=== PATIENT | female | born 1950 | race Caucasian/White ===

== ENCOUNTER 2016-09-12 12:11 | Inpatient (IN) | payer OTHER, BC ==
[~2016-09-12] VITALS: Ht 152.4 cm; Wt 63.6 kg
[~2016-09-12 12:11] MED LIST: ALBU0.5N2 NEB; ALBU1AER9 INH; ANSHCS PR; EPP3/2 IM; LORA-741 PO; NRV/5 PO; PENT100C6 PO; PRT/40 PO; ROSU5TAB PO; SIME80CH PO; TPRSR/25 PO; TRAM-453 PO
[2016-09-12] MEDS ORDERED: SODIUM CHLORIDE 0.9% 1000ML 1,000 ML IV STA (12:25)
[2016-09-12] MEDS ORDERED: SODIUM CHLORIDE 0.9% 1000ML 1,000 ML IV ONE (12:25)
[2016-09-12] MEDS ORDERED: ACETAMINOPHEN 325 MG TAB PO STA (12:25)
[2016-09-12] MEDS ORDERED: IPRATROPIUM BROMIDE NEB SOLN 0.02% 2.5 ML VIAL INH ONE (12:30)
[2016-09-12] MEDS ORDERED: LEVALBUTEROL 1.25MG/0.5ML NEB INH ONE (12:30)
--- NOTE | 2016-09-12 12:32 | EMERGENCY ROOM VISIT NOTE ---
History Report prepared by Sebastian: Marcy Pichardo Under the Supervision of: Dr. Jose Lee M.D. First contact with patient: 12:19 Chief Complaint: COUGH Stated Complaint: COUGH, BLOOD IN SPITTLE,HEADACHE History of Present Illness The patient is a 66 year old female who presents to the Emergency Room with complaints of a persistent productive cough that started one week ago. The patient is also experiencing fevers and chills. They are able to relieve the fever with ibuprofen and her last dose of that was last night. Additionally, she is experiencing a severe headache, shortness of breath, nausea, vomiting, and generalized body aches. She denies ear pain and diarrhea. She has tried to relieve her symptoms with albuterol treatments, Symbicort, and Cheratussin but they have offered her minimal relief. She denies any recent Prednisone use. The patient saw her PCP 2 days ago and they prescribed her the Cheratussin. The patient's states that the patient also experiences right-sided chest pain whenever she coughs. He states that she had cancer three years ago and they removed half of her right lung. The patient's cancer is in remission now. The patient adds that she has a history of a heart murmur. Her states that she had a heart echocardiogram done three months ago that was unremarkable. Source of History: patient, spouse/significant other () Onset: one week ago Position: chest Quality: other (productive cough) Timing: other (persistent) Associated Symptoms: + SOB, + chills, + fevers, + headache, + nausea, + vomiting, No diarrhea Note: generalized body aches, no ear pain Review of Systems See HPI for pertinent positives & negatives. A total of 10 systems reviewed and were otherwise negative. Past Medical & Surgical Medical Problems: (1) Asthma, Unspecified (2) Cataract, right eye (3) Chr Interstit Cystitis (4) Fever (5) HTN (hypertension) (6) Lung cancer (7) Mitral regurgitation (8) Pancreatitis (9) Productive cough Surgical Problems: (1) S/P arthroscopy of left knee (2) S/P arthroscopy of right knee (3) S/P partial lobectomy of lung (4) S/P tonsillectomy and adenoidectomy Old medical records were reviewed. Nurse's notes were reviewed and I agree with. Family History FH: gallbladder disease FH: heart disease FATHER MOTHER FHx: Crohn's disease FHx: aneurysm Hypertension Social History Smoking Status: Never Smoker Alcohol Use: none Drug Use: none Marital Status: Housing Status: lives with family Occupation Status: other Current/Historical Medications Scheduled Albuterol 0.5% Soln (Ventolin 0.5% Soln), 1 VIAL NEB 1-2XD Amlodipine Besylate (Amlodipine Besylate), 5 MG PO DAILY Budesonide/Formoterol Fumarate (Symbicort 160/4.5 Inhaler ), 2 PUFFS INH BID Cetirizine (Zyrtec), 10 MG PO DAILY Epinephrine (Epipen), 0.3 MG IM UD Fluoxetine (Prozac), 20 MG PO QAM Fluoxetine (Prozac), 10 MG PO QPM Guaifenesin (Guaifenesin), 5 ML PO DIRECTED Levothyroxine Sodium (Synthroid), 112 MCG PO QAM Lisinopril (Prinivil), 30 MG PO DAILY Metoprolol Succinate (Metoprolol Succinate ER), 12.5 MG PO BID Ofloxacin (Oph) (Ocuflox Oph Soln), 1 DROPS OPR DIRECTED Pentosan Polysulfate Sodium (Elmiron), 100 MG PO TID Prednisolone Acetate (Ophth) (Prednisolone Acetate), 1 DROP OP DIRECTED Rosuvastatin Calcium (Crestor), 10 MG PO HS Allergies Coded Allergies: Oxycodone (Verified Allergy, Intermediate, HIVES, 09/12/16) Propoxyphene (Verified Allergy, Intermediate, ITCHING AND A RASH, 09/12/16) Replaces DARVOCET-N 10 Cephalosporins (Verified Allergy, Mild, 09/12/16) Methenamine (Verified Allergy, Mild, 09/12/16) Simvastatin (Verified Allergy, Mild, 09/12/16) Sulfa Drugs (Verified Allergy, Mild, 09/12/16) Sulfamethoxazole (Verified Allergy, Mild, 09/12/16) Trimethoprim (Verified Allergy, Mild, 09/12/16) Fish (Verified Allergy, Unknown, HIVES/SWELLING, 09/12/16) INDICATED SHE HAD A REACTION TO CERTAIN SEAFOOD LAST TUESDAY AND TODAY. Hydrocodone (Verified Adverse Reaction, Mild, ITCHING, 09/12/16) Prednisone (Verified Adverse Reaction, Mild, ITCHING, 09/12/16) ITCHING HOWEVER BENEFITS OUT WEIGH THE SIDE EFFECTS Uncoded Allergies: SODIUMBIPHOSPHA (Allergy, Mild, 10/10/09) Physical Exam Vital Signs Date Time Temp Pulse Resp B/P Pulse Ox O2 Delivery O2 Flow Rate FiO2 09/12/16 18:42 84 18 130/78 94 09/12/16 17:40 114/73 09/12/16 17:37 89 27 98 09/12/16 17:28 119/69 09/12/16 17:07 89 33 99 09/12/16 16:58 120/63 09/12/16 16:37 95 24 94 09/12/16 16:32 37.7 107/52 09/12/16 16:11 92 23 91 09/12/16 15:58 105/60 09/12/16 15:41 95 22 92 09/12/16 15:28 107/59 09/12/16 15:11 95 23 93 09/12/16 14:58 109/59 09/12/16 14:41 109 22 94 09/12/16 14:37 39.5 107 23 119/66 93 Nasal Cannula 3.0 09/12/16 14:35 119/66 09/12/16 14:11 113 25 93 09/12/16 13:41 119 29 94 09/12/16 13:29 92 Room Air 09/12/16 13:28 128/70 09/12/16 13:24 120 09/12/16 13:21 119/65 09/12/16 12:48 Room Air 09/12/16 12:41 104 18 92 Room Air 09/12/16 12:12 39.0 110 22 134/74 88 Room Air Physical Exam General: Well developed well nourished moderately ill-appearing older female with an occasional cough but otherwise in no acute distress, breathing comfortably on room air. Normal speech HEENT: Normal cephalic atraumatic. Pupils are equal round and reactive to light. Extraocular movements are intact. Oropharynx is pink with moist mucous membranes. No swelling of the mouth lips or tongue. Neck: Supple with a midline trachea. No meningeal signs or stiffness, no JVD or bruits. No Stridor. No Kernig or Brudzinski sign. Chest: Clear to auscultation bilaterally. No wheezes or rhonchi. No increased work of breathing. Heart: regular rate and rhythm. Abdomen: Soft nontender, nondistended without rebound guarding or rigidity. Extremities: No cyanosis clubbing or edema. No calf tenderness or assymetry Spine/Back. Non tender to palpation. No CVA tenderness Skin: Good turgor without rashes. Neurologic exam: Cranial nerves two through 12 are intact. Motor and sensation are intact and symmetrical throughout. Medical Decision & Procedures ER Provider Diagnostic Interpretation: X-ray results as stated below per interpretation by me and the radiologist: CHEST ONE VIEW PORTABLE IMPRESSION: No acute process. Stable postoperative changes within the right lung and mild bibasilar subsegmental atelectasis. Electronically signed by: Eugene Ivan M.D. 09/12/2016 1:14 PM Dictated Date/Time: 09/12/2016 1:12 PM Laboratory Results 09/12/16 14:00 Red Blood Count 4.00, Mean Corpuscular Volume 86.8, Mean Corpuscular Hemoglobin 29.0, Mean Corpuscular Hemoglobin Concent 33.4, Mean Platelet Volume 9.5, Neutrophils (%) (Auto) 74.8, Lymphocytes (%) (Auto) 13.8, Monocytes (%) (Auto) 11.1, Eosinophils (%) (Auto) 0.0, Basophils (%) (Auto) 0.1, Neutrophils # (Auto ) 7.98, Lymphocytes # (Auto) 1.47, Monocytes # (Auto) 1.18, Eosinophils # (Auto ) 0.00, Basophils # (Auto) 0.01 09/12/16 14:00 Test 09/12/16 12:50 09/12/16 14:00 09/12/16 14:07 09/12/16 16:25 Influenza Type A Antigen Neg for Influ A (NEG) Influenza Type B Antigen Neg for Influ B (NEG) White Blood Count 10.66 K/uL (4.8-10.8) Red Blood Count 4.00 M/uL (4.2-5.4) Hemoglobin 11.6 g/dL (12.0-16.0) Hematocrit 34.7 % (37-47) Mean Corpuscular Volume 86.8 fL (80-100) Mean Corpuscular Hemoglobin 29.0 pg (25-34) Mean Corpuscular Hemoglobin Concent 33.4 g/dl (32-36) Platelet Count 253 K/uL (130-400) Mean Platelet Volume 9.5 fL (7.4-10.4) Neutrophils (%) (Auto) 74.8 % Lymphocytes (%) (Auto) 13.8 % Monocytes (%) (Auto) 11.1 % Eosinophils (%) (Auto) 0.0 % Basophils (%) (Auto) 0.1 % Neutrophils # (Auto) 7.98 K/uL (1.4-6.5) Lymphocytes # (Auto) 1.47 K/uL (1.2-3.4) Monocytes # (Auto) 1.18 K/uL (0.11-0.59) Eosinophils # (Auto) 0.00 K/uL (0-0.5) Basophils # (Auto) 0.01 K/uL (0-0.2) RDW Standard Deviation 42.3 fL (36.4-46.3) RDW Coefficient of Variation 13.2 % (11.5-14.5) Immature Granulocyte % (Auto) 0.2 % Immature Granulocyte # (Auto) 0.02 K/uL (0.00-0.02) Prothrombin Time 12.5 SECONDS (9.0-12.0) Prothromb Time International Ratio 1.2 (0.9-1.1) Activated Partial Thromboplast Time 31.4 SECONDS (21.0-31.0) Partial Thromboplastin Ratio 1.2 Anion Gap 12.0 mmol/L (3-11) Estimated GFR () 100.9 Estimated GFR (Non- 87.0 BUN/Creatinine Ratio 15.0 (10-20) Calcium Level 7.9 mg/dl (8.5-10.1) Total Bilirubin 0.8 mg/dl (0.2-1) Aspartate Amino Transf (AST/SGOT) 16 U/L (15-37) Alanine Aminotransferase (ALT/SGPT) 18 U/L (12-78) Alkaline Phosphatase 85 U/L (45-117) Total Protein 7.2 gm/dl (6.4-8.2) Albumin 3.1 gm/dl (3.4-5.0) Globulin 4.1 gm/dl (2.5-4.0) Albumin/Globulin Ratio 0.8 (0.9-2) Procalcitonin 4.31 ng/mL (0-0.5) Bedside Lactic Acid Venous 1.32 mmol/L (0.90-1.70) Urine Color ORANGE Urine Appearance CLEAR (CLEAR) Urine pH 5.0 (4.5-7.5) Urine Specific [place] 1.010 (1.000-1.030) Urine Protein TRACE (NEG) Urine Glucose (UA) NEG (NEG) Urine Ketones NEG (NEG) Urine Occult Blood TRACE (NEG) Urine Nitrite NEG (NEG) Urine Bilirubin NEG (NEG) Urine Urobilinogen NEG (NEG) Urine Leukocyte Esterase NEG (NEG) Urine WBC (Auto) 1-5 /hpf (0-5) Urine RBC (Auto) 0-4 /hpf (0-4) Urine Hyaline Casts (Auto) 1-5 /lpf (0-5) Urine Epithelial Cells (Auto) 20-30 /lpf (0-5) Urine Bacteria (Auto) NEG (NEG) Laboratory studies as stated above per my review. Medications Administered Medications (Trade) Dose Ordered Sig/Héctor Route Start Time Stop Time Status Last Admin Dose Admin Sodium Chloride (Nss 1000ml) 1,000 ml @ 999 mls/hr Q1H1M STAT IV 09/12/16 12:25 09/12/16 13:25 DC 09/12/16 13:05 999 MLS/HR Levalbuterol (Xopenex 1.25MG/ 0.5ML Neb) 5 mg ONE ONCE INH 09/12/16 12:30 09/12/16 12:31 DC 09/12/16 12:41 5 MG Ipratropium [place] (Atrovent 0.02% 0.5MG/2.5ML Neb) 2 mg ONE ONCE INH 09/12/16 12:30 09/12/16 12:31 DC 09/12/16 12:41 2 MG Acetaminophen (Tylenol Tab) 650 mg NOW STAT PO 09/12/16 12:25 09/12/16 12:30 DC 09/12/16 13:44 650 MG Levofloxacin (Levaquin / D5W) 750 mg NOW STAT IV 09/12/16 15:01 09/12/16 15:04 DC 09/12/16 16:13 750 MG Potassium Chloride (Klor-Con Tab) 40 meq 1630 PO 09/12/16 16:30 1/8/17 23:59 09/12/16 17:22 40 MEQ Tramadol HCl (Ultram Tab) 50 mg STK-MED ONCE .ROUTE 09/12/16 18:25 09/12/16 18:26 DC 09/12/16 18:30 50 MG ECG Indication: SOB/dyspnea Rate (beats per minute): 105 Rhythm: sinus tachycardia Findings: nonspecific-ST abn, no acute ischemic change, no ectopy Comparison ECG Date: 03/24/2016 Change: no significant change ED Course 1219: Past medical records reviewed. The patient was evaluated in room B2, and a complete history and physical examination were performed. 1225: Ordered Tylenol Tab 650 mg PO, Sodium Chloride 1000 ml @ 200 mls/hr IV, Sodium Chloride 1000 ml @ 999 mls/hr IV 1230: Ordered Ipratropium [place] 2 mg INH, Levalbuterol 5 mg INH 1245: I reassessed the patient. She is currently receiving a nebulizer treatment. 1339: I reassessed the patient. She just finished her breathing treatment and she states that she is not feeling any better. 1458: Upon reevaluation, the patient is resting comfortably. I discussed the results and treatment plan with the patient. She verbalized agreement of the treatment plan. The patient will be evaluated for further management. 1501: Ordered Levofloxacin 750 mg IV 1617: I discussed the patient's case with Dr. Ivan Ferrer. She is going to evaluate the patient for further management. Medical Decision Differentials include, but are not limited to; pneumonia, influenza, sepsis, asthma exacerbation, acute coronary syndrome, meningitis, electrolyte or metabolic abnormality. This patient comes in as described above. She was placed in room B2. She's been sick for about a week. She's had a cough fever and body aches as well as a headache. She has flulike symptoms. She saw her doctor Lit was given cough medicine. She has a temperature of 39 today. She has a history of asthma. She's not hypoxemic. She's also had some concerns for hydration. IV access was established and she was hydrated with 1 L IV normal saline bolus and 200 mL an hour IV normal saline. Multiple blood testing was obtained she was given acetaminophen 650 mg by mouth. She was given Xopenex and Atrovent nebs over one hour. Chest x-ray and EKG were also obtained. She was reassessed frequently. Influenza swab was obtained. Influenza swab was negative. Her white count and lactic acid or not significantly elevated. She has no significant electrode or metabolic abnormalities. Chest x-ray does not show congestive heart failure, pneumonia, or pneumothorax. She does not feel much better although vital signs look better idea her Levaquin 750 mg IV. Think she needs to be admitted for asthma exacerbation and rule out sepsis although influenza swab was negative, she could still have the flu. Given her comorbidities, I do think she needs IV hydration and further treatment and evaluation in the hospital. I have consulted [facility] team and they saw an ER Consults Time Called: 1501 Consulting Physician: Dr. Ivan Ferrer Returned Call: [phone] I discussed the patient's case with Dr. Ivan Ferrer. She is going to evaluate the patient for further management. Impression Primary Impression: Sepsis Additional Impressions: Asthma exacerbation, Influenza-like illness Scribe Attestation The scribe's documentation has been prepared under my direction and personally reviewed by me in its entirety. I confirm that the note above accurately reflects all work, treatment, procedures, and medical decision making performed by me. Departure Information Dispostion Being Evaluated By Hospitalist Patient Instructions A Signature Page, [facility]
[2016-09-12] MEDS ORDERED: RBTUDL10 PO (12:35)
[2016-09-12] MEDS ORDERED: PRED1SUS17 OP (12:35)
[2016-09-12] MEDS ORDERED: OFLO0.3S4 OPR (12:35)
[2016-09-12 12:41] VITALS: PULSE 104; O2SAT 92
--- NOTE | 2016-09-12 13:16 | DIAGNOSTIC IMAGING REPORT ---
CHEST ONE VIEW PORTABLE HISTORY: Sepsis COMPARISON: Chest 04/01/2016. FINDINGS: Stable volume loss and postoperative changes within the right lung. The heart remains borderline enlarged. No pleural effusions. No pneumothorax. No new focal lung consolidations to suggest pneumonia. No evidence for pulmonary edema. A few bibasilar linear densities favor subsegmental atelectasis. IMPRESSION: No acute process. Stable postoperative changes within the right lung and mild bibasilar subsegmental atelectasis. Electronically signed by: Eugene Ivan M.D. 09/12/2016 1:14 PM Dictated Date/Time: 09/12/2016 1:12 PM
[2016-09-12 14:34] LABS: BASO % 0.1 %; BASO ABS # 0.01 K/uL (0-0.2); COMPLETE YES; HEMATOCRIT 34.7 % (37-47); IG% 0.2 %; LYMPH % 13.8 %; LYMPH ABS # 1.47 K/uL (1.2-3.4); MEAN CELL VOLUME 86.8 fL (80-100); MEAN CORPUSCULAR HGB CONC 33.4 g/dl (32-36); MEAN PLATELET VOLUME 9.5 fL (7.4-10.4); MONO % 11.1 %; NEUT % 74.8 %; PLATELET COUNT 253 K/uL (130-400); WHITE BLOOD COUNT 10.66 K/uL (4.8-10.8)
[2016-09-12 14:41] LABS: ALT/SGPT 18 U/L (12-78); AST/SGOT 16 U/L (15-37); BLOOD UREA NITROGEN 11 mg/dl (7-18); CALCIUM 7.9 mg/dl (8.5-10.1); CARBON DIOXIDE 25 mmol/L (21-32); CHLORIDE 100 mmol/L (98-107); CREATININE 0.73 mg/dl (0.60-1.20); GLUCOSE 123 mg/dl (70-99); SODIUM 137 mmol/L (136-145)
[2016-09-12 14:42] LABS: INR 1.2 (0.9-1.1); PARTIAL THROMBOPLASTIN RATIO 1.2; PROTHROMBIN TIME (PATIENT) 12.5 SECONDS (9.0-12.0)
[2016-09-12 14:44] LABS: ALB/GLOB RATIO 0.8 (0.9-2); ALKALINE PHOSPHATASE 85 U/L (45-117)
[2016-09-12] MEDS ORDERED: LEVAQUIN 750MG / 150ML D5W IV STA (15:01)
[2016-09-12] MEDS ORDERED: POTASSIUM CHLORIDE 20 MEQ TABCR PO SCH (16:30)
[2016-09-12] MEDS ORDERED: ONDANSETRON INJ 2 MG/ML 2 ML VIAL IV PRN (16:45)
[2016-09-12 17:07] LABS: URINE APPEARANCE CLEAR (CLEAR); URINE BILIRUBIN NEG (NEG); URINE COLOR ORANGE; URINE EPITHELIAL CELL AUTO 20-30 /lpf (0-5); URINE NITRITE NEG (NEG); UROBILINOGEN NEG (NEG); ZZUR CULT IF INDIC CLEAN CATCH NO
[2016-09-12 17:10] LABS: MANUAL MICROSCOPIC REQUIRED? NO; REVIEW REQ? NO
[2016-09-12] MEDS ORDERED: POTASSIUM CHLORIDE 10 MEQ TABCR ONE (17:17)
--- NOTE | 2016-09-12 18:16 | History and Physical ---
History & Physical Date & Time of Service: Sep 12, 2016 at 17:37 Chief Complaint: Fever associated with cough Primary Care Physician: No Doctor, Assigned History of Present Illness Source: patient, spouse, clinic records, hospital records 66 yo with PMH of hypothyroidism, dyslipidemia, moderate persistent Asthma, carcinoid lung tumor was brought to the ED for yellowish productive cough associated with fever and chills. Pt said symptoms started about 1 week ago. She said that she has been coughing alot. She said that she went to see her physician on Tuesday that prescribed her a cheratussin for the cough. She said that she has been taking the cough med and doing albuterol treatment with no help. Pt said that the cough got worst and whenever she cough there is a trace of blood on the sputum. Pt said that she is also having chest wall tenderness around the right side that radiates to her back when she coughs. she has been having chills and fever. She said that she took ibuprofen that relieved the fever. She has not been eating much. Additionally, she is also having headache, shortness of breath, nausea, dry heave and generalized body aches. Denies any diarrhea, palpitation and abdominal pain. Denies any recent travel or sick contact. Past Medical/Surgical History Medical Problems: (1) Asthma, Unspecified Status: Chronic (2) Cataract, right eye Status: Resolved (3) Chr Interstit Cystitis Status: Chronic (4) HTN (hypertension) Status: Chronic (5) Lung cancer Status: Chronic (6) Mitral regurgitation Status: Chronic (7) Pancreatitis Status: Resolved Surgical Problems: (1) S/P arthroscopy of left knee Status: Resolved (2) S/P arthroscopy of right knee Status: Resolved (3) S/P partial lobectomy of lung Status: Resolved (4) S/P tonsillectomy and adenoidectomy Status: Resolved Family History FH: gallbladder disease FH: heart disease FATHER MOTHER FHx: Crohn's disease FHx: aneurysm Hypertension Social History Smoking Status: Former Smoker Drug Use: none Marital Status: Housing status: lives with family Occupational Status: other Multi-Drug Resistant Organisms History of MDRO: No Allergies Coded Allergies: Oxycodone (Verified Allergy, Intermediate, HIVES, 09/12/16) Propoxyphene (Verified Allergy, Intermediate, ITCHING AND A RASH, 09/12/16) Replaces DARVOCET-N 10 Cephalosporins (Verified Allergy, Mild, 09/12/16) Methenamine (Verified Allergy, Mild, 09/12/16) Simvastatin (Verified Allergy, Mild, 09/12/16) Sulfa Drugs (Verified Allergy, Mild, 09/12/16) Sulfamethoxazole (Verified Allergy, Mild, 09/12/16) Trimethoprim (Verified Allergy, Mild, 09/12/16) Fish (Verified Allergy, Unknown, HIVES/SWELLING, 09/12/16) INDICATED SHE HAD A REACTION TO CERTAIN SEAFOOD LAST TUESDAY AND TODAY. Hydrocodone (Verified Adverse Reaction, Mild, ITCHING, 09/12/16) Prednisone (Verified Adverse Reaction, Mild, ITCHING, 09/12/16) ITCHING HOWEVER BENEFITS OUT WEIGH THE SIDE EFFECTS Uncoded Allergies: SODIUMBIPHOSPHA (Allergy, Mild, 10/10/09) Home Medications Scheduled Albuterol 0.5% Soln (Ventolin 0.5% Soln), 1 VIAL NEB 1-2XD Amlodipine Besylate (Amlodipine Besylate), 5 MG PO DAILY Budesonide/Formoterol Fumarate (Symbicort 160/4.5 Inhaler ), 2 PUFFS INH BID Cetirizine (Zyrtec), 10 MG PO DAILY Epinephrine (Epipen), 0.3 MG IM UD Fluoxetine (Prozac), 20 MG PO QAM Fluoxetine (Prozac), 10 MG PO QPM Guaifenesin (Guaifenesin), 5 ML PO DIRECTED Levothyroxine Sodium (Synthroid), 112 MCG PO QAM Lisinopril (Prinivil), 30 MG PO DAILY Metoprolol Succinate (Metoprolol Succinate ER), 12.5 MG PO BID Ofloxacin (Oph) (Ocuflox Oph Soln), 1 DROPS OPR DIRECTED Pentosan Polysulfate Sodium (Elmiron), 100 MG PO TID Prednisolone Acetate (Ophth) (Prednisolone Acetate), 1 DROP OP DIRECTED Rosuvastatin Calcium (Crestor), 10 MG PO HS Review of Systems Constitutional: + chills, + fatigue, + fever, + sweats, + weakness Eyes: No discharge, No redness, No worsening of vision ENT: No hearing loss, No tinnitus, No unusual epistaxis Respiratory: + cough, + shortness of breath, + sputum Cardiovascular: + chest pain, No claudication Abdomen: + constipation, + diarrhea, + nausea, No pain, No vomiting Musculoskeletal: + joint pain, + muscle pain, No calf pain Genitourinary - Female: + dysuria, No hematuria Neurologic: No memory loss, No paralysis Psychiatric: No anhedonism, No substance abuse Endocrine: + fatigue, No excessive thirst Hematologic / Lymphatic: No clotting problems Integumentary: No itch, No rash Physical Exam Vital Signs Date Time Temp Pulse Resp B/P Pulse Ox O2 Delivery O2 Flow Rate FiO2 09/12/16 16:32 37.7 107/52 09/12/16 16:11 92 23 91 09/12/16 15:58 105/60 09/12/16 15:41 95 22 92 09/12/16 15:28 107/59 09/12/16 15:11 95 23 93 09/12/16 14:58 109/59 09/12/16 14:41 109 22 94 09/12/16 14:37 39.5 107 23 119/66 93 Nasal Cannula 3.0 09/12/16 14:35 119/66 09/12/16 14:11 113 25 93 09/12/16 13:41 119 29 94 09/12/16 13:29 92 Room Air 09/12/16 13:28 128/70 09/12/16 13:24 120 09/12/16 13:21 119/65 09/12/16 12:48 Room Air 09/12/16 12:41 104 18 92 Room Air 09/12/16 12:12 39.0 110 22 134/74 88 Room Air General Appearance: + mild distress Head: normocephalic, atraumatic Eyes: normal inspection, PERRL ENT: hearing grossly normal Neck: supple, no JVD Respiratory/Chest: + pertinent finding (chest wall tenderness) Cardiovascular: no edema, no JVD, + systolic murmur Abdomen/GI: normal bowel sounds, non tender, soft Back: normal inspection, no CVA tenderness Extremities/Musculoskelatal: no calf tenderness Neurologic/Psych: no motor/sensory deficits, alert Skin: normal color, warm/dry Diagnostics Laboratory Results Results Past 24 Hours Test 09/12/16 12:50 09/12/16 14:00 09/12/16 14:07 09/12/16 16:25 Range/Units Influenza Type A Antigen Neg for Influ A NEG Influenza Type B Antigen Neg for Influ B NEG White Blood Count 10.66 4.8-10.8 K/uL Red Blood Count 4.00 4.2-5.4 M/uL Hemoglobin 11.6 12.0-16.0 g/dL Hematocrit 34.7 37-47 % Mean Corpuscular Volume 86.8 80-100 fL Mean Corpuscular Hemoglobin 29.0 25-34 pg Mean Corpuscular Hemoglobin Concent 33.4 32-36 g/dl Platelet Count 253 130-400 K/uL Mean Platelet Volume 9.5 7.4-10.4 fL Neutrophils (%) (Auto) 74.8 % Lymphocytes (%) (Auto) 13.8 % Monocytes (%) (Auto) 11.1 % Eosinophils (%) (Auto) 0.0 % Basophils (%) (Auto) 0.1 % Neutrophils # (Auto) 7.98 1.4-6.5 K/uL Lymphocytes # (Auto) 1.47 1.2-3.4 K/uL Monocytes # (Auto) 1.18 0.11-0.59 K/uL Eosinophils # (Auto) 0.00 0-0.5 K/uL Basophils # (Auto) 0.01 0-0.2 K/uL RDW Standard Deviation 42.3 36.4-46.3 fL RDW Coefficient of Variation 13.2 11.5-14.5 % Immature Granulocyte % (Auto) 0.2 % Immature Granulocyte # (Auto) 0.02 0.00-0.02 K/uL Prothrombin Time 12.5 9.0-12.0 SECONDS Prothromb Time International Ratio 1.2 0.9-1.1 Activated Partial Thromboplast Time 31.4 21.0-31.0 SECONDS Partial Thromboplastin Ratio 1.2 Sodium Level 137 136-145 mmol/L Potassium Level 3.0 3.5-5.1 mmol/L Chloride Level 100 98-107 mmol/L Carbon Dioxide Level 25 21-32 mmol/L Anion Gap 12.0 3-11 mmol/L Blood Urea Nitrogen 11 7-18 mg/dl Creatinine 0.73 0.60-1.20 mg/dl Estimated GFR () 100.9 Estimated GFR (Non- 87.0 BUN/Creatinine Ratio 15.0 10-20 Random Glucose 123 70-99 mg/dl Calcium Level 7.9 8.5-10.1 mg/dl Total Bilirubin 0.8 0.2-1 mg/dl Aspartate Amino Transf (AST/SGOT) 16 15-37 U/L Alanine Aminotransferase (ALT/SGPT) 18 12-78 U/L Alkaline Phosphatase 85 45-117 U/L Total Protein 7.2 6.4-8.2 gm/dl Albumin 3.1 3.4-5.0 gm/dl Globulin 4.1 2.5-4.0 gm/dl Albumin/Globulin Ratio 0.8 0.9-2 Procalcitonin 4.31 0-0.5 ng/mL Bedside Lactic Acid Venous 1.32 0.90-1.70 mmol/L Urine Color ORANGE Urine Appearance CLEAR CLEAR Urine pH 5.0 4.5-7.5 Urine Specific [place] 1.010 1.000-1.030 Urine Protein TRACE NEG Urine Glucose (UA) NEG NEG Urine Ketones NEG NEG Urine Occult Blood TRACE NEG Urine Nitrite NEG NEG Urine Bilirubin NEG NEG Urine Urobilinogen NEG NEG Urine Leukocyte Esterase NEG NEG Urine WBC (Auto) 1-5 0-5 /hpf Urine RBC (Auto) 0-4 0-4 /hpf Urine Hyaline Casts (Auto) 1-5 0-5 /lpf Urine Epithelial Cells (Auto) 20-30 0-5 /lpf Urine Bacteria (Auto) NEG NEG Microbiology Results 09/12/16 Blood Culture, Received Pending 09/12/16 Blood Culture, Received Pending Diagnostic Radiology CHEST ONE VIEW PORTABLE HISTORY: Sepsis COMPARISON: Chest 04/01/2016. FINDINGS: Stable volume loss and postoperative changes within the right lung. The heart remains borderline enlarged. No pleural effusions. No pneumothorax. No new focal lung consolidations to suggest pneumonia. No evidence for pulmonary edema. A few bibasilar linear densities favor subsegmental atelectasis. IMPRESSION: No acute process. Stable postoperative changes within the right lung and mild bibasilar subsegmental atelectasis. Electronically signed by: Eugene Ivan M.D. 09/12/2016 1:14 PM Impression Assessment and Plan Fever associated with productive cough Possible related to acute bronchitis vs FLU CXR . No new focal lung consolidations to suggest pneumonia. No evidence for pulmonary edema. A few bibasilar linear densities favor subsegmental atelectasis. rapid flu was negative, no leukocytosis will get Flu PCR will check blood cx, UA and Ucx Received levaquin in the ER will get procalcitonin level will continue levaquin for now until blood cx result will start her on IVF monitor cbc and vital signs Right sided chest pain Pain only occurs with coughing Mostly related to costochondritis due to coughing Will add guaifenesin cough med and pain med Moderate Persistent Asthma No wheezing noted on exam continue advair respiratory treatment Hypokalemia K replaced will monitor potassium HTN Continue lisinopril monitor BP Hypothyroidism Continue levothyroxine Depression/Anxiety continue prozac Nausea will add zofran prn GI px PPI Carcinoid Lung tumor stable DVT px on Lovenox subq Code Status full code Level of Care Med/Surg Resuscitation Status FULL RESUSCITATION VTE Prophylaxis VTE Risk Assessment Done? Y/N: Yes Risk Level: Moderate Given or contraindicated: Enoxaparin (Lovenox)SQ
[2016-09-12] MEDS ORDERED: TRAMADOL HCL 50 MG TAB ONE (18:25)
[2016-09-12] MEDS ORDERED: TRAMADOL HCL 50 MG TAB PO PRN (18:30)
[2016-09-12] MEDS ORDERED: ALBUT/IPRATROP 3MG/0.5MG NEB 3 ML VIAL INH PRN (19:15)
[2016-09-12 19:26] VITALS: BP 122/76; PULSE 99; TEMP 37.3; O2SAT 94
[2016-09-12] MEDS: PENTOSAN POLYSULFATE SODIUM 100 MG CAP PO SCH (20:00)
[2016-09-12] MEDS: FLUOXETINE HCL 10 MG CAP PO SCH (21:00)
[2016-09-12] MEDS: ROSUVASTATIN CALCIUM 10 MG TAB PO SCH (21:00)
[2016-09-12] MEDS: SODIUM CHLORIDE 0.9% 1000ML 1,000 ML IV SCH (21:07)
[2016-09-12] MEDS: METOPROLOL SUCC 25MG EXT REL TAB PO SCH (21:15)
[2016-09-12] MEDS: BUDESONIDE/FORMOTEROL FUMARATE 160/4.5 60 PUFFS/INHALER INH SCH (21:17)
[2016-09-12 21:24] VITALS: PULSE 97; O2SAT 93
[2016-09-12] MEDS: ALBUT/IPRATROP 3MG/0.5MG NEB 3 ML VIAL INH SCH (21:24)
[2016-09-12] MEDS: GUAIFENESIN 200 MG TAB PO SCH (22:02)
[2016-09-12 23:57] VITALS: BP 103/58; PULSE 89; TEMP 37.7; O2SAT 92
[2016-09-13] VITALS (11 sets, daily range): BP systolic 103–136; BP diastolic 58–75; PULSE 73–101; TEMP 36.7–37.3; O2SAT 92–95; Ht 152.4 cm; Wt 63.6 kg
[2016-09-13 00:58] LABS: INFLUENZA A PCR Neg for Influ A (NEG); INFLUENZA B PCR Neg for Influ B (NEG)
[2016-09-13] MEDS: ALBUT/IPRATROP 3MG/0.5MG NEB 3 ML VIAL INH SCH ×5 (03:36→18:49)
[2016-09-13] MEDS: GUAIFENESIN 200 MG TAB PO SCH ×4 (05:56→23:39)
[2016-09-13] MEDS: SODIUM CHLORIDE 0.9% 1000ML 1,000 ML IV SCH ×2 (05:56→13:52)
[2016-09-13] MEDS: LEVOTHYROXINE 112 MCG TAB PO SCH (05:57)
[2016-09-13 06:17] LABS: HEMATOCRIT 30.3 % (37-47); MEAN CELL VOLUME 86.6 fL (80-100); MEAN CORPUSCULAR HEMOGLOBIN 29.1 pg (25-34); MEAN CORPUSCULAR HGB CONC 33.7 g/dl (32-36); MEAN PLATELET VOLUME 9.2 fL (7.4-10.4); PLATELET COUNT 235 K/uL (130-400)
[2016-09-13 06:37] LABS: BASO % 0.1 %; BASO ABS # 0.01 K/uL (0-0.2); COMPLETE YES; EOS % 0.1 %; IG% 0.2 %; LYMPH % 15.2 %; LYMPH ABS # 1.52 K/uL (1.2-3.4); MONO % 8.6 %; NEUT % 75.8 %
[2016-09-13 06:52] LABS: BUN/CREATININE RATIO 15.1 (10-20); CALCIUM 7.9 mg/dl (8.5-10.1); CREATININE 0.57 mg/dl (0.60-1.20); POTASSIUM 3.8 mmol/L (3.5-5.1)
[2016-09-13] MEDS: BUDESONIDE/FORMOTEROL FUMARATE 160/4.5 60 PUFFS/INHALER INH SCH ×2 (08:38→21:00)
[2016-09-13] MEDS: PENTOSAN POLYSULFATE SODIUM 100 MG CAP PO SCH ×3 (08:38→21:03)
[2016-09-13] MEDS: AMLODIPINE BESYLATE 5 MG TAB PO SCH (08:39)
[2016-09-13] MEDS: FLUOXETINE HCL 20 MG CAP PO SCH (08:39)
[2016-09-13] MEDS: PANTOprazole SOD 40 MG TAB PO SCH (08:39)
[2016-09-13] MEDS: METOPROLOL SUCC 25MG EXT REL TAB PO SCH ×2 (08:39→21:04)
[2016-09-13] MEDS: CETIRIZINE HCL 10 MG TAB PO SCH (08:40)
[2016-09-13] MEDS: ENOXAPARIN 40 MG/0.4 ML SYR SQ SCH (08:40)
[2016-09-13] MEDS: LISINOPRIL 10 MG TAB PO SCH (08:40)
[2016-09-13] MEDS: METHYLPREDNISOLONE IV 40 MG in SYRINGE 0 ML IV SCH ×2 (13:52→20:59)
[2016-09-13] MEDS ORDERED: LEVOFLOXACIN / D5W 750 MG in PREMIXED IN D5W 150 ML IV SCH (16:00)
--- NOTE | 2016-09-13 20:45 | Progress Note ---
Medicine Progress Note Date & Time of Visit: Sep 13, 2016 at 20:31. Subjective Pt was seen and examined Lying in bed comfortable with no distress Pt said that she feels a little better last fever was last night she said that she is coughing less and her breathing improved denies any chest pain, palpitation, dizziness Objective Last 8 Hrs Date Time Temp Pulse Resp B/P Pulse Ox O2 Delivery O2 Flow Rate FiO2 09/13/16 18:50 75 18 93 Room Air 09/13/16 15:29 88 20 94 Room Air 09/13/16 14:58 37.3 85 16 126/75 93 Room Air Physical Exam: General- very pleasant, no acute distress Head- atraumatic Eyes- PERRL, EOMI ENT- oropharynx clear Neck- supple, no JVD Lungs- +wheezing Heart- regular rhythm; systolic murmur Abdomen- normal bowel sounds, soft Extremities- no calf tenderness Neuro- alert, oriented x 3; PERRL, EOMI Skin- warm & dry Laboratory Results: Last 24 Hours Test 09/12/16 21:30 09/13/16 05:35 Influenza Type A (RT-PCR) Neg for Influ A Influenza Type B (RT-PCR) Neg for Influ B White Blood Count 10.00 K/uL Red Blood Count 3.50 M/uL Hemoglobin 10.2 g/dL Hematocrit 30.3 % Mean Corpuscular Volume 86.6 fL Mean Corpuscular Hemoglobin 29.1 pg Mean Corpuscular Hemoglobin Concent 33.7 g/dl Platelet Count 235 K/uL Mean Platelet Volume 9.2 fL Neutrophils (%) (Auto) 75.8 % Lymphocytes (%) (Auto) 15.2 % Monocytes (%) (Auto) 8.6 % Eosinophils (%) (Auto) 0.1 % Basophils (%) (Auto) 0.1 % Neutrophils # (Auto) 7.58 K/uL Lymphocytes # (Auto) 1.52 K/uL Monocytes # (Auto) 0.86 K/uL Eosinophils # (Auto) 0.01 K/uL Basophils # (Auto) 0.01 K/uL RDW Standard Deviation 42.5 fL RDW Coefficient of Variation 13.3 % Immature Granulocyte % (Auto) 0.2 % Immature Granulocyte # (Auto) 0.02 K/uL Sodium Level 142 mmol/L Potassium Level 3.8 mmol/L Chloride Level 108 mmol/L Carbon Dioxide Level 24 mmol/L Anion Gap 10.0 mmol/L Blood Urea Nitrogen 9 mg/dl Creatinine 0.57 mg/dl Est Creatinine Clear Calc Drug Dose 83.0 ml/min Estimated GFR () 113.5 Estimated GFR (Non- 98.0 BUN/Creatinine Ratio 15.1 Random Glucose 99 mg/dl Calcium Level 7.9 mg/dl Date/Time Source Procedure Growth Status 09/12/16 21:30 Sputum Expectorated Sputum Gram Stain - Final Resulted 09/12/16 21:30 Sputum Expectorated Sputum Sputum Culture - Preliminary LIGHT NORMAL TAJ Present, Final Rep... Resulted Assessment & Plan Fever associated with productive cough Possible related to acute bronchitis vs FLU CXR . No new focal lung consolidations to suggest pneumonia. No evidence for pulmonary edema. A few bibasilar linear densities favor subsegmental atelectasis. rapid flu was negative, Flu PCR negative no leukocytosis, UA negative blood cx, sputum cx pending Received levaquin in the ER Elevated procalcitonin level that correlates mostly with bacteria infection Continue levaquin for now cx result will decrease IVF monitor cbc and vital signs Right sided chest pain Pain only occurs with coughing Mostly related to costochondritis due to coughing On guaifenesin for cough med and pain med improved Moderate Persistent Asthma was trying not to add the steroid due to infection, but wheezing present today on exam Starting prednisone today that might cause WBC to be elevated continue advair respiratory treatment Hypokalemia K replaced will monitor potassium stable HTN Continue lisinopril monitor BP Stable Hypothyroidism Continue levothyroxine Depression/Anxiety continue prozac Nausea will add zofran prn tolerated diet Stable GI px PPI Carcinoid Lung tumor stable DVT px on Lovenox subq Code Status full code Current Inpatient Medications: Current Inpatient Medications Medications (Trade) Dose Ordered Sig/Héctor Route Start Time Stop Time Status Last Admin Dose Admin Ondansetron HCl 4 mg 4 mg Q6H PRN IV 09/12/16 16:45 10/12/16 16:44 Sodium Chloride (Nss 1000ml) 1,000 ml @ 100 mls/hr Q10H IV 09/12/16 17:45 10/12/16 17:44 09/13/16 13:52 100 MLS/HR Amlodipine Besylate (Norvasc Tab) 5 mg DAILY PO 09/13/16 08:00 10/13/16 08:59 09/13/16 08:39 5 MG Budesonide/ Formoterol Fumarate (Symbicort 160/ 4.5 Inh) 2 puffs BID INH 09/12/16 20:00 10/12/16 20:59 09/13/16 08:38 2 PUFFS Cetirizine HCl (zyrTEC TAB) 10 mg DAILY PO 09/13/16 08:00 10/13/16 08:59 09/13/16 08:40 10 MG Fluoxetine HCl (Prozac Cap) 10 mg QPM PO 09/12/16 21:00 10/12/16 20:59 Fluoxetine HCl (Prozac Cap) 20 mg QAM PO 09/13/16 08:00 10/13/16 08:59 09/13/16 08:39 20 MG Levothyroxine Sodium (Synthroid Tab) 112 mcg DAILYBB PO 09/13/16 06:30 10/13/16 06:59 09/13/16 05:57 112 MCG Lisinopril (Zestril Tab) 30 mg DAILY PO 09/13/16 08:00 10/13/16 08:59 09/13/16 08:40 30 MG Metoprolol Succinate (Toprol Xl Tab) 12.5 mg BID PO 09/12/16 20:00 10/12/16 20:59 09/13/16 08:39 12.5 MG Rosuvastatin Calcium (Crestor Tab) 10 mg HS PO 09/12/16 21:00 10/12/16 20:59 Pentosan Polysulfate Sodium (Elmiron) 100 mg TID PO 09/12/16 20:00 10/12/16 20:59 09/13/16 13:52 100 MG Enoxaparin Sodium (Lovenox Inj) 40 mg QAM SQ 09/13/16 08:00 10/13/16 08:59 09/13/16 08:40 40 MG Albuterol/ Ipratropium (Duoneb) 3 ml QIDR INH 09/12/16 20:00 10/12/16 19:59 09/13/16 18:49 3 ML Pantoprazole Sodium (Protonix Tab) 40 mg QAM PO 09/13/16 08:00 10/13/16 08:59 09/13/16 08:39 40 MG Guaifenesin (Organidin Nr Tab) 200 mg Q6 PO 09/13/16 00:00 10/13/16 00:00 09/13/16 17:26 200 MG Tramadol HCl 50 mg 50 mg Q8H PRN PO 09/12/16 18:30 10/12/16 18:29 Levofloxacin/Prmx (Levaquin / D5W/ Premixed D5W) 150 ml @ 100 mls/hr Q24H IV 09/13/16 16:00 09/19/16 15:59 09/13/16 17:26 100 MLS/HR Albuterol/ Ipratropium 3 ml 3 ml Q2H PRN INH 09/12/16 19:15 10/12/16 19:14 Methylprednisolone Sodium Succinate/ Syringe (Solu-Medrol IV/ Syringe) 0.64 ml @ 1.5 mls/min Q8 IV 09/13/16 14:00 10/13/16 13:59 09/13/16 13:52 1.5 MLS/MIN
[2016-09-13] MEDS: ROSUVASTATIN CALCIUM 10 MG TAB PO SCH (21:03)
[2016-09-13] MEDS: FLUOXETINE HCL 10 MG CAP PO SCH (21:04)
[2016-09-14] VITALS (8 sets, daily range): BP systolic 119–155; BP diastolic 65–78; PULSE 73–91; TEMP 36.7–36.9; O2SAT 93–96
[2016-09-14] MEDS: SODIUM CHLORIDE 0.9% 1000ML 1,000 ML IV SCH ×2 (02:23→15:44)
[2016-09-14] MEDS: METHYLPREDNISOLONE IV 40 MG in SYRINGE 0 ML IV SCH ×2 (06:04→14:20)
[2016-09-14] MEDS: LEVOTHYROXINE 112 MCG TAB PO SCH (06:04)
[2016-09-14] MEDS: GUAIFENESIN 200 MG TAB PO SCH ×2 (06:04→12:38)
[2016-09-14 06:22] LABS: BASO % 0.2 %; BASO ABS # 0.01 K/uL (0-0.2); COMPLETE YES; HEMATOCRIT 30.4 % (37-47); IG% 0.3 %; LYMPH % 13.5 %; LYMPH ABS # 0.89 K/uL (1.2-3.4); MEAN CELL VOLUME 86.9 fL (80-100); MEAN CORPUSCULAR HEMOGLOBIN 28.6 pg (25-34); MEAN CORPUSCULAR HGB CONC 32.9 g/dl (32-36); MEAN PLATELET VOLUME 9.7 fL (7.4-10.4); MONO % 2.3 %; NEUT % 83.7 %; PLATELET COUNT 252 K/uL (130-400)
[2016-09-14 07:01] LABS: BUN/CREATININE RATIO 15.7 (10-20); CALCIUM 8.3 mg/dl (8.5-10.1); CREATININE 0.51 mg/dl (0.60-1.20); MAGNESIUM 2.1 mg/dl (1.8-2.4); POTASSIUM 3.8 mmol/L (3.5-5.1)
[2016-09-14] MEDS: ALBUT/IPRATROP 3MG/0.5MG NEB 3 ML VIAL INH SCH ×4 (07:04→20:55)
[2016-09-14] MEDS: ENOXAPARIN 40 MG/0.4 ML SYR SQ SCH (08:35)
[2016-09-14] MEDS: CETIRIZINE HCL 10 MG TAB PO SCH (08:35)
[2016-09-14] MEDS: PANTOprazole SOD 40 MG TAB PO SCH (08:35)
[2016-09-14] MEDS: AMLODIPINE BESYLATE 5 MG TAB PO SCH (08:37)
[2016-09-14] MEDS: PENTOSAN POLYSULFATE SODIUM 100 MG CAP PO SCH ×3 (08:37→19:40)
[2016-09-14] MEDS: METOPROLOL SUCC 25MG EXT REL TAB PO SCH ×2 (08:37→19:41)
[2016-09-14] MEDS: LISINOPRIL 10 MG TAB PO SCH (08:37)
[2016-09-14] MEDS: BUDESONIDE/FORMOTEROL FUMARATE 160/4.5 60 PUFFS/INHALER INH SCH ×2 (08:38→19:42)
[2016-09-14] MEDS: FLUOXETINE HCL 20 MG CAP PO SCH (09:24)
[2016-09-14] MEDS ORDERED: GUAIFENESIN/CODEINE 200MG/20MG 10ML UDC PO PRN (14:45)
--- NOTE | 2016-09-14 14:47 | Progress Note ---
Medicine Progress Note Date & Time of Visit: Sep 14, 2016 at 14:41. Subjective Admitted 09/12-improved since that time Specifically breathing and ability to speak has improved, she has defervesced and denies chills, and she is now eating some food and tolerating it today. She feels that the IVF and the DuoNeb treatments are making her better. She still reports some coughing and frontotemporal headache from the coughing Wheezing has improved One bout of diarrhea and two the day before after starting the Levaquin Persistent lightheadedness is present with transitioning positions/orthostasis. +nasal and ear congestion Objective Last 8 Hrs Date Time Temp Pulse Resp B/P Pulse Ox O2 Delivery O2 Flow Rate FiO2 09/14/16 14:35 83 18 95 Room Air 09/14/16 11:00 75 18 94 Room Air 09/14/16 08:15 Room Air 09/14/16 07:45 36.9 91 20 155/78 93 Room Air 09/14/16 07:04 73 18 95 Room Air Physical Exam: GEN: WNWD, in no acute distress, alert and appropriate, speaking in full sentences, rare coughing, no work of breathing HEENT: NC/AT, PERRL, normal sclerae, EOMI-no nystagmus. TM could not be visualized 2/2 tortuous canal on right and cerumen on the left NECK: mild LAD bilateral, pharynx non acute CARDIO: reg rate, 3/6 THOM at RUSB LUNGS: CTA bilaterally, no crackles, rales or wheezes, good diaphragmatic excursion ABD: soft, non-tender, non-distended, no rebound or guarding EXTREMITY: RP and DP palpable 2+ bilat, no LE swelling or edema, extremities are warm and well-perfused NEURO: CN 2-12 grossly intact, sensation intact throughout MUSC: 5/5 strength throughout, no gross focal deficits SKIN: warm and dry Laboratory Results: Last 24 Hours Test 09/14/16 05:55 White Blood Count 6.60 K/uL Red Blood Count 3.50 M/uL Hemoglobin 10.0 g/dL Hematocrit 30.4 % Mean Corpuscular Volume 86.9 fL Mean Corpuscular Hemoglobin 28.6 pg Mean Corpuscular Hemoglobin Concent 32.9 g/dl Platelet Count 252 K/uL Mean Platelet Volume 9.7 fL Neutrophils (%) (Auto) 83.7 % Lymphocytes (%) (Auto) 13.5 % Monocytes (%) (Auto) 2.3 % Eosinophils (%) (Auto) 0.0 % Basophils (%) (Auto) 0.2 % Neutrophils # (Auto) 5.53 K/uL Lymphocytes # (Auto) 0.89 K/uL Monocytes # (Auto) 0.15 K/uL Eosinophils # (Auto) 0.00 K/uL Basophils # (Auto) 0.01 K/uL RDW Standard Deviation 42.4 fL RDW Coefficient of Variation 13.3 % Immature Granulocyte % (Auto) 0.3 % Immature Granulocyte # (Auto) 0.02 K/uL Sodium Level 143 mmol/L Potassium Level 3.8 mmol/L Chloride Level 111 mmol/L Carbon Dioxide Level 24 mmol/L Anion Gap 8.0 mmol/L Blood Urea Nitrogen 8 mg/dl Creatinine 0.51 mg/dl Est Creatinine Clear Calc Drug Dose 92.8 ml/min Estimated GFR () 117.8 Estimated GFR (Non- 101.6 BUN/Creatinine Ratio 15.7 Random Glucose 162 mg/dl Calcium Level 8.3 mg/dl Magnesium Level 2.1 mg/dl Assessment & Plan 66 yoF with asthma and h/o carcinoid lung tumor s/p RLL removal presented with coughing, fevers, and chills for 1 week. Asthma exacerbation 2/2 acute bronchitis: improved, flu screen negative, still some persistent cough, fatigue and dizziness. Wheezing has improved on the IV steroids and IV Levaquin. Switching to PO Levaquin and PO prednisone today for additional 3 days. Cough syrup ordered with codeine to help with cough and comfort. Multiple allergies but she reports being OK to take codeine. Mucinex PO stopped. Monospot negative and high circulating RSV plus small child in the family is sick with LRTI-RSV screen ordered and pending. Will cont IVF as I suspect her dizziness has to do with dehydration and vestibular dysfunction as a result. TM could not be examined today as above. Sinus congestion persists. Moderate Persistent Asthma: improved with no wheezing on exam today. Cont Duonebs and prednisone as above. Cont Symbicort Dizziness: no focal neuro deficit, patient can ambulate. Likely 2/2 severe dehydration with vestibular dysfunction as a result. Expected to improve more every day. Hypokalemia: normal range today HTN: around goal, cont home lisinopril 30mg PO daily Hypothyroidism: stable, Continue levothyroxine Depression/Anxiety: continue prozac Nausea: resolved and is tolerating PO since yest DVT px: Lovenox subq Dispo: OK to go home when toelrating PO, afebrile for 24 hours, dizziness has improved/resolved Current Inpatient Medications: Current Inpatient Medications Medications (Trade) Dose Ordered Sig/Héctor Route Start Time Stop Time Status Last Admin Dose Admin Ondansetron HCl 4 mg 4 mg Q6H PRN IV 09/12/16 16:45 10/12/16 16:44 Sodium Chloride (Nss 1000ml) 1,000 ml @ 70 mls/hr [id number] IV 09/12/16 17:45 09/14/16 02:23 70 MLS/HR Amlodipine Besylate (Norvasc Tab) 5 mg DAILY PO 09/13/16 08:00 10/13/16 08:59 09/14/16 08:37 5 MG Budesonide/ Formoterol Fumarate (Symbicort 160/ 4.5 Inh) 2 puffs BID INH 09/12/16 20:00 10/12/16 20:59 09/14/16 08:38 2 PUFFS Cetirizine HCl (zyrTEC TAB) 10 mg DAILY PO 09/13/16 08:00 10/13/16 08:59 09/13/16 08:40 10 MG Fluoxetine HCl (Prozac Cap) 10 mg QPM PO 09/12/16 21:00 10/12/16 20:59 09/13/16 21:04 10 MG Fluoxetine HCl (Prozac Cap) 20 mg QAM PO 09/13/16 08:00 10/13/16 08:59 09/14/16 09:24 20 MG Levothyroxine Sodium (Synthroid Tab) 112 mcg DAILYBB PO 09/13/16 06:30 10/13/16 06:59 09/14/16 06:04 112 MCG Lisinopril (Zestril Tab) 30 mg DAILY PO 09/13/16 08:00 10/13/16 08:59 09/14/16 08:37 30 MG Metoprolol Succinate (Toprol Xl Tab) 12.5 mg BID PO 09/12/16 20:00 10/12/16 20:59 09/14/16 08:37 12.5 MG Rosuvastatin Calcium (Crestor Tab) 10 mg HS PO 09/12/16 21:00 10/12/16 20:59 09/13/16 21:03 10 MG Pentosan Polysulfate Sodium (Elmiron) 100 mg TID PO 09/12/16 20:00 10/12/16 20:59 09/14/16 14:20 100 MG Enoxaparin Sodium (Lovenox Inj) 40 mg QAM SQ 09/13/16 08:00 10/13/16 08:59 09/13/16 08:40 40 MG Albuterol/ Ipratropium (Duoneb) 3 ml QIDR INH 09/12/16 20:00 10/12/16 19:59 09/14/16 14:35 3 ML Pantoprazole Sodium (Protonix Tab) 40 mg QAM PO 09/13/16 08:00 10/13/16 08:59 09/13/16 08:39 40 MG Guaifenesin (Organidin Nr Tab) 200 mg Q6 PO 09/13/16 00:00 10/13/16 00:00 09/14/16 12:38 200 MG Tramadol HCl (Ultram Tab) 50 mg Q8H PRN PO 09/12/16 18:30 10/12/16 18:29 Albuterol/ Ipratropium (Duoneb) 3 ml Q2H PRN INH 09/12/16 19:15 10/12/16 19:14 Levofloxacin (Levaquin Tab) 750 mg DAILY@11 PO 09/15/16 11:00 09/18/16 10:59 UNV Prednisone (PredniSONE TAB) 40 mg DAILY PO 09/15/16 08:00 09/18/16 07:59 UNV
[2016-09-14] MEDS: LEVOFLOXACIN 750 MG TAB PO SCH (15:45)
[2016-09-14] MEDS: ROSUVASTATIN CALCIUM 10 MG TAB PO SCH (19:40)
[2016-09-14] MEDS: FLUOXETINE HCL 10 MG CAP PO SCH (19:41)
[2016-09-15 00:01] VITALS: BP 132/76; PULSE 67; TEMP 36.8; O2SAT 98
[2016-09-15] MEDS: SODIUM CHLORIDE 0.9% 1000ML 1,000 ML IV SCH (05:22)
[2016-09-15] MEDS: LEVOTHYROXINE 112 MCG TAB PO SCH (06:11)
[2016-09-15 06:18] LABS: HEMATOCRIT 30.1 % (37-47); MEAN CELL VOLUME 86.5 fL (80-100); MEAN CORPUSCULAR HEMOGLOBIN 29.6 pg (25-34); MEAN CORPUSCULAR HGB CONC 34.2 g/dl (32-36); MEAN PLATELET VOLUME 9.8 fL (7.4-10.4); PLATELET COUNT 325 K/uL (130-400); RED BLOOD COUNT 3.48 M/uL (4.2-5.4); WHITE BLOOD COUNT 10.88 K/uL (4.8-10.8)
[2016-09-15 06:46] LABS: BUN/CREATININE RATIO 17.5 (10-20); CALCIUM 8.2 mg/dl (8.5-10.1); CREATININE 0.75 mg/dl (0.60-1.20); POTASSIUM 3.6 mmol/L (3.5-5.1)
[2016-09-15 07:59] VITALS: BP 127/77; PULSE 82; TEMP 36.7; O2SAT 98
[2016-09-15] MEDS: BUDESONIDE/FORMOTEROL FUMARATE 160/4.5 60 PUFFS/INHALER INH SCH (08:00)
[2016-09-15] MEDS: PENTOSAN POLYSULFATE SODIUM 100 MG CAP PO SCH ×2 (08:25→13:29)
[2016-09-15] MEDS: CETIRIZINE HCL 10 MG TAB PO SCH (08:25)
[2016-09-15] MEDS: METOPROLOL SUCC 25MG EXT REL TAB PO SCH (08:25)
[2016-09-15] MEDS: AMLODIPINE BESYLATE 5 MG TAB PO SCH (08:26)
[2016-09-15] MEDS: FLUOXETINE HCL 20 MG CAP PO SCH (08:26)
[2016-09-15] MEDS: PANTOprazole SOD 40 MG TAB PO SCH (08:26)
[2016-09-15] MEDS: ENOXAPARIN 40 MG/0.4 ML SYR SQ SCH (08:27)
[2016-09-15] MEDS: LISINOPRIL 10 MG TAB PO SCH (08:27)
[2016-09-15 10:53] VITALS: PULSE 73; O2SAT 97
[2016-09-15] MEDS: ALBUT/IPRATROP 3MG/0.5MG NEB 3 ML VIAL INH SCH (10:53)
[2016-09-15] MEDS: LEVOFLOXACIN 750 MG TAB PO SCH (10:56)
[2016-09-15 12:49] VITALS: BP 127/77; PULSE 73; TEMP 36.7; O2SAT 97
[2016-09-15] MEDS ORDERED: PRD20 PO (14:43)
[2016-09-15] MEDS ORDERED: LVQ750 PO (14:43)
[2016-09-15] MEDS ORDERED: IPRASOL4 INH (14:43)
--- NOTE | 2016-09-15 14:52 | Discharge Instructions ---
Discharge Instructions Admission Reason for Admission: Fever,Productive Cough Discharge Discharge Diagnosis / Problem: asthma exacerbation Discharge Goals Goal(s): Prevent Disease Progression Activity Recommendations Activity Limitations: resume your previous activity . Instructions / Follow-Up Instructions / Follow-Up Please take all medications as instructed. You have a follow-up appointment with Dr. Zuñiga on Sep 21 @ 3:00 for follow-up of this hospitalization. Please note your RSV lab is still pending at discharge , and this will need to be followed up. You will cont the Levaquin and Prednisone for an additional 3 days and then stop. You have also been prescribed the DuoNeb treatments as requested. I recommend a repeat chest xray in 4-6 weeks to ensure there has been improvement. It was a pleasure taking care of you! Call if you have any questions or problems. You can reach a [facility] hospitalist on duty at [facility] 24 hours a day by calling [phone]. Take care of yourself. Christine Bautista, DO [facility] Hospitalist Current Hospital Diet Patient's current hospital diet: Regular Diet, AHA Diet (Heart Healthy), Low Sodium Diet (2gm Na) Discharge Diet Recommended Diet: AHA Diet (Heart Healthy) Procedures Procedures Performed: None. Pending Studies Studies pending at discharge: yes List of pending studies: RSV Final Sputum Culture sensitivity Final blood cultures-neg preliminary x 2 bottles. Medical Emergencies . Who to Call and When: Medical Emergencies: If at any time you feel your situation is an emergency, please call 911 immediately. . Non-Emergent Contact Non-Emergency issues call your: Primary Care Provider . . "Provider Documentation" section prepared by Christine Bautista. VTE Core Measure Inpt VTE Proph given/why not?: Enoxaparin (Lovenox)SQ
--- NOTE | 2016-09-21 23:45 | Discharge Summary ---
Discharge Summary Admission Date: Sep 12, 2016 at 16:42 Discharge Date: Sep 15, 2016 Discharge Disposition: Home Principal Diagnosis: Asthma exacerbation Orthostatic dizziness Hypokalemia Hypertension Hypothyroidism Depression/Anxiety Procedures: None Vaccinations: None Consultations: None Medication Reconciliation New Medications: Ipratropium-Albuterol (Duoneb) 3 Ml Nebu 1 TREATMENT INH Q6H PRN for SOB/Wheezing for 30 Days, #30 EA 1 Refill Levofloxacin (Levofloxacin) 750 Mg Tab 750 MG PO DAILY@11 for 3 Days, #3 TAB Prednisone (Prednisone) 20 Mg Tab 40 MG PO DAILY for 3 Days, #3 TAB Continued Medications: Albuterol 0.5% Soln (Ventolin 0.5% Soln) Nebu 1 VIAL NEB 1-2XD, VIAL Amlodipine Besylate (Amlodipine Besylate) 5 Mg Tab 5 MG PO DAILY, #90 Budesonide/Formoterol Fumarate (Symbicort 160/4.5 Inhaler ) Aero 2 PUFFS INH BID, INHALER Cetirizine (Zyrtec) 10 Mg Tab 10 MG PO DAILY, TAB Epinephrine (Epipen) 0.3 Mg/0.3 Ml Inj 0.3 MG IM UD, #1 BOX Fluoxetine (Prozac) 20 Mg Cap 20 MG PO QAM, CAP Fluoxetine (Prozac) 10 Mg Cap 10 MG PO QPM, CAP Guaifenesin (Guaifenesin) 200 Mg/10 Ml Syrp 5 ML PO DIRECTED Levothyroxine Sodium (Synthroid) 112 Mcg Tab 112 MCG PO QAM, TAB Lisinopril (Prinivil) 10 Mg Tab 30 MG PO DAILY, 0 Refills Metoprolol Succinate (Metoprolol Succinate ER) 25 Mg Tabcr 12.5 MG PO BID, #15 Ofloxacin (Oph) (Ocuflox Oph Soln) 0.3 % Omid 1 DROPS OPR DIRECTED, #5 ML Pentosan Polysulfate Sodium (Elmiron) 100 Mg Cap 100 MG PO TID, CAP Prednisolone Acetate (Ophth) (Prednisolone Acetate) 1 % Brooke 1 DROP OP DIRECTED for 10 Days, BTL EACH EYE Rosuvastatin Calcium (Crestor) 5 Mg Tab 10 MG PO HS, TAB Admission Information HPI (per Admitting provider): 66 yo with PMH of hypothyroidism, dyslipidemia, moderate persistent Asthma, carcinoid lung tumor was brought to the ED for yellowish productive cough associated with fever and chills. Pt said symptoms started about 1 week ago. She said that she has been coughing alot. She said that she went to see her physician on Tuesday that prescribed her a cheratussin for the cough. She said that she has been taking the cough med and doing albuterol treatment with no help. Pt said that the cough got worst and whenever she cough there is a trace of blood on the sputum. Pt said that she is also having chest wall tenderness around the right side that radiates to her back when she coughs. she has been having chills and fever. She said that she took ibuprofen that relieved the fever. She has not been eating much. Additionally, she is also having headache, shortness of breath, nausea, dry heave and generalized body aches. Denies any diarrhea, palpitation and abdominal pain. Denies any recent travel or sick contact. Physical Exam (per Admitting): General Appearance: + mild distress Head: normocephalic, atraumatic Eyes: normal inspection, PERRL ENT: hearing grossly normal Neck: supple, no JVD Respiratory/Chest: + pertinent finding (chest wall tenderness) Cardiovascular: no edema, no JVD, + systolic murmur Abdomen/GI: normal bowel sounds, non tender, soft Back: normal inspection, no CVA tenderness Extremities/Musculoskelatal: no calf tenderness Neurologic/Psych: no motor/sensory deficits, alert Skin: normal color, warm/dry Hospital Course 66 yoF with asthma and h/o carcinoid lung tumor s/p RLL removal presented with coughing, fevers, and chills for 1 week. Asthma exacerbation 2/2 acute bronchitis: improved, flu screen negative, still some persistent cough, fatigue and dizziness. Wheezing has improved on the IV steroids and IV Levaquin. Switching to PO Levaquin and PO prednisone today for additional 3 days. Cough syrup ordered with codeine to help with cough and comfort. Multiple allergies but she reports being OK to take codeine. Mucinex PO stopped. Monospot negative and high circulating RSV plus small child in the family is sick with LRTI-RSV screen ordered and pending at discharge but resulted negative. IVF was continued as inpatient as I suspected her dizziness has to do with dehydration and vestibular dysfunction as a result-- resolved the next day. TM could not be examined 2/2 tortuous canals and cerumen blockages. Sinus congestion persists. Moderate Persistent Asthma: improved with no wheezing on exam today. Cont Duonebs and prednisone as above. Cont Symbicort Dizziness: IVF as above Hypokalemia: normal range today HTN: around goal, cont home lisinopril 30mg PO daily Hypothyroidism: stable, Continue levothyroxine Depression/Anxiety: continue prozac Nausea: resolved and is tolerating PO since yest On day of discharge, she was ambulating without lightheadedness or dizziness, tolerating PO. Her cough and congestion had greatly improved, she was afebrile on PO Levaquin and asking to go home today. She was scheduled with close follow -up with her PCP. Total time spent on discharge = 60 minutes This includes examination of the patient, discharge planning, medication reconciliation, and communication with other providers. Discharge Instructions Discharge Instructions Admission Reason for Admission: Fever,Productive Cough Discharge Discharge Diagnosis / Problem: asthma exacerbation Discharge Goals Goal(s): Prevent Disease Progression Activity Recommendations Activity Limitations: resume your previous activity . Instructions / Follow-Up Instructions / Follow-Up Please take all medications as instructed. You have a follow-up appointment with Dr. Zuñiga on Sep 21 @ 3:00 for follow-up of this hospitalization. Please note your RSV lab is still pending at discharge , and this will need to be followed up. You will cont the Levaquin and Prednisone for an additional 3 days and then stop. You have also been prescribed the DuoNeb treatments as requested. I recommend a repeat chest xray in 4-6 weeks to ensure there has been improvement. It was a pleasure taking care of you! Call if you have any questions or problems. You can reach a [facility] hospitalist on duty at [facility] 24 hours a day by calling [phone]. Take care of yourself. Christine Bautista, DO [facility] Hospitalist Additional Copies To Mahesh Zuñiga M.D.Safia Beckford M.D. ([facility])
[2016-11-17] MEDS ORDERED: FLUO10CA48 PO (07:06)
[2016-11-17] MEDS ORDERED: CETI10TA84 PO ×2 (12:35→20:01)
[2016-11-17] MEDS ORDERED: SYMIN160 INH (12:35)
[2016-11-17] MEDS ORDERED: LEVO112T2 PO (12:41)
[2016-11-17] MEDS ORDERED: FLUO20CA35 PO (13:03)
== END 2016-09-15 15:17 | disposition home or self-care (01) | DRG 202 ==
LOC: ENRESERVTM → ENRESERVDT → C.EDB 12:11 → C.4E 16:42 → UNDOADMIN 19:01
PROVIDERS: ADMIT Internal Medicine; ATTEND Hospitalist
DX: J45.901 Unspecified asthma with (acute) exacerbation (principal); C34.90 Malignant neoplasm of unspecified part of unspecified bronchus or lung; E87.6 Hypokalemia; J20.9 Acute bronchitis, unspecified; E03.9 Hypothyroidism, unspecified; I10 Essential (primary) hypertension; F32.9 Major depressive disorder, single episode, unspecified; F41.9 Anxiety disorder, unspecified; E78.5 Hyperlipidemia, unspecified; I34.0 Nonrheumatic mitral (valve) insufficiency; E86.0 Dehydration; R42 Dizziness and giddiness; R11.0 Nausea; N30.10 Interstitial cystitis (chronic) without hematuria; M94.0 Chondrocostal junction syndrome [Tietze]; R07.89 Other chest pain; R79.89 Other specified abnormal findings of blood chemistry; J11.1 Influenza due to unidentified influenza virus with other respiratory manifestations; Z87.891 Personal history of nicotine dependence

== ENCOUNTER → 2016-10-14 | Outpatient (CLI) | payer BC ==
[~2016-10-14] MED LIST changes: +ADVIN10/60 INH; -ALBU1AER9 INH; +AMLO-110 PO; -ANSHCS PR; +ATV5X PO; +CETI10TA84 PO; +CRS20 PO; +DEXTSYP27 PO; +DOXE25CA2 PO; +DOXY100C2 PO; +DXM/4 PO; +FLNIN/ NAE; +FLUO10CA48 PO; +FLUO20CA35 PO; +IPRASOL4 INH; +LEVO112T2 PO; +LISI10TA PO; -LORA-741 PO; +LVQ750 PO; +METH4PAK PO; +METO25TA3 PO; +MONT1TAB3 PO; +OFLO0.3S4 OPR; +OPTIRAY 320 IV PRN; +PRD20 PO; +PRED1SUS17 OP; -PRT/40 PO; +RBTUDL10 PO; +SALI0.6510 NAE; -SIME80CH PO; +SYMIN160 INH; +TRAM-10 PO; -TRAM-453 PO; +TRAZ50TA35 PO
--- NOTE | 2016-10-14 10:07 | DIAGNOSTIC IMAGING REPORT ---
CT ABD/PELVIS IV AND ORAL CONT CLINICAL HISTORY: Constipation. Right lower quadrant swelling. COMPARISON STUDY: 05/29/2014 TECHNIQUE: Following the IV administration of 120 mL of Optiray-320, CT scan of the abdomen and pelvis was performed from the lung bases to the proximal femurs. Images are reviewed in the axial, sagittal, and coronal planes. IV contrast was administered without complication. CT DOSE: 267.79 mGy.cm FINDINGS: Lower chest: There are postoperative changes the right lung base with areas of atelectasis/scarring Liver: The contrast-enhanced liver is normal in size, contour, and attenuation. There is no intrahepatic biliary ductal dilatation. The hepatic veins and portal veins are patent. Gallbladder: Unremarkable. Spleen: Normal in size and attenuation. Pancreas: Unremarkable. Adrenal glands: Unremarkable. Kidneys: There is symmetric renal cortical enhancement. The kidneys are normal in size without hydronephrosis. Bowel: There are no transition zones indicate bowel obstruction. The appendix appears normal. There is no evidence of acute diverticulitis. There is scattered stool within the colon. Peritoneum: There is no intraperitoneal free air or abdominal ascites. Vasculature: The abdominal aorta is normal in course and caliber. Adenopathy: None. Pelvic viscera: The bladder, and pelvic viscera are unremarkable. Skeletal structures: No destructive osseous lesions are seen. IMPRESSION: 1. No acute intra-abdominal or pelvic findings 2. No evidence of bowel obstruction. No evidence of free air 3. Normal appendix 4. Diverticulosis. No evidence of acute peridiverticular inflammatory change Electronically signed by: Philip Singh M.D. 10/14/2016 10:06 AM Dictated Date/Time: 10/14/2016 10:02 AM
== END | disposition home or self-care (01) ==
LOC: C.CTS 08:49
PROVIDERS: ATTEND Internal Medicine Gastroenterology
DX: K59.00 Constipation, unspecified (principal); R19.03 Right lower quadrant abdominal swelling, mass and lump

== ENCOUNTER 2016-11-17 18:08 | Emergency (ER) | payer BC ==
[~2016-11-17] VITALS: Ht 152.4 cm; Wt 64.2 kg
[~2016-11-17 18:08] MED LIST changes: -ADVIN10/60 INH; -AMLO-110 PO; -ATV5X PO; -CRS20 PO; -DEXTSYP27 PO; -DOXE25CA2 PO; -DOXY100C2 PO; -DXM/4 PO; -FLNIN/ NAE; -LISI10TA PO; -METH4PAK PO; -METO25TA3 PO; -MONT1TAB3 PO; -OPTIRAY 320 IV PRN; -SALI0.6510 NAE; -TRAM-10 PO; -TRAZ50TA35 PO
[2016-11-17 18:11] VITALS: TEMP 37; Ht 152.4 cm; Wt 64.2 kg
[2016-11-17] MEDS ORDERED: SALI0.6510 NAE (18:43)
[2016-11-17] MEDS ORDERED: DEXTSYP27 PO (18:43)
[2016-11-17] MEDS ORDERED: DXM/4 PO (18:43)
[2016-11-17] MEDS ORDERED: METO25TA3 PO (18:43)
[2016-11-17] MEDS ORDERED: PENT100C6 PO (18:43)
[2016-11-17] MEDS ORDERED: CRS20 PO (18:43)
[2016-11-17] MEDS ORDERED: ADVIN10/60 INH (18:43)
[2016-11-17] MEDS ORDERED: FLNIN/ NAE (18:43)
[2016-11-17] MEDS ORDERED: TRAZ50TA35 PO (18:43)
[2016-11-17] MEDS ORDERED: AMLO-110 PO (18:43)
[2016-11-17] MEDS ORDERED: IPRASOL4 INH (18:43)
[2016-11-17] MEDS ORDERED: MONT1TAB3 PO (18:43)
[2016-11-17] MEDS ORDERED: DOXE25CA2 PO (18:43)
[2016-11-17] MEDS ORDERED: ONDANSETRON INJ 2 MG/ML 2 ML VIAL IV STA (19:36)
[2016-11-17] MEDS ORDERED: SODIUM CHLORIDE 0.9% 500ML 500 ML IV STA (19:36)
[2016-11-17] MEDS ORDERED: HYDROmorphone INJ 1 MG/ML SYR IV STA (19:36)
--- NOTE | 2016-11-17 19:41 | EMERGENCY ROOM VISIT NOTE ---
History Report prepared by Sebastian: Nnamdi Aguayo Under the Supervision of: Dr. Pramod Mays M.D. First contact with patient: 19:29 Chief Complaint: CHEST PAIN Stated Complaint: CHEST PAIN, BACK PAIN History of Present Illness The patient is a 66 year old female who presents to the Emergency Room with complaints of worsening chest pain for the past four days. The patient describes a squeezing sensation in the left breast area. The patient did not have any relief from Ultram or baby aspirin. The patient also complains of back pain. She denies shortness of breath, episodes of syncope, or lightheadedness. The patient has a murmur but otherwise does not have a cardiac history. She denies any history of blood clots. The patient is in remission for lung cancer. Source of History: patient Onset: four days ago Position: chest (left) Quality: other (squeezing) Timing: worsening Associated Symptoms: + back pain, No SOB Review of Systems See HPI for pertinent positives & negatives. A total of 10 systems reviewed and were otherwise negative. Past Medical & Surgical Medical Problems: (1) Asthma, moderate persistent (2) Depression (3) Dyslipidemia (4) Fibromyalgia (5) H/O: lung cancer (6) HTN (hypertension) (7) Hypothyroidism (8) Lung cancer (9) Mitral regurgitation (10) Pancreatitis (11) Productive cough Surgical Problems: (1) S/P arthroscopy of left knee (2) S/P arthroscopy of right knee (3) S/P partial lobectomy of lung (4) S/P tonsillectomy and adenoidectomy Family History FH: gallbladder disease FH: heart disease FATHER MOTHER FHx: Crohn's disease FHx: aneurysm Hypertension Social History Smoking Status: Former Smoker Alcohol Use: none Drug Use: none Marital Status: Housing Status: lives with family Occupation Status: other Current/Historical Medications Scheduled Amlodipine (Norvasc), 5 MG PO DAILY Budesonide/Formoterol Fumarate (Symbicort 160/4.5 Inhaler ), 2 PUFFS INH BID Cetirizine (Zyrtec), 10 MG PO DAILY Cetirizine (Zyrtec), 10 MG PO DAILY Doxepin Hcl (Sinequan), 25 MG PO HS Epinephrine (Epipen), 0.3 MG IM UD Fluoxetine (Prozac), 20 MG PO QAM Fluoxetine (Prozac), 10 MG PO QPM Fluticasone Propionate (Fluticasone Propionate), 2 SPRAYS JOSÉ MIGUEL DAILY Ipratropium-Albuterol (Duoneb), 1 DOSE INH Q4 Levothyroxine Sodium (Synthroid), 112 MCG PO QAM Lisinopril (Prinivil), 30 MG PO DAILY Methylprednisolone (Medrol Dosepak), 1 PKT PO UD Metoprolol Succ (Toprol Xl) (Toprol-Xl), 12.5 MG PO BID Pentosan Polysulfate Sodium (Elmiron), 100 MG PO TID Rosuvastatin Calcium (Crestor), 10 MG PO DAILY Scheduled PRN Tramadol (Ultram), 1 TAB PO TID PRN for Pain Trazodone Hcl (Trazodone), 25-50 MG PO HS PRN for Sleep Allergies Coded Allergies: Oxycodone (Verified Allergy, Intermediate, HIVES, 09/12/16) Propoxyphene (Verified Allergy, Intermediate, ITCHING AND A RASH, 09/12/16) Replaces DARVOCET-N 10 Cephalosporins (Verified Allergy, Mild, 09/12/16) Methenamine (Verified Allergy, Mild, 09/12/16) Simvastatin (Verified Allergy, Mild, 09/12/16) Sulfa Drugs (Verified Allergy, Mild, 09/12/16) Sulfamethoxazole (Verified Allergy, Mild, 09/12/16) Trimethoprim (Verified Allergy, Mild, 09/12/16) Fish (Verified Allergy, Unknown, HIVES/SWELLING, 09/12/16) INDICATED SHE HAD A REACTION TO CERTAIN SEAFOOD LAST TUESDAY AND TODAY. Hydrocodone (Verified Adverse Reaction, Mild, ITCHING, 09/12/16) Prednisone (Verified Adverse Reaction, Mild, ITCHING, 09/12/16) ITCHING HOWEVER BENEFITS OUT WEIGH THE SIDE EFFECTS Uncoded Allergies: SODIUMBIPHOSPHA (Allergy, Mild, 10/10/09) Physical Exam Vital Signs Date Time Temp Pulse Resp B/P Pulse Ox O2 Delivery O2 Flow Rate FiO2 11/17/16 21:03 66 18 132/74 99 Room Air 11/17/16 21:02 66 11/17/16 19:55 99 Room Air 11/17/16 19:54 77 18 176/99 99 Room Air 11/17/16 19:49 99 Room Air 11/17/16 18:11 37.0 82 20 161/99 99 Room Air Physical Exam GENERAL: Patient is anxious appearing with minimal distress. HEENT: No acute trauma, normocephalic atraumatic, mucous membranes moist, no nasal congestion, no scleral icterus. NECK: No stridor, no adenopathy, no meningismus, trachea is midline. CHEST: Significant pain with palpation of the left chest, left shoulder blade and most of left arm. LUNGS: No dyspnea. Clear to auscultation and equal bilaterally. No wheeze, no rhonchi. HEART: Regular rate and rhythm. No murmurs, rubs, gallops appreciated. ABDOMEN: Soft, nontender, bowel sounds positive, no masses appreciated, no peritonitis. BACK: No midline tenderness, no CVA tenderness EXTREMITIES: Normal motion all extremities, no cyanosis, no edema. NEUROLOGIC: Alert and oriented, no acute motor or sensory deficits, no focal weakness, cranial nerves grossly intact. SKIN: No rash, no jaundice, no diaphoresis. Medical Decision & Procedures ER Provider Diagnostic Interpretation: X ray results are stated below per my interpretation and the radiologist's interpretation. CHEST ONE VIEW PORTABLE HISTORY: Atypical Chest Pain COMPARISON: Chest 09/12/2016. FINDINGS: The cardiac silhouette remains mildly enlarged. There are surgical clips overlapping the right hilum. The lungs are clear. No pleural effusions. No pneumothorax. IMPRESSION: Stable mild cardiomegaly. Electronically signed by: Eugene Ivan M.D. 11/17/2016 8:29 PM Dictated Date/Time: 11/17/2016 8:28 PM Laboratory Results 11/17/16 19:50 Red Blood Count 4.33, Mean Corpuscular Volume 86.6, Mean Corpuscular Hemoglobin 29.3, Mean Corpuscular Hemoglobin Concent 33.9, Mean Platelet Volume 9.3, Neutrophils (%) (Auto) 63.4, Lymphocytes (%) (Auto) 26.9, Monocytes (%) (Auto) 8.1, Eosinophils (%) (Auto) 0.7, Basophils (%) (Auto) 0.6, Neutrophils # (Auto) 5.48, Lymphocytes # (Auto) 2.33, Monocytes # (Auto) 0.70, Eosinophils # (Auto) 0.06, Basophils # (Auto) 0.05 11/17/16 19:50 Test 11/17/16 19:50 White Blood Count 8.65 K/uL (4.8-10.8) Red Blood Count 4.33 M/uL (4.2-5.4) Hemoglobin 12.7 g/dL (12.0-16.0) Hematocrit 37.5 % (37-47) Mean Corpuscular Volume 86.6 fL (80-100) Mean Corpuscular Hemoglobin 29.3 pg (25-34) Mean Corpuscular Hemoglobin Concent 33.9 g/dl (32-36) Platelet Count 388 K/uL (130-400) Mean Platelet Volume 9.3 fL (7.4-10.4) Neutrophils (%) (Auto) 63.4 % Lymphocytes (%) (Auto) 26.9 % Monocytes (%) (Auto) 8.1 % Eosinophils (%) (Auto) 0.7 % Basophils (%) (Auto) 0.6 % Neutrophils # (Auto) 5.48 K/uL (1.4-6.5) Lymphocytes # (Auto) 2.33 K/uL (1.2-3.4) Monocytes # (Auto) 0.70 K/uL (0.11-0.59) Eosinophils # (Auto) 0.06 K/uL (0-0.5) Basophils # (Auto) 0.05 K/uL (0-0.2) RDW Standard Deviation 43.0 fL (36.4-46.3) RDW Coefficient of Variation 13.5 % (11.5-14.5) Immature Granulocyte % (Auto) 0.3 % Immature Granulocyte # (Auto) 0.03 K/uL (0.00-0.02) D-Dimer < 190 ug/L FEU (0-500) Anion Gap 6.0 mmol/L (3-11) Est Creatinine Clear Calc Drug Dose 73.1 ml/min Estimated GFR () 108.7 Estimated GFR (Non- 93.8 BUN/Creatinine Ratio 23.8 (10-20) Calcium Level 8.9 mg/dl (8.5-10.1) Total Creatine Kinase 128 U/L (26-192) Creatine Kinase MB 1.3 ng/ml (0.5-3.6) Creatine Kinase MB Ratio 1.0 (0-3.0) Troponin I < 0.015 ng/ml (0-0.045) Chemistry Specimen Hemolysis Laboratory results as reviewed by me. Medications Administered Medications (Trade) Dose Ordered Sig/Héctor Route Start Time Stop Time Status Last Admin Dose Admin Hydromorphone HCl (Dilaudid Inj) 1 mg NOW STAT IV 11/17/16 19:36 11/17/16 19:37 DC 11/17/16 19:49 1 MG Ondansetron HCl 4 mg 4 mg NOW STAT IV 11/17/16 19:36 11/17/16 19:37 DC 11/17/16 19:48 4 MG Sodium Chloride (Nss 500ml) 500 ml @ 999 mls/hr Q31M STAT IV 11/17/16 19:36 11/17/16 20:06 DC 11/17/16 19:48 999 MLS/HR Dexamethasone Sodium Phosphate (Decadron Inj) 10 mg NOW ONCE IV 11/17/16 21:15 11/17/16 21:16 DC 11/17/16 21:14 10 MG ECG Indication: chest pain Rate (beats per minute): 78 Rhythm: normal sinus Findings: no acute ischemic change, no ectopy ED Course 1931: The patient was evaluated in room C9. A complete history and physical exam was performed. 1935: NSS 500 ml @ 999 mls/hr, Zofran 4 mg IV, Dilaudid 1 mg IV. 2054: Discussed the possibility of monitoring the patient in the hospital but she declined. The daughter notes that this happens all the time and nobody can figure out the source of her pain. The requested PO Dilaudid to take home. I informed them that I am not comfortable doing this. The daughter asked what to do if the pain returns. I said to return to the ED. The patient is agreeable with trying home steroids. 2111: The [place] Prescription Drug Monitoring Program was reviewed regarding this patient. The patient has had periodic tramadol prescriptions but has had none in the past few months. 2114: Decadron 10 mg IV. Medical Decision Differential: Cardiac Ischemia (STEMI, NSTEMI, Unstable Angina, etc), Aortic Dissection, Arrhythmia, Pulmonary Embolism, Pneumonia, Pneumothorax, MSK, Infectious, Pericarditis/Myocarditis, Esophageal Rupture, Gastrointestinal, amongst other pathologies entertained. 66 yr old female with chronic pain issues in chest post surgery to lung for CA. She arrives with clearly reproducible chest TTP and pain which she makes clear has been stable and continuous for last few days. EKG unremarkable and unchanged. Trop negative. Dimer negative. CXR unremarkable. She has complete resolution of pain. very much notes that she always gets better with dilaudid and is wondering if she can get some of this for pain. Symptoms not consistent with Dissection nor does work up point to PE, dissection , acs, infection, gastric/esophageal cause. Patient is not interested in staying in hospital and given negative Trop with neg EKG after 4 days of pain I do not know what benefit inpatient obs treatment would be. No evidence this is infectious. With her previous chest surgery this could be inflammatory thus seems reasonable try anti-inflammatory which they decline NSAIDs though will try steroids which she has done well with (note prednisone allergy thus medrol used). She has used Tramadol previously successfully for this thus will given Rx for this as well with instruction. I stressed need to follow up with PCP. Aware if worsening or other concerns, RTED for evaluation or call 911. [place] Drug Monitoring Program Search Results: patient reviewed within database Drug Monitoring Findings: The patient has had periodic tramadol prescriptions but has had none in the past few months. Impression Primary Impression: Substernal precordial chest pain Scribe Attestation The scribe's documentation has been prepared under my direction and personally reviewed by me in its entirety. I confirm that the note above accurately reflects all work, treatment, procedures, and medical decision making performed by me. Departure Information Dispostion Home / Self-Care Prescriptions Tramadol (Ultram) 50 Mg Tab 1 TAB PO TID Y for Pain, #20 TAB Prov: Pramod Mays M.D. 11/17/16 Methylprednisolone (MEDROL DOSEPAK) 4 Mg Jose 1 PKT PO UD for 6 Days, #1 PKT Prov: Pramod Mays M.D. 11/17/16 Referrals Mahesh Zuñiga M.D.([facility]) (PCP) Forms HOME CARE DOCUMENTATION FORM, IMPORTANT VISIT INFORMATION Patient Instructions ED Chest Pain Atypical Unkn Cause, [facility]
[2016-11-17 19:55] VITALS: O2SAT 99
[2016-11-17] MEDS ORDERED: CETI10TA84 PO (20:01)
[2016-11-17 20:06] LABS: BASO % 0.6 %; BASO ABS # 0.05 K/uL (0-0.2); COMPLETE YES; EOS % 0.7 %; HEMATOCRIT 37.5 % (37-47); IG% 0.3 %; LYMPH % 26.9 %; LYMPH ABS # 2.33 K/uL (1.2-3.4); MEAN CELL VOLUME 86.6 fL (80-100); MEAN CORPUSCULAR HEMOGLOBIN 29.3 pg (25-34); MEAN CORPUSCULAR HGB CONC 33.9 g/dl (32-36); MEAN PLATELET VOLUME 9.3 fL (7.4-10.4); MONO % 8.1 %; NEUT % 63.4 %; PLATELET COUNT 388 K/uL (130-400); RED BLOOD COUNT 4.33 M/uL (4.2-5.4); WHITE BLOOD COUNT 8.65 K/uL (4.8-10.8)
--- NOTE | 2016-11-17 20:30 | DIAGNOSTIC IMAGING REPORT ---
CHEST ONE VIEW PORTABLE HISTORY: Atypical Chest Pain COMPARISON: Chest 09/12/2016. FINDINGS: The cardiac silhouette remains mildly enlarged. There are surgical clips overlapping the right hilum. The lungs are clear. No pleural effusions. No pneumothorax. IMPRESSION: Stable mild cardiomegaly. Electronically signed by: Eugene Ivan M.D. 11/17/2016 8:29 PM Dictated Date/Time: 11/17/2016 8:28 PM
[2016-11-17 20:42] LABS: BLOOD UREA NITROGEN 15 mg/dl (7-18); BUN/CREATININE RATIO 23.8 (10-20); CALCIUM 8.9 mg/dl (8.5-10.1); CARBON DIOXIDE 29 mmol/L (21-32); CHLORIDE 106 mmol/L (98-107); CREATININE 0.65 mg/dl (0.60-1.20); GLUCOSE 87 mg/dl (70-99); POTASSIUM 3.9 mmol/L (3.5-5.1); SODIUM 141 mmol/L (136-145)
[2016-11-17 21:03] VITALS: BP 132/74; PULSE 66; O2SAT 99
[2016-11-17] MEDS ORDERED: TRAM-10 PO (21:13)
[2016-11-17] MEDS ORDERED: METH4PAK PO (21:13)
[2016-11-17] MEDS ORDERED: DEXAMETHASONE SOD INJ 10 MG/ML VIAL IV ONE (21:15)
[2016-11-17] MEDS ORDERED: LISI10TA PO (22:25)
== END 2016-11-17 21:42 | disposition home or self-care (01) ==
LOC: C.EDB 18:09 → C.EDC 21:42
DX: R07.2 Precordial pain (principal); J45.909 Unspecified asthma, uncomplicated; F32.9 Major depressive disorder, single episode, unspecified; E78.5 Hyperlipidemia, unspecified; M79.7 Fibromyalgia; Z85.118 Personal history of other malignant neoplasm of bronchus and lung; Z87.891 Personal history of nicotine dependence

== ENCOUNTER 2016-11-23 12:50 | Emergency (ER) | payer BC ==
[~2016-11-23] VITALS: Ht 160 cm; Wt 63.1 kg
[~2016-11-23 12:50] MED LIST changes: -ALBU0.5N2 NEB; +AMLO-110 PO; +CRS20 PO; +DOXE25CA2 PO; +FLNIN/ NAE; +LISI10TA PO; -LVQ750 PO; +METH4PAK PO; +METO25TA3 PO; -NRV/5 PO; -OFLO0.3S4 OPR; -PRD20 PO; -PRED1SUS17 OP; -RBTUDL10 PO; -ROSU5TAB PO; -TPRSR/25 PO; +TRAM-10 PO; +TRAZ50TA35 PO
[2016-11-23 13:01] VITALS: TEMP 37; Ht 160 cm; Wt 63.1 kg
[2016-11-23] MEDS ORDERED: MoRPHine SULFATE 4 MG/ML 1 ML CARP\\VIAL IV STA (13:48)
[2016-11-23] MEDS ORDERED: ONDANSETRON INJ 2 MG/ML 2 ML VIAL IV STA (13:48)
[2016-11-23] MEDS ORDERED: OPTIRAY 320 IV PRN (14:15)
[2016-11-23 14:17] LABS: BASO % 0.5 %; BASO ABS # 0.04 K/uL (0-0.2); COMPLETE YES; EOS % 0.9 %; HEMATOCRIT 41.1 % (37-47); IG% 0.4 %; LYMPH % 28.1 %; LYMPH ABS # 2.26 K/uL (1.2-3.4); MEAN CELL VOLUME 87.8 fL (80-100); MEAN CORPUSCULAR HEMOGLOBIN 29.7 pg (25-34); MEAN CORPUSCULAR HGB CONC 33.8 g/dl (32-36); MEAN PLATELET VOLUME 10.3 fL (7.4-10.4); MONO % 9.6 %; NEUT % 60.5 %; PLATELET COUNT 374 K/uL (130-400); RED BLOOD COUNT 4.68 M/uL (4.2-5.4); WHITE BLOOD COUNT 8.05 K/uL (4.8-10.8)
[2016-11-23 14:50] LABS: ALKALINE PHOSPHATASE 102 U/L (45-117); ALT/SGPT 17 U/L (12-78); BLOOD UREA NITROGEN 14 mg/dl (7-18); BUN/CREATININE RATIO 19.9 (10-20); CALCIUM 9.3 mg/dl (8.5-10.1); CARBON DIOXIDE 25 mmol/L (21-32); CHLORIDE 107 mmol/L (98-107); CREATININE 0.71 mg/dl (0.60-1.20); GLUCOSE 85 mg/dl (70-99); SODIUM 140 mmol/L (136-145)
[2016-11-23] MEDS ORDERED: FLUO10CA48 PO (14:56)
[2016-11-23] MEDS ORDERED: ATV5X PO (14:58)
[2016-11-23 16:23] LABS: URINE APPEARANCE CLEAR (CLEAR); URINE BILIRUBIN NEG (NEG); URINE COLOR YELLOW; URINE NITRITE NEG (NEG); URINE PH 6.5 (4.5-7.5); URINE SPECIFIC GRAVITY 1.006 (1.000-1.030); UROBILINOGEN NEG (NEG)
[2016-11-23 16:28] LABS: MANUAL MICROSCOPIC REQUIRED? NO; REVIEW REQ? NO
--- NOTE | 2016-11-23 16:42 | DIAGNOSTIC IMAGING REPORT ---
CT ABD/PELVIS IV AND ORAL CONT CLINICAL HISTORY: Right lower quadrant abdominal pain COMPARISON STUDY: 10/14/2016 TECHNIQUE: Following the IV administration of 92 mL of Optiray-320, CT scan of the abdomen and pelvis was performed from the lung bases to the proximal femurs. Images are reviewed in the axial, sagittal, and coronal planes. IV contrast was administered without complication. CT DOSE: 296.69 mGy.cm FINDINGS: Lower chest: There are minor basilar atelectatic changes. Liver: There is a stable 9 mm left lobe hepatic cyst. There is no ductal dilatation. The portal vein appears patent. Gallbladder: Unremarkable. Spleen: Normal in size and attenuation. Pancreas: Unremarkable. Adrenal glands: Unremarkable. Kidneys: There is symmetric renal cortical enhancement. The kidneys are normal in size without hydronephrosis. Bowel: There are no transition zones indicate bowel obstruction. There is colonic diverticulosis. There are no acute peridiverticular inflammatory changes. The appendix appears normal. Peritoneum: There is no intraperitoneal free air or abdominal ascites. Vasculature: The abdominal aorta is normal in course and caliber. Adenopathy: None. Pelvic viscera: The bladder, and pelvic viscera are unremarkable. Skeletal structures: No destructive osseous lesions are seen. IMPRESSION: 1. No acute intra-abdominal or pelvic findings 2. No evidence of bowel obstruction. No evidence of free air 3. Normal appendix 4. Diverticulosis. No evidence of acute peridiverticular inflammatory change Electronically signed by: Pihlip Singh M.D. 11/23/2016 4:41 PM Dictated Date/Time: 11/23/2016 4:33 PM
[2016-11-23 16:48] VITALS: BP 140/96; PULSE 73; O2SAT 97
--- NOTE | 2016-11-23 17:42 | EMERGENCY ROOM VISIT NOTE ---
History Report prepared by Sebastian: Erica Willard Under the Supervision of: Dr. Mynor Rajput M.D. First contact with patient: 13:35 Chief Complaint: ABDOMINAL PAIN Stated Complaint: ABD PAIN,BLOOD IN STOOL Nursing Triage Summary: Triage Note: Pt reports she was seen at [facility] today and sent to ed for further eval. pt reports blood in stool x 1 week. pt reports she has pain from top of head to toes and also pain in right abd. History of Present Illness The patient is a 66 year old female who presents to the Emergency Room with complaints of waxing and waning right lower quadrant abdominal pain that began yesterday. She notes that it began suddenly and is sharp. When her pain increases, she states, "I get pain down my right leg and all over my body." She also complains of a few episodes of rectal bleeding over the past 3 days. Yesterday, she had an "enormous amount" of stool during a bowel movement. Afterwards, she noticed blood coming from her rectum. Her abdominal pain seemed to be more intense at that time. Currently, she complains of nausea and chills. She has not been eating or drinking much in fear that PO intake will exacerbate her symptoms. The patient saw her PCP today and was referred to the ED. She did not have any testing performed. Denies fever, vomiting, or other complaints. She had a colonoscopy several years ago that revealed diverticulosis. She still has her appendix. Source of History: patient Onset: yesterday Position: abdomen (RLQ) Quality: sharp Timing: waxes/wanes Modifying Factors (Worsening): defecation Associated Symptoms: + chills, + nausea, No fevers, No vomiting Note: Other symptoms: rectal bleeding Review of Systems See HPI for pertinent positives & negatives. A total of 10 systems reviewed and were otherwise negative. Past Medical & Surgical Medical Problems: (1) Asthma, moderate persistent (2) Depression (3) Dyslipidemia (4) Fibromyalgia (5) H/O: lung cancer (6) HTN (hypertension) (7) Hypothyroidism (8) Lung cancer (9) Mitral regurgitation (10) Pancreatitis (11) Productive cough Surgical Problems: (1) S/P arthroscopy of left knee (2) S/P arthroscopy of right knee (3) S/P partial lobectomy of lung (4) S/P tonsillectomy and adenoidectomy Family History FH: gallbladder disease FH: heart disease FATHER MOTHER FHx: Crohn's disease FHx: aneurysm Hypertension Social History Smoking Status: Never Smoker Alcohol Use: none Drug Use: none Marital Status: Housing Status: lives with family Occupation Status: other Current/Historical Medications Scheduled Amlodipine (Norvasc), 5 MG PO DAILY Budesonide/Formoterol Fumarate (Symbicort 160/4.5 Inhaler ), 2 PUFFS INH BID Cetirizine (Zyrtec), 10 MG PO DAILY Epinephrine (Epipen), 0.3 MG IM UD Fluoxetine (Prozac), 30 MG PO DAILY Fluticasone Propionate (Fluticasone Propionate), 2 SPRAYS JOSÉ MIGUEL DAILY Ipratropium-Albuterol (Duoneb), 1 DOSE INH Q4 Levothyroxine Sodium (Synthroid), 112 MCG PO QAM Lisinopril (Prinivil), 30 MG PO DAILY Lorazepam (Lorazepam), 0.5 MG PO UD Methylprednisolone (Medrol Dosepak), 1 PKT PO UD Metoprolol Succ (Toprol Xl) (Toprol-Xl), 12.5 MG PO BID Pentosan Polysulfate Sodium (Elmiron), 100 MG PO TID Rosuvastatin Calcium (Crestor), 10 MG PO DAILY Scheduled PRN Tramadol (Ultram), 1 TAB PO TID PRN for Pain Trazodone Hcl (Trazodone), 25-50 MG PO HS PRN for Sleep Allergies Coded Allergies: Oxycodone (Verified Allergy, Intermediate, HIVES, 11/23/16) Propoxyphene (Verified Allergy, Intermediate, ITCHING AND A RASH, 11/23/16) Replaces DARVOCET-N 10 Cephalosporins (Verified Allergy, Mild, 11/23/16) Methenamine (Verified Allergy, Mild, 11/23/16) Simvastatin (Verified Allergy, Mild, 11/23/16) Sulfa Drugs (Verified Allergy, Mild, 11/23/16) Sulfamethoxazole (Verified Allergy, Mild, 11/23/16) Trimethoprim (Verified Allergy, Mild, 11/23/16) Fish (Verified Allergy, Unknown, HIVES/SWELLING, 11/23/16) INDICATED SHE HAD A REACTION TO CERTAIN SEAFOOD LAST TUESDAY AND TODAY. Hydrocodone (Verified Adverse Reaction, Mild, ITCHING, 11/23/16) Prednisone (Verified Adverse Reaction, Mild, ITCHING, 11/23/16) ITCHING HOWEVER BENEFITS OUT WEIGH THE SIDE EFFECTS Uncoded Allergies: SODIUMBIPHOSPHA (Allergy, Mild, 10/10/09) Physical Exam Vital Signs Date Time Temp Pulse Resp B/P Pulse Ox O2 Delivery O2 Flow Rate FiO2 11/23/16 16:48 73 20 140/96 97 Room Air 11/23/16 14:26 77 11/23/16 14:21 75 17 147/92 94 Room Air 11/23/16 13:01 37.0 82 20 133/92 99 Room Air Physical Exam Constitutional: Vital signs reviewed. Eyes: Pupils are equal round reactive to light. Conjunctiva are noninjected. ENT: Pharynx is clear without erythema or exudate. Mucous membranes are moist. Neck supple without meningeal signs. Respiratory: Clear to auscultation bilaterally. Breath sounds are equal bilaterally. Cardiovascular: Regular rate and rhythm. No rubs or gallops. GI: Soft, nondistended. Right lower quadrant tenderness without guarding. Bowel sounds are present. Rectal: External hemorrhoids. No active bleeding. No thrombosis. Trace guaiac positive mucous, no stool. Musculoskeletal: No peripheral edema. No lower extremity tenderness. Integumentary: No cyanosis. Neurological: The patient is awake and alert. No focal deficits. Psychiatric: Normal affect. Medical Decision & Procedures ER Provider Diagnostic Interpretation: Radiology results as stated below per my review and the radiologist's interpretation: CT ABD/PELVIS IV AND ORAL CONT CLINICAL HISTORY: Right lower quadrant abdominal pain COMPARISON STUDY: 10/14/2016 TECHNIQUE: Following the IV administration of 92 mL of Optiray-320, CT scan of the abdomen and pelvis was performed from the lung bases to the proximal femurs. Images are reviewed in the axial, sagittal, and coronal planes. IV contrast was administered without complication. CT DOSE: 296.69 mGy.cm FINDINGS: Lower chest: There are minor basilar atelectatic changes. Liver: There is a stable 9 mm left lobe hepatic cyst. There is no ductal dilatation. The portal vein appears patent. Gallbladder: Unremarkable. Spleen: Normal in size and attenuation. Pancreas: Unremarkable. Adrenal glands: Unremarkable. Kidneys: There is symmetric renal cortical enhancement. The kidneys are normal in size without hydronephrosis. Bowel: There are no transition zones indicate bowel obstruction. There is colonic diverticulosis. There are no acute peridiverticular inflammatory changes. The appendix appears normal. Peritoneum: There is no intraperitoneal free air or abdominal ascites. Vasculature: The abdominal aorta is normal in course and caliber. Adenopathy: None. Pelvic viscera: The bladder, and pelvic viscera are unremarkable. Skeletal structures: No destructive osseous lesions are seen. IMPRESSION: 1. No acute intra-abdominal or pelvic findings 2. No evidence of bowel obstruction. No evidence of free air 3. Normal appendix 4. Diverticulosis. No evidence of acute peridiverticular inflammatory change Electronically signed by: Philip Singh M.D. 11/23/2016 4:41 PM Dictated Date/Time: 11/23/2016 4:33 PM Laboratory Results 11/23/16 14:04 Red Blood Count 4.68, Mean Corpuscular Volume 87.8, Mean Corpuscular Hemoglobin 29.7, Mean Corpuscular Hemoglobin Concent 33.8, Mean Platelet Volume 10.3, Neutrophils (%) (Auto) 60.5, Lymphocytes (%) (Auto) 28.1, Monocytes (%) (Auto) 9.6, Eosinophils (%) (Auto) 0.9, Basophils (%) (Auto) 0.5, Neutrophils # (Auto) 4.88, Lymphocytes # (Auto) 2.26, Monocytes # (Auto) 0.77, Eosinophils # (Auto) 0.07, Basophils # (Auto) 0.04 11/23/16 14:04 Test 11/23/16 14:04 11/23/16 15:51 White Blood Count 8.05 K/uL (4.8-10.8) Red Blood Count 4.68 M/uL (4.2-5.4) Hemoglobin 13.9 g/dL (12.0-16.0) Hematocrit 41.1 % (37-47) Mean Corpuscular Volume 87.8 fL (80-100) Mean Corpuscular Hemoglobin 29.7 pg (25-34) Mean Corpuscular Hemoglobin Concent 33.8 g/dl (32-36) Platelet Count 374 K/uL (130-400) Mean Platelet Volume 10.3 fL (7.4-10.4) Neutrophils (%) (Auto) 60.5 % Lymphocytes (%) (Auto) 28.1 % Monocytes (%) (Auto) 9.6 % Eosinophils (%) (Auto) 0.9 % Basophils (%) (Auto) 0.5 % Neutrophils # (Auto) 4.88 K/uL (1.4-6.5) Lymphocytes # (Auto) 2.26 K/uL (1.2-3.4) Monocytes # (Auto) 0.77 K/uL (0.11-0.59) Eosinophils # (Auto) 0.07 K/uL (0-0.5) Basophils # (Auto) 0.04 K/uL (0-0.2) RDW Standard Deviation 42.0 fL (36.4-46.3) RDW Coefficient of Variation 13.3 % (11.5-14.5) Immature Granulocyte % (Auto) 0.4 % Immature Granulocyte # (Auto) 0.03 K/uL (0.00-0.02) Anion Gap 8.0 mmol/L (3-11) Est Creatinine Clear Calc Drug Dose 71.6 ml/min Estimated GFR () 104.3 Estimated GFR (Non- 90.0 BUN/Creatinine Ratio 19.9 (10-20) Calcium Level 9.3 mg/dl (8.5-10.1) Total Bilirubin 0.7 mg/dl (0.2-1) Direct Bilirubin mg/dl (0-0.2) Aspartate Amino Transf (AST/SGOT) U/L (15-37) Alanine Aminotransferase (ALT/SGPT) 17 U/L (12-78) Alkaline Phosphatase 102 U/L (45-117) Troponin I < 0.015 ng/ml (0-0.045) Total Protein 7.8 gm/dl (6.4-8.2) Albumin 3.5 gm/dl (3.4-5.0) Lipase 107 U/L (73-393) Urine Color YELLOW Urine Appearance CLEAR (CLEAR) Urine pH 6.5 (4.5-7.5) Urine Specific [place] 1.006 (1.000-1.030) Urine Protein NEG (NEG) Urine Glucose (UA) NEG (NEG) Urine Ketones NEG (NEG) Urine Occult Blood NEG (NEG) Urine Nitrite NEG (NEG) Urine Bilirubin NEG (NEG) Urine Urobilinogen NEG (NEG) Urine Leukocyte Esterase TRACE (NEG) Urine WBC (Auto) 1-5 /hpf (0-5) Urine RBC (Auto) 0-4 /hpf (0-4) Urine Hyaline Casts (Auto) 0 /lpf (0-5) Urine Epithelial Cells (Auto) 10-20 /lpf (0-5) Urine Bacteria (Auto) NEG (NEG) Laboratory results as reviewed by me. Medications Administered Medications (Trade) Dose Ordered Sig/Héctor Route Start Time Stop Time Status Last Admin Dose Admin Morphine Sulfate (MoRPHine SULFATE INJ) 4 mg ONE STAT IV 11/23/16 13:48 11/23/16 13:50 DC 11/23/16 14:13 4 MG Ondansetron HCl (Zofran Inj) 4 mg NOW STAT IV 11/23/16 13:48 11/23/16 13:50 DC 11/23/16 14:14 4 MG ECG Indication: abdominal pain Rate (beats per minute): 75 Rhythm: sinus rhythm Findings: PAC, no acute ischemic change, no ectopy ED Course 1341: The patient was evaluated in room B11B. A complete history and physical exam was performed. 1348: Ordered Zofran Inj 4 mg IV, Morphine Sulfate 4 mg IV. 1607: I reassessed the patient and discussed lab results with her. She had a bowel movement without any blood. She is waiting on the CT scan. 1651: I reassessed the patient and updated her on her CT scan results. She clarified that she went to the bathroom earlier, but did not have a bowel movement. She did not have any bleeding since her arrival to the ED. I asked the patient if she would like to try to have a bowel movement to see if she has any bleeding, but she declined. She will follow up with her doctor in 24 hours for recheck. I told her to return immediately if she has more bleeding or lightheadedness. 1705: I spoke with the patient and her . Her seemed frustrated that the patient was being discharged in case they would go home and she would bleed again because they would have to come back and she was already seen earlier this month in the ED for chest pain. I discussed hospitalization for expedited testing, but the patient refused testing. I reiterated to return if she has worsening symptoms. Medical Decision This is a 66-year-old female who presents with rectal bleeding and abdominal pain. Differential diagnosis includes GI bleed, hemorrhoid, polyp, mass, diverticulosis, anemia. I did perform a limited focused review of portions of the patient's old chart on the electronic medical record. She was here November 17 for chest and back pain. Her chest pain was reproducible. Her troponin and D-dimer were negative. She was discharged home with Tramadol and a Medrol dose pack. I did evaluate the patient as noted above. Patient is presenting with rectal bleeding and right lower quadrant abdominal pain. I did perform a rectal examination. She does have nonthrombosed nonbleeding external hemorrhoids. No stool was obtained from the rectal exam but she did have slightly guaiac- positive mucus. IV access was established. I did treat the patient with IV morphine and Zofran. The patient was placed on a continuous quality assurance monitor final. I did order and personally review the patient's 12-lead EKG as described above. I did order and review the patient's blood work as noted in the electronic medical record. She is not anemic. BUN is not elevated. Her troponin is negative. I did order a CT of the abdomen and pelvis. I did review the images myself as well as the radiology report as described above. There is no evidence of acute intra-abdominal process. I did reassess the patient. She has had no recurrent bleeding here in the emergency department. I did discuss the test results with her and her . She was advised to follow up with her doctor within 24 hours for reexamination and outpatient colonoscopy. She did not wish to be hospitalized for her symptoms. She was given strict instructions to return should she have worsening symptoms or develop any new symptoms such as lightheadedness or shortness of breath. She was discharged in good condition. Impression Primary Impression: Rectal bleeding Additional Impressions: Right lower quadrant abdominal pain Whole body pain Scribe Attestation The scribe's documentation has been prepared under my direct and personally reviewed by me in its entirety. I confirm that the note above accurately reflects all work, treatment, procedures, and medical decision making performed by me. Departure Information Dispostion Home / Self-Care Referrals Mahesh Zuñiga M.D.([facility]) (PCP) Patient Instructions GI Bleeding - [facility], [facility] Additional Instructions You have been examined and treated today on an emergency basis only. This is not a substitute for, or an effort to provide, complete comprehensive medical care. It is impossible to recognize and treat all injuries or illnesses in a single emergency department visit. It is therefore important that you follow up closely with your physician within 24 hours for reevaluation and to schedule a colonoscopy. Call as soon as possible for an appointment. Return immediately for worsening symptoms or if you develop fever, vomiting, lightheadedness, shortness of breath, or any other concerning symptoms. Problem Qualifiers
== END 2016-11-23 17:15 | disposition home or self-care (01) ==
LOC: C.EDB 12:51
DX: K62.5 Hemorrhage of anus and rectum (principal); R10.31 Right lower quadrant pain; J45.909 Unspecified asthma, uncomplicated; F32.9 Major depressive disorder, single episode, unspecified; E78.5 Hyperlipidemia, unspecified; Z85.118 Personal history of other malignant neoplasm of bronchus and lung; I10 Essential (primary) hypertension; E03.9 Hypothyroidism, unspecified; I34.0 Nonrheumatic mitral (valve) insufficiency; Z96.651 Presence of right artificial knee joint; Z96.652 Presence of left artificial knee joint

== ENCOUNTER 2017-05-15 21:22 | Emergency (ER) | payer OTHER, BC ==
[~2017-05-15] VITALS: Ht 152.4 cm; Wt 66.1 kg
[~2017-05-15 21:22] MED LIST changes: +ATV5X PO; -DOXE25CA2 PO; -FLUO20CA35 PO; -METH4PAK PO
[2017-05-15 21:27] VITALS: TEMP 36.7; Ht 152.4 cm; Wt 66.1 kg
[2017-05-15 22:08] LABS: BASO % 0.1 %; BASO ABS # 0.01 K/uL (0-0.2); COMPLETE YES; HEMATOCRIT 34.5 % (37-47); IG% 1.9 %; LYMPH % 10.9 %; LYMPH ABS # 1.26 K/uL (1.2-3.4); MEAN CELL VOLUME 88.5 fL (80-100); MEAN CORPUSCULAR HEMOGLOBIN 29.2 pg (25-34); MEAN PLATELET VOLUME 9.6 fL (7.4-10.4); NEUT % 84.1 %; PLATELET COUNT 399 K/uL (130-400); WHITE BLOOD COUNT 11.51 K/uL (4.8-10.8)
[2017-05-15 22:23] LABS: BUN/CREATININE RATIO 23.3 (10-20); CALCIUM 8.5 mg/dl (8.5-10.1); CREATININE 0.88 mg/dl (0.60-1.20); POTASSIUM 3.6 mmol/L (3.5-5.1)
[2017-05-15 22:25] LABS: POINT OF CARE TROPONIN I < 0.030 ng/ml (0-0.045)
[2017-05-15 22:25] LABS: PARTIAL THROMBOPLASTIN RATIO 0.8; PROTHROMBIN TIME (PATIENT) 10.2 SECONDS (9.0-12.0)
[2017-05-15] MEDS ORDERED: ALBUT/IPRATROP 3MG/0.5MG NEB 3 ML VIAL INH STA (22:31)
--- NOTE | 2017-05-15 22:31 | DIAGNOSTIC IMAGING REPORT ---
CHEST 2 VIEWS ROUTINE CLINICAL HISTORY: eval for pnea pain COMPARISON STUDY: 11/17/2016 FINDINGS: Stable postoperative changes right hilar region. I'll stable cardiomegaly. Small parenchymal infiltrate right infrahilar and medial right base. Lungs otherwise appear clear. IMPRESSION: Small parenchymal infiltrate medial right base. The above report was generated using voice recognition software. It may contain grammatical, syntax or spelling errors. Electronically signed by: Nakul Aguirre M.D. 05/15/2017 10:29 PM Dictated Date/Time: 05/15/2017 10:29 PM
[2017-05-15] MEDS ORDERED: DOXYCYCLINE HYCLATE 100 MG CAP PO ONE (22:45)
[2017-05-15] MEDS ORDERED: DOXY100C2 PO (22:47)
[2017-05-15 23:12] VITALS: BP 151/84; PULSE 89; O2SAT 100
--- NOTE | 2017-05-16 01:16 | EMERGENCY ROOM VISIT NOTE ---
History Report prepared by Sebastian: Suhail Schroeder Under the Supervision of: Dr. Mynor Rajput M.D. First contact with patient: 21:51 Chief Complaint: CHEST PAIN Stated Complaint: CHEST PAIN, BACK PAIN, WEAKNESS History of Present Illness The patient is a 67 year old female who presents to the Emergency Room with complaints of constant chest pain for the last two weeks that feels like when she had pneumonia. She states that the pain is in the center of her chest and in her lungs. She states that she saw her doctor, and they gave her codeine and prednisone which helped resolve her cough. The patient additionally states that she feels weak and cold, though she denies any fever. Today she had chills. The patient additionally is denying any leg swelling or leg pain. The patient states that she has a history of asthma, lung cancer, and removal of some of her right lung. The patient states that she does not have a history of heart disease, though she has a murmur and a leaky valve. She states that she took her blood pressure medication last night, and she is using her albuterol and Advair which are not helping. The patient states that nothing makes the chest pain worse. Source of History: patient Onset: two weeks ago Position: chest Quality: other (lung pain) Timing: constant Associated Symptoms: + weakness, No fevers Review of Systems See HPI for pertinent positives & negatives. A total of 10 systems reviewed and were otherwise negative. Past Medical & Surgical Medical Problems: (1) Asthma, moderate persistent (2) Depression (3) Dyslipidemia (4) Fibromyalgia (5) H/O: lung cancer (6) HTN (hypertension) (7) Hypothyroidism (8) Lung cancer (9) Mitral regurgitation (10) Pancreatitis (11) Productive cough Surgical Problems: (1) S/P arthroscopy of left knee (2) S/P arthroscopy of right knee (3) S/P partial lobectomy of lung (4) S/P tonsillectomy and adenoidectomy Family History FH: gallbladder disease FH: heart disease FATHER MOTHER FHx: Crohn's disease FHx: aneurysm Hypertension Social History Smoking Status: Former Smoker Alcohol Use: none Drug Use: none Marital Status: Housing Status: lives with family Occupation Status: other Current/Historical Medications Scheduled Amlodipine (Norvasc), 5 MG PO DAILY Budesonide/Formoterol Fumarate (Symbicort 160/4.5 Inhaler ), 2 PUFFS INH BID Cetirizine (Zyrtec), 10 MG PO DAILY Doxycycline Hyclate (Vibramycin), 100 MG PO BID Epinephrine (Epipen), 0.3 MG IM UD Fluoxetine (Prozac), 30 MG PO DAILY Fluticasone Propionate (Fluticasone Propionate), 2 SPRAYS JOSÉ MIGUEL DAILY Ipratropium-Albuterol (Duoneb), 1 DOSE INH Q4 Levothyroxine Sodium (Synthroid), 112 MCG PO QAM Lisinopril (Prinivil), 30 MG PO DAILY Lorazepam (Lorazepam), 0.5 MG PO UD Metoprolol Succ (Toprol Xl) (Toprol-Xl), 12.5 MG PO BID Pentosan Polysulfate Sodium (Elmiron), 100 MG PO TID Rosuvastatin Calcium (Crestor), 10 MG PO DAILY Scheduled PRN Tramadol (Ultram), 1 TAB PO TID PRN for Pain Trazodone Hcl (Trazodone), 25-50 MG PO HS PRN for Sleep Allergies Coded Allergies: Oxycodone (Verified Allergy, Intermediate, HIVES, 11/23/16) Propoxyphene (Verified Allergy, Intermediate, ITCHING AND A RASH, 11/23/16) Replaces DARVOCET-N 10 Cephalosporins (Verified Allergy, Mild, 11/23/16) Methenamine (Verified Allergy, Mild, 11/23/16) Simvastatin (Verified Allergy, Mild, 11/23/16) Sulfa Drugs (Verified Allergy, Mild, 11/23/16) Sulfamethoxazole (Verified Allergy, Mild, 11/23/16) Trimethoprim (Verified Allergy, Mild, 11/23/16) Fish (Verified Allergy, Unknown, HIVES/SWELLING, 11/23/16) INDICATED SHE HAD A REACTION TO CERTAIN SEAFOOD LAST TUESDAY AND TODAY. Hydrocodone (Verified Adverse Reaction, Mild, ITCHING, 11/23/16) Prednisone (Verified Adverse Reaction, Mild, ITCHING, 11/23/16) ITCHING HOWEVER BENEFITS OUT WEIGH THE SIDE EFFECTS Uncoded Allergies: SODIUMBIPHOSPHA (Allergy, Mild, 10/10/09) Physical Exam Vital Signs Date Time Temp Pulse Resp B/P (MAP) Pulse Ox O2 Delivery O2 Flow Rate FiO2 9/10/17 23:12 89 18 151/84 100 05/15/17 22:02 Room Air 05/15/17 21:52 82 05/15/17 21:27 36.7 90 20 188/91 100 Room Air Physical Exam Constitutional: Vital signs reviewed. Eyes: Pupils are equal round reactive to light. Conjunctiva are noninjected. ENT: Pharynx is clear without erythema or exudate. Mucous membranes are moist. Neck supple without meningeal signs. Respiratory: Clear to auscultation bilaterally. Breath sounds are equal bilaterally. Cardiovascular: Regular rate and rhythm. No rubs or gallops. GI: Soft, nondistended and nontender. Bowel sounds are present. Musculoskeletal: No peripheral edema. No lower extremity tenderness. Integumentary: No cyanosis. Neurological: The patient is awake and alert. No focal deficits. Psychiatric: Normal affect. Medical Decision & Procedures ER Provider Diagnostic Interpretation: Radiology results as stated below per my review and the radiologist's interpretation: CHEST 2 VIEWS ROUTINE CLINICAL HISTORY: eval for pnea pain COMPARISON STUDY: 11/17/2016 FINDINGS: Stable postoperative changes right hilar region. I'll stable cardiomegaly. Small parenchymal infiltrate right infrahilar and medial right base. Lungs otherwise appear clear. IMPRESSION: Small parenchymal infiltrate medial right base. The above report was generated using voice recognition software. It may contain grammatical, syntax or spelling errors. Electronically signed by: Nakul Aguirre M.D. 05/15/2017 10:29 PM Dictated Date/Time: 05/15/2017 10:29 PM Laboratory Results 05/15/17 21:45 Red Blood Count 3.90, Mean Corpuscular Volume 88.5, Mean Corpuscular Hemoglobin 29.2, Mean Corpuscular Hemoglobin Concent 33.0, Mean Platelet Volume 9.6, Neutrophils (%) (Auto) 84.1, Lymphocytes (%) (Auto) 10.9, Monocytes (%) (Auto) 3.0, Eosinophils (%) (Auto) 0.0, Basophils (%) (Auto) 0.1, Neutrophils # (Auto) 9.68, Lymphocytes # (Auto) 1.26, Monocytes # (Auto) 0.34, Eosinophils # (Auto) 0.00, Basophils # (Auto) 0.01 05/15/17 21:45 Test 05/15/17 21:45 05/15/17 22:05 White Blood Count 11.51 K/uL (4.8-10.8) Red Blood Count 3.90 M/uL (4.2-5.4) Hemoglobin 11.4 g/dL (12.0-16.0) Hematocrit 34.5 % (37-47) Mean Corpuscular Volume 88.5 fL (80-100) Mean Corpuscular Hemoglobin 29.2 pg (25-34) Mean Corpuscular Hemoglobin Concent 33.0 g/dl (32-36) Platelet Count 399 K/uL (130-400) Mean Platelet Volume 9.6 fL (7.4-10.4) Neutrophils (%) (Auto) 84.1 % Lymphocytes (%) (Auto) 10.9 % Monocytes (%) (Auto) 3.0 % Eosinophils (%) (Auto) 0.0 % Basophils (%) (Auto) 0.1 % Neutrophils # (Auto) 9.68 K/uL (1.4-6.5) Lymphocytes # (Auto) 1.26 K/uL (1.2-3.4) Monocytes # (Auto) 0.34 K/uL (0.11-0.59) Eosinophils # (Auto) 0.00 K/uL (0-0.5) Basophils # (Auto) 0.01 K/uL (0-0.2) RDW Standard Deviation 43.4 fL (36.4-46.3) RDW Coefficient of Variation 13.4 % (11.5-14.5) Immature Granulocyte % (Auto) 1.9 % Immature Granulocyte # (Auto) 0.22 K/uL (0.00-0.02) Prothrombin Time 10.2 SECONDS (9.0-12.0) Prothromb Time International Ratio 1.0 (0.9-1.1) Activated Partial Thromboplast Time 21.6 SECONDS (21.0-31.0) Partial Thromboplastin Ratio 0.8 Anion Gap 10.0 mmol/L (3-11) Est Creatinine Clear Calc Drug Dose 54.1 ml/min Estimated GFR () 79.9 Estimated GFR (Non- 68.9 BUN/Creatinine Ratio 23.3 (10-20) Calcium Level 8.5 mg/dl (8.5-10.1) Bedside D-Dimer 261 ng/mlFEU (0-450) Bedside Troponin I < 0.030 ng/ml (0-0.045) Laboratory results as reviewed by me. Medications Administered Medications (Trade) Dose Ordered Sig/Héctro Route Start Time Stop Time Status Last Admin Dose Admin Albuterol/ Ipratropium (Duoneb) 3 ml NOW STAT INH 05/15/17 22:31 05/15/17 22:32 DC 05/15/17 22:31 3 ML Doxycycline Hyclate (Vibramycin Cap) 100 mg ONE ONCE PO 05/15/17 22:45 05/15/17 22:47 DC 05/15/17 23:11 100 MG ECG Indication: chest pain Rate (beats per minute): 84 Rhythm: normal sinus Findings: nonspecific-ST abn, no ectopy, other (LVH) ED Course 215: The patient was evaluated in room B10. A complete history and physical exam was performed. 2231: DuoNeb 3ml INH 2243: I discussed the patient's test results with her, and her oxygen saturation is 96% on room air. 2245: Vibramycin Cap 100mg PO Medical Decision This is a 67-year-old female presents with chest pain. Differential diagnosis includes pneumonia, bronchitis, pleurisy, GERD, [place]. I did perform a limited focused review of portions of the patient's old chart on the electronic medical record. The patient was here on November 17 for chest pain and back pain. She was evaluated in the ED and discharged home. I did evaluate the patient as noted above. The patient is presenting with chest pain, chills and cough. She feels like she did when she previously had pneumonia. She was seen by her doctor treated with prednisone and codeine. She was not placed on an antibiotic. IV access was established. The patient was placed on a continuous member service specialist. I did order and personally review the patient's 12-lead EKG and chest x-ray as described above. Her chest x-ray demonstrates a right-sided pneumonia. I did order and review the patient's blood work as noted in the electronic medical record. Troponin and d-dimer are both negative. Her white blood cell count is slightly elevated. I did discuss the test result with the patient. She was given a DuoNeb here. She was started on doxycycline and discharged with a ten-day course of doxycycline. She was advised follow with her doctor. Medication Reconcilliation Current Medication List: was personally reviewed by me Blood Pressure Screening Patient's blood pressure: Elevated blood pressure Blood pressure disposition: Referred to PCP Impression Primary Impression: Right lower lobe pneumonia Scribe Attestation The scribe's documentation has been prepared under my direct and personally reviewed by me in its entirety. I confirm that the note above accurately reflects all work, treatment, procedures, and medical decision making performed by me. Departure Information Dispostion Home / Self-Care Prescriptions Doxycycline Hyclate (VIBRAMYCIN) 100 Mg Cap 100 MG PO BID for 10 Days, #20 CAP Prov: Mynor Rajput M.D. 05/15/17 Referrals Kedar Dyer MD (PCP) Forms Call Back Authorization, HOME CARE DOCUMENTATION FORM, IMPORTANT VISIT INFORMATION Patient Instructions ED Pneumonia Adult, My [facility] Additional Instructions You have been examined and treated today on an emergency basis only. This is not a substitute for, or an effort to provide, complete comprehensive medical care. It is impossible to recognize and treat all injuries or illnesses in a single emergency department visit. It is therefore important that you follow up closely with your physician. Call as soon as possible for an appointment. Return for worsening symptoms or if you develop fever, vomiting, or any other concerning symptoms. Problem Qualifiers Primary Impression: Right lower lobe pneumonia Pneumonia type: due to unspecified organism Qualified Codes: J18.1 - Lobar pneumonia, unspecified organism
== END 2017-05-15 23:14 | disposition home or self-care (01) ==
LOC: C.EDB 21:23
DX: J18.1 Lobar pneumonia, unspecified organism (principal); J45.909 Unspecified asthma, uncomplicated; F32.9 Major depressive disorder, single episode, unspecified; E78.5 Hyperlipidemia, unspecified; I10 Essential (primary) hypertension; E03.9 Hypothyroidism, unspecified; M79.7 Fibromyalgia; Z82.49 Family history of ischemic heart disease and other diseases of the circulatory system; Z87.891 Personal history of nicotine dependence

== ENCOUNTER 2017-06-26 11:44 | Emergency (ER) | payer OTHER, BC ==
[~2017-06-26] VITALS: Ht 149.9 cm; Wt 65.9 kg
[~2017-06-26 11:44] MED LIST changes: +DOXY100C2 PO; -TRAM-10 PO
[2017-06-26 12:00] VITALS: TEMP 37.1; Ht 149.9 cm; Wt 65.9 kg
[2017-06-26] MEDS ORDERED: HYDROmorphone INJ 0.5 MG/0.5 ML SYR IV STA (12:22)
[2017-06-26] MEDS ORDERED: ONDANSETRON INJ 2 MG/ML 2 ML VIAL IV STA (12:22)
[2017-06-26 12:43] LABS: URINE COLOR ORANGE
[2017-06-26 12:44] LABS: MANUAL MICROSCOPIC REQUIRED? YES; REVIEW REQ? NO
[2017-06-26 12:49] LABS: SULFASALICYLIC ACID NEG (NEG); URINE APPEARANCE SLIGHTLY CLOUDY (CLEAR)
[2017-06-26 12:50] LABS: URINE SPECIFIC GRAVITY 1.023 (1.000-1.030)
[2017-06-26 12:52] LABS: URINE MUCUS PRESENT (NONE PRSENT)
[2017-06-26 12:53] LABS: URINE BACTERIA NEG (NEG); URINE RBC 0-4 /hpf (0-4); ZZUR CULT IF INDIC CLEAN CATCH NO
[2017-06-26 13:12] LABS: BASO % 0.3 %; BASO ABS # 0.03 K/uL (0-0.2); COMPLETE YES; EOS % 0.3 %; HEMATOCRIT 34.1 % (37-47); IG% 0.3 %; LYMPH % 28.3 %; LYMPH ABS # 2.81 K/uL (1.2-3.4); MEAN CELL VOLUME 86.3 fL (80-100); MEAN CORPUSCULAR HEMOGLOBIN 28.6 pg (25-34); MEAN CORPUSCULAR HGB CONC 33.1 g/dl (32-36); MEAN PLATELET VOLUME 9.5 fL (7.4-10.4); MONO % 9.8 %; PLATELET COUNT 348 K/uL (130-400); RED BLOOD COUNT 3.95 M/uL (4.2-5.4); WHITE BLOOD COUNT 9.92 K/uL (4.8-10.8)
[2017-06-26 13:30] LABS: ALT/SGPT 18 U/L (12-78); AST/SGOT 10 U/L (15-37); BLOOD UREA NITROGEN 14 mg/dl (7-18); BUN/CREATININE RATIO 20.8 (10-20); CALCIUM 8.4 mg/dl (8.5-10.1); CARBON DIOXIDE 28 mmol/L (21-32); CHLORIDE 108 mmol/L (98-107); CREATININE 0.67 mg/dl (0.60-1.20); GLUCOSE 110 mg/dl (70-99); POTASSIUM 3.2 mmol/L (3.5-5.1); SODIUM 145 mmol/L (136-145)
[2017-06-26 13:33] LABS: ALKALINE PHOSPHATASE 117 U/L (45-117)
--- NOTE | 2017-06-26 14:01 | DIAGNOSTIC IMAGING REPORT ---
CT SCAN OF THE ABDOMEN AND PELVIS WITHOUT CONTRAST CLINICAL HISTORY: left flank pain COMPARISON STUDY: 11/23/2016 TECHNIQUE: CT scan of the abdomen and pelvis was performed from the lung bases to the proximal femurs. Images are reviewed in the axial, sagittal, and coronal planes. IV contrast was not administered for this examination. A dose lowering technique was utilized adhering to the principles of ALARA. CT DOSE: 909.22 mGycm FINDINGS: Lower chest: There is an 18 x 5 mm pleural-based opacity within the right middle lobe. This was present on a CT scan of chest performed July 2014. This is therefore felt to be benign. Liver: There is a 12 mm left lobe hepatic cyst. Gallbladder: Unremarkable. Spleen: Normal in size and attenuation. Pancreas: Unremarkable. Adrenal glands: Unremarkable. Kidneys: No renal, ureteral, or bladder calculi are visualized. Bowel: There are no transition zones to indicate bowel obstruction. There were a few colonic diverticula. There are no acute peridiverticular inflammatory changes. The appendix appears normal. There is scattered stool throughout the colon Peritoneum: There is no intraperitoneal free air or abdominal ascites. Vasculature: The abdominal aorta is normal in course and caliber. Adenopathy: None. Pelvic viscera: The bladder, and pelvic viscera are unremarkable. Skeletal structures: A sclerotic lesion within the right acetabular remains unchanged the prior study and likely represents a bone island. IMPRESSION: 1. No evidence of bowel obstruction. No evidence of free air 2. No renal, ureteral, or bladder calculi identified 3. Normal appendix. No evidence of diverticulitis. Electronically signed by: Philip Singh M.D. 06/26/2017 1:59 PM Dictated Date/Time: 06/26/2017 1:55 PM
[2017-06-26] MEDS ORDERED: CIPROFLOXACIN 500 MG TAB PO STA (14:27)
[2017-06-26] MEDS ORDERED: CIPR-255 PO (14:29)
[2017-06-26] MEDS ORDERED: PRAV20TA PO (14:48)
[2017-06-26] MEDS ORDERED: ALBINSX (14:48)
[2017-06-26] MEDS ORDERED: CYCL5TAB PO (14:48)
[2017-06-26] MEDS ORDERED: PRED20TA PO (14:48)
[2017-06-26 14:50] VITALS: BP 140/86; PULSE 85; O2SAT 98
--- NOTE | 2017-06-26 18:24 | EMERGENCY ROOM VISIT NOTE ---
History Report prepared by Sebastian: Walt Hernandez Under the Supervision of: Dr. Mina Luna M.D. First contact with patient: 12:10 Chief Complaint: URINARY SYMPTOMS Stated Complaint: UTI History of Present Illness The patient is a 67 year old female with a history of kidney stones who presents to the Emergency Room with complaints of persistent urinary symptoms that started 3 days ago. Per the patient's , the patient suffers from interstitial cystitis, and gets a lot of UTI's, and had one last month. The patient saw her primary care physician and was given Doxycycline, which worked for a while, but then her UTI came back. The patient notes that for the past 3 days, she has had pain and burning in her vagina, lower abdomen, and lower back when urinating. The patient went to [facility] this morning, and was told that this is not a normal UTI because the patient was noted to be way too tender in her abdomen, so she was sent here for further evaluation. The patient says that her abdomen hurts all over, but is the worst on the right side. The patient says that she is intermittently getting nauseated when the pain gets bad. Pt denies LOC, headache, fevers, chills, diaphoresis, visual changes, neck pain, chest pain, breathing difficulties, vomiting, melena, hematochezia, numbness, weakness, lymphadenopathy, rash, or other complaints. Source of History: patient, spouse/significant other Onset: 3 days ago Position: other (global - urinary symptoms) Quality: other (pain when urinating) Timing: other (persistent) Associated Symptoms: + nausea, + abdominal pain, + back pain (low) Note: Associated symptoms: Pain and burning in vagina when urinating. Review of Systems See HPI for pertinent positives and negatives. A total of ten systems were reviewed and were otherwise negative. Past Medical & Surgical Medical Problems: (1) Asthma, moderate persistent (2) Depression (3) Dyslipidemia (4) Fibromyalgia (5) H/O: lung cancer (6) HTN (hypertension) (7) Hypothyroidism (8) Lung cancer (9) Mitral regurgitation (10) Pancreatitis (11) Productive cough Surgical Problems: (1) S/P arthroscopy of left knee (2) S/P arthroscopy of right knee (3) S/P partial lobectomy of lung (4) S/P tonsillectomy and adenoidectomy Family History FH: gallbladder disease FH: heart disease FATHER MOTHER FHx: Crohn's disease FHx: aneurysm Hypertension Social History Smoking Status: Former Smoker Alcohol Use: none Drug Use: none Marital Status: Housing Status: lives with family Occupation Status: other Current/Historical Medications Scheduled Amlodipine (Norvasc), 5 MG PO DAILY Ciprofloxacin Hcl (Cipro), 500 MG PO BID Cyclobenzaprine Hcl (Flexeril), 5 MG PO DAILY Doxycycline Hyclate (Vibramycin), 100 MG PO BID Epinephrine (Epipen), 0.3 MG IM UD Fluoxetine (Prozac), 30 MG PO DAILY Fluticasone Propionate (Fluticasone Propionate), 2 SPRAYS JOSÉ MIGUEL DAILY Levothyroxine Sodium (Synthroid), 112 MCG PO QAM Lisinopril (Prinivil), 30 MG PO DAILY Metoprolol Succ (Toprol Xl) (Toprol-Xl), 25 MG PO BID Pentosan Polysulfate Sodium (Elmiron), 100 MG PO TID Pravastatin (Pravachol ), 20 MG PO HS Prednisone (Prednisone), 20 MG PO UD Miscellaneous Medications Albuterol Sulf (Albuterol Sulfate), Unknown Dose Allergies Coded Allergies: Oxycodone (Verified Allergy, Intermediate, HIVES, 06/26/17) Propoxyphene (Verified Allergy, Intermediate, ITCHING AND A RASH, 06/26/17 ) Replaces DARVOCET-N 10 Cephalosporins (Verified Allergy, Mild, 06/26/17) Methenamine (Verified Allergy, Mild, 06/26/17) Simvastatin (Verified Allergy, Mild, 06/26/17) Sulfa Drugs (Verified Allergy, Mild, 06/26/17) Sulfamethoxazole (Verified Allergy, Mild, 06/26/17) Trimethoprim (Verified Allergy, Mild, 06/26/17) Fish (Verified Allergy, Unknown, HIVES/SWELLING, 06/26/17) INDICATED SHE HAD A REACTION TO CERTAIN SEAFOOD LAST TUESDAY AND TODAY. Hydrocodone (Verified Adverse Reaction, Mild, ITCHING, 06/26/17) Prednisone (Verified Adverse Reaction, Mild, ITCHING, 06/26/17) ITCHING HOWEVER BENEFITS OUT WEIGH THE SIDE EFFECTS Uncoded Allergies: SODIUMBIPHOSPHA (Allergy, Mild, 10/10/09) Physical Exam Vital Signs Date Time Temp Pulse Resp B/P (MAP) Pulse Ox O2 Delivery O2 Flow Rate FiO2 06/26/17 14:50 85 18 140/86 98 Room Air 06/26/17 13:57 141/81 98 Room Air 06/26/17 13:11 73 06/26/17 12:49 74 16 156/84 97 Room Air 06/26/17 12:00 37.1 78 20 147/70 99 Room Air Physical Exam GENERAL: Awake, alert, well-appearing, in no distress HENT: Normocephalic, atraumatic. Oropharynx unremarkable. EYES: Normal conjunctiva. Sclera non-icteric. NECK: Supple. No nuchal rigidity. FROM. No JVD. RESPIRATORY: Clear to auscultation. CARDIAC: Regular rate, normal rhythm. Extremities warm and well perfused. Pulses equal. ABDOMEN: Soft, non-distended. Left upper quadrant and suprapubic tenderness. No rebound or guarding. No masses. RECTAL: Deferred. MUSCULOSKELETAL: Left flank tenderness. Chest examination reveals no tenderness. The back is symmetrical on inspection. There is no CVA tenderness to palpation. No joint edema. LOWER EXTREMITIES: Calves are equal size bilaterally and non-tender. No edema. No discoloration. NEURO: Normal sensorium. No sensory or motor deficits noted. SKIN: No rash or jaundice noted. Medical Decision & Procedures ER Provider Diagnostic Interpretation: CT: Radiology results as stated below per my review and radiologist interpretation CT SCAN OF THE ABDOMEN AND PELVIS WITHOUT CONTRAST CLINICAL HISTORY: left flank pain COMPARISON STUDY: 11/23/2016 TECHNIQUE: CT scan of the abdomen and pelvis was performed from the lung bases to the proximal femurs. Images are reviewed in the axial, sagittal, and coronal planes. IV contrast was not administered for this examination. A dose lowering technique was utilized adhering to the principles of ALARA. CT DOSE: 909.22 mGycm FINDINGS: Lower chest: There is an 18 x 5 mm pleural-based opacity within the right middle lobe. This was present on a CT scan of chest performed July 2014. This is therefore felt to be benign. Liver: There is a 12 mm left lobe hepatic cyst. Gallbladder: Unremarkable. Spleen: Normal in size and attenuation. Pancreas: Unremarkable. Adrenal glands: Unremarkable. Kidneys: No renal, ureteral, or bladder calculi are visualized. Bowel: There are no transition zones to indicate bowel obstruction. There were a few colonic diverticula. There are no acute peridiverticular inflammatory changes. The appendix appears normal. There is scattered stool throughout the colon Peritoneum: There is no intraperitoneal free air or abdominal ascites. Vasculature: The abdominal aorta is normal in course and caliber. Adenopathy: None. Pelvic viscera: The bladder, and pelvic viscera are unremarkable. Skeletal structures: A sclerotic lesion within the right acetabular remains unchanged the prior study and likely represents a bone island. IMPRESSION: 1. No evidence of bowel obstruction. No evidence of free air 2. No renal, ureteral, or bladder calculi identified 3. Normal appendix. No evidence of diverticulitis. Electronically signed by: Philip Singh M.D. 06/26/2017 1:59 PM Dictated Date/Time: 06/26/2017 1:55 PM Laboratory Results 06/26/17 12:50 Red Blood Count 3.95, Mean Corpuscular Volume 86.3, Mean Corpuscular Hemoglobin 28.6, Mean Corpuscular Hemoglobin Concent 33.1, Mean Platelet Volume 9.5, Neutrophils (%) (Auto) 61.0, Lymphocytes (%) (Auto) 28.3, Monocytes (%) (Auto) 9.8, Eosinophils (%) (Auto) 0.3, Basophils (%) (Auto) 0.3, Neutrophils # (Auto) 6.05, Lymphocytes # (Auto) 2.81, Monocytes # (Auto) 0.97, Eosinophils # (Auto) 0.03, Basophils # (Auto) 0.03 06/26/17 12:50 Test 06/26/17 12:10 06/26/17 12:50 Urine Color ORANGE Urine Appearance SLIGHTLY CLOUDY (CLEAR) Urine pH (4.5-7.5) Urine Specific [place] 1.023 (1.000-1.030) Urine Protein NEG (NEG) Urine Glucose (UA) (NEG) Urine Ketones (NEG) Urine Occult Blood (NEG) Urine Nitrite (NEG) Urine Bilirubin (NEG) Urine Urobilinogen (NEG) Urine Leukocyte Esterase (NEG) Urine RBC 0-4 /hpf (0-4) Urine WBC 1-5 /hpf (0-5) Urine Epithelial Cells >30 /lpf (0-5) Urine Calcium Oxalate Crystals PRESENT (NONE PRSENT) Urine Bacteria NEG (NEG) Urine Mucus PRESENT (NONE PRSENT) White Blood Count 9.92 K/uL (4.8-10.8) Red Blood Count 3.95 M/uL (4.2-5.4) Hemoglobin 11.3 g/dL (12.0-16.0) Hematocrit 34.1 % (37-47) Mean Corpuscular Volume 86.3 fL (80-100) Mean Corpuscular Hemoglobin 28.6 pg (25-34) Mean Corpuscular Hemoglobin Concent 33.1 g/dl (32-36) Platelet Count 348 K/uL (130-400) Mean Platelet Volume 9.5 fL (7.4-10.4) Neutrophils (%) (Auto) 61.0 % Lymphocytes (%) (Auto) 28.3 % Monocytes (%) (Auto) 9.8 % Eosinophils (%) (Auto) 0.3 % Basophils (%) (Auto) 0.3 % Neutrophils # (Auto) 6.05 K/uL (1.4-6.5) Lymphocytes # (Auto) 2.81 K/uL (1.2-3.4) Monocytes # (Auto) 0.97 K/uL (0.11-0.59) Eosinophils # (Auto) 0.03 K/uL (0-0.5) Basophils # (Auto) 0.03 K/uL (0-0.2) RDW Standard Deviation 40.3 fL (36.4-46.3) RDW Coefficient of Variation 12.7 % (11.5-14.5) Immature Granulocyte % (Auto) 0.3 % Immature Granulocyte # (Auto) 0.03 K/uL (0.00-0.02) Anion Gap 9.0 mmol/L (3-11) Est Creatinine Clear Calc Drug Dose 69.1 ml/min Estimated GFR () 106.9 Estimated GFR (Non- 92.2 BUN/Creatinine Ratio 20.8 (10-20) Calcium Level 8.4 mg/dl (8.5-10.1) Total Bilirubin 0.2 mg/dl (0.2-1) Direct Bilirubin < 0.1 mg/dl (0-0.2) Aspartate Amino Transf (AST/SGOT) 10 U/L (15-37) Alanine Aminotransferase (ALT/SGPT) 18 U/L (12-78) Alkaline Phosphatase 117 U/L (45-117) Total Protein 6.8 gm/dl (6.4-8.2) Albumin 3.3 gm/dl (3.4-5.0) Lipase 127 U/L (73-393) Laboratory results reviewed by me Medications Administered Medications (Trade) Dose Ordered Sig/Héctor Route Start Time Stop Time Status Last Admin Dose Admin Hydromorphone HCl (Dilaudid Inj) 0.5 mg NOW STAT IV 06/26/17 12:22 06/26/17 12:24 DC 06/26/17 12:51 0.5 MG Ondansetron HCl (Zofran Inj) 4 mg NOW STAT IV 06/26/17 12:22 06/26/17 12:24 DC 06/26/17 12:50 4 MG Ciprofloxacin (Cipro Tab) 500 mg NOW STAT PO 06/26/17 14:27 06/26/17 14:28 DC 06/26/17 14:47 500 MG ED Course 1217: The patient was evaluated in room B4B. A complete history and physical exam was performed. 1222: Ordered Zofran Inj 4 mg IV, Dilaudid Inj 0.5 mg IV. 1425: I reevaluated the patient and she feels better. Discussed results and discharge instructions: she verbalized understanding and agreement. The patient is ready for discharge. 1427: Ordered Cipro Tab 500 mg PO. Medical Decision Triage Nursing notes reviewed. The patient's presentation and history were concerning for urinary symptoms and flank pain Etiologies such as renal colic, UTI, interstitial cystitis, appendicitis, diverticulitis, mesenteric ischemia, aortic pathology, infections, inflammatory bowel disease, PUD, biliary pathology, as well as others were entertained. Patient was evaluated. She did not have any peritoneal findings. She was mildly uncomfortable. She received Zofran and Dilaudid. She felt much better with this. Her CBC, chemistry panel, LFTs and lipase were unremarkable. Urinalysis was as above. Culture sent. Given the patient's urinary symptoms and flank pain this was concerning for a UTI and possibly early pyelo. Her history makes it somewhat difficult given the interstitial cystitis. I will place her on Cipro as this has worked well for her in the past. She will use [id number] medication for pain. She will follow-up closely in the office. A culture was sent. If she worsens in any way she will be back. I gave my usual and customary discussion regarding this issue. By the evaluation outlined above other emergent etiologies such as those listed in the differential, as well as others, were deemed relatively unlikely. The patient was educated about the findings as listed above. All questions were answered and the patient was pleased with the treatment. Return instructions were outlined and the patient was discharged in stable condition. The patient was referred to her PCP for follow-up for a recheck of the current condition. Medication Reconcilliation Current Medication List: was personally reviewed by me Blood Pressure Screening Patient's blood pressure: Elevated blood pressure Blood pressure disposition: Elevated BP felt to be situational Impression Primary Impression: UTI (urinary tract infection) Additional Impression: Flank pain Scribe Attestation The scribe's documentation has been prepared under my direction and personally reviewed by me in its entirety. I confirm that the note above accurately reflects all work, treatment, procedures, and medical decision making performed by me. Departure Information Dispostion Home / Self-Care Prescriptions Ciprofloxacin Hcl (CIPRO) 500 Mg Tab 500 MG PO BID, #13 TAB Prov: Mina Luna MD 06/26/17 Referrals Kedar Dyer MD (PCP) Patient Instructions My [facility] Additional Instructions Ciprofloxacin(Cipro) 500mg: Take one pill twice daily for 7 days for your urine infection. All antibiotics can cause diarrhea. If this occurs and you feel worse or it does not resolve in 1-2 days follow up with your doctor or return to the Emergency Department as this could be signs of serious underlying problems. If you experience any pain in your tendons or any tendon injury return to the ER for re-evaluation. Any medication can cause an allergic reaction, stop the pills immediately and return to the ER for rash, hives, breathing difficulties, or swelling. Ibuprofen(Motrin, Advil) may be used for fever or pain. Use 600mg every six hours as needed. Take with food. Avoid using more than 2400mg in a 24 hour period. Do not use 2400mg per day for more than three consecutive days without physician direction. Prolonged inappropriate use can lead to stomach upset or ulcers. (AND/OR) Acetaminophen(Tylenol) may be used for fever or pain. Use 1000mg every six hours as needed. Avoid using more than 4000mg in a 24 hour period. Rest and drink plenty of fluids. Continue current medications. Return to the ER immediately for worsening or persistent abdominal pain, vomiting, fevers, back or flank pain, worsening of your condition, or as needed. Follow up with your primary physician within 2-3 days for a recheck of the current condition. Problem Qualifiers
== END 2017-06-26 14:56 | disposition admitted as inpatient to this hospital (09) ==
LOC: C.EDB 11:45
DX: N39.0 Urinary tract infection, site not specified (principal); J45.40 Moderate persistent asthma, uncomplicated; F32.9 Major depressive disorder, single episode, unspecified; E78.5 Hyperlipidemia, unspecified; M79.7 Fibromyalgia; Z85.118 Personal history of other malignant neoplasm of bronchus and lung; I10 Essential (primary) hypertension; E03.9 Hypothyroidism, unspecified; Z90.2 Acquired absence of lung [part of]; Z82.49 Family history of ischemic heart disease and other diseases of the circulatory system; Z87.891 Personal history of nicotine dependence; Z79.899 Other long term (current) drug therapy

== ENCOUNTER 2017-08-07 12:16 | Emergency (ER) | payer OTHER, BC ==
[~2017-08-07] VITALS: Ht 149.9 cm; Wt 66.0 kg
[~2017-08-07 12:16] MED LIST changes: +ALBINSX; -ATV5X PO; -CETI10TA84 PO; +CIPR-255 PO; -CRS20 PO; +CYCL5TAB PO; -IPRASOL4 INH; +PRAV20TA PO; +PRED20TA PO; -SYMIN160 INH; -TRAZ50TA35 PO
[2017-08-07 12:18] VITALS: Ht 149.9 cm; Wt 66.0 kg
[2017-08-07] MEDS ORDERED: ATV1 PO (12:43)
[2017-08-07] MEDS ORDERED: LISI1TAB3 PO (12:43)
[2017-08-07] MEDS ORDERED: SYMIN160 INH (12:43)
[2017-08-07] MEDS ORDERED: ACETAMINOPHEN IV 100 ML IV STA (13:16)
[2017-08-07 13:30] LABS: URINE APPEARANCE CLEAR (CLEAR); URINE BILIRUBIN NEG (NEG); URINE COLOR YELLOW; URINE NITRITE NEG (NEG); URINE SPECIFIC GRAVITY 1.013 (1.000-1.030); UROBILINOGEN NEG (NEG); ZZUR CULT IF INDIC CLEAN CATCH NO
[2017-08-07 13:31] LABS: MANUAL MICROSCOPIC REQUIRED? NO; REVIEW REQ? NO
[2017-08-07 13:37] LABS: HEMATOCRIT 34.9 % (37-47); MEAN CELL VOLUME 87.7 fL (80-100); MEAN CORPUSCULAR HEMOGLOBIN 28.9 pg (25-34); MEAN PLATELET VOLUME 9.3 fL (7.4-10.4); PLATELET COUNT 347 K/uL (130-400); RED BLOOD COUNT 3.98 M/uL (4.2-5.4); WHITE BLOOD COUNT 9.32 K/uL (4.8-10.8)
[2017-08-07 13:55] LABS: ALT/SGPT 18 U/L (12-78); BLOOD UREA NITROGEN 15 mg/dl (7-18); BUN/CREATININE RATIO 26.6 (10-20); CALCIUM 8.7 mg/dl (8.5-10.1); CARBON DIOXIDE 30 mmol/L (21-32); CHLORIDE 103 mmol/L (98-107); CREATININE 0.58 mg/dl (0.60-1.20); GLUCOSE 82 mg/dl (70-99); POTASSIUM 3.5 mmol/L (3.5-5.1); SODIUM 141 mmol/L (136-145)
[2017-08-07 13:58] LABS: ALKALINE PHOSPHATASE 90 U/L (45-117); AST/SGOT 11 U/L (15-37)
--- NOTE | 2017-08-07 14:41 | EMERGENCY ROOM VISIT NOTE ---
History First contact with patient: 12:58 Chief Complaint: BACK PAIN Stated Complaint: LOWER BACK PAIN, RECTAL BLEEDING History of Present Illness The patient is a 67 year old female who presents to the Emergency Room with complaints of low back pain for the past 2 weeks and rectal bleeding for the past 5 days. She states that the back pain has been constant, progressively worsening, severe for the past 2 days, worse with walking , twisting, and certain positions, better with rest, not relieved with Tylenol or tramadol, / 10. She also states that she has been feeling generally weak and fatigued for the past week or so. She states the bleeding is with bowel movements only, bright red blood when she wipes after having bowel movements. She reports a history of hemorrhoids, though she states these have never really bothered her before, and denies any history of rectal bleeding. She she states she has a history of frequent urinary tract infections and interstitial cystitis, she denies any dysuria, hematuria, dark or cloudy or foul-smelling urine, and states this does not feel like previous UTIs. She does have some urinary frequency. She denies any abdominal pain, diarrhea, constipation, chest pain, shortness of breath, palpitations, syncope, headaches, rash. She denies any abdominal or back surgeries. Review of Systems A complete 10 point review of systems was reviewed with the patient with pertinent positives and negatives as per history of present illness. All else were negative. Past Medical/Surgical History Medical Problems: (1) Asthma, moderate persistent (2) Depression (3) Dyslipidemia (4) Fibromyalgia (5) H/O: lung cancer (6) HTN (hypertension) (7) Hypothyroidism (8) Lung cancer (9) Mitral regurgitation (10) Pancreatitis (11) Productive cough Surgical Problems: (1) S/P arthroscopy of left knee (2) S/P arthroscopy of right knee (3) S/P partial lobectomy of lung (4) S/P tonsillectomy and adenoidectomy Family History FH: gallbladder disease FH: heart disease FATHER MOTHER FHx: Crohn's disease FHx: aneurysm Hypertension Social History Smoking Status: Never Smoker Alcohol Use: none Drug Use: none Marital Status: Housing Status: lives with family Occupation Status: other Current/Historical Medications Scheduled Amlodipine (Norvasc), 5 MG PO DAILY Budesonide/Formoterol Fumarate (Symbicort 160/4.5 Inhaler), 2 PUFFS INH BID Cyclobenzaprine Hcl (Flexeril), 5 MG PO DAILY Cyclobenzaprine Hcl (Flexeril), 10 MG PO TID Epinephrine (Epipen), 0.3 MG IM UD Fluoxetine (Prozac), 30 MG PO DAILY Fluticasone Propionate (Fluticasone Propionate), 2 SPRAYS JOSÉ MIGUEL DAILY Levothyroxine Sodium (Synthroid), 112 MCG PO QAM Lisinopril (Zestril), 30 MG PO QPM Lorazepam (Lorazepam), 1 MG PO UD Metoprolol Succ (Toprol Xl) (Toprol-Xl), 25 MG PO QPM Pentosan Polysulfate Sodium (Elmiron), 100 MG PO TID Pravastatin (Pravachol ), 20 MG PO HS Miscellaneous Medications Albuterol Sulf (Albuterol Sulfate), Unknown Dose Allergies Reviewed in chart Physical Exam Vital Signs Date Time Temp Pulse Resp B/P (MAP) Pulse Ox O2 Delivery O2 Flow Rate FiO2 08/07/17 17:32 36.4 79 18 146/97 97 08/07/17 17:22 79 18 146/97 97 Room Air 08/07/17 16:00 70 18 154/84 98 08/07/17 14:02 73 18 140/79 98 08/07/17 12:18 36.4 83 16 153/73 97 Room Air Physical Exam CONSTITUTIONAL: No acute distress, but does appear uncomfortable and in pain. Mildly dehydrated. Alert and oriented X 4 with normal affect. HEENT: Normocephalic, atraumatic. Pupils equal, round and reactive to light, EOMI. TMs normal. Pharynx normal. Tacky mucous membranes. NECK: Supple, full active range of motion without discomfort. RESPIRATORY: Clear to auscultation bilaterally with no wheezing, crackles, rhonchi or stridor. Equal expansion bilaterally. CARDIOVASCULAR: Regular rate and rhythm with no murmurs, rubs or gallops. Normal peripheral perfusion. No edema. GASTROINTESTINAL: Diffuse mild tenderness throughout the abdomen to palpation. No rebound tenderness or guarding. Soft, nondistended. No palpable masses, no hepatosplenomegaly. No CVA tenderness. Bowel sounds present in all quadrants. RECTAL: Digital rectal exam performed with nurse tablet machine operator at bedside, noting multiple circumferential external hemorrhoids, no active bleeding. There is internal tracking of the hemorrhoids, tender to palpation, guaiac positive. Normal rectal tone and sensation. BACK: There is no midline tenderness of the thoracic or lumbar spine to palpation, no step-offs. There is bilateral muscular tenderness of the lower back. Negative straight leg raise bilaterally. MUSCULOSKELETAL: Full range of motion of all joints without discomfort. INTEGUMENTARY: No rash or other significant dermatologic conditions noted. NEUROLOGIC: Cranial nerves II-XII grossly intact. No focal neurologic deficits noted. Normal strength, normal sensation, normal speech, normal finger nose finger testing, normal Romberg. +2 patellar and Achilles reflexes, equal bilaterally. Medical Decision & Procedures ER Provider Diagnostic Interpretation: CT SCAN OF THE ABDOMEN AND PELVIS WITH IV CONTRAST CLINICAL HISTORY: Low back pain. Rectal bleeding. COMPARISON STUDY: Abdominal CT dated 06/26/2017. TECHNIQUE: Following the IV administration of 93 cc of Optiray 320, CT scan of the abdomen and pelvis is performed from the lung bases to the proximal femora. Images are reviewed in the axial, sagittal, and coronal planes. IV contrast was administered without complication. A dose lowering technique was utilized adhering to the principles of ALARA. CT DOSE: 306.94 mGy.cm FINDINGS: Lung bases: The heart is top normal in size and there is a small pericardial effusion. There are trace pleural effusions, right larger than left. Postoperative changes suggested at the gastroesophageal junction. Liver: The contrast-enhanced liver is normal in size, contour, and attenuation. Fatty infiltration is seen adjacent to falciform ligament. There is no intrahepatic biliary ductal dilatation. The hepatic veins and portal veins are patent. A 10 mm cyst is seen in the left hepatic lobe. Gallbladder: Unremarkable. Spleen: Normal in size and attenuation. Pancreas: Unremarkable. Adrenal glands: Unremarkable. Kidneys: The contrast enhanced kidneys are normal in size and without hydronephrosis. The kidneys enhance symmetrically. Abdominal vasculature: The abdominal aorta is normal in course and caliber noting scattered foci of atherosclerotic calcification. Bowel: There is mild colonic diverticulosis without CT evidence of acute diverticulitis. No bowel obstruction is seen. The appendix is well-visualized and normal. Peritoneum: There is no intraperitoneal free air or abdominal ascites. There is a small fat-containing umbilical hernia. Lymphadenopathy: None. Pelvic viscera: The bladder, uterus, and adnexa are normal as visualized. Trace free fluid is seen in the cul-de-sac. Skeletal structures: The skeletal structures are osteopenic. No lytic or blastic lesions are seen. IMPRESSION: 1. There are trace pleural effusions, right larger than left. 2. Trace nonspecific fluid is identified in the cul-de-sac. This may be reactive or physiologic. Clinical correlation will be required. 3. Mild colonic diverticulosis without CT evidence of acute diverticulitis. 4. Additional findings as above. Laboratory Results 08/07/17 13:00 08/07/17 13:00 Test 08/07/17 13:00 08/07/17 14:10 Red Blood Count 3.98 M/uL (4.2-5.4) Mean Corpuscular Volume 87.7 fL (80-100) Mean Corpuscular Hemoglobin 28.9 pg (25-34) Mean Corpuscular Hemoglobin Concent 33.0 g/dl (32-36) RDW Standard Deviation 42.9 fL (36.4-46.3) RDW Coefficient of Variation 13.3 % (11.5-14.5) Mean Platelet Volume 9.3 fL (7.4-10.4) Urine Color YELLOW Urine Appearance CLEAR (CLEAR) Urine pH 6.0 (4.5-7.5) Urine Specific [place] 1.013 (1.000-1.030) Urine Protein NEG (NEG) Urine Glucose (UA) NEG (NEG) Urine Ketones NEG (NEG) Urine Occult Blood NEG (NEG) Urine Nitrite NEG (NEG) Urine Bilirubin NEG (NEG) Urine Urobilinogen NEG (NEG) Urine Leukocyte Esterase TRACE (NEG) Urine WBC (Auto) 1-5 /hpf (0-5) Urine RBC (Auto) 0-4 /hpf (0-4) Urine Hyaline Casts (Auto) 1-5 /lpf (0-5) Urine Epithelial Cells (Auto) 5-10 /lpf (0-5) Urine Bacteria (Auto) NEG (NEG) Anion Gap 8.0 mmol/L (3-11) Est Creatinine Clear Calc Drug Dose 79.9 ml/min Estimated GFR () 112.1 Estimated GFR (Non- 96.7 BUN/Creatinine Ratio 26.6 (10-20) Calcium Level 8.7 mg/dl (8.5-10.1) Total Bilirubin 0.3 mg/dl (0.2-1) Direct Bilirubin < 0.1 mg/dl (0-0.2) Aspartate Amino Transf (AST/SGOT) 11 U/L (15-37) Alanine Aminotransferase (ALT/SGPT) 18 U/L (12-78) Alkaline Phosphatase 90 U/L (45-117) Total Protein 6.6 gm/dl (6.4-8.2) Albumin 3.2 gm/dl (3.4-5.0) Lactic Acid Level 0.3 mmol/L (0.4-2.0) Medications Administered Medications (Trade) Dose Ordered Sig/Héctor Route Start Time Stop Time Status Last Admin Dose Admin Acetaminophen 100 ml @ 400 mls/hr NOW STAT IV 08/07/17 13:16 08/07/17 13:30 DC 08/07/17 14:41 400 MLS/HR Cyclobenzaprine HCl (FLEXERIL 10MG Home Pack) 1 homepack UD ONCE PO 08/07/17 17:15 08/07/17 17:16 DC 08/07/17 17:15 1 HOMEPACK Medical Decision CC: Patient presenting with complaint of back pain, rectal bleeding Interpretation of Labs: No leukocytosis, mild anemia (baseline), no significant left lid abnormalities, normal renal function, normal liver enzymes and lipase, lactic acid normal. UA negative for infection. Differential Diagnosis: Includes, but not limited to lumbar strain/sprain, UTI, pyelonephritis, hemorrhoids, anal fissure, diverticulitis, bowel perforation, bowel obstruction, colitis, inflammatory bowel disease, among others. Medication Reconciliation: I attest that I have personally reviewed the patient' s current medication list. Vital signs review: I reviewed the patient's vital signs and interpret them as follows: T: Afebrile; BP: Hypertensive; HR: Within normal limits; RR: Within normal limits; Pulse Ox: Within normal limits on room air. Blood pressure screening: The patient was found to have an elevated blood pressure and was referred to their primary doctor for recheck and further treatment. Summary: Patient was evaluated at bedside, history and physical exam performed. Patient is alert and oriented, in no acute distress but does appear uncomfortable and in pain. Patient is tender in the lower back musculature to palpation and with some movement, no midline tenderness to palpation of the thoracic or lumbar spine. The abdomen is also diffusely tender to palpation, no rebound or guarding. TRINIDAD positive for internal and external hemorrhoids, guaiac positive. Patient was offered something for pain, her states the only thing that works for her is Dilaudid, however the patient states she does not want any strong pain medicine and is requesting Tylenol. Orders were placed at bedside for labs, UA and culture, IV Tylenol for pain, CT abdomen/pelvis with IV contrast to evaluate for abdominal and low back pain. Patient discussed with Dr. Stern, who agrees with my assessment and plan. Labs reviewed as above, no significant abnormalities. CT imaging negative for any acute findings. Digital rectal exam performed, noting multiple external hemorrhoids that track internally, with tenderness and mild bleeding noted. Guaiac positive. Patient states she used to see [facility], but has changed all of her doctors over the [place], and would like to see a [place] [facility] doctor. She will call her PCP tomorrow to discuss colonoscopy and GI referral. Patient reassessed multiple times throughout ED stay, she reports she is feeling much better after the IV Tylenol and her pain is much improved. Given her muscular tenderness and pain with movement, I do think that she may have a muscular component to her back pain. Patient requested muscle relaxers, stating that Flexeril has worked for her in the past, a prescription for this was provided to her. Patient was updated on all results and plan for discharge, and she was encouraged to follow closely with her PCP and get established with a GI doctor. Patient was also given strict return precautions should her symptoms worsen, she verbalized understanding. The patient was discharged home in stable condition and ambulatory. Head Trauma GCS Score: 15 Medication Reconcilliation Current Medication List: was personally reviewed by me Impression Primary Impression: Musculoskeletal back pain Additional Impression: Internal and external bleeding hemorrhoids Departure Information Dispostion Home / Self-Care Condition GOOD Prescriptions Cyclobenzaprine Hcl (FLEXERIL) 10 Mg Tab 10 MG PO TID for 4 Days, #12 TAB Prov: Mayda Arzate CRNP 08/07/17 Referrals Kedar Dyer MD (PCP) Patient Instructions ED Back Care Tips, ED Exercises Lumbar Muscles, ED Hemorrhoids, My [facility] Additional Instructions Take it easy for the next few days, no strenuous activity, heavy lifting, or bending/twisting motions, to allow your back to rest. Apply heat to your lower back for comfort. After heat, you may do gentle stretching and massage to the low back. Ibuprofen or Aleve as needed for back pain. Take as prescribed. You may also take Tylenol 1000 mg every 8 hours as needed for pain. Do not take more than 3000 mg in 24 hours. Flexeril muscle relaxer as prescribed, as needed for muscle tightness and spasms. This may make you drowsy. Do not drive or drink alcohol while taking. Follow up with your PCP in the next few days for further management. You may benefit from physical therapy to treat your back pain. You should also discuss with your PCP about having a colonoscopy and being referred to see a GI specialist regarding your bleeding hemorrhoids. Please return to the ER if you develop any worsening back pain, severe abdominal pain, chest pain or shortness of breath, dizziness or passing out, large amounts of blood in your stool, any problems with bowel or bladder function, numbness in your groin, high fevers, or if loss of feeling/movement of legs. Problem Qualifiers
[2017-08-07] MEDS ORDERED: OPTIRAY 320 IV PRN (14:45)
--- NOTE | 2017-08-07 14:56 | DIAGNOSTIC IMAGING REPORT ---
CT SCAN OF THE ABDOMEN AND PELVIS WITH IV CONTRAST CLINICAL HISTORY: Low back pain. Rectal bleeding. COMPARISON STUDY: Abdominal CT dated 06/26/2017. TECHNIQUE: Following the IV administration of 93 cc of Optiray 320, CT scan of the abdomen and pelvis is performed from the lung bases to the proximal femora. Images are reviewed in the axial, sagittal, and coronal planes. IV contrast was administered without complication. A dose lowering technique was utilized adhering to the principles of ALARA. CT DOSE: 306.94 mGy.cm FINDINGS: Lung bases: The heart is top normal in size and there is a small pericardial effusion. There are trace pleural effusions, right larger than left. Postoperative changes suggested at the gastroesophageal junction. Liver: The contrast-enhanced liver is normal in size, contour, and attenuation. Fatty infiltration is seen adjacent to falciform ligament. There is no intrahepatic biliary ductal dilatation. The hepatic veins and portal veins are patent. A 10 mm cyst is seen in the left hepatic lobe. Gallbladder: Unremarkable. Spleen: Normal in size and attenuation. Pancreas: Unremarkable. Adrenal glands: Unremarkable. Kidneys: The contrast enhanced kidneys are normal in size and without hydronephrosis. The kidneys enhance symmetrically. Abdominal vasculature: The abdominal aorta is normal in course and caliber noting scattered foci of atherosclerotic calcification. Bowel: There is mild colonic diverticulosis without CT evidence of acute diverticulitis. No bowel obstruction is seen. The appendix is well-visualized and normal. Peritoneum: There is no intraperitoneal free air or abdominal ascites. There is a small fat-containing umbilical hernia. Lymphadenopathy: None. Pelvic viscera: The bladder, uterus, and adnexa are normal as visualized. Trace free fluid is seen in the cul-de-sac. Skeletal structures: The skeletal structures are osteopenic. No lytic or blastic lesions are seen. IMPRESSION: 1. There are trace pleural effusions, right larger than left. 2. Trace nonspecific fluid is identified in the cul-de-sac. This may be reactive or physiologic. Clinical correlation will be required. 3. Mild colonic diverticulosis without CT evidence of acute diverticulitis. 4. Additional findings as above. Electronically signed by: Landry Vu M.D. 08/07/2017 2:55 PM Dictated Date/Time: 08/07/2017 2:49 PM
[2017-08-07] MEDS ORDERED: CYCL10TA6 PO (17:12)
[2017-08-07] MEDS ORDERED: FLEXERIL HOME PACK 10 MG VIAL PO ONE (17:15)
[2017-08-07 17:32] VITALS: BP 146/97; PULSE 79; TEMP 36.4; O2SAT 97
== END 2017-08-07 17:32 | disposition home or self-care (01) ==
LOC: C.EDB 12:17 → C.EDC 17:32
DX: M54.5 Low back pain (principal); K64.8 Other hemorrhoids; K64.4 Residual hemorrhoidal skin tags; J45.909 Unspecified asthma, uncomplicated; E78.5 Hyperlipidemia, unspecified; I10 Essential (primary) hypertension; E03.9 Hypothyroidism, unspecified; Z83.79 Family history of other diseases of the digestive system; Z82.49 Family history of ischemic heart disease and other diseases of the circulatory system

== ENCOUNTER → 2017-10-03 | Outpatient (CLI) | payer OTHER, BC ==
[~2017-10-03] MED LIST changes: +ATV1 PO; -CIPR-255 PO; -DOXY100C2 PO; -LISI10TA PO; +LISI1TAB3 PO; -PRED20TA PO; +SYMIN160 INH
--- NOTE | 2017-10-03 13:26 | DIAGNOSTIC IMAGING REPORT ---
TWO VIEW CHEST CLINICAL HISTORY: Chest discomfort. Mid thoracic back pain.. FINDINGS: PA and lateral chest radiographs are compared to study dated 05/15/2017 and correlated with chest CT dated 07/26/2014. The heart is mildly enlarged. The pulmonary vasculature is noncongested. Chronic interstitial thickening is similar to previous. There is postoperative change from right-sided pulmonary resection with volume loss in the right lower lung. No airspace consolidation is identified typical for pneumonia. No pleural effusion is seen. The skeletal structures are osteopenic. The bony thorax is grossly intact. IMPRESSION: 1. Cardiomegaly without radiographic evidence of congestive failure. 2. Postoperative change and scarring is noted in the right lung. No airspace consolidation is seen typical for pneumonia and there is no pleural effusion. Electronically signed by: Landry Vu M.D. 10/03/2017 1:25 PM Dictated Date/Time: 10/03/2017 1:23 PM
--- NOTE | 2017-10-03 13:28 | DIAGNOSTIC IMAGING REPORT ---
THORACIC SPINE 3 VIEWS CLINICAL HISTORY: Midthoracic back pain. FINDINGS: AP, lateral, and swimmer's views of the thoracic spine are correlated with chest CT dated 07/26/2014. The skeletal structures are osteopenic. There is no radiographic evidence of fracture or malalignment involving the thoracic spine. Vertebral body height and alignment are maintained. The transverse processes and pedicles are grossly intact as seen on the frontal view. The disc spaces appear maintained. Postoperative change is noted in the right lung. The heart appears enlarged. IMPRESSION: No acute bony abnormality is seen involving the thoracic spine. Electronically signed by: Landry Vu M.D. 10/03/2017 1:26 PM Dictated Date/Time: 10/03/2017 1:25 PM
== END | disposition home or self-care (01) ==
LOC: C.RADBC 13:04
PROVIDERS: ATTEND Nurse Practitioner Family
DX: R07.89 Other chest pain (principal); I51.7 Cardiomegaly; Z85.118 Personal history of other malignant neoplasm of bronchus and lung

== ENCOUNTER 2017-10-22 16:23 | Emergency (ER) | payer OTHER, BC ==
[~2017-10-22] VITALS: Ht 152.4 cm; Wt 68.8 kg
[~2017-10-22 16:23] MED LIST changes: -ALBINSX; +ASPI-435 PO; -FLNIN/ NAE; -PRAV20TA PO; +PRVIN525X NEB; +VNTHFA/IN INH
[2017-10-22 16:27] VITALS: TEMP 36.7; Ht 152.4 cm; Wt 68.8 kg
[2017-10-22 17:25] LABS: BASO % 1.2 %; BASO ABS # 0.07 K/uL (0-0.2); EOS ABS # 0.06 K/uL (0-0.5); HEMATOCRIT 34.6 % (37-47); HEMOGLOBIN 11.7 g/dL (12.0-16.0); IG# 0.01 K/uL (0.00-0.02); LYMPH ABS # 1.78 K/uL (1.2-3.4); MEAN CELL VOLUME 86.1 fL (80-100); MEAN CORPUSCULAR HEMOGLOBIN 29.1 pg (25-34); MEAN CORPUSCULAR HGB CONC 33.8 g/dl (32-36); MONO % 9.6 %; MONO ABS # 0.55 K/uL (0.11-0.59); NEUT ABS # 3.28 K/uL (1.4-6.5); PLATELET COUNT 350 K/uL (130-400); RED CELL DISTRIBUTION WIDTH CV 12.9 % (11.5-14.5); RED CELL DISTRIBUTION WIDTH SD 41.1 fL (36.4-46.3); WHITE BLOOD COUNT 5.75 K/uL (4.8-10.8)
[2017-10-22 17:44] LABS: ALBUMIN 3.3 gm/dl (3.4-5.0); ALT/SGPT 30 U/L (12-78); AST/SGOT 25 U/L (15-37); BLOOD UREA NITROGEN 12 mg/dl (7-18); CALCIUM 8.7 mg/dl (8.5-10.1); CARBON DIOXIDE 26 mmol/L (21-32); CREATININE 0.65 mg/dl (0.60-1.20); GLUCOSE 88 mg/dl (70-99); LIPASE 123 U/L (73-393); SODIUM 141 mmol/L (136-145)
[2017-10-22 17:47] LABS: ALKALINE PHOSPHATASE 90 U/L (45-117); TOTAL PROTEIN 7.1 gm/dl (6.4-8.2)
--- NOTE | 2017-10-22 18:00 | EMERGENCY ROOM VISIT NOTE ---
History Report prepared by Sebastian: Megan Lin Under the Supervision of: Dr. Gonzales Waller D.O. First contact with patient: 16:42 Chief Complaint: URINARY SYMPTOMS Stated Complaint: POSSIBLE UTI Nursing Triage Summary: Pt presents with c/o urinary burning, freq that started last night. Reports "shooting pain" in genital area and lower back pain. Denies fever/chills or n/ v. Pt reports hx of interstitial cystitis. History of Present Illness The patient is a 67 year old female who presents to the Emergency Room with complaints of persistent urinary symptoms starting last night. She has had UTIs in the past. It has been 6 months since her last UTI. She is normally treated with Cipro or Macrobid and Pyridium. Her previous UTIs have felt similar to her current symptoms. She has a history of interstitial cystitis. She is having burning with urination and urinary frequency. She has burning in her abdomen and back pain. She has some pain in her genitals. She denies any discharge, bleeding, or redness. She notes that she has had rectal bleeding with bowel movements for the past month. She is bleeding for 20-25 minutes after she has a bowel movement. She has a history of hemorrhoids. She has a history of diverticulitis, heart disease, and lung cancer. She is on baby aspirin. Source of History: patient, spouse/significant other Onset: last night Position: other (global) Quality: other (urinary symptoms) Timing: other (persistent) Associated Symptoms: + abdominal pain, + back pain Note: Pt reports rectal bleeding. Review of Systems See HPI for pertinent positives & negatives. A total of 10 systems reviewed and were otherwise negative. Past Medical & Surgical Medical Problems: (1) Asthma, moderate persistent (2) Depression (3) Dyslipidemia (4) Fibromyalgia (5) H/O: lung cancer (6) HTN (hypertension) (7) Hypothyroidism (8) Lung cancer (9) Mitral regurgitation (10) Pancreatitis (11) Productive cough Surgical Problems: (1) S/P arthroscopy of left knee (2) S/P arthroscopy of right knee (3) S/P partial lobectomy of lung (4) S/P tonsillectomy and adenoidectomy Family History FH: gallbladder disease FH: heart disease FATHER MOTHER FHx: Crohn's disease FHx: aneurysm Hypertension Social History Smoking Status: Former Smoker Alcohol Use: none Drug Use: none Marital Status: Housing Status: lives with family Occupation Status: other Current/Historical Medications Scheduled Amlodipine (Norvasc), 5 MG PO QPM Aspirin (Aspirin 81), 1 TAB PO QAM Budesonide/Formoterol Fumarate (Symbicort 160/4.5 Inhaler), 2 PUFFS INH BID Cyclobenzaprine Hcl (Flexeril), 5 MG PO DAILY Epinephrine (Epipen), 0.3 MG IM UD Fluoxetine (Prozac), 30 MG PO QAM Levothyroxine Sodium (Synthroid), 112 MCG PO QAM Lisinopril (Zestril), 30 MG PO QPM Metoprolol Succ (Toprol Xl) (Toprol-Xl), 25 MG PO QPM Nitrofurantoin Monohyd Macrocr (Macrobid), 100 MG PO BID Pentosan Polysulfate Sodium (Elmiron), 100 MG PO TID Scheduled PRN Albuterol Hfa (Ventolin Hfa), 2-4 PUFFS INH Q6H PRN for SOB/Wheezing Albuterol Sulf (Albuterol Sulfate), 1 DOSE NEB QD PRN for SOB/Wheezing Lorazepam (Lorazepam), 1 MG PO QD PRN for Anxiety/Agitation Phenazopyridine HCl (Pyridium), 200 MG PO TID PRN for Burning/Frequency w/ Urination Allergies Coded Allergies: Oxycodone (Verified Allergy, Intermediate, HIVES, 10/22/17) Propoxyphene (Verified Allergy, Intermediate, ITCHING AND A RASH, 10/22/17) Replaces DARVOCET-N 10 Cephalosporins (Verified Allergy, Mild, hives, 10/22/17) Methenamine (Verified Allergy, Mild, hives, 10/22/17) Simvastatin (Verified Allergy, Mild, body aches, 10/22/17) Sulfa Drugs (Verified Allergy, Mild, hives, 10/22/17) Sulfamethoxazole (Verified Allergy, Mild, hives, 10/22/17) Trimethoprim (Verified Allergy, Mild, hives, 10/22/17) Fish (Verified Allergy, Unknown, HIVES/SWELLING, 10/22/17) INDICATED SHE HAD A REACTION TO CERTAIN SEAFOOD LAST TUESDAY AND TODAY. Shellfish (Verified Allergy, Unknown, throat closing , systemic reaction, 10/22/17) Hydrocodone (Verified Adverse Reaction, Mild, ITCHING, 10/22/17) Prednisone (Verified Adverse Reaction, Mild, ITCHING, 10/22/17) ITCHING HOWEVER BENEFITS OUT WEIGH THE SIDE EFFECTS Tapentadol (Verified Adverse Reaction, Unknown, felt very uncomfortable - does not ever want, 10/22/17) Physical Exam Vital Signs Date Time Temp Pulse Resp B/P (MAP) Pulse Ox O2 Delivery O2 Flow Rate FiO2 10/22/17 18:54 72 18 140/53 95 10/22/17 17:48 69 18 137/73 95 Room Air 10/22/17 16:27 36.7 79 18 125/67 96 Room Air Physical Exam GENERAL: Patient is awake, alert, anxious appearing, but overall comfortable. EYES: The conjunctivae are clear. The pupils are round and reactive. EARS, NOSE, MOUTH AND THROAT: The nose is without any evidence of any deformity. Mucous membranes are moist tongue is midline NECK: The neck is nontender and supple. RESPIRATORY: Normal respiratory effort is noted there is no evidence of wheezing rhonchi or rales CARDIOVASCULAR: Regular rate and rhythm noted there no murmurs rubs or gallops normal S1 normal S2 GASTROINTESTINAL: The abdomen is soft with suprapubic tenderness to palpation. No guarding or rigidity noted. BACK: No midline tenderness or or step-off noted range of motion in flexion extension as well as rotation no signs of muscle spasm noted RECTAL: External hemorrhoids with some areas of fresh blood noted. Brown stool which was heme positive likely due to external hemorrhoids. MUSCULOSKELETAL/EXTREMITIES: There is no evidence of gross deformity full range of motion is noted in the hips and shoulders SKIN: There is no obvious evidence of any rash. There are no petechiae, pallor or cyanosis noted. NEUROLOGIC: Patient is awake alert and oriented x3 Medical Decision & Procedures ER Provider Diagnostic Interpretation: Radiology results as stated below per my review and radiologist interpretation: CT OF THE ABDOMEN AND PELVIS WITHOUT CONTRAST CLINICAL HISTORY: Flank pain. COMPARISON STUDY: CT of the abdomen and pelvis August 07, 2017. TECHNIQUE: Axial images of the abdomen and pelvis were obtained without IV contrast. Images were reviewed in the axial, sagittal, and coronal planes. A dose lowering technique was utilized adhering to the principles of ALARA. FINDINGS: Postoperative findings within the right lower hemithorax are noted. There is a cyst within the medial segment of the liver. No renal, ureteral or bladder calculi are present. There is no hydronephrosis or [place] ureter. There is colonic diverticulosis without evidence for acute diverticulitis. There is no evidence for a bowel obstruction. No pneumatosis, free air or portal venous gas is present. The appendix is normal. There is no lymphadenopathy. There are no suspicious osseous lesions. A moderate amount of stool within the colon is noted. IMPRESSION: 1. No urinary calculi or hydronephrosis. 2. No acute process within the abdomen or pelvis on unenhanced exam. Electronically signed by: Gokul Montes De Oca M.D. 10/22/2017 6:03 PM Dictated Date/Time: 10/22/2017 5:59 PM Laboratory Results 10/22/17 17:08 Red Blood Count 4.02, Mean Corpuscular Volume 86.1, Mean Corpuscular Hemoglobin 29.1, Mean Corpuscular Hemoglobin Concent 33.8, Mean Platelet Volume 9.0, Neutrophils (%) (Auto) 57.0, Lymphocytes (%) (Auto) 31.0, Monocytes (%) (Auto) 9.6, Eosinophils (%) (Auto) 1.0, Basophils (%) (Auto) 1.2, Neutrophils # (Auto) 3.28, Lymphocytes # (Auto) 1.78, Monocytes # (Auto) 0.55, Eosinophils # (Auto) 0.06, Basophils # (Auto) 0.07 10/22/17 17:08 Test 10/22/17 16:42 10/22/17 17:08 Urine Color DK YELLOW Urine Appearance CLEAR (CLEAR) Urine pH 5.0 (4.5-7.5) Urine Specific [place] 1.021 (1.000-1.030) Urine Protein NEG (NEG) Urine Glucose (UA) NEG (NEG) Urine Ketones NEG (NEG) Urine Occult Blood NEG (NEG) Urine Nitrite NEG (NEG) Urine Bilirubin NEG (NEG) Urine Urobilinogen NEG (NEG) Urine Leukocyte Esterase NEG (NEG) White Blood Count 5.75 K/uL (4.8-10.8) Red Blood Count 4.02 M/uL (4.2-5.4) Hemoglobin 11.7 g/dL (12.0-16.0) Hematocrit 34.6 % (37-47) Mean Corpuscular Volume 86.1 fL (80-100) Mean Corpuscular Hemoglobin 29.1 pg (25-34) Mean Corpuscular Hemoglobin Concent 33.8 g/dl (32-36) Platelet Count 350 K/uL (130-400) Mean Platelet Volume 9.0 fL (7.4-10.4) Neutrophils (%) (Auto) 57.0 % Lymphocytes (%) (Auto) 31.0 % Monocytes (%) (Auto) 9.6 % Eosinophils (%) (Auto) 1.0 % Basophils (%) (Auto) 1.2 % Neutrophils # (Auto) 3.28 K/uL (1.4-6.5) Lymphocytes # (Auto) 1.78 K/uL (1.2-3.4) Monocytes # (Auto) 0.55 K/uL (0.11-0.59) Eosinophils # (Auto) 0.06 K/uL (0-0.5) Basophils # (Auto) 0.07 K/uL (0-0.2) RDW Standard Deviation 41.1 fL (36.4-46.3) RDW Coefficient of Variation 12.9 % (11.5-14.5) Immature Granulocyte % (Auto) 0.2 % Immature Granulocyte # (Auto) 0.01 K/uL (0.00-0.02) Anion Gap 8.0 mmol/L (3-11) Est Creatinine Clear Calc Drug Dose 74.7 ml/min Estimated GFR () 108.0 Estimated GFR (Non- 93.2 BUN/Creatinine Ratio 19.2 (10-20) Calcium Level 8.7 mg/dl (8.5-10.1) Total Bilirubin 0.5 mg/dl (0.2-1) Direct Bilirubin < 0.1 mg/dl (0-0.2) Aspartate Amino Transf (AST/SGOT) 25 U/L (15-37) Alanine Aminotransferase (ALT/SGPT) 30 U/L (12-78) Alkaline Phosphatase 90 U/L (45-117) Total Protein 7.1 gm/dl (6.4-8.2) Albumin 3.3 gm/dl (3.4-5.0) Lipase 123 U/L (73-393) Laboratory results per my review. Medications Administered Medications (Trade) Dose Ordered Sig/Héctor Route Start Time Stop Time Status Last Admin Dose Admin Phenazopyridine HCl (Pyridium Tab) 200 mg NOW STAT PO 10/22/17 18:23 10/22/17 18:24 DC 10/22/17 18:46 200 MG Nitrofurantoin Macrocrystals (Macrobid Cap) 100 mg ONE ONCE PO 10/22/17 18:30 10/22/17 18:31 DC 10/22/17 18:46 100 MG ED Course 164: The patient was evaluated in room B6. A complete history and physical examination were performed. 1817: Upon reevaluation, the patient is resting comfortably. I discussed the results and treatment plan with her. She verbalized agreement of the treatment plan. She was discharged home. 1822: Pyridium Tab 200 mg PO. 1829: Macrobid Cap 100 mg PO. Medical Decision Prior records/ancillary studies reviewed. Triage Nursing notes reviewed. Additional history obtained from family. The patient's history was concerning for abdominal pain. Differential diagnosis: Etiologies such as appendicitis, diverticulitis, PUD, biliary pathology, UTI, pancreatitis, obstruction, mesenteric ischemia, aortic pathology, infections, inflammatory bowel disease, renal colic, as well as others were entertained. The patient is a 67-year-old female who presented to the emergency department for an evaluation of dysuria and frequency. The patient has a history of interstitial cystitis. The patient felt that this condition today was consistent with her history of interstitial cystitis. The patient's abdominal exam revealed some tenderness. Her urine was not impressive for urinary tract infection. For this reason further studies were obtained to ensure there is not another underlying process. The patient also complained of rectal bleeding. Her exam revealed external hemorrhoids which appeared to have recently been bleeding. I discussed patient's laboratory and radiographic studies with her. She was encouraged to continue all medications as prescribed. I elected to treat her for the urinary tract infection given her symptoms. I prescribed her an antibiotic which she has been given in the past. She was encouraged to follow-up with her primary care physician as soon as possible return to the emergency department immediately if symptoms change worsening the need arises. Medication Reconcilliation Current Medication List: was personally reviewed by me Blood Pressure Screening Patient's blood pressure: Normal blood pressure Blood pressure disposition: Did not require urgent referral Impression Primary Impression: Dysuria Additional Impression: Cystitis Scribe Attestation The scribe's documentation has been prepared under my direction and personally reviewed by me in its entirety. I confirm that the note above accurately reflects all work, treatment, procedures, and medical decision making performed by me. Departure Information Dispostion Home / Self-Care Prescriptions Phenazopyridine HCl (Pyridium) 200 Mg Tab 200 MG PO TID Y for Burning/Frequency w/Urination, #6 TAB Prov: Gonzales Waller, DO 10/22/17 Nitrofurantoin Monohyd Macrocr (Macrobid) 100 Mg Cap 100 MG PO BID, #14 CAP Prov: Gonzales Waller, DO 10/22/17 Referrals Kedar Dyer MD (PCP) Forms HOME CARE DOCUMENTATION FORM, IMPORTANT VISIT INFORMATION Patient Instructions Cystitis Interstitial, Hemorrhoids, [facility] Additional Instructions Drink plenty of clear liquids. Continue all medications as prescribed. Call your family doctor this week to set up a follow-up appointment. Return to the emergency department if symptoms worsen or if need arises. Problem Qualifiers
--- NOTE | 2017-10-22 18:05 | DIAGNOSTIC IMAGING REPORT ---
CT OF THE ABDOMEN AND PELVIS WITHOUT CONTRAST CLINICAL HISTORY: Flank pain. COMPARISON STUDY: CT of the abdomen and pelvis August 07, 2017. TECHNIQUE: Axial images of the abdomen and pelvis were obtained without IV contrast. Images were reviewed in the axial, sagittal, and coronal planes. A dose lowering technique was utilized adhering to the principles of ALARA. FINDINGS: Postoperative findings within the right lower hemithorax are noted. There is a cyst within the medial segment of the liver. No renal, ureteral or bladder calculi are present. There is no hydronephrosis or [place] ureter. There is colonic diverticulosis without evidence for acute diverticulitis. There is no evidence for a bowel obstruction. No pneumatosis, free air or portal venous gas is present. The appendix is normal. There is no lymphadenopathy. There are no suspicious osseous lesions. A moderate amount of stool within the colon is noted. IMPRESSION: 1. No urinary calculi or hydronephrosis. 2. No acute process within the abdomen or pelvis on unenhanced exam. Electronically signed by: Gokul Montes De Oca M.D. 10/22/2017 6:03 PM Dictated Date/Time: 10/22/2017 5:59 PM
[2017-10-22] MEDS ORDERED: PHENAZOPYRIDINE HCL 200 MG TAB PO STA (18:23)
[2017-10-22] MEDS ORDERED: NITR-5 PO (18:26)
[2017-10-22] MEDS ORDERED: PHEN-876 PO (18:26)
[2017-10-22] MEDS ORDERED: NITROFURANTOIN MONOHYDRATE 100 MG CAP PO ONE (18:30)
[2017-10-22 18:54] VITALS: BP 140/53; PULSE 72; O2SAT 95
== END 2017-10-22 18:49 | disposition home or self-care (01) ==
LOC: C.EDB 16:24
DX: R30.0 Dysuria (principal); N30.10 Interstitial cystitis (chronic) without hematuria; K64.4 Residual hemorrhoidal skin tags; J45.40 Moderate persistent asthma, uncomplicated; F32.9 Major depressive disorder, single episode, unspecified; E78.5 Hyperlipidemia, unspecified; M79.7 Fibromyalgia; I10 Essential (primary) hypertension; E03.9 Hypothyroidism, unspecified; I34.0 Nonrheumatic mitral (valve) insufficiency; Z85.118 Personal history of other malignant neoplasm of bronchus and lung; Z90.2 Acquired absence of lung [part of]; Z87.440 Personal history of urinary (tract) infections; Z87.891 Personal history of nicotine dependence; Z79.82 Long term (current) use of aspirin; Z79.51 Long term (current) use of inhaled steroids; Z88.5 Allergy status to narcotic agent; Z88.6 Allergy status to analgesic agent; Z88.8 Allergy status to other drugs, medicaments and biological substances; Z88.1 Allergy status to other antibiotic agents; Z88.2 Allergy status to sulfonamides; Z91.013 Allergy to seafood; Z83.79 Family history of other diseases of the digestive system; Z82.49 Family history of ischemic heart disease and other diseases of the circulatory system

== ENCOUNTER → 2017-11-14 | Day surgery (SDC) | payer OTHER, BC ==
[2017-11-07 14:28] VITALS: BMI 28.0
[~2017-11-14] VITALS: Ht 152.4 cm; Wt 65.9 kg
[~2017-11-14] MED LIST changes: +ATROPINE SULFATE 0.1 MG/ML 5ML SYR IV PRN; +EpHEDrine SULFATE INJ 50 MG/ML AMP IV PRN; +PHEN-876 PO; +PROPOFOL IV EMULSION 10 MG/ML 20 ML VIAL IV ONE
[2017-11-14 14:07] VITALS: TEMP 36.7
[2017-11-14 14:08] VITALS: Ht 152.4 cm; Wt 65.9 kg
--- NOTE | 2017-11-14 14:32 | Endo History and Physical ---
History & Physical Date of Service: Nov 14, 2017. Chief Complaint: RECTAL BLEEDING Referring Physician: DR KINGS COFFMAN History of Present Illness For colonoscopy Past Medical History Asthma, Anxiety, Cancer, Hypertension, Thyroid Disease, Depression Past Surgical History Hx Cardiac Surgery: Yes (HEART CATH X 2/NO STENTS) Hx Internal Defibrillator: No Hx Pacemaker: No Hx Abdominal Surgery: No Hx Post-Op Nausea and Vomiting: No Hx Cancer Surgery: Yes (RT PARTIAL LUNG LOBECTOMY WITH LYMPH NODE REMOVAL) Hx Thoracic Surgery: No Hx Orthopedic: Yes (RT CTR, LEFT/RT MENISCUS REPAIR, BONE SPUR LEFT HAND) Hx Urinary Tract Surgery: Yes (CYSTOSCOPY X 2) Family History IBD Social History Smoking Status: Former Smoker Hx Substance Use: No Hx Alcohol Use: No Allergies Coded Allergies: Shellfish (Verified Allergy, Severe, throat closing , systemic reaction, ) Cephalosporins (Verified Allergy, Intermediate, hives, 11/14/17) Fish (Verified Allergy, Intermediate, HIVES/SWELLING, 11/14/17) INDICATED SHE HAD A REACTION TO CERTAIN SEAFOOD LAST TUESDAY AND TODAY. Methenamine (Verified Allergy, Intermediate, hives, 11/14/17) Oxycodone (Verified Allergy, Intermediate, HIVES, 11/07/17) Propoxyphene (Verified Allergy, Intermediate, ITCHING AND A RASH, 11/07/17) Replaces DARVOCET-N 10 Sulfa Antibiotics (Verified Allergy, Intermediate, hives, 11/14/17) Sulfamethoxazole (Verified Allergy, Intermediate, hives, 11/14/17) Trimethoprim (Verified Allergy, Intermediate, hives, 11/14/17) Simvastatin (Verified Adverse Reaction, Intermediate, body aches, 11/14/17) Tapentadol (Verified Adverse Reaction, Intermediate, felt very uncomfortable - does not ever want, 11/14/17) Hydrocodone (Verified Adverse Reaction, Mild, ITCHING, 11/07/17) Prednisone (Verified Adverse Reaction, Mild, ITCHING, 11/07/17) ITCHING HOWEVER BENEFITS OUT WEIGH THE SIDE EFFECTS Current Medications Reported Home Medications Medications Dose Route/Sig Max Daily Dose Days Date Category Dose Instructions Pyridium (Phenazopyridine HCl) 200 Mg Tab 200 Mg PO TID PRN 11/07/17 Reported Epipen (Epinephrine) 0.3 Mg/0.3 Ml Inj 0.3 Mg IM UD 11/07/17 Reported Aspirin 81 (Aspirin) 81 Mg Tab 1 Tab PO QAM 10/21/17 Reported Albuterol Sulfate (Albuterol Sulf) 2.5 Mg/0.5 Ml Nebu 1 Dose NEB QD PRN 10/21/17 Reported Ventolin Hfa (Albuterol) 200 Puffs/18247 Mcg Aers 2-4 Puffs INH Q6H PRN 10/21/17 Reported Lorazepam 1 Mg Tab 1 Mg PO QD PRN 08/07/17 Reported Symbicort 160/4.5 Inhaler (Budesonide/Formoterol Fumarate) 120 Puffs/ Aero 2 Puffs INH BID 08/07/17 Reported Zestril (Lisinopril) 30 Mg Tab 30 Mg PO QPM 08/07/17 Reported Flexeril (Cyclobenzaprine Hcl) 5 Mg Tab 5 Mg PO DAILY 06/26/17 Reported PRN Prozac (Fluoxetine HCl) 10 Mg Cap 30 Mg PO QAM 11/23/16 Reported Toprol-Xl (Metoprolol Succinate) 25 Mg Tabcr 25 Mg PO QPM 11/17/16 Reported Elmiron ([place] Polysulfate Sodium) 100 Mg Cap 100 Mg PO TID 11/17/16 Reported Norvasc (Amlodipine Besylate) 5 Mg Tab 5 Mg PO QPM 11/17/16 Reported Synthroid (Levothyroxine Sodium) 112 Mcg Tab 112 Mcg PO QAM 12/18/13 Reported Vital Signs Weight (Kilograms): 65.91 Height (Feet): 5 Height (Inches): 0 Date Time Temp Pulse Resp B/P (MAP) Pulse Ox O2 Delivery O2 Flow Rate FiO2 11/14/17 14:07 36.7 91 20 134/85 (101) 97 Room Air Physical Exam General Appearance: WD/WN Respiratory/Chest: Respiratory effort: no dyspnea Cardiovascular: Apical Impulse: pertinent finding (aortic stenosis) Heart Auscultation: murmur Abdomen: Inspection & Palpation: soft Assessment and Plan rectal bleeding for colonoscopy
--- NOTE | 2017-11-14 15:06 | Discharge Instructions ---
Endoscopy Patient Instructions Date / Procedure(s) Performed Nov 14, 2017. Colonoscopy Allergy Information Coded Allergies: Shellfish (Verified Allergy, Severe, throat closing , systemic reaction, ) Cephalosporins (Verified Allergy, Intermediate, hives, 11/14/17) Fish (Verified Allergy, Intermediate, HIVES/SWELLING, 11/14/17) INDICATED SHE HAD A REACTION TO CERTAIN SEAFOOD LAST TUESDAY AND TODAY. Methenamine (Verified Allergy, Intermediate, hives, 11/14/17) Oxycodone (Verified Allergy, Intermediate, HIVES, 11/07/17) Propoxyphene (Verified Allergy, Intermediate, ITCHING AND A RASH, 11/07/17) Replaces DARVOCET-N 10 Sulfa Antibiotics (Verified Allergy, Intermediate, hives, 11/14/17) Sulfamethoxazole (Verified Allergy, Intermediate, hives, 11/14/17) Trimethoprim (Verified Allergy, Intermediate, hives, 11/14/17) Simvastatin (Verified Adverse Reaction, Intermediate, body aches, 11/14/17) Tapentadol (Verified Adverse Reaction, Intermediate, felt very uncomfortable - does not ever want, 11/14/17) Hydrocodone (Verified Adverse Reaction, Mild, ITCHING, 11/07/17) Prednisone (Verified Adverse Reaction, Mild, ITCHING, 11/07/17) ITCHING HOWEVER BENEFITS OUT WEIGH THE SIDE EFFECTS Discharge Date / Findings Nov 14, 2017. hemorrhoids, polyp Medication Instructions Stopped Medication(s): ASPIRIN LAST DOSE 10/27/17 Restart Stopped Medication(s): resume meds Reported Home Medications Medications Dose Route/Sig Max Daily Dose Days Date Category Dose Instructions Pyridium (Phenazopyridine HCl) 200 Mg Tab 200 Mg PO TID PRN 11/07/17 Reported Epipen (Epinephrine) 0.3 Mg/0.3 Ml Inj 0.3 Mg IM UD 11/07/17 Reported Aspirin 81 (Aspirin) 81 Mg Tab 1 Tab PO QAM 10/21/17 Reported Albuterol Sulfate (Albuterol Sulf) 2.5 Mg/0.5 Ml Nebu 1 Dose NEB QD PRN 10/21/17 Reported Ventolin Hfa (Albuterol) 200 Puffs/06964 Mcg Aers 2-4 Puffs INH Q6H PRN 10/21/17 Reported Lorazepam 1 Mg Tab 1 Mg PO QD PRN 08/07/17 Reported Symbicort 160/4.5 Inhaler (Budesonide/Formoterol Fumarate) 120 Puffs/ Aero 2 Puffs INH BID 08/07/17 Reported Zestril (Lisinopril) 30 Mg Tab 30 Mg PO QPM 08/07/17 Reported Flexeril (Cyclobenzaprine Hcl) 5 Mg Tab 5 Mg PO DAILY 06/26/17 Reported PRN Prozac (Fluoxetine HCl) 10 Mg Cap 30 Mg PO QAM 11/23/16 Reported Toprol-Xl (Metoprolol Succinate) 25 Mg Tabcr 25 Mg PO QPM 11/17/16 Reported Elmiron (Pentosan Polysulfate Sodium) 100 Mg Cap 100 Mg PO TID 11/17/16 Reported Norvasc (Amlodipine Besylate) 5 Mg Tab 5 Mg PO QPM 11/17/16 Reported Synthroid (Levothyroxine Sodium) 112 Mcg Tab 112 Mcg PO QAM 12/18/13 Reported Provider Instructions Activity Restrictions - No exercising or heavy lifting for 24 hours. - Do not drink alcohol the day of the procedure. - Do not drive a car or operate machinery until the day after the procedure. - Do not make any important decisions or sign important papers in 24 hours after the procedure. Following Day: - Return to full activity which may include returning to work/school. Diet Start your diet with liquids and light foods (jello, soup, juice, toast). Then eat your usual diet if not nauseated. Treatment For Common After Affects For mild abdominal pain, bloating, or excessive gas: - Rest - Eat lightly - Lie on right side Follow-Up Information Follow-up with DR KINGS COFFMAN as scheduled Anesthesia Information What You Should Know You have had a procedure that required some medicine to reduce anxiety and discomfort. This treatment is called moderate sedation. After receiving the treatment, you may be sleepy, but you will be able to breathe on your own. The effects of the treatment may last for several hours. Follow these instructions along with Activity/Diet recommendations noted above: * Do NOT do anything where dizziness or clumsiness would be dangerous. * Rest quietly at home today, then you can be up and about tomorrow. * Have a responsible person stay with you the rest of today. * You may have had an I.V. today. If so, you may take the dressing off later today. Recommendations Call your doctor if: * Trouble breathing * Continuous vomiting for more than 24 hours * Temperature above 101 degrees * Severe abdominal pain or bloating * Pain not relieved by pain medicine ordered * There is increased drainage or redness from any incision * A large amount of rectal bleeding greater than 2-3 tablespoons. (If you had a polyp/s removed or have hemorrhoids, a small amount of blood - from the rectum is to be expected.) * You have any unanswered questions or concerns. IN THE EVENT OF A SERIOUS EMERGENCY, GO TO THE NEAREST EMERGENCY ROOM Your discharge instructions were prepared by provider Todd Ward. Patient Instructions Signature Page Yarely Sauer Patient (or Guardian) Signature/Date: I have read and understand the instructions given to me by my caregivers. Caregiver/RN/Doctor Signature/Date: The above-named patient and/or guardian has received patient instructions on this date. + Original Patient Signature Page (only) stays with chart. Please make copy for patient.
--- NOTE | 2017-11-14 15:09 | GI REPORT ---
Procedure Date: 11/14/2017 2:38 PM Procedure: Colonoscopy Indications: Rectal bleeding Medicines: Propofol total dose 220 mg IV Complications: No immediate complications. Estimated Blood Loss: Estimated blood loss was minimal. Procedure: Pre-Anesthesia Assessment: - Prior to the procedure, a History and Physical was performed, and patient medications, allergies and sensitivities were reviewed. The patient's tolerance of previous anesthesia was reviewed. - The risks and benefits of the procedure and the sedation options and risks were discussed with the patient. All questions were answered and informed consent was obtained. After I obtained informed consent, the scope was passed under direct vision. Throughout the procedure, the patient's blood pressure, pulse, and oxygen saturations were monitored continuously. The scope was introduced through the anus and advanced to the cecum, identified by appendiceal orifice and ileocecal valve. The colonoscopy was somewhat difficult due to a tortuous colon. Successful completion of the procedure was aided by applying abdominal pressure. The patient tolerated the procedure well. The quality of the bowel preparation was good. Findings: Non-bleeding internal hemorrhoids were found during endoscopy. The hemorrhoids were mild. Skin tags were found on perianal exam. A 3 mm polyp was found in the ascending colon. The polyp was sessile. The polyp was removed with a cold biopsy forceps. Resection and retrieval were complete. Estimated blood loss was minimal. Impression: - Non-bleeding internal hemorrhoids. - Perianal skin tags found on perianal exam. - One 3 mm polyp in the ascending colon, removed with a cold biopsy forceps. Resected and retrieved. Recommendation: - Discharge patient to home (ambulatory). - Continue present medications. - Await pathology results. - Return to primary care physician PRN. Todd Ward M.D. Todd Ward MD 11/14/2017 3:09:13 PM This report has been signed electronically. Note Initiated On: 11/14/2017 2:38 PM I attest to the content of the Intraoperative Record and orders documented therein, exceptions below
--- NOTE | 2017-11-14 15:17 | Anesthesiology Progress Note ---
Anesthesia Post Op Note Date & Time Nov 14, 2017 at 15:17 Vital Signs Pain Intensity: 0 Vital Signs Past 12 Hours Date Time Temp Pulse Resp B/P (MAP) Pulse Ox O2 Delivery O2 Flow Rate FiO2 11/14/17 15:13 70 20 97/50 (66) 96 Room Air 11/14/17 14:07 36.7 91 20 134/85 (101) 97 Room Air Notes Mental Status: alert / awake / arousable, participated in evaluation Pt Amnestic to Procedure: Yes Nausea / Vomiting: adequately controlled Pain: adequately controlled Airway Patency, RR, SpO2: stable & adequate BP & HR: stable & adequate Hydration State: stable & adequate Anesthetic Complications: no major complications apparent
[2017-11-14 15:26] VITALS: BP 121/60; PULSE 70; O2SAT 99
== END | disposition home or self-care (01) ==
LOC: C.GI 13:41
PROVIDERS: ATTEND Internal Medicine Gastroenterology
DX: K62.5 Hemorrhage of anus and rectum (principal); K64.8 Other hemorrhoids; L91.8 Other hypertrophic disorders of the skin; J45.909 Unspecified asthma, uncomplicated; E07.9 Disorder of thyroid, unspecified; Z90.89 Acquired absence of other organs; Z98.890 Other specified postprocedural states; Z91.013 Allergy to seafood; Z88.6 Allergy status to analgesic agent; Z88.2 Allergy status to sulfonamides; Z88.8 Allergy status to other drugs, medicaments and biological substances; Z79.82 Long term (current) use of aspirin; Z79.899 Other long term (current) drug therapy; Z87.891 Personal history of nicotine dependence; Z85.9 Personal history of malignant neoplasm, unspecified; Z80.1 Family history of malignant neoplasm of trachea, bronchus and lung

== ENCOUNTER 2017-11-17 08:01 | Inpatient (IN) | payer OTHER, BC ==
[2017-10-21 15:12] VITALS: BMI 29.0
--- NOTE | 2017-10-21 16:09 | PAT Medication Instructions ---
Service Date Oct 21, 2017. Current Home Medication List Albuterol Hfa (Ventolin Hfa), 2-4 PUFFS INH Q6H PRN for SOB/Wheezing Albuterol Sulf (Albuterol Sulfate), 1 DOSE NEB QD PRN for SOB/Wheezing Amlodipine (Norvasc), 5 MG PO QPM Aspirin (Aspirin 81), 1 TAB PO QAM Budesonide/Formoterol Fumarate (Symbicort 160/4.5 Inhaler), 2 PUFFS INH BID Cyclobenzaprine Hcl (Flexeril), 5 MG PO DAILY Epinephrine (Epipen), 0.3 MG IM UD Fluoxetine (Prozac), 30 MG PO QAM Levothyroxine Sodium (Synthroid), 112 MCG PO QAM Lisinopril (Zestril), 30 MG PO QPM Lorazepam (Lorazepam), 1 MG PO QD PRN for Anxiety/Agitation Metoprolol Succ (Toprol Xl) (Toprol-Xl), 25 MG PO QPM Pentosan Polysulfate Sodium (Elmiron), 100 MG PO TID Medication Instructions For Your Scheduled Surgery - Hold the following medications 24 hours prior to surgery: Lisinopril (Zestril), 30 MG PO QPM - Hold the following medications the morning of surgery: Cyclobenzaprine Hcl (Flexeril), 5 MG PO DAILY - Take the following medications the morning of surgery with a sip of water: Albuterol Hfa (Ventolin Hfa), 2-4 PUFFS INH Q6H PRN for SOB/Wheezing (if needed) Albuterol Sulf (Albuterol Sulfate), 1 DOSE NEB QD PRN for SOB/Wheezing (if needed) Aspirin (Aspirin 81), 1 TAB PO QAM Budesonide/Formoterol Fumarate (Symbicort 160/4.5 Inhaler), 2 PUFFS INH BID Epinephrine (Epipen), 0.3 MG IM UD (if needed) Fluoxetine (Prozac), 30 MG PO QAM Levothyroxine Sodium (Synthroid), 112 MCG PO QAM Lorazepam (Lorazepam), 1 MG PO QD PRN for Anxiety/Agitation (if needed) Pentosan Polysulfate Sodium (Elmiron), 100 MG PO TID - Take the following medications as scheduled the night before surgery: Metoprolol Succ (Toprol Xl) (Toprol-Xl), 25 MG PO QPM Lorazepam (Lorazepam), 1 MG PO QD PRN for Anxiety/Agitation (if needed) Epinephrine (Epipen), 0.3 MG IM UD Budesonide/Formoterol Fumarate (Symbicort 160/4.5 Inhaler), 2 PUFFS INH BID Amlodipine (Norvasc), 5 MG PO QPM Albuterol Hfa (Ventolin Hfa), 2-4 PUFFS INH Q6H PRN for SOB/Wheezing (if needed) Albuterol Sulf (Albuterol Sulfate), 1 DOSE NEB QD PRN for SOB/Wheezing (if needed) If you have any questions please call us at [phone] or [phone] or [phone]
[2017-10-21 17:01] LABS: BASO % 0.5 %; BASO ABS # 0.04 K/uL (0-0.2); EOS % 1.1 %; EOS ABS # 0.09 K/uL (0-0.5); HEMATOCRIT 35.1 % (37-47); HEMOGLOBIN 11.8 g/dL (12.0-16.0); IG# 0.03 K/uL (0.00-0.02); LYMPH % 26.3 %; LYMPH ABS # 2.19 K/uL (1.2-3.4); MEAN CELL VOLUME 86.7 fL (80-100); MEAN CORPUSCULAR HEMOGLOBIN 29.1 pg (25-34); MEAN CORPUSCULAR HGB CONC 33.6 g/dl (32-36); MEAN PLATELET VOLUME 9.2 fL (7.4-10.4); MONO % 7.6 %; MONO ABS # 0.63 K/uL (0.11-0.59); NEUT % 64.1 %; NEUT ABS # 5.34 K/uL (1.4-6.5); PLATELET COUNT 360 K/uL (130-400); RED CELL DISTRIBUTION WIDTH CV 13.1 % (11.5-14.5); RED CELL DISTRIBUTION WIDTH SD 41.8 fL (36.4-46.3); WHITE BLOOD COUNT 8.32 K/uL (4.8-10.8)
[2017-10-21 17:10] LABS: INR 0.9 (0.9-1.1); PTT PATIENT 24.5 SECONDS (21.0-31.0)
[2017-10-21 17:16] LABS: ALBUMIN 3.2 gm/dl (3.4-5.0); CALCIUM 8.5 mg/dl (8.5-10.1); CREATININE 0.59 mg/dl (0.60-1.20)
--- NOTE | 2017-10-21 18:17 | DIAGNOSTIC IMAGING REPORT ---
CHEST 2 VIEWS ROUTINE CLINICAL HISTORY: Preoperative evaluation. COMPARISON STUDY: Chest radiograph October 03, 2017. FINDINGS: Postoperative findings within the right hemithorax are noted with mild volume loss. Linear opacities suggest scarring. There is no evidence for pulmonary edema. No pneumothorax or pleural effusion is noted. Cardiac mediastinal silhouette is stable. There is no evidence for pulmonary edema. The appearance of the chest is unchanged. IMPRESSION: No acute cardiopulmonary findings. No change in appearance of the chest. Electronically signed by: Gokul Montes De Oac M.D. 10/21/2017 6:16 PM Dictated Date/Time: 10/21/2017 6:09 PM
[2017-10-22 07:48] LABS: HEMOGLOBIN A1C 6.1 % (4.5-5.6)
--- NOTE | 2017-10-27 13:19 | HISTORY & PHYSICAL EXAMINATION ---
DATE OF ADMISSION: 11/17/2017 CHIEF COMPLAINT: Left knee pain. HISTORY OF PRESENT ILLNESS: Ms. Sauer is a 67-year-old female with a 2-year history of left knee pain. The patient rates her pain at 10/10. She has pain with her daily activities. She has limited standing and walking tolerance. Pain is worse with weightbearing. The patient has had injections, bracing, PT, tramadol, NSAIDs and arthroscopy in the past without relief. She has failed conservative treatment and is currently scheduled for left knee replacement. PAST MEDICAL HISTORY: CHF, hypertension, hypercholesterolemia, heart disease, asthma, anxiety and a history of lung cancer. The patient denies diabetes or DVT. PAST SURGICAL HISTORY: Tonsillectomy, cystoscopy, carpal tunnel release, left knee arthroscopy, maxillary sinus endoscopy, nasal endoscopy, right knee arthroscopy, right breast lumpectomy, lobectomy, multiple endoscopies, and cataract extraction. SOCIAL HISTORY: The patient denies alcohol or tobacco use. She lives in a split level home. She is and retired. FAMILY HISTORY: Negative for DVT. MEDICATIONS: Lisinopril 30 mg daily, levothyroxine 112 mcg, pravastatin 20 mg, Elmiron 100 mg 3 tablets, Prozac 30 mg daily, amlodipine 5 mg daily, Toprol-XL 25 mg daily, Symbicort 160/4.5 twice a day, ProAir 90 mcg p.r.n., albuterol 2.5 mg p.r.n., cyclobenzaprine 10 mg p.r.n., lorazepam 1 mg p.r.n., and epinephrine 0.3 mg p.r.n. ALLERGIES: VICODIN, HYDROCODONE, OXYCODONE, CEPHALOSPORINS, SIMVASTATIN, PERCOCET, PROPOXYPHENE, SULFA AND BACTRIM. REVIEW OF SYSTEMS: See HPI. Ten other systems reviewed, all negative. PHYSICAL EXAMINATION: VITAL SIGNS: Height 5 feet 0 inch, weight 151 pounds, and BMI is 29. GENERAL: This is a well-developed and well-nourished female, who is alert and oriented x3. Mood and affect are appropriate. HEENT: Normocephalic and atraumatic. Mucous membranes are moist and intact. NECK: Supple without lymphadenopathy. HEART: Regular rate and rhythm without murmurs, rubs or gallops. LUNGS: Clear to auscultation without wheezes or rhonchi. ABDOMEN: Soft and nontender. Bowel sounds are equal and active. EXTREMITIES: No ecchymosis, redness or warmth. She has a varus deformity. Range of motion is from 3-115 degrees with +1 laxity. She has no effusion and no edema. She is neurovascularly intact. X-RAY EXAMINATION: AP and lateral views show joint space narrowing and osteophyte formation. IMPRESSION: Degenerative joint disease, left knee. PLAN: The patient will be admitted for a left total knee arthroplasty. We will plan on aspirin for DVT prophylaxis. The patient will have [facility] for home physical therapy. The patient has several ALLERGIES TO PAIN MEDICATIONS and pain control options may be limited.
[2017-11-17] VITALS (8 sets, daily range): BP systolic 74–147; BP diastolic 43–94; PULSE 65–84; TEMP 36.5–37; O2SAT 93–99; Ht 152.4 cm; Wt 68.4 kg
[~2017-11-17] VITALS: Ht 152.4 cm; Wt 68.4 kg
[~2017-11-17 08:01] MED LIST changes: +ACETAMINOPHEN 500 MG TAB PO SCH; -ATROPINE SULFATE 0.1 MG/ML 5ML SYR IV PRN; +BUPIVACAINE 0.25% 30 ML VIAL ONE; +BUPIVACAINE 0.5 % 5 MG/1 ML PF 10ML VIAL ONE; +CEFAZOLIN 1000MG IV PUSH 7.5 ML IV SCH; +CEFAZOLIN 2000MG IV PUSH 15 ML IV SCH; +DEXAMETHASONE 4 MG TAB PO SCH; -EpHEDrine SULFATE INJ 50 MG/ML AMP IV PRN; +FAMOTIDINE 20 MG TAB PO SCH; +GABAPENTIN 300 MG CAP PO SCH; +LACTATED RINGER'S 1000ML 1,000 ML IV SCH; +METOCLOPRAMIDE HCL 10 MG TAB PO SCH; -PROPOFOL IV EMULSION 10 MG/ML 20 ML VIAL IV ONE; +ROPIVACAINE 0.5% 5 MG/ML 30 ML VIAL ONE; +ROPIVACAINE 5MG/ML 30 ML 150 MG, BUPIVACAINE 0.5% MPF INJ 30 ML, EpINEphrine HCL INJ 0.... INFIL SCH; +[UNRECOGNIZED DRUG - REMARK] SCH
[2017-11-17] MEDS ORDERED: LIDOCAINE HCL 2% 2 ML VIAL (20MG/ML) ONE ×2 (08:23→08:44)
--- NOTE | 2017-11-17 08:35 | History & Physical Bridge Note ---
H&P Re-Evaluation Bridge Note: I have examined the patient, reviewed the History & Physical and in the interval since the performance of the History & Physical I have noted the following changes of clinical significance: No changes noted
[2017-11-17] MEDS ORDERED: CLINDAMYCIN 600 MG/54 ML D5W IV ONE (08:44)
[2017-11-17] MEDS ORDERED: ROCURONIUM BROMIDE 10 MG/ML 5 ML VIAL IV ONE (08:44)
[2017-11-17] MEDS ORDERED: MIDAZOLAM HCL 1 MG/ML 2ML VIAL ONE (08:44)
[2017-11-17] MEDS ORDERED: ONDANSETRON INJ 2 MG/ML 2 ML VIAL ONE ×2 (08:44→10:57)
[2017-11-17] MEDS ORDERED: FENTANYL CITRATE INJ 50 MCG/1 ML 2 ML VIAL ONE (08:44)
[2017-11-17] MEDS ORDERED: PROPOFOL IV EMULSION 10 MG/ML 20 ML VIAL IV ONE (08:44)
[2017-11-17] MEDS ORDERED: DEXAMETHASONE SOD INJ 4 MG/ML VIAL ONE (08:44)
[2017-11-17] MEDS ORDERED: NURSING VERBAL MED ORDER ONE ×2 (09:00→14:45)
[2017-11-17] MEDS ORDERED: TRAM-10 PO (09:08)
[2017-11-17] MEDS ORDERED: EpHEDrine SULFATE INJ 50 MG/ML AMP IV PRN (09:15)
[2017-11-17] MEDS ORDERED: PROMETHAZINE HCL INJ 12.5 MG in SODIUM CHLORIDE 0.9% 50ML 50 ML IV PRN (09:15)
[2017-11-17] MEDS ORDERED: PHENYLEPHRINE 100MCG/ML 5ML SYR IV PRN (09:15)
[2017-11-17] MEDS ORDERED: ONDANSETRON INJ 2 MG/ML 2 ML VIAL IV PRN ×2 (09:15→12:15)
[2017-11-17] MEDS ORDERED: FENTANYL CITRATE INJ 50 MCG/1 ML 2 ML VIAL IV PRN (09:15)
[2017-11-17] MEDS ORDERED: HYDROmorphone INJ 1 MG/ML SYR IV PRN (09:15)
[2017-11-17] MEDS ORDERED: ATROPINE SULFATE 0.1 MG/ML 5ML SYR IV PRN (09:15)
[2017-11-17] MEDS: TRANEXAMIC ACID INJ 1,000 MG x 2 Bags IV SCH ×4 (09:39→11:24)
[2017-11-17] MEDS ORDERED: POVIDONE-IODINE OP SOLN 30 ML BTL ONE (09:50)
[2017-11-17] MEDS ORDERED: ORTHO JOINT ANESTHETIC ONE (09:50)
[2017-11-17] MEDS ORDERED: BACITRACIN 50000 UNIT VIAL ONE (09:50)
[2017-11-17] MEDS ORDERED: ETOMIDATE 2 MG/ML 20 ML VIAL IV ONE (10:37)
[2017-11-17] MEDS ORDERED: PHENYLEPHRINE 100MCG/ML 5ML SYR ONE (10:43)
[2017-11-17] MEDS ORDERED: HYDROmorphone INJ 2 MG/ML SYR/VIAL ONE (10:56)
--- NOTE | 2017-11-17 11:29 | [facility] Post Operative Brief Note ---
Immediate Operative Summary Operative Date Nov 17, 2017. Pre-Operative Diagnosis Left Knee Degenerative Joint Disease Post-Operative Diagnosis Left Knee Degenerative Joint Disease Procedure(s) Performed Total Left Knee Arthroplasty Cemented Surgeon Dr. Meño Abbasi Chief Engineering Division Surgeon(s) Jerry Weber PA-C Estimated Blood Loss 10ML Findings Consistent with Post-Op Diagnosis Specimens Permanent A. Right Knee Bone and Tissue Anesthesia Type MAC Spinal Regional Complication(s) none Disposition Accompanied Pt To Recover: no Disposition: Recovery Room / PACU
--- NOTE | 2017-11-17 11:46 | OPERATIVE REPORT ---
DATE OF OPERATION: 11/17/2017 PREOPERATIVE DIAGNOSIS: Osteoarthritis, left knee. POSTOPERATIVE DIAGNOSIS: Osteoarthritis, left knee. PROCEDURE: Left total knee arthroplasty. SURGEON: Dr. Abbasi. SPEECH LANGUAGE PATHOLOGIST TRAVEL: JATINDER Contreras ANESTHESIA: Spinal. COMPLICATIONS: None. OPERATION AND FINDINGS: Following induction of spinal anesthesia, the patient's left leg was prepped and draped in the usual sterile manner. Limb was exsanguinated with an Esmarch bandage and tourniquet was inflated to 350 mmHg. A longitudinal incision was made anteriorly. Subcutaneous tissue was sharply dissected. Electrocautery was used for hemostasis. Prepatellar bursa was incised and median parapatellar incision was performed. Patella was everted and the knee was flexed. Fat pad was removed to aid in visualization and the anterior and posterior cruciate ligaments were removed. The medial face of the tibia was cleared of soft tissue first with a Bovie and a Hernandez elevator. This tissue was retracted posteriorly using a blunt Hohmann. A Oneill retractor was used to expose the synovium above on the anterior aspect of the femur and this was removed down to bone. The PSI guide was placed on the distal femur and two pins were placed anteriorly and kept in position and two additional pins were placed distally and removed. The distal femoral cutting block was placed in position and the distal femoral cut was used in the +0 setting. Next, the cutting block was removed and the femoral 2 block was placed in the distal end of the femur. Care was taken to ensure appropriate external rotation and feeler gauge was used to ensure no notching would occur. The femoral block was centered on the distal femur and in the medial and lateral direction and was fixed using two bone screws. The gold pins were then removed. The oscillating saw was used to create the bone cuts and the distal femoral cutting block was removed and the reciprocating saw was used to further trim the femoral cuts as well as a deep in the area for the trochlear groove. Next, posterior condyle remnants were removed. Following this, a meniscal clamp and knife were utilized to remove the anterior portion of both medial and lateral meniscus. The proximal tibia PSI guide was placed into position and the proximal tibial cutting guide was screwed into position. The extra medullary alignment guide was utilized to ensure appropriate alignment. The proximal tibia was cut and the proximal tibial cutting block was removed and this bone fragment was removed. The appropriate guide was used to perform the notch cut on the distal femur and a lamina director of events and a cochlear knife were utilized to finish both medial and lateral meniscectomies to remove any remnants of the posterior or anterior cruciate ligaments. Following this, the distal femoral component was impacted into position and blunt Ayanna was used to sublux the tibia anteriorly. The proximal tibia was sized and a 1 tibial tray was chosen as the size to be used. This was put into position and appropriate external rotation and a double check with extramedullary alignment guide was performed. The canal for the tibial stem was prepared first with a 17 mm drill and then the punch and a mallet and the trial tibial poly was placed. A 13 was chosen the size to be used. It was brought to extension and the patella was prepared with the patellar reamer. A 31 component was chosen the size to be used. The trial component was placed and knee was taken through a full range of motion and there was found to be no lateral subluxation of the tibia. No lateral release was required. The trials were all removed. The final components were obtained and assembled. Cement was mixed. The knee was thoroughly irrigated and the ortho mix was injected about the knee joint. The final components were cemented into position. After thoroughly suctioning and drying the bone ends, all excess cement was removed. The knee was held in extension while the cement hardened. The wound was irrigated and closed over a Hemovac drain. #1 Vicryl was used to close the extensor mechanism. Subcutaneous tissues closed using 0 Dexon. Skin was closed with bonnie. Sterile dressing of Adaptic, 4 x 4's, sterile Webril, and Ziyad was applied. The patient tolerated the procedure well. Due to the complex nature of the procedure, the entire surgery was performed with the operational assistance of JATINDER Contreras. The surgical services assistant, under direct supervision, was involved in the actual performance of all aspects of the surgical procedure including hemostasis, tissue retraction and incision, instrument management, patient positioning, and wound closure. DISPOSITION: Recovery room, stable. I attest to the content of the Intraoperative Record and any orders documented therein. Any exception s are noted below.
[2017-11-17] MEDS ORDERED: LABETALOL HCL IV 5 MG/ML 20ML IV ONE (11:48)
[2017-11-17] MEDS ORDERED: ALBUTEROL HFA INHALER 8.5 GM INH ONE (11:53)
[2017-11-17] MEDS ORDERED: ALUMINUM/MAGNESIUM/SIMETH (MAALOX MAX) 30 ML UDC PO PRN (12:15)
[2017-11-17] MEDS ORDERED: TAPENTADOL HCL 50 MG TAB PO PRN (12:15)
[2017-11-17] MEDS ORDERED: PHENAZOPYRIDINE HCL 200 MG TAB PO PRN (12:15)
[2017-11-17] MEDS ORDERED: ALBUTEROL 0.5% NEB SOLN 2.5 MG/0.5 ML VIAL INH PRN (12:15)
[2017-11-17] MEDS ORDERED: BISACODYL 10 MG SUPP PR PRN (12:15)
[2017-11-17] MEDS ORDERED: LORAZEPAM INJ 0.5 MG in SYRINGE 0.25 ML IV PRN (12:15)
[2017-11-17] MEDS ORDERED: ALBUTEROL HFA 8 GM INHALER INH PRN (12:15)
[2017-11-17] MEDS ORDERED: MAGNESIUM HYDROXIDE SUSP 30 ML UDC PO PRN (12:15)
--- NOTE | 2017-11-17 13:16 | DIAGNOSTIC IMAGING REPORT ---
L KNEE 1 OR 2 VIEWS ROUTINE CLINICAL HISTORY: AP/LATERAL IN PACU LEFT KNEE postoperative evaluation COMPARISON: None. DISCUSSION: Anatomic alignment posttotal left knee arthroplasty. Expected postoperative soft tissue change. IMPRESSION: Anatomic alignment status post total left knee arthroplasty. The above report was generated using voice recognition software. It may contain grammatical, syntax or spelling errors. Electronically signed by: Nakul Aguirre M.D. 11/17/2017 1:14 PM Dictated Date/Time: 11/17/2017 1:13 PM
--- NOTE | 2017-11-17 13:27 | Anesthesiology Progress Note ---
Anesthesia Post Op Note Date & Time Nov 17, 2017 at 13:27 Vital Signs Pain Intensity: 3 Vital Signs Past 12 Hours Date Time Temp Pulse Resp B/P (MAP) Pulse Ox O2 Delivery O2 Flow Rate FiO2 11/17/17 13:03 36.5 108/62 11/17/17 13:01 70 16 84/51 90 11/17/17 13:01 71 16 11/17/17 12:56 71 13 92/54 94 11/17/17 12:56 71 13 11/17/17 12:51 68 13 118/65 100 11/17/17 12:51 68 13 11/17/17 12:49 103/65 11/17/17 12:47 99/47 11/17/17 12:46 72 14 11/17/17 12:46 72 14 100 11/17/17 12:41 69 16 11/17/17 12:41 69 16 125/63 100 11/17/17 12:36 74 18 11/17/17 12:36 74 18 129/71 100 11/17/17 12:31 73 17 142/81 100 11/17/17 12:31 73 17 11/17/17 12:27 162/79 11/17/17 12:21 36.5 86 16 172/96 95 Oxymask 7 11/17/17 08:23 36.8 80 20 147/94 97 Room Air Notes Mental Status: alert / awake / arousable, participated in evaluation Pt Amnestic to Procedure: Yes Nausea / Vomiting: adequately controlled Pain: adequately controlled Airway Patency, RR, SpO2: stable & adequate BP & HR: stable & adequate Hydration State: stable & adequate Anesthetic Complications: no major complications apparent
[2017-11-17] MEDS: ACETAMINOPHEN 500 MG TAB PO SCH (15:36)
[2017-11-17] MEDS: FERROUS GLUCONATE 324 MG TAB PO SCH (17:45)
--- NOTE | 2017-11-17 18:04 | Medical Consult ---
Consultation Date of Consultation: Nov 17, 2017. Attending Physician: Meño Abbasi M.D. Reason for Consultation: Medical Management History of Present Illness 67 y/o F who was admitted earlier today s/p L TKA with Dr. Abbasi. She is still a bit groggy from anesthesia, but otherwise doing ok. Tolerating PO without issue. Denies chest pain, SOB. Pt had a c-scope on 11/14/17 for rectal bleeding. She states that there is still occasional rectal bleeding, but not like it had been prior. Pertinent positives and negatives reviewed in HPI--all others negative Past Medical/Surgical History CHF HTN Asthma Hypothyroid Anxiety Lung cancer Family History Family history was reviewed; no changes noted. Social History Smoking Status: Former Smoker Drug Use: none Marital Status: Housing Status: lives with family Occupation Status: other Allergies Coded Allergies: Shellfish (Verified Allergy, Severe, throat closing , systemic reaction, ) Cephalosporins (Verified Allergy, Intermediate, hives, 11/14/17) Fish (Verified Allergy, Intermediate, HIVES/SWELLING, 11/14/17) INDICATED SHE HAD A REACTION TO CERTAIN SEAFOOD LAST TUESDAY AND TODAY. Methenamine (Verified Allergy, Intermediate, hives, 11/14/17) Oxycodone (Verified Allergy, Intermediate, HIVES, 11/07/17) Propoxyphene (Verified Allergy, Intermediate, ITCHING AND A RASH, 11/07/17) Replaces DARVOCET-N 10 Sulfa Antibiotics (Verified Allergy, Intermediate, hives, 11/14/17) Sulfamethoxazole (Verified Allergy, Intermediate, hives, 11/14/17) Trimethoprim (Verified Allergy, Intermediate, hives, 11/14/17) Simvastatin (Verified Adverse Reaction, Intermediate, body aches, 11/14/17) Tapentadol (Verified Adverse Reaction, Intermediate, felt very uncomfortable - does not ever want, 11/14/17) Hydrocodone (Verified Adverse Reaction, Mild, ITCHING, 11/07/17) Prednisone (Verified Adverse Reaction, Mild, ITCHING, 11/07/17) ITCHING HOWEVER BENEFITS OUT WEIGH THE SIDE EFFECTS Current Inpatient Medications Current Inpatient Medications Medications (Trade) Dose Ordered Sig/Héctor Route Start Time Stop Time Status Last Admin Dose Admin Acetaminophen (Tylenol Tab) 1,000 mg PREOP PO 11/17/17 06:00 11/17/17 18:00 11/17/17 08:43 1,000 MG Dexamethasone (Decadron Tab) 8 mg PREOP PO 11/17/17 06:00 11/17/17 18:00 11/17/17 08:44 8 MG Famotidine (Pepcid Tab) 20 mg PREOP PO 11/17/17 06:00 11/17/17 18:00 11/17/17 08:43 20 MG Gabapentin (Neurontin Cap) 300 mg PREOP PO 11/17/17 06:00 11/17/17 18:00 11/17/17 08:43 300 MG Metoclopramide HCl (Reglan Tab) 10 mg PREOP PO 11/17/17 06:00 11/17/17 18:00 11/17/17 08:44 10 MG Albuterol (Ventolin Hfa Inhaler) . Q6H PRN INH 11/17/17 12:15 12/17/17 12:14 Albuterol Sulfate (Ventolin 0.5% 2.5MG/0.5ML Neb) 2.5 mg DAILY PRN INH 11/17/17 12:15 12/17/17 12:14 Amlodipine Besylate (Norvasc Tab) 5 mg QPM PO 11/18/17 21:00 12/18/17 20:59 Budesonide/ Formoterol Fumarate (Symbicort 160/ 4.5 Inh) 2 puffs BID INH 11/17/17 21:00 12/17/17 20:59 Cyclobenzaprine HCl (Flexeril Tab) 5 mg DAILY PO 11/18/17 09:00 12/18/17 08:59 Fluoxetine HCl (Prozac Cap) 30 mg QAM PO 11/18/17 09:00 12/18/17 08:59 Levothyroxine Sodium (Synthroid Tab) 112 mcg DAILYBB PO 11/18/17 06:00 12/18/17 05:59 Lisinopril (Zestril Tab) 30 mg QPM PO 11/17/17 21:00 12/17/17 20:59 Metoprolol Succinate (Toprol Xl Tab) 25 mg QPM PO 11/18/17 21:00 12/18/17 20:59 Phenazopyridine HCl (Pyridium Tab) 200 mg TID PRN PO 11/17/17 12:15 12/17/17 12:14 Miscellaneous Information (Order Awaiting Action) 1 ea QS N/A 11/17/17 16:00 12/17/17 15:59 Lorazepam 0.5 mg/ Syringe 0.5 ml @ 0.5 mls/min Q8H PRN IV 11/17/17 12:15 12/17/17 12:14 Morphine Sulfate (MoRPHine SULFATE INJ) 2 mg Q4HWA PRN IV 11/17/17 12:15 12/01/17 12:14 Tapentadol (Nucynta Tab) `1-2 tabs for pain 1 tab ... Q4H PRN PO 11/17/17 12:15 12/17/17 12:14 Potassium Chloride/Dextrose/ Sod Cl 1,000 ml @ 100 mls/hr Q10H IV 11/17/17 14:30 11/18/17 14:29 Acetaminophen (Tylenol Tab) 1,000 mg Q8H PO 11/17/17 16:00 12/17/17 15:59 11/17/17 15:36 1,000 MG Magnesium Hydroxide (Milk Of Magnesia Susp) 30 ml Q6H PRN PO 11/17/17 12:15 12/17/17 12:14 Bisacodyl (Dulcolax Supp) 10 mg DAILY PRN W[place] 11/17/17 12:15 12/17/17 12:14 Senna (Senokot Tab) 17.2 mg HS PO 11/17/17 21:00 12/17/17 20:59 Docusate Sodium (coLACE CAP) 100 mg BID PO 11/17/17 21:00 12/17/17 20:59 Al Hydrox/Mg Hydrox/Simethicone (Maalox Max Susp) 15 ml Q4H PRN PO 11/17/17 12:15 12/17/17 12:14 Multivitamins (Multivitamin Tab) 1 tab QAM PO 11/18/17 09:00 12/18/17 08:59 Ondansetron HCl (Zofran Inj) 4 mg Q6H PRN IV 11/17/17 12:15 12/17/17 12:14 Ferrous Gluconate (Ferrous Gluconate Tab) 324 mg TIDM PO 11/17/17 17:45 12/17/17 17:59 Tramadol HCl (Ultram Tab) 1 tablet for pain rating... Q4H PRN PO 11/17/17 12:15 12/17/17 12:14 Aspirin (Ecotrin Tab) 81 mg BID PO 11/17/17 21:00 12/17/17 20:59 Clindamycin Phosphate 600 mg/ Dextrose 54 ml @ 100 mls/hr Q8H IV 11/17/17 18:00 11/18/17 02:33 Physical Exam Date Time Temp Pulse Resp B/P (MAP) Pulse Ox O2 Delivery O2 Flow Rate FiO2 11/17/17 16:35 77 15 85/50 (62) 94 Nasal Cannula 2.0 87/80 (82) 11/17/17 15:35 Nasal Cannula 3.0 11/17/17 15:35 36.5 81 16 96/61 (73) 93 Nasal Cannula 2.0 11/17/17 14:35 65 16 116/72 (87) 99 Nasal Cannula 3.0 11/17/17 14:11 36.7 79 14 106/67 (80) 98 Nasal Cannula 3.0 11/17/17 13:35 Nasal Cannula 3.0 11/17/17 13:35 Nasal Cannula 3.0 11/17/17 13:35 36.9 68 18 98/64 (75) 95 Nasal Cannula 3.0 11/17/17 13:03 36.5 108/62 11/17/17 13:01 70 16 84/51 90 11/17/17 13:01 71 16 11/17/17 12:56 71 13 92/54 94 11/17/17 12:56 71 13 11/17/17 12:51 68 13 118/65 100 11/17/17 12:51 68 13 11/17/17 12:49 103/65 11/17/17 12:47 99/47 11/17/17 12:46 72 14 11/17/17 12:46 72 14 100 11/17/17 12:41 69 16 11/17/17 12:41 69 16 125/63 100 11/17/17 12:36 74 18 11/17/17 12:36 74 18 129/71 100 11/17/17 12:31 73 17 142/81 100 11/17/17 12:31 73 17 11/17/17 12:27 162/79 11/17/17 12:21 36.5 86 16 172/96 95 Oxymask 7 11/17/17 08:23 36.8 80 20 147/94 97 Room Air General Appearance: WD/WN, no apparent distress Head: normocephalic, atraumatic Eyes: normal inspection, sclerae normal Respiratory/Chest: normal breath sounds, no respiratory distress Cardiovascular: regular rate, rhythm, no edema Abdomen/GI: non tender, soft Extremities/Musculoskelatal: no calf tenderness, no pedal edema Neurologic/Psych: alert (but groggy), oriented x 3, + pertinent finding ( speech is clear and conversation is appropriate) Skin: normal color, warm/dry Assessment & Plan 67 y/o F who was admitted earlier today s/p L TKA with Dr. Abbasi. R TKA: as per ortho DVT proph/diet as per ortho Recent rectal bleeding: still with mild bleeding per pt Hb 11.7 pre-op, monitor c-scope with polyp removed, path noted for tubular adenoma HTN: continue home meds Asthma: stable, continue home meds
[2017-11-17] MEDS: CLINDAMYCIN IV 600 MG in DEXTROSE 5% 50ML 50 ML IV SCH (18:05)
[2017-11-17] MEDS: D5W AND 1/2NSS + 20MEQ KCL 1,000 ML IV SCH (18:47)
[2017-11-17] MEDS: LISINOPRIL 20 MG TAB PO SCH (20:51)
[2017-11-17 20:55] LABS: HEMATOCRIT 29.5 % (37-47)
[2017-11-17] MEDS: DOCUSATE SODIUM 100 MG CAP PO SCH (21:01)
[2017-11-17] MEDS: ASPIRIN 81 MG ECTAB PO SCH (21:01)
[2017-11-17] MEDS: SENNA 8.6 MG TAB PO SCH (21:01)
[2017-11-17] MEDS: BUDESONIDE/FORMOTEROL FUMARATE 160/4.5 60 PUFFS/INHALER INH SCH (21:01)
[2017-11-17] MEDS ORDERED: SODIUM CHLORIDE 0.9% 500ML 500 ML IV SCH (22:15)
[2017-11-18] VITALS (7 sets, daily range): BP systolic 98–153; BP diastolic 60–88; PULSE 78–87; TEMP 36.8–37.2; O2SAT 94–96
[2017-11-18] MEDS: ACETAMINOPHEN 500 MG TAB PO SCH ×3 (00:20→16:24)
[2017-11-18] MEDS: CLINDAMYCIN IV 600 MG in DEXTROSE 5% 50ML 50 ML IV SCH (01:43)
[2017-11-18] MEDS: LEVOTHYROXINE 112 MCG TAB PO SCH (05:08)
[2017-11-18] MEDS: D5W AND 1/2NSS + 20MEQ KCL 1,000 ML IV SCH (05:08)
[2017-11-18 06:09] LABS: HEMATOCRIT 27.3 % (37-47); HEMOGLOBIN 9.3 g/dL (12.0-16.0); MEAN CELL VOLUME 85.8 fL (80-100); MEAN CORPUSCULAR HEMOGLOBIN 29.2 pg (25-34); MEAN CORPUSCULAR HGB CONC 34.1 g/dl (32-36); MEAN PLATELET VOLUME 9.3 fL (7.4-10.4); PLATELET COUNT 305 K/uL (130-400); RED CELL DISTRIBUTION WIDTH SD 41.2 fL (36.4-46.3); WHITE BLOOD COUNT 16.61 K/uL (4.8-10.8)
[2017-11-18 06:39] LABS: CREATININE 0.85 mg/dl (0.60-1.20); POTASSIUM 4.1 mmol/L (3.5-5.1)
--- NOTE | 2017-11-18 07:50 | Orthopedic Progress Note ---
Orthopedic Progress Note Date of Service Nov 18, 2017. Subjective Post OP Day: 1 Reports: feeling well Objective N/V intact, dressing C/D/I (Hemovac in place, output 100 ml overnight), toes mobile Date Time Temp Pulse Resp B/P (MAP) Pulse Ox O2 Delivery O2 Flow Rate FiO2 11/18/17 07:34 Room Air 11/18/17 03:32 36.8 87 16 99/60 (73) 94 Room Air 11/18/17 00:20 Room Air 11/17/17 23:08 36.8 84 16 92/57 (69) 94 Room Air 11/17/17 19:20 37.0 80 14 74/43 (53) 97 Nasal Cannula 2.0 81/50 (60) 11/17/17 16:35 77 15 85/50 (62) 94 Nasal Cannula 2.0 87/80 (82) 11/17/17 15:35 Nasal Cannula 3.0 11/17/17 15:35 36.5 81 16 96/61 (73) 93 Nasal Cannula 2.0 11/17/17 14:35 65 16 116/72 (87) 99 Nasal Cannula 3.0 11/17/17 14:11 36.7 79 14 106/67 (80) 98 Nasal Cannula 3.0 11/17/17 13:35 Nasal Cannula 3.0 11/17/17 13:35 Nasal Cannula 3.0 11/17/17 13:35 36.9 68 18 98/64 (75) 95 Nasal Cannula 3.0 11/17/17 13:03 36.5 108/62 11/17/17 13:01 70 16 84/51 90 11/17/17 13:01 71 16 11/17/17 12:56 71 13 92/54 94 11/17/17 12:56 71 13 11/17/17 12:51 68 13 118/65 100 11/17/17 12:51 68 13 11/17/17 12:49 103/65 11/17/17 12:47 99/47 11/17/17 12:46 72 14 11/17/17 12:46 72 14 100 11/17/17 12:41 69 16 11/17/17 12:41 69 16 125/63 100 11/17/17 12:36 74 18 11/17/17 12:36 74 18 129/71 100 11/17/17 12:31 73 17 142/81 100 11/17/17 12:31 73 17 11/17/17 12:27 162/79 11/17/17 12:21 36.5 86 16 172/96 95 Oxymask 7 11/17/17 08:23 36.8 80 20 147/94 97 Room Air Laboratory Results 24 Hours: Test 11/17/17 20:36 11/18/17 05:29 Hematocrit 29.5 % 27.3 % Hemoglobin 10.0 g/dL 9.3 g/dL Assessment & Plan Assessment: 67 yo female stable POD #1 s/p left TKA, acute blood loss anemia(pt chronically anemic, also has been dealing with recent rectal bleeding) Plan: 1. Med management 2. DVT prophylaxis- ASA, SCDs 3. PT/OT 4. D/C planning- pt interested in
--- NOTE | 2017-11-18 07:53 | Discharge Instructions ---
Discharge Instructions Date of Service Nov 18, 2017. Admission Reason for Admission: Left Knee Osteoarthritis Discharge Discharge Diagnosis / Problem: Left knee arthritis Discharge Goals Goal(s): Decrease discomfort, Improve function Activity Recommendations Activity Limitations: as noted below Weightbearing Status: Left weightbearing (as tolerated) . Instructions / Follow-Up Instructions / Follow-Up ACTIVITY RECOMMENDATIONS: SELF CARE INSTRUCTIONS AFTER TOTAL KNEE REPLACEMENT A. You may need to continue a physical therapy program after discharge from the hospital. There are several options available to you. Your doctor will assist you in selecting the best one for you. 1. An out-patient facility 2 to 3 times a week for therapy or home therapy. 2. Continue working on all exercises taught to you in the hospital. Your goals should be to increase bending of your knee to 90 degrees and beyond and to fully straighten your knee. B. You may progress at your own pace from walking with a walker or crutches to a cane; then to no assistive devices. C. Make walking a part of your daily routine. Be up as much as comfortable with rest periods throughout the day. Rest with leg elevation is very important. Use the ice wrap frequently for the first 3-4 weeks. D. There are no restrictions on activities. You may ride in a car, shop, participate in chart clerk and all social activities. E. Wear the long elastic stockings (MONSERRAT hose) 20 hours a day for 2 weeks after surgery. They can be removed several times a day for laundering and for a bath. F. You may shower, no tub baths until cleared by your doctor. SPECIAL CARE INSTRUCTIONS: VERY IMPORTANT TO READ AND REVIEW A. There are a few signs you need to watch for after you are home. Call [facility] if you notice any of the followin. Increased severe knee pain. Some pain is expected especially when you exercise. 2. Increased swelling in your leg or knee; pain or swelling of the calf muscle in either lower leg. 3. Any fluid drainage from the incision. 4. Shortness of breath or chest pain. B. Please call [facility] at if you have any concerns or questions about your operation or recovery. The doctor or his nurse will return your call promptly. C. You must take antibiotics before dental work, bladder, bowel or other surgery. Your doctor will provide you with a permanent care to carry describing this precaution. IMPORTANT: * REMEMBER TO TAKE ASPIRIN, 81 MG, TWICE DAILY FOR 4 WEEKS UNLESS OTHERWISE DIRECTED. THIS IS YOUR BLOOD THINNER. * HIGH RISK PATIENTS MAY BE PRESCRIBED A STRONGER BLOOD THINNER. THIS WILL BE PROVIDED AT DISCHARGE. * CALL IF INCREASED PAIN, REDNESS, DRAINAGE OR FEVER GREATER THAT 101. * WEAR MONSERRAT HOSE 20 HOURS PER DAY FOR 2 WEEKS. * YOU HAVE A ZIPLINE CLOSURE SYSTEM ON YOUR INCISION. THIS KEEPS THE INCISION CLOSED. KEEP THE ZIPLINE COVERED WITH GAUZE AT ALL TIMES. IT HAS A TENDENCY TO CATCH ON YOUR CLOTHES. YOU MAY SHOWER WITH THE ZIPLINE. DO NOT LET THE SHOWER BEAT ON THE INCISION. DO NOT SOAK IT, NO TUB BATHS. DO NOT USE OINTMENTS OR CREAMS ON THE INCISION. THE ZIPLINE WILL BE REMOVED IN 2 WEEKS FROM THE DAY OF YOUR SURGERY IN THE OFFICE. CALL WITH ANY QUESTIONS. [phone] FOLLOW UP VISIT: If appointment is not already scheduled: Please call [facility] to make a follow-up appointment for 2 weeks after your surgery at . Current Hospital Diet Patient's current hospital diet: Regular Diet Discharge Diet Recommended Diet: Regular Diet Procedures Procedures Performed: Total Left Knee Arthroplasty Cemented Pending Studies Studies pending at discharge: no Laboratory Results Hemoglobin A1c Test 10/21/17 16:09 Range/Units Estimated Average Glucose 128 mg/dl Hemoglobin A1c 6.1 H 4.5-5.6 % Medical Emergencies . Who to Call and When: Medical Emergencies: If at any time you feel your situation is an emergency, please call 911 immediately. . Non-Emergent Contact Non-Emergency issues call your: Surgeon Call Non-Emergent contact if: temperature is above 101.5, your pain is not controlled, your pain is worsening, wound has increased drainage, wound has increased redness . "Provider Documentation" section prepared by James Lin PA-C. . [place] Drug Monitoring Program Search Results: patient reviewed within database, no issues identified
[2017-11-18] MEDS: FERROUS GLUCONATE 324 MG TAB PO SCH ×3 (08:30→17:45)
[2017-11-18] MEDS: ASPIRIN 81 MG ECTAB PO SCH ×2 (08:38→21:14)
[2017-11-18] MEDS: BUDESONIDE/FORMOTEROL FUMARATE 160/4.5 60 PUFFS/INHALER INH SCH ×2 (08:38→21:12)
[2017-11-18] MEDS: DOCUSATE SODIUM 100 MG CAP PO SCH ×2 (08:38→21:12)
[2017-11-18] MEDS: CYCLOBENZAPRINE HCL 10 MG TAB PO SCH (08:39)
[2017-11-18] MEDS: MULTIVITAMIN TAB PO SCH (08:40)
[2017-11-18] MEDS: FLUOXETINE HCL 10 MG CAP PO SCH (08:40)
[2017-11-18] MEDS: TRAMADOL HCL 50 MG TAB PO PRN ×2 (15:19→22:19)
[2017-11-18] MEDS ORDERED: MAGIC MOUTHWASH PO SCH (17:15)
[2017-11-18] MEDS: DEXAMETHASONE CONC SOLN 3.75 MG, NYSTATIN SUSP 30 ML, DiphenhydrAMINE HCL SYRUP 300 MG,... PO SCH ×10 (18:24→21:15)
--- NOTE | 2017-11-18 20:19 | Progress Note ---
Subjective Date of Service: Nov 18, 2017. Subjective Pt evaluation today including: conversation w/ patient, conversation w/ family ( at bedside), physical exam, chart review, lab review Pain: left knee only PO Intake: normal Voiding: no voiding problems overall feeling good denies dizziness, cp, dyspnea, orthopnea reports she cannot take iron as it makes her interstitial cystitis worse +flatus, no stool yet Problem List Medical Problems: (1) Anaphylaxis Status: Acute (2) Asthma exacerbation Status: Acute (3) Cystitis Status: Acute (4) Dysuria Status: Acute (5) Influenza-like illness Status: Acute (6) Internal and external bleeding hemorrhoids Status: Acute (7) Musculoskeletal back pain Status: Acute (8) Neck pain Status: Acute (9) Precordial chest pain Status: Acute (10) Rectal bleeding Status: Acute (11) Right lower quadrant abdominal pain Status: Acute (12) Sepsis Status: Acute (13) Shoulder pain Status: Acute (14) Substernal precordial chest pain Status: Acute (15) Whole body pain Status: Acute Review of Systems Constitutional: No fever ENT: + problem reported (mouth pain, ?thrush?) Respiratory: No shortness of breath, No dyspnea on exertion Cardiac: No chest pain Abdomen: No pain, No vomiting Objective Vital Signs Date Time Temp Pulse Resp B/P (MAP) Pulse Ox O2 Delivery O2 Flow Rate FiO2 11/18/17 15:28 37.0 80 16 109/66 (80) 95 Room Air 80 11/18/17 15:20 Room Air 11/18/17 11:55 37.1 84 16 98/60 (73) 95 Room Air 11/18/17 10:06 96 Room Air 11/18/17 08:09 37.2 86 16 106/66 (79) 96 Room Air 11/18/17 07:34 Room Air 11/18/17 03:32 36.8 87 16 99/60 (73) 94 Room Air 11/18/17 00:20 Room Air 11/17/17 23:08 36.8 84 16 92/57 (69) 94 Room Air Physical Exam General Appearance: no apparent distress ENT: pharynx normal Neck: no JVD Respiratory/Chest: lungs clear, no respiratory distress, no accessory muscle use Cardiovascular: regular rate, rhythm, no gallop, no murmur Abdomen: normal bowel sounds, non tender, soft, no organomegaly Extremities: no pedal edema, + pertinent finding (left knee dressing intact with drain in place ) Neurologic/Psychiatric: alert, oriented x 3 Skin: no rash, + pallor Laboratory Results Last 24 Hours Test 11/17/17 20:36 11/18/17 05:29 Hemoglobin 10.0 g/dL 9.3 g/dL Hematocrit 29.5 % 27.3 % White Blood Count 16.61 K/uL Red Blood Count 3.18 M/uL Mean Corpuscular Volume 85.8 fL Mean Corpuscular Hemoglobin 29.2 pg Mean Corpuscular Hemoglobin Concent 34.1 g/dl RDW Standard Deviation 41.2 fL RDW Coefficient of Variation 13.0 % Platelet Count 305 K/uL Mean Platelet Volume 9.3 fL Sodium Level 138 mmol/L Potassium Level 4.1 mmol/L Chloride Level 107 mmol/L Carbon Dioxide Level 22 mmol/L Anion Gap 9.0 mmol/L Blood Urea Nitrogen 17 mg/dl Creatinine 0.85 mg/dl Est Creatinine Clear Calc Drug Dose 56.9 ml/min Estimated GFR () 83.3 Estimated GFR (Non- 71.9 BUN/Creatinine Ratio 20.0 Random Glucose 166 mg/dl Calcium Level 8.0 mg/dl Assessment and Plan 67yo female - 1. s/p left TKR, POD #1 - pain management, dispo, DVT proph - per ortho 2. chronic diastolic CHF - compensated. 3. HTN - BPs are low or low-normal - will hold amlodipine & lisinopril - will resume BB due to #2. 4. hypothyroidism - cont synthroid. 5. asthma - not in exacerbation. 6. h/o lung cancer - noted. 7. acute blood loss anemia - patient cannot take oral iron as it some how aggravates her interstitial cystitis. Suggested f/u with her PCP and having an iron panel. If still low then consider outpatient IV iron. 8. DVT proph - aspirin BID. 9. oral mucosa irritation - magic mouthwash ac/hs. Will follow. Continued [facility] stay due to: multiple IV medications needed Discharge planning: home with home health
[2017-11-18] MEDS ORDERED: AMLODIPINE BESYLATE 5 MG TAB PO SCH (21:00)
[2017-11-18] MEDS: SENNA 8.6 MG TAB PO SCH (21:14)
[2017-11-18] MEDS: METOPROLOL SUCC 25MG EXT REL TAB PO SCH (21:14)
[2017-11-18] MEDS: MoRPHine SULFATE 2 MG/ML CARP IV PRN (23:56)
[2017-11-19 00:06] VITALS: BP 172/97; PULSE 91; O2SAT 100
[2017-11-19] MEDS: ACETAMINOPHEN 500 MG TAB PO SCH ×3 (00:09→16:22)
[2017-11-19 01:36] VITALS: BP 149/89; PULSE 88
[2017-11-19] MEDS: TRAMADOL HCL 50 MG TAB PO PRN (02:11)
[2017-11-19] MEDS: MoRPHine SULFATE 2 MG/ML CARP IV PRN (04:34)
[2017-11-19] MEDS: LEVOTHYROXINE 112 MCG TAB PO SCH (06:07)
[2017-11-19 06:19] LABS: HEMATOCRIT 27.7 % (37-47); HEMOGLOBIN 9.1 g/dL (12.0-16.0); MEAN CELL VOLUME 87.7 fL (80-100); MEAN CORPUSCULAR HEMOGLOBIN 28.8 pg (25-34); MEAN CORPUSCULAR HGB CONC 32.9 g/dl (32-36); MEAN PLATELET VOLUME 9.5 fL (7.4-10.4); PLATELET COUNT 309 K/uL (130-400); RED CELL DISTRIBUTION WIDTH CV 13.5 % (11.5-14.5); RED CELL DISTRIBUTION WIDTH SD 43.9 fL (36.4-46.3); WHITE BLOOD COUNT 12.12 K/uL (4.8-10.8)
[2017-11-19 06:42] LABS: CALCIUM 8.4 mg/dl (8.5-10.1); CREATININE 0.67 mg/dl (0.60-1.20); POTASSIUM 4.1 mmol/L (3.5-5.1)
[2017-11-19 07:48] VITALS: BP 153/90; PULSE 80; TEMP 36.9; O2SAT 95
[2017-11-19] MEDS ORDERED: HYDROmorphone INJ 0.5 MG/0.5 ML SYR IV PRN (08:00)
[2017-11-19] MEDS: DEXAMETHASONE CONC SOLN 3.75 MG, NYSTATIN SUSP 30 ML, DiphenhydrAMINE HCL SYRUP 300 MG,... PO SCH ×20 (08:29→20:41)
[2017-11-19] MEDS: FERROUS GLUCONATE 324 MG TAB PO SCH ×3 (08:30→16:22)
[2017-11-19] MEDS: MoRPHine SULFATE CR 15 MG TAB (MS CONTIN) PO SCH ×2 (08:30→20:45)
[2017-11-19] MEDS: DOCUSATE SODIUM 100 MG CAP PO SCH ×2 (08:32→20:40)
[2017-11-19] MEDS: BUDESONIDE/FORMOTEROL FUMARATE 160/4.5 60 PUFFS/INHALER INH SCH ×2 (08:32→20:41)
[2017-11-19] MEDS: ASPIRIN 81 MG ECTAB PO SCH ×2 (08:33→20:40)
[2017-11-19] MEDS: MULTIVITAMIN TAB PO SCH (08:33)
[2017-11-19] MEDS: FLUOXETINE HCL 10 MG CAP PO SCH (08:34)
[2017-11-19] MEDS: CYCLOBENZAPRINE HCL 10 MG TAB PO SCH (08:35)
--- NOTE | 2017-11-19 08:47 | Orthopedic Progress Note ---
Orthopedic Progress Note Date of Service Nov 19, 2017. Subjective Post OP Day: 2 Additional Notes: Painful this AM. Pt sitting at the edge of the bed holding onto her walker. Since last night, she's been having pain control issues. Pt with multiple allergies to narcotics. Denies SOB, CP, LH, or calf pain. Objective calves soft nontender, N/V intact, incision C/D/I, A&O x3, toes mobile Date Time Temp Pulse Resp B/P (MAP) Pulse Ox O2 Delivery O2 Flow Rate FiO2 11/19/17 07:48 36.9 80 18 153/90 (111) 95 Room Air 11/19/17 01:36 88 149/89 (109) 11/19/17 00:06 91 172/97 (122) 100 Room Air 11/18/17 23:50 Room Air 11/18/17 23:06 36.9 78 16 153/88 (109) 96 Room Air 11/18/17 21:11 85 136/79 (98) 11/18/17 15:28 37.0 80 16 109/66 (80) 95 Room Air 80 11/18/17 15:20 Room Air 11/18/17 11:55 37.1 84 16 98/60 (73) 95 Room Air 11/18/17 10:06 96 Room Air Laboratory Results 24 Hours: Test 11/19/17 05:15 Hematocrit 27.7 % Hemoglobin 9.1 g/dL Assessment & Plan Assessment: 67 yo female stable POD #2 s/p left TKA, acute blood loss anemia(pt chronically anemic, also has been dealing with recent rectal bleeding) Pain control issues Plan: I spoke with the patient and her this AM about alternatives for pain control. She is tolerating the Morphine but it does not last long. Plan to add Toradol 15mg q6h jose initially. Also add MS Geraldo in hopes that she can tolerate this. Continue the Tramadol. Hgb 9.1 from 9.3 yesterday. Appears to be stabilizing. Follow. Continue PT/OT No plans for dc today due to pain control issues. Inhouse Planning Pain Management: Toradol, Ultram, Dilaudid, Morphine, PO Tylenol
[2017-11-19] MEDS: KETOROLAC TROMETHAMINE 15 MG/ML VIAL IV. SCH ×3 (09:06→20:45)
[2017-11-19] MEDS ORDERED: LISINOPRIL 20 MG TAB PO STA (09:35)
[2017-11-19] MEDS ORDERED: AMLODIPINE BESYLATE 5 MG TAB PO ONE (09:45)
[2017-11-19] MEDS ORDERED: HydrALAZINE HCL 20 MG/ML VIAL IV. PRN (11:00)
[2017-11-19] MEDS ORDERED: POLYETHYLENE (MIRALAX) 17 GM PACK PO ONE (11:00)
--- NOTE | 2017-11-19 11:04 | Hospitalist Progress Note ---
Hospitalist Progress Note Date of Service Nov 19, 2017. (Zara Montoya ., PA-C) Subjective Pt evaluation today including: conversation w/ patient, conversation w/ family ( at bedside ), physical exam, lab review, review of studies, review of inpatient medication list Voiding: no voiding problems Patient sitting in bedside chair. Pain uncontrolled this AM. Orthopedics adjusted pain medications. Currently, pain /10 due to new PRN medications. Eating and drinking OK. +flatus postop, no BM yet. No abdominal pain, N/V. Added MiraLAX daily to regimen. Cannot take iron supplement due to interstitial cystitis. Patient denies any fever, chills, sweats, lightheadedness, dizziness, vision changes, CP, palpitations, edema, SOB, wheezing, cough, abdominal pain, nausea, vomiting, diarrhea, urinary symptoms, melena, numbness/tingling, weakness, anxiety/depression, active bleeding, or new skin discoloration/changes. (Zara Montoya ., PA-C) Medications Current Inpatient Medications Medications (Trade) Dose Ordered Sig/Héctor Route Start Time Stop Time Status Last Admin Dose Admin Albuterol (Ventolin Hfa Inhaler) . Q6H PRN INH 11/17/17 12:15 12/17/17 12:14 Albuterol Sulfate (Ventolin 0.5% 2.5MG/0.5ML Neb) 2.5 mg DAILY PRN INH 11/17/17 12:15 12/17/17 12:14 Amlodipine Besylate (Norvasc Tab) 5 mg QPM PO 11/18/17 21:00 12/18/17 20:59 Future hold Budesonide/ Formoterol Fumarate (Symbicort 160/ 4.5 Inh) 2 puffs BID INH 11/17/17 21:00 12/17/17 20:59 11/19/17 08:32 2 PUFFS Cyclobenzaprine HCl (Flexeril Tab) 5 mg DAILY PO 11/18/17 09:00 12/18/17 08:59 11/19/17 08:35 5 MG Fluoxetine HCl (Prozac Cap) 30 mg QAM PO 11/18/17 09:00 12/18/17 08:59 11/19/17 08:34 30 MG Levothyroxine Sodium (Synthroid Tab) 112 mcg DAILYBB PO 11/18/17 06:00 12/18/17 05:59 11/19/17 06:07 112 MCG Lisinopril (Zestril Tab) 30 mg QPM PO 11/17/17 21:00 12/17/17 20:59 Future hold Metoprolol Succinate (Toprol Xl Tab) 25 mg QPM PO 11/18/17 21:00 12/18/17 20:59 11/18/17 21:14 25 MG Phenazopyridine HCl (Pyridium Tab) 200 mg TID PRN PO 11/17/17 12:15 12/17/17 12:14 Miscellaneous Information (Order Awaiting Action) 1 ea QS N/A 11/17/17 16:00 12/17/17 15:59 Lorazepam 0.5 mg/ Syringe 0.5 ml @ 0.5 mls/min Q8H PRN IV 11/17/17 12:15 12/17/17 12:14 Acetaminophen (Tylenol Tab) 1,000 mg Q8H PO 11/17/17 16:00 12/17/17 15:59 11/19/17 09:07 1,000 MG Magnesium Hydroxide (Milk Of Magnesia Susp) 30 ml Q6H PRN PO 11/17/17 12:15 12/17/17 12:14 Bisacodyl (Dulcolax Supp) 10 mg DAILY PRN MS 11/17/17 12:15 12/17/17 12:14 Senna (Senokot Tab) 17.2 mg HS PO 11/17/17 21:00 12/17/17 20:59 11/18/17 21:14 17.2 MG Docusate Sodium (coLACE CAP) 100 mg BID PO 11/17/17 21:00 12/17/17 20:59 11/19/17 08:32 100 MG Al Hydrox/Mg Hydrox/Simethicone (Maalox Max Susp) 15 ml Q4H PRN PO 11/17/17 12:15 12/17/17 12:14 Multivitamins (Multivitamin Tab) 1 tab QAM PO 11/18/17 09:00 12/18/17 08:59 Ondansetron HCl (Zofran Inj) 4 mg Q6H PRN IV 11/17/17 12:15 12/17/17 12:14 Ferrous Gluconate (Ferrous Gluconate Tab) 324 mg TIDM PO 11/17/17 17:45 12/17/17 17:59 Tramadol HCl (Ultram Tab) 1 tablet for pain rating... Q4H PRN PO 11/17/17 12:15 12/17/17 12:14 11/19/17 02:11 100 MG Aspirin (Ecotrin Tab) 81 mg BID PO 11/17/17 21:00 12/17/17 20:59 11/19/17 08:33 81 MG Dexamethasone/ Nystatin/ Diphenhydramine HCl/Sucrose/ Microcrystalline Cellulose/Barcode ACHS PO 11/18/17 17:15 12/18/17 17:14 11/19/17 08:29 5 ML Ketorolac Tromethamine (Toradol Inj) 15 mg Q6H IV. 11/19/17 08:00 11/24/17 07:59 11/19/17 09:06 15 MG Morphine Sulfate (Oramorph Sr Tab) 15 mg Q12H PO 11/19/17 08:00 12/03/17 07:59 11/19/17 08:30 15 MG Hydromorphone HCl (Dilaudid Inj) 0.5 mg Q4HWA PRN IV 11/19/17 08:00 12/03/17 07:59 (Zara Montoya PA-C) Objective Vital Signs Date Time Temp Pulse Resp B/P (MAP) Pulse Ox O2 Delivery O2 Flow Rate FiO2 11/19/17 07:48 36.9 80 18 153/90 (111) 95 Room Air 11/19/17 07:20 Room Air 11/19/17 01:36 88 149/89 (109) 11/19/17 00:06 91 172/97 (122) 100 Room Air 11/18/17 23:50 Room Air 11/18/17 23:06 36.9 78 16 153/88 (109) 96 Room Air 11/18/17 21:11 85 136/79 (98) 11/18/17 15:28 37.0 80 16 109/66 (80) 95 Room Air 80 11/18/17 15:20 Room Air 11/18/17 11:55 37.1 84 16 98/60 (73) 95 Room Air (Murarik, Zara ., PA-C) Physical Exam General Appearance: no apparent distress Eyes: normal inspection, PERRL ENT: hearing grossly normal Neck: supple Respiratory/Chest: lungs clear, no respiratory distress, no accessory muscle use Cardiovascular: regular rate, rhythm, + systolic murmur Abdomen: normal bowel sounds, non tender, soft Extremities: no pedal edema, no calf tenderness Neurologic/Psychiatric: alert, normal mood/affect, oriented x 3 Skin: normal color, warm/dry, no rash (Zara Montoya, JATINDER-C) Laboratory Results Last 24 Hours Test 11/19/17 05:15 White Blood Count 12.12 K/uL Red Blood Count 3.16 M/uL Hemoglobin 9.1 g/dL Hematocrit 27.7 % Mean Corpuscular Volume 87.7 fL Mean Corpuscular Hemoglobin 28.8 pg Mean Corpuscular Hemoglobin Concent 32.9 g/dl RDW Standard Deviation 43.9 fL RDW Coefficient of Variation 13.5 % Platelet Count 309 K/uL Mean Platelet Volume 9.5 fL Sodium Level 141 mmol/L Potassium Level 4.1 mmol/L Chloride Level 109 mmol/L Carbon Dioxide Level 26 mmol/L Anion Gap 6.0 mmol/L Blood Urea Nitrogen 20 mg/dl Creatinine 0.67 mg/dl Est Creatinine Clear Calc Drug Dose 72.2 ml/min Estimated GFR () 106.9 Estimated GFR (Non- 92.2 BUN/Creatinine Ratio 29.2 Random Glucose 85 mg/dl Calcium Level 8.4 mg/dl (Zara Montoya, JATINDER-C) Assessment and Plan 67 y/o F who was admitted earlier today s/p L TKA with Dr. Abbasi. s/p L TKA by Dr. Abbasi on 11/17: - Surgical management, pain management, PT/OT, and DVT prophylaxis as per primary team - Encouraged incentive spirometer - Bowel regimen ordered- no BM postop, she is passing flatus, no abdominal pain or N/V - Follow postop CBC and PRP- STABLE Acute blood loss anemia in postop setting- STABLE: - Follow H&H- hgb 9.1 today - Cannot take oral iron as it some how aggravates her interstitial cystitis- f/ u outpatient for iron panel and possible need for IV Iron Chronic diastolic CHF- STABLE: Continue Metoprolol 25 mg HS HTN- UNCONTROLLED likely secondary to holding BP medications/pain: - Continue Metoprolol, resume Amlodipine and Lisinopril today - Orthopedics adjusting pain regimen - IV Hydralazine PRN Hypothyroidism: Continue Synthroid Asthma, h/o lung cancer- STABLE: Continue home inhalers Anxiety: Continue Prozac and Ativan PRN Oral mucosa irritation: Magic mouthwash ACHS DVT prophylaxis: ASA BID Code status: LEVEL I, FULL Dispo: As per primary team (Zara Montoya ., PA-C) Attending Attestation - Pt seen/examined, chart reviewed, care plan d/w JATINDER Montoya. I agree w/ the moss components of her documentation. Pt had a "poor night" because of her left knee pain. Ortho has added long-acting morphine. No dyspnea, no abd pain, no chest pain. +flatus - no BM yet. VSS no fever gen - nad neck - no jvd heart - RRR, s1, s2, 2/6 systolic murmur lungs - CTA b/l abd - soft, NT, BS+ ext - left knee - bonnie intact, mild swelling; minimal edema left foot; none on right pulses 2+ b/l H/H acceptable Cr stable A/P: s/p left TKR constipation - bowel regimen asthma - w/o exacerbation HTN - was hypotensive post-op from her acute blood loss anemia, but BPs now normal or high - resume outpatient meds acute blood loss anemia - cannot take oral fe; outpatient IV iron?? our team will continue to follow Ministerio WORTHINGTON MD (Alonso Worthington MD)
[2017-11-19 15:28] VITALS: BP 107/67; PULSE 73; TEMP 36.6; O2SAT 91
[2017-11-19 20:34] VITALS: BP 106/64; PULSE 87
[2017-11-19] MEDS: LISINOPRIL 20 MG TAB PO SCH (20:39)
[2017-11-19] MEDS: METOPROLOL SUCC 25MG EXT REL TAB PO SCH (20:40)
[2017-11-19] MEDS: SENNA 8.6 MG TAB PO SCH (20:40)
[2017-11-19 23:17] VITALS: BP 115/68; PULSE 83; TEMP 36.9; O2SAT 96
[2017-11-20] MEDS: ACETAMINOPHEN 500 MG TAB PO SCH ×2 (00:14→08:12)
[2017-11-20] MEDS: TRAMADOL HCL 50 MG TAB PO PRN (01:23)
[2017-11-20] MEDS: KETOROLAC TROMETHAMINE 15 MG/ML VIAL IV. SCH ×3 (01:27→13:10)
[2017-11-20] MEDS: LEVOTHYROXINE 112 MCG TAB PO SCH (05:36)
[2017-11-20 05:43] LABS: HEMATOCRIT 28.7 % (37-47); HEMOGLOBIN 9.2 g/dL (12.0-16.0); MEAN CELL VOLUME 88.9 fL (80-100); MEAN CORPUSCULAR HEMOGLOBIN 28.5 pg (25-34); MEAN CORPUSCULAR HGB CONC 32.1 g/dl (32-36); MEAN PLATELET VOLUME 9.4 fL (7.4-10.4); PLATELET COUNT 274 K/uL (130-400); RED CELL DISTRIBUTION WIDTH CV 13.4 % (11.5-14.5); RED CELL DISTRIBUTION WIDTH SD 43.9 fL (36.4-46.3); WHITE BLOOD COUNT 8.76 K/uL (4.8-10.8)
[2017-11-20 06:03] LABS: CALCIUM 8.4 mg/dl (8.5-10.1); CREATININE 0.63 mg/dl (0.60-1.20); POTASSIUM 4.1 mmol/L (3.5-5.1)
[2017-11-20 07:35] VITALS: BP 145/78; PULSE 77; TEMP 37; O2SAT 98
[2017-11-20] MEDS: DEXAMETHASONE CONC SOLN 3.75 MG, NYSTATIN SUSP 30 ML, DiphenhydrAMINE HCL SYRUP 300 MG,... PO SCH ×10 (08:09→12:25)
[2017-11-20] MEDS: MoRPHine SULFATE CR 15 MG TAB (MS CONTIN) PO SCH (08:11)
[2017-11-20] MEDS: FERROUS GLUCONATE 324 MG TAB PO SCH ×2 (08:30→12:28)
--- NOTE | 2017-11-20 08:35 | Orthopedic Progress Note ---
Orthopedic Progress Note Date of Service Nov 20, 2017. Subjective Post OP Day: 3 Reports: feeling well, pain controlled w PO medications, Denies: complaints Objective calves soft nontender, N/V intact, incision C/D/I, A&O x3, toes mobile Date Time Temp Pulse Resp B/P (MAP) Pulse Ox O2 Delivery O2 Flow Rate FiO2 11/20/17 07:35 37.0 77 16 145/78 (100) 98 Room Air 11/20/17 00:20 Room Air 11/19/17 23:17 36.9 83 17 115/68 (84) 96 Room Air 11/19/17 20:34 87 106/64 (78) 11/19/17 15:30 Room Air 11/19/17 15:28 36.6 73 16 107/67 (80) 91 Room Air 73 Laboratory Results 24 Hours: Test 11/20/17 05:12 Hematocrit 28.7 % Hemoglobin 9.2 g/dL Assessment & Plan Assessment: 67 yo female stable POD #3 s/p left TKA, acute blood loss anemia(pt chronically anemic, also has been dealing with recent rectal bleeding) Pain control issues now resolved Plan: Hgb stable; 9.2 Pain controlled. Wanting to go home. Plan for dc today after AM PT Inhouse Planning Pain Management: Toradol, Ultram, Dilaudid, Morphine, PO Tylenol DVT Prophylaxis: TEDs, SCDs, ASA Discharge Planning Discharge Planning: home with home health
[2017-11-20] MEDS ORDERED: TRAM-10 PO ×2 (08:39→09:51)
[2017-11-20] MEDS ORDERED: MRPSR15 PO (08:39)
[2017-11-20] MEDS ORDERED: ACET-24 PO (08:39)
[2017-11-20] MEDS ORDERED: ASPI-435 PO (08:39)
[2017-11-20] MEDS: BUDESONIDE/FORMOTEROL FUMARATE 160/4.5 60 PUFFS/INHALER INH SCH (08:47)
[2017-11-20] MEDS: DOCUSATE SODIUM 100 MG CAP PO SCH (08:48)
[2017-11-20] MEDS: ASPIRIN 81 MG ECTAB PO SCH (08:48)
[2017-11-20] MEDS: FLUOXETINE HCL 10 MG CAP PO SCH (08:49)
[2017-11-20] MEDS: MULTIVITAMIN TAB PO SCH (08:49)
[2017-11-20] MEDS: CYCLOBENZAPRINE HCL 10 MG TAB PO SCH (08:49)
[2017-11-20] MEDS ORDERED: POLYETHYLENE (MIRALAX) 17 GM PACK PO SCH (09:00)
[2017-11-20] MEDS ORDERED: SENN-61 PO (09:53)
--- NOTE | 2017-11-20 10:05 | Hospitalist Progress Note ---
Hospitalist Progress Note Date of Service Nov 20, 2017. (Zara Montoya ., PA-C) Subjective Pt evaluation today including: conversation w/ patient, conversation w/ family ( at bedside ), physical exam, lab review, review of inpatient medication list Voiding: no voiding problems Patient resting in bed. Feeling very well this AM. Eating and drinking OK. Had a BM this AM. No melena/bright red blood. Recommended continue Senokot HS while on pain medication/not as active. Also , recommended MiraLAX and/or Dulcolax PRN. Pain is well controlled today. Patient denies any fever, chills, sweats, lightheadedness, dizziness, vision changes, CP, palpitations, edema, SOB, wheezing, cough, abdominal pain, nausea, vomiting, diarrhea, urinary symptoms, melena, numbness/tingling, weakness, anxiety/depression, active bleeding, or new skin discoloration/changes. (Zara Montoya ., PA-C) Medications Current Inpatient Medications Medications (Trade) Dose Ordered Sig/Héctor Route Start Time Stop Time Status Last Admin Dose Admin Albuterol (Ventolin Hfa Inhaler) . Q6H PRN INH 11/17/17 12:15 12/17/17 12:14 Albuterol Sulfate (Ventolin 0.5% 2.5MG/0.5ML Neb) 2.5 mg DAILY PRN INH 11/17/17 12:15 12/17/17 12:14 Amlodipine Besylate (Norvasc Tab) 5 mg QPM PO 11/18/17 21:00 12/18/17 20:59 Future hold 11/19/17 20:41 5 MG Budesonide/ Formoterol Fumarate (Symbicort 160/ 4.5 Inh) 2 puffs BID INH 11/17/17 21:00 12/17/17 20:59 11/20/17 08:47 2 PUFFS Cyclobenzaprine HCl (Flexeril Tab) 5 mg DAILY PO 11/18/17 09:00 12/18/17 08:59 11/20/17 08:49 5 MG Fluoxetine HCl (Prozac Cap) 30 mg QAM PO 11/18/17 09:00 12/18/17 08:59 11/20/17 08:49 30 MG Levothyroxine Sodium (Synthroid Tab) 112 mcg DAILYBB PO 11/18/17 06:00 12/18/17 05:59 11/20/17 05:36 112 MCG Lisinopril (Zestril Tab) 30 mg QPM PO 11/17/17 21:00 12/17/17 20:59 Future hold 11/19/17 20:39 30 MG Metoprolol Succinate (Toprol Xl Tab) 25 mg QPM PO 11/18/17 21:00 12/18/17 20:59 11/19/17 20:40 25 MG Phenazopyridine HCl (Pyridium Tab) 200 mg TID PRN PO 11/17/17 12:15 12/17/17 12:14 Miscellaneous Information (Order Awaiting Action) 1 ea QS N/A 11/17/17 16:00 12/17/17 15:59 Lorazepam 0.5 mg/ Syringe 0.5 ml @ 0.5 mls/min Q8H PRN IV 11/17/17 12:15 12/17/17 12:14 Acetaminophen (Tylenol Tab) 1,000 mg Q8H PO 11/17/17 16:00 12/17/17 15:59 11/20/17 08:12 1,000 MG Magnesium Hydroxide (Milk Of Magnesia Susp) 30 ml Q6H PRN PO 11/17/17 12:15 12/17/17 12:14 Bisacodyl (Dulcolax Supp) [address] 11/17/17 12:15 12/17/17 12:14 Senna (Senokot Tab) 17.2 mg HS PO 11/17/17 21:00 12/17/17 20:59 11/19/17 20:40 17.2 MG Docusate Sodium (coLACE CAP) 100 mg BID PO 11/17/17 21:00 12/17/17 20:59 11/20/17 08:48 100 MG Al Hydrox/Mg Hydrox/Simethicone (Maalox Max Susp) 15 ml Q4H PRN PO 11/17/17 12:15 12/17/17 12:14 Multivitamins (Multivitamin Tab) 1 tab QAM PO 11/18/17 09:00 12/18/17 08:59 Ondansetron HCl (Zofran Inj) 4 mg Q6H PRN IV 11/17/17 12:15 12/17/17 12:14 Ferrous Gluconate (Ferrous Gluconate Tab) 324 mg TIDM PO 11/17/17 17:45 12/17/17 17:59 Tramadol HCl (Ultram Tab) 1 tablet for pain rating... Q4H PRN PO 11/17/17 12:15 12/17/17 12:14 11/20/17 01:23 50 MG Aspirin (Ecotrin Tab) 81 mg BID PO 11/17/17 21:00 12/17/17 20:59 11/20/17 08:48 81 MG Dexamethasone/ Nystatin/ Diphenhydramine HCl/Sucrose/ Microcrystalline Cellulose/Barcode ACHS PO 11/18/17 17:15 12/18/17 17:14 11/20/17 08:09 5 ML Ketorolac Tromethamine (Toradol Inj) 15 mg Q6H IV. 11/19/17 08:00 11/24/17 07:59 11/20/17 08:46 15 MG Morphine Sulfate (Oramorph Sr Tab) 15 mg Q12H PO 11/19/17 08:00 12/03/17 07:59 11/20/17 08:11 15 MG Hydromorphone HCl (Dilaudid Inj) 0.5 mg Q4HWA PRN IV 11/19/17 08:00 12/03/17 07:59 Hydralazine HCl (HydrALAZINE INJ) 10 mg Q6H PRN IV. 11/19/17 11:00 12/19/17 10:59 Polyethylene (Miralax Powder Packet) 17 gm DAILY PO 11/20/17 09:00 12/20/17 08:59 (Zara Montoya, DARELL) Objective Vital Signs Date Time Temp Pulse Resp B/P (MAP) Pulse Ox O2 Delivery O2 Flow Rate FiO2 11/20/17 08:00 Room Air 11/20/17 07:35 37.0 77 16 145/78 (100) 98 Room Air 11/20/17 00:20 Room Air 11/19/17 23:17 36.9 83 17 115/68 (84) 96 Room Air 11/19/17 20:34 87 106/64 (78) 11/19/17 15:30 Room Air 11/19/17 15:28 36.6 73 16 107/67 (80) 91 Room Air 73 (Zara Montoya ., PA-C) Physical Exam General Appearance: no apparent distress Eyes: normal inspection, PERRL ENT: hearing grossly normal Neck: supple Respiratory/Chest: lungs clear, no respiratory distress, no accessory muscle use Cardiovascular: regular rate, rhythm, + systolic murmur Abdomen: normal bowel sounds, non tender, soft Extremities: no pedal edema, no calf tenderness, + pertinent finding (L knee incision site C/D/I) Neurologic/Psychiatric: alert, normal mood/affect, oriented x 3 Skin: normal color, warm/dry, no rash (Zara Montoya, PA-C) Laboratory Results Last 24 Hours Test 11/20/17 05:12 White Blood Count 8.76 K/uL Red Blood Count 3.23 M/uL Hemoglobin 9.2 g/dL Hematocrit 28.7 % Mean Corpuscular Volume 88.9 fL Mean Corpuscular Hemoglobin 28.5 pg Mean Corpuscular Hemoglobin Concent 32.1 g/dl RDW Standard Deviation 43.9 fL RDW Coefficient of Variation 13.4 % Platelet Count 274 K/uL Mean Platelet Volume 9.4 fL Sodium Level 139 mmol/L Potassium Level 4.1 mmol/L Chloride Level 108 mmol/L Carbon Dioxide Level 23 mmol/L Anion Gap 8.0 mmol/L Blood Urea Nitrogen 16 mg/dl Creatinine 0.63 mg/dl Est Creatinine Clear Calc Drug Dose 76.8 ml/min Estimated GFR () 109.1 Estimated GFR (Non- 94.1 BUN/Creatinine Ratio 25.4 Random Glucose 103 mg/dl Calcium Level 8.4 mg/dl (Zara Montoya ., PA-C) Assessment and Plan 67 y/o F who was admitted earlier today s/p L TKA with Dr. Abbasi. s/p L TKA by Dr. Abbasi on 11/17: - Surgical management, pain management, PT/OT, and DVT prophylaxis as per primary team - Encouraged incentive spirometer - Bowel regimen ordered- 1 BM prior to discharge - Follow postop CBC and PRP- STABLE - Outpatient f/u w/ orthopedics as instructed Acute blood loss anemia in postop setting- STABLE: - Follow H&H- hgb 9.2 today - Cannot take oral iron as it some how aggravates her interstitial cystitis- f/ u outpatient for iron panel and possible need for IV Iron - Recent rectal bleeding- RESOLVED- s/p colonoscopy 11/14/[address] Ward w/ pathology noted for tubular adenoma- f/u as instructed - Recommend PCP f/u within 1 week Chronic diastolic CHF- STABLE: Continue Metoprolol 25 mg HS HTN- UNCONTROLLED likely secondary to holding BP medications/pain- RESOLVED: - Continue Metoprolol, Amlodipine, Lisinopril - Orthopedics adjusted pain regimen - IV Hydralazine PRN Hypothyroidism: Continue Synthroid Asthma, h/o lung cancer- STABLE: Continue home inhalers Anxiety: Continue Prozac and Ativan PRN Oral mucosa irritation: Magic mouthwash ACHS DVT prophylaxis: ASA BID x4 weeks as per surgical team Code status: LEVEL I, FULL Dispo: As per primary team (Zara Montoya, NIKOC) History Physician Senior Business Process Analyst Supervision Note: I did not see the patient before she was discharged. Discussed with JATINDER Montoya and agree with findings and plan as documented in the note. Any exceptions or clarifications are listed here: None Documented By: Dina Pichardo (Dina Pichardo MD)
[2017-11-20 12:58] VITALS: BP 145/78; PULSE 77; TEMP 37; O2SAT 98
--- NOTE | 2017-11-20 14:13 | DISCHARGE SUMMARY ---
DISCHARGE DIAGNOSIS: Degenerative joint disease, left knee. SECONDARY DIAGNOSES: History of congestive heart failure, hypertension, hypercholesterolemia, heart disease, asthma, anxiety, and history of lung carcinoma in the past. CONSULTS: Dr. Alise Wiley. COMPLICATIONS: None. PROCEDURES: Left total knee arthroplasty performed by Dr. Abbasi on 11/17/2017. BRIEF HISTORY: As dictated in the history and physical. HOSPITAL SUMMARY: The patient was admitted on the above noted date and had the above surgery performed which she tolerated well. On her first postoperative day, she was feeling well, neurovascularly intact, dressings clean, dry and intact and toes were mobile. Vital signs were stable. She is afebrile. Hemoglobin was 9.3 and she was started on physical therapy protocol and continued on DVT prophylaxis and pain management. She was continued on medical management per [facility] hospitalist service. By her second postoperative day, she was having pain control issues at morning, she was sitting on the edge of the bed, holding onto her walker. She stated that previous night had been problematic with pain control issues. SHE WAS ALLERGIC TO MULTIPLE NARCOTICS and choices were limited. She denied shortness of breath, chest pain, lightheadedness or calf pain. Calves were soft, nontender, neurovascularly intact. Incision was clean, dry and intact. Toes were mobile. Vital signs were stable and blood pressures were fluctuating anywhere from systolic 109-172. Hemoglobin was 9.1. After discussing with the patient and her about pain control alternatives, she was noted to be tolerating morphine but was not lasting long, low dose Toradol was added to her regimen q. 6 hours and MS Contin was ordered for morning and evening use and continued use of the tramadol. Hemoglobin was stabilizing, and she was continued on her PT protocol and medical management. By 11/20/2017, patient was feeling well and pain was controlled and she was much happier. Calves are soft, nontender, neurovascularly intact. Incision was clean, dry and intact. Toes were mobile. Vital signs were stable. She was afebrile. Hemoglobin was 9.2 and stable. She was progressing with physical therapy and remaining stable and it was felt she could be discharged to home. For further review, please see chart. LABORATORY AND X-RAY DATA: As per chart. DISCHARGE INSTRUCTIONS: The patient was discharged home in satisfactory condition on 11/20/2017. DIET: Regular. ACTIVITY: Weightbearing as tolerated, left lower extremity. Follow TKA instruction sheets and special care instructions as noted. FOLLOW UP: Follow up with Dr. Abbasi in 2 weeks. The patient to call for appointment if one has not been made for you. DISCHARGE MEDICATIONS: Acetaminophen 1000 mg p.o. q. 8 hours for 21 days, morphine sulfate extended release 15 mg p.o. q. 12 hours, aspirin 81 mg p.o. b.i.d., tramadol 50-100 mg p.o. q. 4 hours p.r.n. and resume home meds as listed.
== END 2017-11-20 13:05 | disposition home health service (06) | DRG 470 ==
LOC: C.ACU 08:01 → C.3E 08:35 → ENRESERV 12:44 → CANBEDREQ 14:30
PROC: 0SRD0J9 Replacement of Left Knee Joint with Synthetic Substitute, Cemented, Open Approach (ICD-10-PCS; principal; 2017-11-17 10:30)
DX: M17.12 Unilateral primary osteoarthritis, left knee (principal); D62 Acute posthemorrhagic anemia; I50.32 Chronic diastolic (congestive) heart failure; I11.0 Hypertensive heart disease with heart failure; K13.79 Other lesions of oral mucosa; E78.00 Pure hypercholesterolemia, unspecified; J45.909 Unspecified asthma, uncomplicated; E03.9 Hypothyroidism, unspecified; F41.9 Anxiety disorder, unspecified; Z79.899 Other long term (current) drug therapy; Z85.118 Personal history of other malignant neoplasm of bronchus and lung; Z87.891 Personal history of nicotine dependence; Z88.5 Allergy status to narcotic agent; Z88.1 Allergy status to other antibiotic agents; Z88.8 Allergy status to other drugs, medicaments and biological substances; Z88.2 Allergy status to sulfonamides; Z91.013 Allergy to seafood

== ENCOUNTER 2017-11-21 22:04 | Emergency (ER) | payer OTHER, BC ==
[~2017-11-21] VITALS: Ht 154.3 cm; Wt 68.0 kg
[~2017-11-21 22:04] MED LIST changes: +ACET-24 PO; -ACETAMINOPHEN 500 MG TAB PO SCH; -BUPIVACAINE 0.25% 30 ML VIAL ONE; -BUPIVACAINE 0.5 % 5 MG/1 ML PF 10ML VIAL ONE; -CEFAZOLIN 1000MG IV PUSH 7.5 ML IV SCH; -CEFAZOLIN 2000MG IV PUSH 15 ML IV SCH; -DEXAMETHASONE 4 MG TAB PO SCH; -FAMOTIDINE 20 MG TAB PO SCH; -GABAPENTIN 300 MG CAP PO SCH; -LACTATED RINGER'S 1000ML 1,000 ML IV SCH; -METOCLOPRAMIDE HCL 10 MG TAB PO SCH; +MRPSR15 PO; -ROPIVACAINE 0.5% 5 MG/ML 30 ML VIAL ONE; -ROPIVACAINE 5MG/ML 30 ML 150 MG, BUPIVACAINE 0.5% MPF INJ 30 ML, EpINEphrine HCL INJ 0.... INFIL SCH; +SENN-61 PO; +TRAM-10 PO; -[UNRECOGNIZED DRUG - REMARK] SCH
[2017-11-21 22:07] VITALS: TEMP 36.7; Ht 154.3 cm; Wt 68.0 kg
[2017-11-21] MEDS ORDERED: MoRPHine SULFATE 10 MG/ML CARP/VIAL IV STA (22:24)
[2017-11-21 22:58] LABS: BASO % 0.3 %; BASO ABS # 0.02 K/uL (0-0.2); EOS % 1.3 %; HEMATOCRIT 28.4 % (37-47); HEMOGLOBIN 9.4 g/dL (12.0-16.0); IG# 0.04 K/uL (0.00-0.02); LYMPH % 22.2 %; LYMPH ABS # 1.75 K/uL (1.2-3.4); MEAN CELL VOLUME 88.2 fL (80-100); MEAN CORPUSCULAR HEMOGLOBIN 29.2 pg (25-34); MEAN CORPUSCULAR HGB CONC 33.1 g/dl (32-36); MONO % 11.9 %; MONO ABS # 0.94 K/uL (0.11-0.59); NEUT % 63.8 %; NEUT ABS # 5.03 K/uL (1.4-6.5); PLATELET COUNT 361 K/uL (130-400); RED CELL DISTRIBUTION WIDTH CV 13.1 % (11.5-14.5); RED CELL DISTRIBUTION WIDTH SD 42.8 fL (36.4-46.3); WHITE BLOOD COUNT 7.88 K/uL (4.8-10.8)
[2017-11-21 23:15] LABS: ALBUMIN 3.1 gm/dl (3.4-5.0); CALCIUM 8.6 mg/dl (8.5-10.1); CREATININE 0.74 mg/dl (0.60-1.20)
[2017-11-21 23:17] LABS: INR 0.9 (0.9-1.1); PTT PATIENT 23.6 SECONDS (21.0-31.0)
[2017-11-21 23:18] LABS: TOTAL PROTEIN 7.2 gm/dl (6.4-8.2)
--- NOTE | 2017-11-21 23:51 | EMERGENCY ROOM VISIT NOTE ---
ED Visit Note First contact with patient: 22:11 Patient was seen by our PA/AERODYNAMICS TEACHER. I was involved in the patient's care and did evaluate the patient myself. I was involved in the care throughout the ER stay. The patient presents with left knee pain, swelling and some erythema. She recently had a left knee replacement. She is not currently on antibiotics. Laboratory work here is somewhat reassuring. An ultrasound of the leg has been ordered for the possibility of DVT. On my exam, there is some warmth and erythema especially along the medial aspect. I can move the joint though with minimal pain. Orthopedics will be consulted.
--- NOTE | 2017-11-22 00:20 | EMERGENCY ROOM VISIT NOTE ---
History First contact with patient: 22:11 Chief Complaint: KNEEPAIN Stated Complaint: LFT KNEE REPLACEMENT 11/17, SWELLING/PAIN History of Present Illness The patient is a 67 year old female who presents to the Emergency Room with complaints of left knee pain and swelling. The patient had a left total knee replacement performed 4 days ago. She states her hospitalization was complicated by pain which was difficult to control and she stayed 1 extra night. She was discharged yesterday and was doing fairly well throughout the day yesterday. She started physical therapy this morning. The patient and daughter state that they noticed increased swelling in the knee today. They applied ice and attempted to elevate the knee. The patient has taken Tylenol, aspirin and tramadol without relief. She has been taking morphine twice daily as prescribed as well. She states the pain is much worse when she is wearing her compression stockings. She rates her discomfort as 7/10. She denies any history of blood clots. She is not a smoker. She denies chest pain or shortness of breath. She denies any fevers. Review of Systems A complete 10 point review of systems was reviewed with the patient with pertinent positives and negatives as per history of present illness. All else were negative. Past Medical/Surgical History Medical Problems: (1) Asthma, moderate persistent (2) Depression (3) Dyslipidemia (4) Fibromyalgia (5) H/O: lung cancer (6) HTN (hypertension) (7) Hypothyroidism (8) Left knee DJD (9) Lung cancer (10) Mitral regurgitation (11) Pancreatitis (12) Productive cough Surgical Problems: (1) S/P arthroscopy of left knee (2) S/P arthroscopy of right knee (3) S/P partial lobectomy of lung (4) S/P tonsillectomy and adenoidectomy Family History FH: gallbladder disease FH: heart disease FATHER MOTHER FHx: Crohn's disease FHx: aneurysm Hypertension Social History Smoking Status: Never Smoker Alcohol Use: none Drug Use: none Marital Status: Housing Status: lives with family Occupation Status: other Current/Historical Medications Scheduled Acetaminophen (Sb Non-Aspirin Extra Stre), 1,000 MG PO Q8H Amlodipine (Norvasc), 5 MG PO QPM Aspirin (Aspirin 81), 1 TAB PO BID Budesonide/Formoterol Fumarate (Symbicort 160/4.5 Inhaler), 2 PUFFS INH BID Cyclobenzaprine Hcl (Flexeril), 5 MG PO DAILY Epinephrine (Epipen), 0.3 MG IM UD Fluoxetine (Prozac), 30 MG PO QAM Levothyroxine Sodium (Synthroid), 112 MCG PO QAM Lisinopril (Zestril), 30 MG PO QPM Metoprolol Succ (Toprol Xl) (Toprol-Xl), 25 MG PO QPM Morphine Sulfate (Morphine Sulfate ER), 15 MG PO Q12H Pentosan Polysulfate Sodium (Elmiron), 100 MG PO TID Senna (Senokot), 17.2 MG PO HS Scheduled PRN Albuterol Hfa (Ventolin Hfa), 2-4 PUFFS INH Q6H PRN for SOB/Wheezing Albuterol Sulf (Albuterol Sulfate), 1 DOSE NEB QD PRN for SOB/Wheezing Lorazepam (Lorazepam), 1 MG PO QD PRN for Anxiety/Agitation Phenazopyridine HCl (Pyridium), 200 MG PO TID PRN for URINARY BURNING Tramadol (Ultram), 1-2 TABS PO Q4H PRN for Pain Physical Exam Vital Signs Date Time Temp Pulse Resp B/P (MAP) Pulse Ox O2 Delivery O2 Flow Rate FiO2 11/22/17 01:26 82 20 155/82 98 11/22/17 00:24 98 18 151/88 97 Room Air 11/21/17 23:30 98 18 140/77 96 Room Air 11/21/17 22:07 36.7 108 20 143/87 97 Room Air Physical Exam VITALS: Vitals are noted on the nurse's note and reviewed by myself. Vital signs stable. GENERAL: This is a 67-year-old female, in no acute distress, nondiaphoretic, well-developed well-nourished. SKIN: There is a stapled well-healing incision to the anterior left knee. Mild erythema and warmth over the medial aspect of the left knee. HEENT: PERRLA. Mucous membranes moist. HEART: Regular rate and rhythm without murmurs gallops or rubs. LUNGS: Clear to auscultation bilaterally without wheezes, rales or rhonchi. MUSCULOSKELETAL: There is mild erythema and warmth to touch of the medial aspect of the left knee. Full range of motion of the knee. Dorsalis pedis pulse 2+. NEURO: Patient was alert and oriented to person place and time. Normal sensation. Medical Decision & Procedures ER Provider Diagnostic Interpretation: Per statrad interpretation: US VENOUS LEFT LOWER EXTREMITY: No DVT. 5 x 2 cm fluid collection lateral to the left knee, reportedly near the arthroplasty incision. This likely reflects a hematoma/seroma. No peripheral hyperemia to suggest an abscess. Radiologist: Alonso Sequeira M.D. Laboratory Results 11/21/17 22:40 Red Blood Count 3.22, Mean Corpuscular Volume 88.2, Mean Corpuscular Hemoglobin 29.2, Mean Corpuscular Hemoglobin Concent 33.1, Mean Platelet Volume 9.0, Neutrophils (%) (Auto) 63.8, Lymphocytes (%) (Auto) 22.2, Monocytes (%) (Auto) 11.9, Eosinophils (%) (Auto) 1.3, Basophils (%) (Auto) 0.3, Neutrophils # (Auto ) 5.03, Lymphocytes # (Auto) 1.75, Monocytes # (Auto) 0.94, Eosinophils # (Auto ) 0.10, Basophils # (Auto) 0.02 11/21/17 22:40 Test 11/21/17 22:40 White Blood Count 7.88 K/uL (4.8-10.8) Red Blood Count 3.22 M/uL (4.2-5.4) Hemoglobin 9.4 g/dL (12.0-16.0) Hematocrit 28.4 % (37-47) Mean Corpuscular Volume 88.2 fL (80-100) Mean Corpuscular Hemoglobin 29.2 pg (25-34) Mean Corpuscular Hemoglobin Concent 33.1 g/dl (32-36) Platelet Count 361 K/uL (130-400) Mean Platelet Volume 9.0 fL (7.4-10.4) Neutrophils (%) (Auto) 63.8 % Lymphocytes (%) (Auto) 22.2 % Monocytes (%) (Auto) 11.9 % Eosinophils (%) (Auto) 1.3 % Basophils (%) (Auto) 0.3 % Neutrophils # (Auto) 5.03 K/uL (1.4-6.5) Lymphocytes # (Auto) 1.75 K/uL (1.2-3.4) Monocytes # (Auto) 0.94 K/uL (0.11-0.59) Eosinophils # (Auto) 0.10 K/uL (0-0.5) Basophils # (Auto) 0.02 K/uL (0-0.2) RDW Standard Deviation 42.8 fL (36.4-46.3) RDW Coefficient of Variation 13.1 % (11.5-14.5) Immature Granulocyte % (Auto) 0.5 % Immature Granulocyte # (Auto) 0.04 K/uL (0.00-0.02) Erythrocyte Sedimentation Rate 53 mm/hr (0-21) Prothrombin Time 9.4 SECONDS (9.0-12.0) Prothromb Time International Ratio 0.9 (0.9-1.1) Activated Partial Thromboplast Time 23.6 SECONDS (21.0-31.0) Partial Thromboplastin Ratio 0.9 Anion Gap 6.0 mmol/L (3-11) Est Creatinine Clear Calc Drug Dose 66.4 ml/min Estimated GFR () 98.5 Estimated GFR (Non- 85.0 BUN/Creatinine Ratio 19.1 (10-20) Calcium Level 8.6 mg/dl (8.5-10.1) Total Bilirubin 0.4 mg/dl (0.2-1) Aspartate Amino Transf (AST/SGOT) 34 U/L (15-37) Alanine Aminotransferase (ALT/SGPT) 36 U/L (12-78) Alkaline Phosphatase 116 U/L (45-117) C-Reactive Protein 6.60 mg/dl (0-0.29) Total Protein 7.2 gm/dl (6.4-8.2) Albumin 3.1 gm/dl (3.4-5.0) Globulin 4.1 gm/dl (2.5-4.0) Albumin/Globulin Ratio 0.8 (0.9-2) Medications Administered Medications (Trade) Dose Ordered Sig/Héctor Route Start Time Stop Time Status Last Admin Dose Admin Morphine Sulfate (MoRPHine SULFATE INJ) 6 mg NOW STAT IV 11/21/17 22:24 11/21/17 22:26 DC 11/21/17 22:39 6 MG Ibuprofen (Motrin Tab) 600 mg NOW STAT PO 11/22/17 01:05 11/22/17 01:06 DC 11/22/17 01:15 600 MG ED Course The patient was evaluated as above. Labs were drawn and IV access was obtained. Patient was medicated with 6 mg morphine IV. Patient was reevaluated and findings were discussed. Her pain is improved. Case was discussed with Dr. Brantley of [facility]. He recommended placing the patient on anti-inflammatories and having her follow-up the next day with her surgeon. Discharge instructions were reviewed with the patient. The patient verbalized understanding of my assessment and treatment plan and was discharged home in good condition. Medical Decision Differential diagnosis includes DVT, superficial thrombosis, septic joint, wound infection, cellulitis, among others. The patient is a 67-year-old female who presents today complaining of left knee pain. Patient was discharged one day ago following a total knee replacement. Labs revealed no leukocytosis. There is a stable anemia. ESR and CRP elevated, though nonspecific. Patient does have some mild erythema and warmth to the medial aspect of the knee, although there is no evidence of a septic joint. Patient is able to move the knee fully. Ultrasound showed no DVT. There was a small hematoma/seroma, although this is lateral aspect of the knee and not located at the area of the patient's swelling. Case was discussed with the orthopedic surgeon on-call, who recommended starting the patient on ibuprofen as she is not taking any anti-inflammatories and having the patient call the office in the morning for recheck. She was advised to ice and wear her compression stockings. Return precautions discussed. The patient was independently evaluated by Dr. Mcguire, ED attending physician, who agreed with my assessment and treatment plan. Based on the patient's presentation and work up, I feel the patient is stable for outpatient treatment. The patient was educated to return to the emergency department for any worsening of their current condition or new/concerning symptoms. She will follow up with orthopedics. [place] Drug Monitoring Program Search Results: patient reviewed within database Medication Reconcilliation Current Medication List: was personally reviewed by me Blood Pressure Screening Patient's blood pressure: Elevated blood pressure Blood pressure disposition: Elevated BP felt to be situational Impression Primary Impression: Left knee pain Departure Information Dispostion Home / Self-Care Condition GOOD Referrals Kedar Dyer MD (PCP) Meño Abbasi M.D. Patient Instructions My [facility] Additional Instructions You should begin taking ibuprofen, 600 mg 3 times daily in addition to your prescribed medications. This will help with the inflammation in her knee. Continue to apply ice to the knee and wear the compression stockings to help with swelling. Contact [facility] in the morning to schedule follow-up tomorrow with Dr. Abbasi. Return to the emergency department with worsening pain, fever, inability to move the knee or other new/concerning symptoms. Problem Qualifiers Primary Impression: Left knee pain Chronicity: acute Qualified Codes: M25.562 - Pain in left knee
[2017-11-22] MEDS ORDERED: IBUPROFEN 600 MG TAB PO STA (01:05)
[2017-11-22 01:26] VITALS: BP 155/82; PULSE 82; O2SAT 98
--- NOTE | 2017-11-22 06:51 | DIAGNOSTIC IMAGING REPORT ---
L VENOUS DOPP LOWER EXT UNILAT CLINICAL HISTORY: 67 years-old Female presenting with left knee replacement, increased swelling, pain. TECHNIQUE: Real-time grayscale and color and spectral Doppler ultrasound imaging of the veins of the left lower extremity was performed. Compression and augmentation were also utilized. COMPARISON: None. FINDINGS: Left: Common femoral vein: Patent. Greater saphenous vein: Patent. Deep femoral vein: Patent. Femoral vein: Patent. Popliteal vein: Patent. Calf veins: Patent. Other: Hypoechoic 4.9 x 2.4 x 0.8 cm complex collection in the lateral left knee at a surgical incision site. No surrounding hyperemia on color Doppler. IMPRESSION: 1. No evidence of deep venous thrombosis. 2. Complex hypoechoic collection at the surgical incision site. This likely represents a small hematoma. Sterility cannot be confirmed. Electronically signed by: Boone Sage M.D. 11/22/2017 6:50 AM Dictated Date/Time: 11/22/2017 6:48 AM
== END 2017-11-22 01:27 | disposition home or self-care (01) ==
LOC: C.EDB 22:05 → C.EDA 11-22 01:27
DX: M25.562 Pain in left knee (principal); M25.462 Effusion, left knee; Z96.652 Presence of left artificial knee joint; M79.7 Fibromyalgia; J45.909 Unspecified asthma, uncomplicated; E03.9 Hypothyroidism, unspecified; Z79.899 Other long term (current) drug therapy; Z85.118 Personal history of other malignant neoplasm of bronchus and lung; F32.9 Major depressive disorder, single episode, unspecified

== ENCOUNTER 2017-12-15 02:53 | Emergency (ER) | payer OTHER, BC ==
[~2017-12-15] VITALS: Ht 152.4 cm; Wt 65.0 kg
[2017-12-15 03:07] VITALS: TEMP 36.8; Ht 152.4 cm; Wt 65.0 kg
[2017-12-15 03:26] VITALS: O2SAT 99
[2017-12-15 03:38] LABS: BASO % 0.6 %; BASO ABS # 0.05 K/uL (0-0.2); EOS % 1.3 %; EOS ABS # 0.11 K/uL (0-0.5); HEMATOCRIT 31.6 % (37-47); HEMOGLOBIN 10.4 g/dL (12.0-16.0); IG# 0.03 K/uL (0.00-0.02); LYMPH % 30.4 %; MEAN CELL VOLUME 85.6 fL (80-100); MEAN CORPUSCULAR HEMOGLOBIN 28.2 pg (25-34); MEAN CORPUSCULAR HGB CONC 32.9 g/dl (32-36); MEAN PLATELET VOLUME 8.7 fL (7.4-10.4); MONO % 12.3 %; MONO ABS # 1.05 K/uL (0.11-0.59); NEUT ABS # 4.71 K/uL (1.4-6.5); PLATELET COUNT 561 K/uL (130-400); RED CELL DISTRIBUTION WIDTH CV 12.9 % (11.5-14.5); RED CELL DISTRIBUTION WIDTH SD 40.2 fL (36.4-46.3); WHITE BLOOD COUNT 8.55 K/uL (4.8-10.8)
[2017-12-15] MEDS ORDERED: SOAP SUDS ENEMA PR STA (03:40)
[2017-12-15] MEDS ORDERED: MAGNESIUM CITRATE 296 ML/BTL PO ONE (03:45)
[2017-12-15 03:57] LABS: ALBUMIN 3.6 gm/dl (3.4-5.0); ALT/SGPT 17 U/L (12-78); AST/SGOT 20 U/L (15-37); BLOOD UREA NITROGEN 12 mg/dl (7-18); CALCIUM 9.1 mg/dl (8.5-10.1); CARBON DIOXIDE 29 mmol/L (21-32); GLUCOSE 97 mg/dl (70-99); POTASSIUM 3.8 mmol/L (3.5-5.1); SODIUM 137 mmol/L (136-145)
[2017-12-15 04:00] LABS: ALKALINE PHOSPHATASE 112 U/L (45-117); TOTAL PROTEIN 7.8 gm/dl (6.4-8.2)
[2017-12-15] MEDS ORDERED: [UNRECOGNIZED DRUG - CODE] PO (04:26)
[2017-12-15] MEDS ORDERED: HYDR-3124 PO (04:27)
[2017-12-15] MEDS ORDERED: MoRPHine SULFATE 4 MG/ML 1 ML CARP\\VIAL IV STA (04:43)
[2017-12-15] MEDS ORDERED: ONDANSETRON INJ 2 MG/ML 2 ML VIAL ONE (05:16)
[2017-12-15] MEDS ORDERED: ONDANSETRON INJ 2 MG/ML 2 ML VIAL IV STA (05:19)
--- NOTE | 2017-12-15 05:30 | EMERGENCY ROOM VISIT NOTE ---
History First contact with patient: 03:16 Chief Complaint: NAUSEA Stated Complaint: TROUBLE BREATHING,ABD PAIN,NAUSEA,CONSTIPATED Nursing Triage Summary: Pt reports SOB, nausea, vomiting, constipation, and abdominal pain. Pt states she has been using a lot of pain medication since her left total knee replacement 3 weeks ago. Pt reports she has also been using mikel softners, but they haven't been working. Pt states she had a large bowel movement yesterday at 0500. Reports it was hard. Pt reports nausea/vomiting today along with abdominal pain. Pt states she has also been SOB and used home neb tx without relief. History of Present Illness The patient is a 67 year old female who presents to the Emergency Room with complaints of abdominal bloating and constipation for the past few days has been taking MiraLAX and Colace with minimal improvement of symptoms. Patient's been taking narcotics for her recent knee surgery. Patient states because of the she has been feeling anxious and breathing fast. Patient denies chest pain , fevers, chills, cough, congestion, flank pain, urinary symptoms. Patient states she has had bowel movements but feels constipated. No prior abdominal surgeries. No prior bowel obstructions. Review of Systems An 10 system review of systems was completed with positives and pertinent negatives listed in the HPI. Past Medical/Surgical History Medical Problems: (1) Asthma, moderate persistent (2) Depression (3) Dyslipidemia (4) Fibromyalgia (5) H/O: lung cancer (6) HTN (hypertension) (7) Hypothyroidism (8) Left knee DJD (9) Lung cancer (10) Mitral regurgitation (11) Pancreatitis (12) Productive cough Surgical Problems: (1) S/P arthroscopy of left knee (2) S/P arthroscopy of right knee (3) S/P partial lobectomy of lung (4) S/P tonsillectomy and adenoidectomy Family History FH: gallbladder disease FH: heart disease FATHER MOTHER FHx: Crohn's disease FHx: aneurysm Hypertension Social History Smoking Status: Former Smoker Alcohol Use: none Drug Use: none Marital Status: Housing Status: lives with family Occupation Status: other Current/Historical Medications Scheduled Albuterol Hfa (Ventolin Hfa), 2 PUFFS INH QAM Albuterol Sulf (Albuterol Sulfate), 1 DOSE NEB TID Amlodipine (Norvasc), 5 MG PO QPM Aspirin (Aspirin 81), 1 TAB PO BID Budesonide/Formoterol Fumarate (Symbicort 160/4.5 Inhaler), 2 PUFFS INH BID Cyclobenzaprine Hcl (Flexeril), 5 MG PO DAILY Epinephrine (Epipen), 0.3 MG IM UD Fluoxetine (Prozac), 30 MG PO QAM Levothyroxine Sodium (Synthroid), 112 MCG PO QAM Lisinopril (Zestril), 30 MG PO QPM Metoprolol Succ (Toprol Xl) (Toprol-Xl), 25 MG PO QPM Morphine Sulfate (Morphine Sulfate ER), 15 MG PO Q12H Pentosan Polysulfate Sodium (Elmiron), 100 MG PO TID Scheduled PRN Acetaminophen W/ Codeine (Acetaminophen/Codeine #4), 1 TAB PO Q4 PRN for Pain Hydroxyzine Hcl (Atarax), 25 MG PO BID PRN for Itching Lorazepam (Lorazepam), 1 MG PO QD PRN for Anxiety/Agitation Tramadol (Ultram), 1-2 TABS PO Q4H PRN for Pain Physical Exam Vital Signs Date Time Temp Pulse Resp B/P (MAP) Pulse Ox O2 Delivery O2 Flow Rate FiO2 12/15/17 04:50 87 16 144/74 98 Room Air 12/15/17 03:26 99 Room Air 12/15/17 03:16 89 12/15/17 03:07 36.8 87 16 157/78 100 Room Air Physical Exam VITALS: Vitals are noted on the nurse's note and reviewed by myself. Vital signs hypertensive. GENERAL: Anxious appearing female, in no acute distress, nondiaphoretic, well- developed well-nourished. SKIN: The skin was without rashes, erythema, edema, or bruising. There is no tenting of the skin. Capillary reflex less than 2 seconds. HEAD: Normocephalic atraumatic. EARS: External auditory canals clear, tympanic membranes pearly wesley without erythema or effusion bilaterally. EYES: Pupils equal round and reactive to light and accommodation. Conjunctivae without injection, sclerae without icterus. Extraocular movements intact. NOSE: Patent, turbinates without inflammation or discharge. . MOUTH: Mucous membranes moist. Pharynx without erythema or exudate. Uvula midline. Airway patent. Tongue does not deviate. NECK: Supple without nuchal rigidity. No lymphadenopathy. No thyromegaly. Cervical spine is nontender. No JVD. HEART: Regular rate and rhythm without murmurs gallops or rubs. LUNGS: Clear to auscultation bilaterally without wheezes, rales or rhonchi. No retractions or accessory muscle use. ABDOMEN: Positive bowel sounds x 4. Normal tympanic percussion. Soft, nontender, without masses or organomegaly. Lmabert sign negative. No guarding or rebound tenderness. No CVA tenderness MUSCULOSKELETAL: No muscle atrophy, erythema, or edema noted. NEURO: Patient was alert and oriented to person place and time. Normal sensation to light and sharp touch. No focal neurological deficits. Medical Decision & Procedures Laboratory Results 12/15/17 03:20 Red Blood Count 3.69, Mean Corpuscular Volume 85.6, Mean Corpuscular Hemoglobin 28.2, Mean Corpuscular Hemoglobin Concent 32.9, Mean Platelet Volume 8.7, Neutrophils (%) (Auto) 55.0, Lymphocytes (%) (Auto) 30.4, Monocytes (%) (Auto) 12.3, Eosinophils (%) (Auto) 1.3, Basophils (%) (Auto) 0.6, Neutrophils # (Auto ) 4.71, Lymphocytes # (Auto) 2.60, Monocytes # (Auto) 1.05, Eosinophils # (Auto ) 0.11, Basophils # (Auto) 0.05 12/15/17 03:20 Test 12/15/17 03:20 White Blood Count 8.55 K/uL (4.8-10.8) Red Blood Count 3.69 M/uL (4.2-5.4) Hemoglobin 10.4 g/dL (12.0-16.0) Hematocrit 31.6 % (37-47) Mean Corpuscular Volume 85.6 fL (80-100) Mean Corpuscular Hemoglobin 28.2 pg (25-34) Mean Corpuscular Hemoglobin Concent 32.9 g/dl (32-36) Platelet Count 561 K/uL (130-400) Mean Platelet Volume 8.7 fL (7.4-10.4) Neutrophils (%) (Auto) 55.0 % Lymphocytes (%) (Auto) 30.4 % Monocytes (%) (Auto) 12.3 % Eosinophils (%) (Auto) 1.3 % Basophils (%) (Auto) 0.6 % Neutrophils # (Auto) 4.71 K/uL (1.4-6.5) Lymphocytes # (Auto) 2.60 K/uL (1.2-3.4) Monocytes # (Auto) 1.05 K/uL (0.11-0.59) Eosinophils # (Auto) 0.11 K/uL (0-0.5) Basophils # (Auto) 0.05 K/uL (0-0.2) RDW Standard Deviation 40.2 fL (36.4-46.3) RDW Coefficient of Variation 12.9 % (11.5-14.5) Immature Granulocyte % (Auto) 0.4 % Immature Granulocyte # (Auto) 0.03 K/uL (0.00-0.02) Anion Gap 4.0 mmol/L (3-11) Est Creatinine Clear Calc Drug Dose 67.4 ml/min Estimated GFR () 105.4 Estimated GFR (Non- 90.9 BUN/Creatinine Ratio 17.7 (10-20) Calcium Level 9.1 mg/dl (8.5-10.1) Total Bilirubin 0.3 mg/dl (0.2-1) Direct Bilirubin < 0.1 mg/dl (0-0.2) Aspartate Amino Transf (AST/SGOT) 20 U/L (15-37) Alanine Aminotransferase (ALT/SGPT) 17 U/L (12-78) Alkaline Phosphatase 112 U/L (45-117) Total Protein 7.8 gm/dl (6.4-8.2) Albumin 3.6 gm/dl (3.4-5.0) Medications Administered Medications (Trade) Dose Ordered Sig/Héctor Route Start Time Stop Time Status Last Admin Dose Admin Miscellaneous (Soap Suds Enema) 1 ea NOW STAT NM 12/15/17 03:40 12/15/17 03:41 DC 12/15/17 04:51 1 EA Magnesium Citrate (Citrate Of Magnesia Soln) 296 ml NOW ONCE PO 12/15/17 03:45 12/15/17 03:46 DC 12/15/17 05:21 296 ML Morphine Sulfate (MoRPHine SULFATE INJ) 4 mg NOW STAT IV 12/15/17 04:43 4/12/18 04:44 DC 12/15/17 05:07 4 MG Ondansetron HCl (Zofran Inj) 4 mg NOW STAT IV 12/15/17 05:19 12/15/17 05:20 DC 12/15/17 05:21 4 MG ED Course Prior records/ancillary studies reviewed. Triage Nursing notes reviewed. Additional history obtained from family The patient's history was concerning for abdominal pain. Differential diagnosis: Etiologies such as constipation, appendicitis, diverticulitis, PUD, biliary pathology, UTI, pancreatitis, obstruction, mesenteric ischemia, aortic pathology , infections, inflammatory bowel disease, renal colic, as well as others were entertained. Physical examination findings: As above. ER treatment provided: Enema, magnesium citrate to go On reassessment the patient felt better. Diagnostics interpreted by me: The labs revealed mild anemia. Imaging studies: Acute abdominal series with no free air, pneumothorax or obstruction per my interpretation Exam and history seem consistent with constipation. Patient's been taking narcotics for her recent knee surgery. She is advised to take a stool softener and take the magnesium citrate as directed. She felt better after the enema and had a large BM. She did not have acute abdomen on exam. No signs of obstruction. She is advised to follow-up family care in a few days here in the ER sooner for abdominal pain, fevers, vomiting, worsening signs or symptoms or as needed. By the evaluation outlined above emergent etiologies such as appendicitis, diverticulitis, PUD, biliary pathology, UTI, pancreatitis, obstruction, mesenteric ischemia, aortic pathology, infections, inflammatory bowel disease, renal colic, as well as others were deemed relatively unlikely. The pt informed about the findings as listed above. All questions were answered and pleased with the treatment. Return instructions were outlined and the patient was discharged in stable condition. Outpatient prescription management: Magnesium citrate Referral: The patient was referred back to their primary care physician for follow-up in 2 to 3 days for a recheck of the current condition. Case reviewed with my attending The chart was completed utilizing [employer] voice recognition software. Grammatical errors, random word insertions, pronoun errors, and incomplete sentences are an occassional consequence of this system due to software limitations, ambient noise, and hardware issues. Any formal questions or concerns about the content, text, or information contained within the body of this dictation should be directly addressed to the physician legal executive assistant for clarification. Medical Decision as above Medication Reconcilliation Current Medication List: was personally reviewed by me Blood Pressure Screening Patient's blood pressure: Elevated blood pressure Blood pressure disposition: Elevated BP felt to be situational Impression Primary Impression: Constipation Departure Information Dispostion Home / Self-Care Condition GOOD Referrals Kedar Dyer MD (PCP) Patient Instructions My [facility] Additional Instructions Magnesium citrate: Drink half the bottle when you get up, if you do not have a bowel movement within 6 hours then drink the rest of the bottle. You can mix this with dionisio dora 50:50. Stay near the toilet all day. Increase your fluid and fiber intake. Take MiraLAX and Colace daily. Rest and drink plenty of fluids as tolerated. Continue current medications. Avoid strenuous activities and anything that worsens your pain. Resume normal activities once your symptoms resolve. Return to the ER immediately for worsening or persistent abdominal pain, vomiting, fevers, chest pains, difficulty breathing, worsening of your condition , or as needed. Follow up with your primary physician in 2-3 days for a recheck of your current condition. Problem Qualifiers Primary Impression: Constipation Constipation type: unspecified constipation type Qualified Codes: K59.00 - Constipation, unspecified
[2017-12-15 05:45] VITALS: BP 146/72; PULSE 83; O2SAT 97
--- NOTE | 2017-12-15 07:37 | EMERGENCY ROOM VISIT NOTE ---
ED Visit Note First contact with patient: 03:16 I have personally evaluated and examined this patient. I agree with assessment and plan of Vicki Rodriguez PA-C. 67 yr old female s/p left knee replacement now with opioid induced constipation.
--- NOTE | 2017-12-15 07:46 | DIAGNOSTIC IMAGING REPORT ---
ABDOMEN 2VIEW W/PA CHEST RTN CLINICAL HISTORY: 67 years-old Female presenting with abd pain, ? SBO, nausea, history of lung cancer. TECHNIQUE: PA view of the chest and supine and upright views of the abdomen were obtained. COMPARISON: Plain radiograph from 10/21/[address] from 10/22/2017. FINDINGS: Atherosclerosis of the aortic arch. Cardiac silhouette normal in size. Suture margins suspected at the level of the right hilum. Surgical clips project over the right hilum, unchanged. Architectural distortion of the right lung base unchanged. No focal opacity. No large effusion or pneumothorax. Nonobstructive bowel gas pattern. No gross pneumoperitoneum. Allowing for bowel gas and stool, no calcifications to suggest nephrolithiasis. Osseous structures normal. IMPRESSION: 1. Postsurgical changes of the right lung. No acute cardiopulmonary disease. 2. No radiographic evidence of acute intra-abdominal pathology. Electronically signed by: Boone Sage M.D. 12/15/2017 7:45 AM Dictated Date/Time: 12/15/2017 6:51 AM
== END 2017-12-15 05:45 | disposition home or self-care (01) ==
LOC: C.EDB 02:55 → C.EDA 05:45
DX: K59.00 Constipation, unspecified (principal); R11.0 Nausea; R06.02 Shortness of breath; M79.7 Fibromyalgia; Z79.899 Other long term (current) drug therapy; I11.0 Hypertensive heart disease with heart failure; F32.9 Major depressive disorder, single episode, unspecified; E03.9 Hypothyroidism, unspecified; J45.909 Unspecified asthma, uncomplicated; Z85.118 Personal history of other malignant neoplasm of bronchus and lung; Z87.891 Personal history of nicotine dependence

== ENCOUNTER 2017-12-25 04:16 | Emergency (ER) | payer OTHER, BC ==
[~2017-12-25] VITALS: Ht 152.4 cm; Wt 65.9 kg
[~2017-12-25 04:16] MED LIST changes: -ACET-24 PO; +HYDR-3124 PO; -PHEN-876 PO; -SENN-61 PO; +[UNRECOGNIZED DRUG - CODE] PO
[2017-12-25 04:24] VITALS: Ht 152.4 cm; Wt 65.9 kg
[2017-12-25] MEDS ORDERED: LORAZEPAM 2 MG/ML 1 ML VIAL IV STA (04:51)
[2017-12-25] MEDS ORDERED: TRAM-10 PO (04:57)
[2017-12-25] MEDS ORDERED: ASPI81TA28 PO (04:58)
[2017-12-25] MEDS ORDERED: MRPSR/15 PO (04:58)
[2017-12-25] MEDS ORDERED: HYDROCORTISONE HC 2.5% CRM 30GM TUBE EXT ONE (05:00)
[2017-12-25] MEDS ORDERED: MAGNESIUM HYDROXIDE SUSP 30 ML UDC PO ONE (05:00)
[2017-12-25 05:03] LABS: BASO % 0.3 %; BASO ABS # 0.04 K/uL (0-0.2); EOS % 0.8 %; EOS ABS # 0.11 K/uL (0-0.5); HEMATOCRIT 33.5 % (37-47); HEMOGLOBIN 10.7 g/dL (12.0-16.0); IG# 0.05 K/uL (0.00-0.02); LYMPH % 14.8 %; LYMPH ABS # 2.07 K/uL (1.2-3.4); MEAN CELL VOLUME 86.1 fL (80-100); MEAN CORPUSCULAR HEMOGLOBIN 27.5 pg (25-34); MEAN CORPUSCULAR HGB CONC 31.9 g/dl (32-36); MEAN PLATELET VOLUME 9.2 fL (7.4-10.4); MONO % 7.5 %; MONO ABS # 1.05 K/uL (0.11-0.59); NEUT % 76.2 %; NEUT ABS # 10.71 K/uL (1.4-6.5); PLATELET COUNT 462 K/uL (130-400); RED CELL DISTRIBUTION WIDTH CV 13.1 % (11.5-14.5); RED CELL DISTRIBUTION WIDTH SD 41.7 fL (36.4-46.3); WHITE BLOOD COUNT 14.03 K/uL (4.8-10.8)
[2017-12-25 05:23] LABS: CALCIUM 9.2 mg/dl (8.5-10.1); CREATININE 0.69 mg/dl (0.60-1.20)
--- NOTE | 2017-12-25 05:23 | EMERGENCY ROOM VISIT NOTE ---
History Report prepared by Sebastian: Nils Mondragon Under the Supervision of: Dr. Lona Álvarez D.O. First contact with patient: 04:47 Chief Complaint: RECTAL BLEEDING Stated Complaint: NON-STOP RECTAL BLEEDING,CONSTIPATED,HYSTERICAL Nursing Triage Summary: Patient had left knee replacement 1 month ago and has been having constipation which she was seen here for approx 5 days ago. Patient began with bright red rectal bleeding tonight. Patient has hx hemorrhoids and has been using preparation H with no relief. Patient has multiple large external hemorrhoids, no bleeding present at this time. Patient yelling in pain. History of Present Illness The patient is a 67 year old female who presents to the Emergency Room with complaints of persistent rectal bleeding for three hours. She states that she is in severe pain. She reports having active hemorrhoids and they have been bleeding. Per , the patient was seen here in the ED five days ago for constipation. The patient states that she has not taken any pain medication for fear of constipation. She has not taken any Miralax or stool softeners. She states that she did try preparation H, though no relief. Per , the patient received an enema at the time of her ED visit and had bowel movements until two days ago. He states that she will not allow him to give her another enema. She states that she does sit on the toilet for long periods of time. She does not know if she has kept up with her water intake. Per , the patient has low back pain. She denies any blood thinners, though she takes 81 mg Aspirin. Per , the patient recently had left knee surgery about one month ago. Source of History: patient, spouse/significant other Onset: three hours Position: other (rectal) Quality: other (bleeding) Timing: other (persistent) Note: Notes constipation. Review of Systems See HPI for pertinent positives & negatives. A total of 10 systems reviewed and were otherwise negative. Past Medical & Surgical Medical Problems: (1) Asthma, moderate persistent (2) Depression (3) Dyslipidemia (4) Fibromyalgia (5) H/O: lung cancer (6) HTN (hypertension) (7) Hypothyroidism (8) Left knee DJD (9) Lung cancer (10) Mitral regurgitation (11) Pancreatitis (12) Productive cough Surgical Problems: (1) S/P arthroscopy of left knee (2) S/P arthroscopy of right knee (3) S/P partial lobectomy of lung (4) S/P tonsillectomy and adenoidectomy Family History FH: gallbladder disease FH: heart disease FATHER MOTHER FHx: Crohn's disease FHx: aneurysm Hypertension Social History Smoking Status: Never Smoker Alcohol Use: none Drug Use: none Marital Status: Housing Status: lives with family Occupation Status: other Current/Historical Medications Scheduled Albuterol Hfa (Ventolin Hfa), 2 PUFFS INH QAM Albuterol Sulf (Albuterol Sulfate), 1 DOSE NEB TID Amlodipine (Norvasc), 5 MG PO QPM Aspirin (Aspirin Ec), 81 MG PO BID Budesonide/Formoterol Fumarate (Symbicort 160/4.5 Inhaler), 2 PUFFS INH BID Cyclobenzaprine Hcl (Flexeril), 5 MG PO DAILY Epinephrine (Epipen), 0.3 MG IM UD Fluoxetine (Prozac), 30 MG PO QAM Levothyroxine Sodium (Synthroid), 112 MCG PO QAM Lisinopril (Zestril), 30 MG PO QPM Metoprolol Succ (Toprol Xl) (Toprol-Xl), 25 MG PO QPM Pentosan Polysulfate Sodium (Elmiron), 100 MG PO TID Scheduled PRN Acetaminophen W/ Codeine (Acetaminophen/Codeine #4), 1 TAB PO Q4 PRN for Pain Hydroxyzine Hcl (Atarax), 25 MG PO BID PRN for Itching Lorazepam (Lorazepam), 1 MG PO QD PRN for Anxiety/Agitation Morphine Sulfate (Morphine Sulfate ER), 15 MG PO Q12 PRN for Pain Tramadol (Ultram), 50-100 MG PO Q4H PRN for Pain Allergies Coded Allergies: Shellfish (Verified Allergy, Severe, throat closing , systemic reaction, ) Cephalosporins (Verified Allergy, Intermediate, hives, 12/25/17) Methenamine (Verified Allergy, Intermediate, hives, 12/25/17) Oxycodone (Verified Allergy, Intermediate, HIVES, 12/25/17) Propoxyphene (Verified Allergy, Intermediate, ITCHING AND A RASH, 12/25/17) Replaces DARVOCET-N 10 Sulfa Antibiotics (Verified Allergy, Intermediate, hives, 12/25/17) Sulfamethoxazole (Verified Allergy, Intermediate, hives, 12/25/17) Trimethoprim (Verified Allergy, Intermediate, hives, 12/25/17) Simvastatin (Verified Adverse Reaction, Intermediate, body aches, 12/25/17) Tapentadol (Verified Adverse Reaction, Intermediate, felt very uncomfortable - does not ever want, 12/25/17) Hydrocodone (Verified Adverse Reaction, Mild, ITCHING, 12/25/17) Prednisone (Verified Adverse Reaction, Mild, ITCHING, 12/25/17) ITCHING HOWEVER BENEFITS OUT WEIGH THE SIDE EFFECTS Physical Exam Vital Signs Date Time Temp Pulse Resp B/P (MAP) Pulse Ox O2 Delivery O2 Flow Rate FiO2 12/25/17 06:20 112 19 134/51 100 Room Air 12/25/17 05:12 99 12/25/17 05:12 102 12/25/17 04:24 121 32 161/89 99 Room Air Physical Exam GENERAL: alert, anxious-appearing, well nourished, in mild distress, non-toxic EYE EXAM: normal conjunctiva, PERRL and EOM's grossly intact OROPHARYNX: no exudate, no erythema, lips, buccal mucosa, and tongue normal and mucous membranes are moist. Edentulous NECK: supple, no nuchal rigidity, no adenopathy, non-tender LUNGS: Clear to auscultation. Normal chest wall mechanics HEART: no murmurs, S1 normal and S2 normal ABDOMEN: abdomen soft, non-tender, normo-active bowel sounds, no masses, no rebound or guarding. BACK: Back is symmetrical on inspection and there is no deformity, no midline tenderness, no CVA tenderness. RECTAL: Multiple large hemorrhoids, not thrombosed, no active bleeding SKIN: no rashes and no bruising UPPER EXTREMITIES: upper extremities are grossly normal. LOWER EXTREMITIES: No pitting edema. Well healed vertical midline incision of left knee. NEURO EXAM: Normal sensorium, cranial nerves II-XII grossly intact, normal speech, no gross weakness of arms, no gross weakness of legs. Medical Decision & Procedures ER Provider Diagnostic Interpretation: Radiology results have been interpreted by the radiologist and reviewed by me. KUB CLINICAL HISTORY: constipation pain. Constipation. COMPARISON STUDY: No previous studies for comparison. FINDINGS: The soft tissues, psoas shadows, renal outlines and intestinal gas pattern appear normal. There is no evidence for bowel obstruction. No abnormal abdominal calcifications are seen. IMPRESSION: Normal study. The above report was generated using voice recognition software. It may contain grammatical, syntax or spelling errors. Electronically signed by: Nakul Aguirre M.D. 12/25/2017 6:32 AM Dictated Date/Time: 12/25/2017 6:32 AM Laboratory Results 12/25/17 04:40 Red Blood Count 3.89, Mean Corpuscular Volume 86.1, Mean Corpuscular Hemoglobin 27.5, Mean Corpuscular Hemoglobin Concent 31.9, Mean Platelet Volume 9.2, Neutrophils (%) (Auto) 76.2, Lymphocytes (%) (Auto) 14.8, Monocytes (%) (Auto) 7.5, Eosinophils (%) (Auto) 0.8, Basophils (%) (Auto) 0.3, Neutrophils # (Auto) 10.71, Lymphocytes # (Auto) 2.07, Monocytes # (Auto) 1.05, Eosinophils # (Auto) 0.11, Basophils # (Auto) 0.04 12/25/17 04:40 Test 12/25/17 04:40 White Blood Count 14.03 K/uL (4.8-10.8) Red Blood Count 3.89 M/uL (4.2-5.4) Hemoglobin 10.7 g/dL (12.0-16.0) Hematocrit 33.5 % (37-47) Mean Corpuscular Volume 86.1 fL (80-100) Mean Corpuscular Hemoglobin 27.5 pg (25-34) Mean Corpuscular Hemoglobin Concent 31.9 g/dl (32-36) Platelet Count 462 K/uL (130-400) Mean Platelet Volume 9.2 fL (7.4-10.4) Neutrophils (%) (Auto) 76.2 % Lymphocytes (%) (Auto) 14.8 % Monocytes (%) (Auto) 7.5 % Eosinophils (%) (Auto) 0.8 % Basophils (%) (Auto) 0.3 % Neutrophils # (Auto) 10.71 K/uL (1.4-6.5) Lymphocytes # (Auto) 2.07 K/uL (1.2-3.4) Monocytes # (Auto) 1.05 K/uL (0.11-0.59) Eosinophils # (Auto) 0.11 K/uL (0-0.5) Basophils # (Auto) 0.04 K/uL (0-0.2) RDW Standard Deviation 41.7 fL (36.4-46.3) RDW Coefficient of Variation 13.1 % (11.5-14.5) Immature Granulocyte % (Auto) 0.4 % Immature Granulocyte # (Auto) 0.05 K/uL (0.00-0.02) Prothrombin Time 10.0 SECONDS (9.0-12.0) Prothromb Time International Ratio 1.0 (0.9-1.1) Anion Gap 6.0 mmol/L (3-11) Est Creatinine Clear Calc Drug Dose 68.9 ml/min Estimated GFR () 105.9 Estimated GFR (Non- 91.4 BUN/Creatinine Ratio 23.6 (10-20) Calcium Level 9.2 mg/dl (8.5-10.1) Laboratory results per my review. Medications Administered Medications (Trade) Dose Ordered Sig/Héctor Route Start Time Stop Time Status Last Admin Dose Admin Lorazepam (Ativan Inj) 1 mg NOW STAT IV 12/25/17 04:51 12/25/17 04:56 DC 12/25/17 05:08 1 MG Hydrocortisone (Proctozone Hc 2.5% Crm) 1 appln NOW ONCE EXT 12/25/17 05:00 12/25/17 05:01 DC 12/25/17 05:09 1 APPLN Magnesium Hydroxide (Milk Of Magnesia Susp) 30 ml NOW ONCE PO 12/25/17 05:00 12/25/17 05:01 DC 12/25/17 05:08 30 ML Ketorolac Tromethamine (Toradol Inj) 30 mg NOW STAT IV 12/25/17 06:25 12/25/17 06:26 DC 12/25/17 06:35 30 MG ED Course 0441: The patient was evaluated in room B9. A complete history and physical exam was performed. 0451: Ordered Ativan 1 mg IV 0500: Ordered Milk of Magnesia 30 ml PO and Proctozone 1 appln EXT 0624: I reassessed the patient at this time. She had a small bowel movement. She feels better, though she is still anxious and has rectal pain. I discussed the results and treatment plan with the patient. She would like to go home. I answered all pertaining questions that she had. She expressed understanding and verbalized agreement. The patient will be discharged home. 0625: Ordered Toradol 30 mg IV Medical Decision Prior records/ancillary studies reviewed. Triage Nursing notes reviewed. The patient's history was concerning for possible gastrointestinal bleeding. Differential diagnosis: Etiologies such as diverticulosis, AVM, coagulopathy, colitis, inflammatory bowel disease, malignancy, Tawana-Lui tear, esophagitis, peptic ulcer disease , variceal bleed, gastritis, epistaxis, fissure, hemorrhoids, as well as others were entertained. Patient initially very anxious regarding her constipation and hemorrhoidal bleeding here. Patient was improved and had a spontaneous bowel movement here with mild bleeding. Discussed with patient treatment and prevention of hemorrhoids at home. Patient's H&H stable, patient hemodynamically stable. Feel initial tachycardia more likely related to her anxiety and pain. Discussed with patient close follow-up with her family doctor, symptoms to watch and return for, she and verbalized understanding were agreeable as planned. Patient's abdomen otherwise soft and nontender, did not feel she required any additional imaging at this time. Labs otherwise reassuring. I do not suspect bacteremia/sepsis, additional acute GI or pathology, doubt vascular etiology. Medication Reconcilliation Current Medication List: was personally reviewed by me Blood Pressure Screening Patient's blood pressure: Elevated blood pressure Blood pressure disposition: Elevated BP felt to be situational Impression Primary Impression: Hemorrhoids Additional Impressions: Rectal bleeding Acute anxiety Constipation Scribe Attestation The scribe's documentation has been prepared under my direction and personally reviewed by me in its entirety. I confirm that the note above accurately reflects all work, treatment, procedures, and medical decision making performed by me. Departure Information Dispostion Home / Self-Care Referrals Kedar Dyer MD (PCP) Forms HOME CARE DOCUMENTATION FORM, IMPORTANT VISIT INFORMATION, WORK / SCHOOL INSTRUCTIONS Patient Instructions ED Constipation, ED Hemorrhoids, [facility] Additional Instructions Please drink plenty of water. Please continue your regular medications as prescribed. Please continue taking the MiraLAX and stool softener daily. Please do not sit for prolonged periods of time on the toilet while attempting to have a bowel movement. Please do not push or strain having a bowel movement. Please make sure you are getting plenty of fiber in your diet to help promote regular bowel movements. If you have any increased bleeding from her hemorrhoids, worsening pain, develop fevers, abdominal pain, vomiting, dizziness, you have any other new concerns, please return the emergency room. Problem Qualifiers Primary Impression: Hemorrhoids Hemorrhoid type: fourth degree Qualified Codes: K64.3 - Fourth degree hemorrhoids Additional Impressions: Constipation Constipation type: unspecified constipation type Qualified Codes: K59.00 - Constipation, unspecified
[2017-12-25 06:20] VITALS: BP 134/51; PULSE 112; O2SAT 100
[2017-12-25] MEDS ORDERED: KETOROLAC TROMETHAMINE 30 MG/ML VIAL IV STA (06:25)
--- NOTE | 2017-12-25 06:34 | DIAGNOSTIC IMAGING REPORT ---
KUB CLINICAL HISTORY: constipation pain. Constipation. COMPARISON STUDY: No previous studies for comparison. FINDINGS: The soft tissues, psoas shadows, renal outlines and intestinal gas pattern appear normal. There is no evidence for bowel obstruction. No abnormal abdominal calcifications are seen. IMPRESSION: Normal study. The above report was generated using voice recognition software. It may contain grammatical, syntax or spelling errors. Electronically signed by: Nakul Aguirre M.D. 12/25/2017 6:32 AM Dictated Date/Time: 12/25/2017 6:32 AM
== END 2017-12-25 07:08 | disposition home or self-care (01) ==
LOC: C.EDB 04:17
DX: K64.3 Fourth degree hemorrhoids (principal); K62.5 Hemorrhage of anus and rectum; F41.9 Anxiety disorder, unspecified; K59.00 Constipation, unspecified; E78.5 Hyperlipidemia, unspecified; M79.7 Fibromyalgia; I10 Essential (primary) hypertension; J45.40 Moderate persistent asthma, uncomplicated; Z79.82 Long term (current) use of aspirin; Z79.899 Other long term (current) drug therapy; Z88.1 Allergy status to other antibiotic agents; Z88.2 Allergy status to sulfonamides; Z88.5 Allergy status to narcotic agent; Z88.8 Allergy status to other drugs, medicaments and biological substances; Z91.013 Allergy to seafood

== ENCOUNTER 2018-01-04 18:16 | Emergency (ER) | payer OTHER, BC ==
[~2018-01-04] VITALS: Ht 152.4 cm; Wt 66.6 kg
[~2018-01-04 18:16] MED LIST changes: +ASPI81TA28 PO; +MRPSR/15 PO
[2018-01-04 18:19] VITALS: TEMP 36.9; Ht 152.4 cm; Wt 66.6 kg
--- NOTE | 2018-01-04 18:48 | EMERGENCY ROOM VISIT NOTE ---
History Report prepared by Sebastian: Nils Mondragon Under the Supervision of: Dr. Jose Lee M.D. First contact with patient: 18:36 Chief Complaint: REFERRED BY DOCTOR Stated Complaint: POSSIBLE BLOOT CLOT NEAR HEART OR LEFT KNEE History of Present Illness The patient is a 67 year old female who presents to the Emergency Room with complaints of intermittent chest pain for two weeks. She states that she was just seen by her dieing out machine operator today to address her chest pain and was sent to the ED for evaluation of a potential blood clot. Per , the patient recently had a left total knee replacement November 17, 2017. She notes left knee pain with extension. She notes that she has the chest pain every time she gets excited. She notes that she has shortness of breath after walking a short distance. She notes her chest pain is worsened with movement. She notes the pain is radiating to her left arm. She has a history of cardiac catheterization , which was normal. She states that she does need to have her valve replaced. She has a history of lung cancer. Source of History: patient, spouse/significant other Onset: two weeks Position: chest Quality: other (radiating to lef arm) Timing: intermittent Modifying Factors (Worsening): movement Associated Symptoms: + SOB Note: Notes left knee pain. Review of Systems See HPI for pertinent positives & negatives. A total of 10 systems reviewed and were otherwise negative. Past Medical & Surgical Medical Problems: (1) Asthma, moderate persistent (2) Depression (3) Dyslipidemia (4) Fibromyalgia (5) Flank pain (6) H/O: lung cancer (7) HTN (hypertension) (8) Hypothyroidism (9) Left knee DJD (10) Left knee pain (11) Lung cancer (12) Mitral regurgitation (13) Pancreatitis (14) Productive cough (15) Right lower lobe pneumonia (16) UTI (urinary tract infection) Surgical Problems: (1) S/P arthroscopy of left knee (2) S/P arthroscopy of right knee (3) S/P partial lobectomy of lung (4) S/P tonsillectomy and adenoidectomy Old medical records were reviewed. Nurse's notes were reviewed and I agree with. Family History FH: gallbladder disease FH: heart disease FATHER MOTHER FHx: Crohn's disease FHx: aneurysm Hypertension Social History Smoking Status: Never Smoker Alcohol Use: none Drug Use: none Marital Status: Housing Status: lives with family Occupation Status: other Current/Historical Medications Scheduled Albuterol Hfa (Ventolin Hfa), 2 PUFFS INH QAM Albuterol Sulf (Albuterol Sulfate), 1 DOSE NEB TID Amlodipine (Norvasc), 5 MG PO QPM Aspirin (Aspirin Ec), 81 MG PO BID Budesonide/Formoterol Fumarate (Symbicort 160/4.5 Inhaler), 2 PUFFS INH BID Cyclobenzaprine Hcl (Flexeril), 5 MG PO DAILY Epinephrine (Epipen), 0.3 MG IM UD Fluoxetine (Prozac), 30 MG PO QAM Levothyroxine Sodium (Synthroid), 112 MCG PO QAM Lisinopril (Zestril), 30 MG PO QPM Metoprolol Succ (Toprol Xl) (Toprol-Xl), 25 MG PO QPM Pentosan Polysulfate Sodium (Elmiron), 100 MG PO TID Scheduled PRN Acetaminophen W/ Codeine (Acetaminophen/Codeine #4), 1 TAB PO Q4 PRN for Pain Hydroxyzine Hcl (Atarax), 25 MG PO BID PRN for Itching Lorazepam (Lorazepam), 1 MG PO QD PRN for Anxiety/Agitation Morphine Sulfate (Morphine Sulfate ER), 15 MG PO Q12 PRN for Pain Tramadol (Ultram), 50-100 MG PO Q4H PRN for Pain Allergies Coded Allergies: Shellfish (Verified Allergy, Severe, throat closing , systemic reaction, ) Cephalosporins (Verified Allergy, Intermediate, hives, 12/25/17) Methenamine (Verified Allergy, Intermediate, hives, 12/25/17) Oxycodone (Verified Allergy, Intermediate, HIVES, 12/25/17) Propoxyphene (Verified Allergy, Intermediate, ITCHING AND A RASH, 12/25/17) Replaces DARVOCET-N 10 Sulfa Antibiotics (Verified Allergy, Intermediate, hives, 12/25/17) Sulfamethoxazole (Verified Allergy, Intermediate, hives, 12/25/17) Trimethoprim (Verified Allergy, Intermediate, hives, 12/25/17) Simvastatin (Verified Adverse Reaction, Intermediate, body aches, 12/25/17) Tapentadol (Verified Adverse Reaction, Intermediate, felt very uncomfortable - does not ever want, 12/25/17) Hydrocodone (Verified Adverse Reaction, Mild, ITCHING, 12/25/17) Prednisone (Verified Adverse Reaction, Mild, ITCHING, 12/25/17) ITCHING HOWEVER BENEFITS OUT WEIGH THE SIDE EFFECTS Physical Exam Vital Signs Date Time Temp Pulse Resp B/P (MAP) Pulse Ox O2 Delivery O2 Flow Rate FiO2 01/04/18 22:12 76 18 138/68 96 01/04/18 20:44 82 18 143/74 96 Room Air 01/04/18 20:18 87 18 131/72 97 Room Air 01/04/18 18:19 36.9 98 18 147/70 97 Room Air Physical Exam General: Non-ill appearing middle-aged female in no acute distress. HEENT: Normal cephalic atraumatic. Pupils are equal round and reactive to light. Extraocular movements are intact. Oropharynx is pink with moist mucous membranes. No swelling of the mouth lips or tongue. Neck: Supple with a midline trachea. No meningeal signs or stiffness, no JVD or bruits. No Stridor. Chest: Clear to auscultation bilaterally. No wheezes or rhonchi. No increased work of breathing. Tenderness to palpation on the left. Heart: regular rate and rhythm. Abdomen: Soft nontender, nondistended without rebound guarding or rigidity. Extremities: No cyanosis clubbing or edema. No calf tenderness or assymetry. Tenderness to palpation behind left knee, without redness or warmth, mild post- operative swelling. Normal motor and vascular function of left leg. Spine/Back. Non tender to palpation. No CVA tenderness Skin: Good turgor without rashes. Neurologic exam: Cranial nerves two through 12 are intact. Motor and sensation are intact and symmetrical throughout. Medical Decision & Procedures ER Provider Diagnostic Interpretation: Radiology results as stated below per my review and radiologist interpretation: ULTRASOUND LEFT LOWER EXTREMITY VENOUS CLINICAL HISTORY: Left leg pain. COMPARISON STUDY: Left lower extremity venous ultrasound dated 11/21/2017. TECHNIQUE: Real-time, grayscale, and color Doppler sonography of the deep veins of the left lower extremity was performed from the inguinal crease to the calf. Compression and augmentation were utilized. FINDINGS: There is no sonographic evidence of deep venous thrombosis identified in the left lower extremity. The common femoral, superficial femoral, and popliteal veins are patent and normally compressible. The greater saphenous vein and the profunda femoris vein at the junction with the common femoral vein are clear. The visualized calf veins are patent. IMPRESSION: There is no sonographic evidence of deep venous thrombosis identified in the left lower extremity. Electronically signed by: Landry Vu M.D. 01/04/2018 8:37 PM Dictated Date/Time: 01/04/2018 8:[address] ANGIOGRAM OF THE CHEST CLINICAL HISTORY: Dyspnea. COMPARISON STUDY: Chest CT dated 07/26/2014. Chest x-ray dated 12/15/2017. TECHNIQUE: Following the IV administration of 117 cc of Optiray 320, CT angiogram of the chest was performed from the upper abdomen to the thoracic inlet utilizing the pulmonary embolus protocol. Images are reviewed in the axial, sagittal, and coronal planes. 3-D MIPS images are created and assessed. IV contrast was administered without complication. A dose lowering technique was utilized adhering to the principles of ALARA. The Examination is modestly degraded by motion artifact. CT DOSE: 346.53 mGy.cm FINDINGS: Thyroid: Imaged portions of the thyroid gland are normal in size and attenuation. Thoracic aorta: There is mild atherosclerotic calcification of the thoracic aorta, which is normal in caliber and demonstrates standard 3-vessel arch anatomy. No dissection is seen. Pulmonary vasculature: The pulmonary trunk is normal in caliber. There are no filling defects identified in main, lobar, or proximal segmental pulmonary branches to suggest pulmonary embolus. Evaluation of the peripheral vessels is degraded by suboptimal contrast opacification and motion artifact. Heart: The heart is enlarged and without pericardial effusion. There is calcification of the aortic valve leaflets. Lungs and pleural spaces: Mild emphysema is changes noted. There are postoperative changes and volume loss from right-sided pulmonary resection. No airspace consolidation or pleural effusion is identified. Subpleural scarring is seen at the anterior right lung base. The trachea and central airways are clear. There is a 4 mm left lower lobe pulmonary nodule seen on image #138. This was also seen in 2014. A 3 mm right upper lobe nodule seen on image #167, which is new from 2014. Mediastinum: There is no mediastinal lymphadenopathy. Brittany: Clear. Axillae: There is no axillary lymphadenopathy. Upper abdomen: There is a small hiatal hernia. Partially visualized upper abdominal viscera is otherwise within normal limits. Skeletal structures: The skeletal structures are osteopenic. No lytic or blastic bony lesions are seen. IMPRESSION: 1. There is no evidence of pulmonary embolus in the main, lobar, or proximal segmental pulmonary arteries. 2. Cardiomegaly and emphysema. 3. There are postoperative changes from right-sided pulmonary resection. 4. A 4 mm pulmonary nodule at the left lung base is unchanged from 07/26/2014. A 3 mm right upper lobe nodule is new from previous and although pathologically indeterminant is concerning if there is a cancer history. A 3 month follow-up chest CT is recommended for reassessment. 5. There is no airspace consolidation typical for pneumonia or pleural effusion. 6. Additional findings as above. Electronically signed by: Landry Vu M.D. 01/04/2018 9:28 PM Dictated Date/Time: 01/04/2018 9:16 PM Laboratory Results 01/04/18 19:25 Red Blood Count 3.46, Mean Corpuscular Volume 85.3, Mean Corpuscular Hemoglobin 27.7, Mean Corpuscular Hemoglobin Concent 32.5, Mean Platelet Volume 8.9, Neutrophils (%) (Auto) 56.0, Lymphocytes (%) (Auto) 33.6, Monocytes (%) (Auto) 8.4, Eosinophils (%) (Auto) 1.1, Basophils (%) (Auto) 0.6, Neutrophils # (Auto) 4.08, Lymphocytes # (Auto) 2.44, Monocytes # (Auto) 0.61, Eosinophils # (Auto) 0.08, Basophils # (Auto) 0.04 01/04/18 19:25 Test 01/04/18 19:25 01/04/18 19:27 White Blood Count 7.27 K/uL (4.8-10.8) Red Blood Count 3.46 M/uL (4.2-5.4) Hemoglobin 9.6 g/dL (12.0-16.0) Hematocrit 29.5 % (37-47) Mean Corpuscular Volume 85.3 fL (80-100) Mean Corpuscular Hemoglobin 27.7 pg (25-34) Mean Corpuscular Hemoglobin Concent 32.5 g/dl (32-36) Platelet Count 549 K/uL (130-400) Mean Platelet Volume 8.9 fL (7.4-10.4) Neutrophils (%) (Auto) 56.0 % Lymphocytes (%) (Auto) 33.6 % Monocytes (%) (Auto) 8.4 % Eosinophils (%) (Auto) 1.1 % Basophils (%) (Auto) 0.6 % Neutrophils # (Auto) 4.08 K/uL (1.4-6.5) Lymphocytes # (Auto) 2.44 K/uL (1.2-3.4) Monocytes # (Auto) 0.61 K/uL (0.11-0.59) Eosinophils # (Auto) 0.08 K/uL (0-0.5) Basophils # (Auto) 0.04 K/uL (0-0.2) RDW Standard Deviation 41.5 fL (36.4-46.3) RDW Coefficient of Variation 13.5 % (11.5-14.5) Immature Granulocyte % (Auto) 0.3 % Immature Granulocyte # (Auto) 0.02 K/uL (0.00-0.02) Prothrombin Time 10.4 SECONDS (9.0-12.0) Prothromb Time International Ratio 1.0 (0.9-1.1) Activated Partial Thromboplast Time 22.4 SECONDS (21.0-31.0) Partial Thromboplastin Ratio 0.9 D-Dimer 2490 ug/L FEU (0-500) Anion Gap 5.0 mmol/L (3-11) Est Creatinine Clear Calc Drug Dose 63.7 ml/min Estimated GFR () 96.9 Estimated GFR (Non- 83.6 BUN/Creatinine Ratio 14.4 (10-20) Calcium Level 8.5 mg/dl (8.5-10.1) Total Bilirubin 0.2 mg/dl (0.2-1) Direct Bilirubin < 0.1 mg/dl (0-0.2) Aspartate Amino Transf (AST/SGOT) 15 U/L (15-37) Alanine Aminotransferase (ALT/SGPT) 18 U/L (12-78) Alkaline Phosphatase 106 U/L (45-117) Total Protein 6.8 gm/dl (6.4-8.2) Albumin 3.3 gm/dl (3.4-5.0) Lipase 105 U/L (73-393) Bedside Troponin I < 0.030 ng/ml (0-0.045) Laboratory studies as stated above per my review. ECG Per My Interpretation Indication: chest pain Rate (beats per minute): 88 Rhythm: normal sinus Findings: no acute ischemic change, other (LVH. Mildly prolonged QT interval.) Change: no significant change (when compared to 05/15/2017) ED Course 1837: Past medical records reviewed. The patient was evaluated in room B10, and a complete history and physical examination were performed. 2147: I reassessed the patient at this time. She is feeling better and resting comfortably. I discussed the results and treatment plan with the patient. I answered all pertaining questions that she had. She expressed understanding and verbalized agreement. The patient will be discharged home. Medical Decision Differentials include, but are not limited to: DVT, PE, cardiac disease, infection, and electrolyte or metabolic abnormality. This patient comes in as described above. She has left-sided chest pain which is atypical and more pleuritic she was seen by a dieing out machine operator who felt that this was noncardiac related and sent her to the ER for evaluation for possible PE or DVT. She has also had some left-sided leg pain where she had a relatively recent knee surgery. On exam, her knee is not red. She has mild swelling which is been chronic. She has no evidence of compartment syndrome or neurovascular compromise. EKG was obtained does not show any acute ischemic changes or ectopy. Her troponin is not elevated. She has no acute electrolyte or metabolic abnormalities. Her d-dimer was elevated. Ultrasound of her leg shows no evidence of DVT. Chest CT shows no evidence of any PE or other acute pathology to explain her symptoms. She feels good and would like to go home. I will discharge her home. I encouraged her follow-up with her regular doctor in the next 1-2 days for recheck and return to the ER if: increasing pain, worsening of symptoms, any new problems or concerns. She is happy to plan and discharged to home. Medication Reconcilliation Current Medication List: was personally reviewed by me Blood Pressure Screening Patient's blood pressure: Elevated blood pressure Blood pressure disposition: Referred to PCP Impression Primary Impression: Left sided chest pain Additional Impression: Left leg pain Scribe Attestation The scribe's documentation has been prepared under my direction and personally reviewed by me in its entirety. I confirm that the note above accurately reflects all work, treatment, procedures, and medical decision making performed by me. Departure Information Dispostion Home / Self-Care Referrals Kedar Dyer MD (PCP) Forms HOME CARE DOCUMENTATION FORM, IMPORTANT VISIT INFORMATION, WORK / SCHOOL INSTRUCTIONS Patient Instructions My [facility] [place] Additional Instructions Rest REturn if: worsening of symptoms, fever, increasing pain, any new problems or concerns May use tyelenol or ibuprofen if needed May also use your tramadol as directed Do not more than 2 tyelenol/Acetaminophen every 6 hours as needed Follow-up with your doctor for recheck in 1-2 days for recheck Problem Qualifiers
[2018-01-04] MEDS ORDERED: OPTIRAY 320 IV PRN (19:00)
[2018-01-04 19:47] LABS: BASO % 0.6 %; BASO ABS # 0.04 K/uL (0-0.2); EOS % 1.1 %; EOS ABS # 0.08 K/uL (0-0.5); HEMATOCRIT 29.5 % (37-47); HEMOGLOBIN 9.6 g/dL (12.0-16.0); IG# 0.02 K/uL (0.00-0.02); LYMPH % 33.6 %; LYMPH ABS # 2.44 K/uL (1.2-3.4); MEAN CELL VOLUME 85.3 fL (80-100); MEAN CORPUSCULAR HEMOGLOBIN 27.7 pg (25-34); MEAN CORPUSCULAR HGB CONC 32.5 g/dl (32-36); MEAN PLATELET VOLUME 8.9 fL (7.4-10.4); MONO % 8.4 %; MONO ABS # 0.61 K/uL (0.11-0.59); NEUT ABS # 4.08 K/uL (1.4-6.5); PLATELET COUNT 549 K/uL (130-400); PTT PATIENT 22.4 SECONDS (21.0-31.0); RED CELL DISTRIBUTION WIDTH CV 13.5 % (11.5-14.5); RED CELL DISTRIBUTION WIDTH SD 41.5 fL (36.4-46.3); WHITE BLOOD COUNT 7.27 K/uL (4.8-10.8)
[2018-01-04 20:03] LABS: ALBUMIN 3.3 gm/dl (3.4-5.0); ALT/SGPT 18 U/L (12-78); AST/SGOT 15 U/L (15-37); BLOOD UREA NITROGEN 11 mg/dl (7-18); CALCIUM 8.5 mg/dl (8.5-10.1); CARBON DIOXIDE 29 mmol/L (21-32); CREATININE 0.75 mg/dl (0.60-1.20); GLUCOSE 103 mg/dl (70-99); LIPASE 105 U/L (73-393); POTASSIUM 3.7 mmol/L (3.5-5.1); SODIUM 143 mmol/L (136-145)
[2018-01-04 20:06] LABS: ALKALINE PHOSPHATASE 106 U/L (45-117); TOTAL PROTEIN 6.8 gm/dl (6.4-8.2)
--- NOTE | 2018-01-04 20:38 | DIAGNOSTIC IMAGING REPORT ---
ULTRASOUND LEFT LOWER EXTREMITY VENOUS CLINICAL HISTORY: Left leg pain. COMPARISON STUDY: Left lower extremity venous ultrasound dated 11/21/2017. TECHNIQUE: Real-time, grayscale, and color Doppler sonography of the deep veins of the left lower extremity was performed from the inguinal crease to the calf. Compression and augmentation were utilized. FINDINGS: There is no sonographic evidence of deep venous thrombosis identified in the left lower extremity. The common femoral, superficial femoral, and popliteal veins are patent and normally compressible. The greater saphenous vein and the profunda femoris vein at the junction with the common femoral vein are clear. The visualized calf veins are patent. IMPRESSION: There is no sonographic evidence of deep venous thrombosis identified in the left lower extremity. Electronically signed by: Landry Vu M.D. 01/04/2018 8:37 PM Dictated Date/Time: 01/04/2018 8:36 PM
--- NOTE | 2018-01-04 21:29 | DIAGNOSTIC IMAGING REPORT ---
CT ANGIOGRAM OF THE CHEST CLINICAL HISTORY: Dyspnea. COMPARISON STUDY: Chest CT dated 07/26/2014. Chest x-ray dated 12/15/2017. TECHNIQUE: Following the IV administration of 117 cc of Optiray 320, CT angiogram of the chest was performed from the upper abdomen to the thoracic inlet utilizing the pulmonary embolus protocol. Images are reviewed in the axial, sagittal, and coronal planes. 3-D MIPS images are created and assessed. IV contrast was administered without complication. A dose lowering technique was utilized adhering to the principles of ALARA. The Examination is modestly degraded by motion artifact. CT DOSE: 346.53 mGy.cm FINDINGS: Thyroid: Imaged portions of the thyroid gland are normal in size and attenuation. Thoracic aorta: There is mild atherosclerotic calcification of the thoracic aorta, which is normal in caliber and demonstrates standard 3-vessel arch anatomy. No dissection is seen. Pulmonary vasculature: The pulmonary trunk is normal in caliber. There are no filling defects identified in main, lobar, or proximal segmental pulmonary branches to suggest pulmonary embolus. Evaluation of the peripheral vessels is degraded by suboptimal contrast opacification and motion artifact. Heart: The heart is enlarged and without pericardial effusion. There is calcification of the aortic valve leaflets. Lungs and pleural spaces: Mild emphysema is changes noted. There are postoperative changes and volume loss from right-sided pulmonary resection. No airspace consolidation or pleural effusion is identified. Subpleural scarring is seen at the anterior right lung base. The trachea and central airways are clear. There is a 4 mm left lower lobe pulmonary nodule seen on image #138. This was also seen in 2014. A 3 mm right upper lobe nodule seen on image #167, which is new from 2014. Mediastinum: There is no mediastinal lymphadenopathy. Brittany: Clear. Axillae: There is no axillary lymphadenopathy. Upper abdomen: There is a small hiatal hernia. Partially visualized upper abdominal viscera is otherwise within normal limits. Skeletal structures: The skeletal structures are osteopenic. No lytic or blastic bony lesions are seen. IMPRESSION: 1. There is no evidence of pulmonary embolus in the main, lobar, or proximal segmental pulmonary arteries. 2. Cardiomegaly and emphysema. 3. There are postoperative changes from right-sided pulmonary resection. 4. A 4 mm pulmonary nodule at the left lung base is unchanged from 07/26/2014. A 3 mm right upper lobe nodule is new from previous and although pathologically indeterminant is concerning if there is a cancer history. A 3 month follow-up chest CT is recommended for reassessment. 5. There is no airspace consolidation typical for pneumonia or pleural effusion. 6. Additional findings as above. Electronically signed by: Landry Vu M.D. 01/04/2018 9:28 PM Dictated Date/Time: 01/04/2018 9:16 PM
[2018-01-04 22:12] VITALS: BP 138/68; PULSE 76; O2SAT 96
== END 2018-01-04 22:12 | disposition home or self-care (01) ==
LOC: C.EDB 18:18
DX: R07.9 Chest pain, unspecified (principal); M79.605 Pain in left leg; I51.7 Cardiomegaly; J43.9 Emphysema, unspecified; M79.7 Fibromyalgia; I10 Essential (primary) hypertension; Z79.82 Long term (current) use of aspirin; Z79.899 Other long term (current) drug therapy; F32.9 Major depressive disorder, single episode, unspecified; E03.9 Hypothyroidism, unspecified; Z85.118 Personal history of other malignant neoplasm of bronchus and lung; Z83.79 Family history of other diseases of the digestive system; Z82.49 Family history of ischemic heart disease and other diseases of the circulatory system; Z96.652 Presence of left artificial knee joint

== ENCOUNTER → 2018-01-09 | Outpatient (CLI) | payer OTHER, BC ==
[~2018-01-09] MED LIST changes: -ASPI-435 PO; -MRPSR15 PO
--- NOTE | 2018-01-09 17:53 | DIAGNOSTIC IMAGING REPORT ---
CHEST 2 VIEWS ROUTINE CLINICAL HISTORY: SOB, COUGH dyspnea COMPARISON STUDY: 12/15/2017 FINDINGS: Lungs currently are considered clear. Infiltrative changes right base on the prior study have resolved. Stable postoperative changes overlying the right hilum. Pulmonary apices are clear. IMPRESSION: No acute process. Lungs are clear. The above report was generated using voice recognition software. It may contain grammatical, syntax or spelling errors. Electronically signed by: Nakul Aguirre M.D. 01/09/2018 5:52 PM Dictated Date/Time: 01/09/2018 5:51 PM
== END | disposition home or self-care (01) ==
LOC: C.RAD 17:23
PROVIDERS: ATTEND Family Medicine
DX: R05 Cough (principal); R06.02 Shortness of breath

== ENCOUNTER 2019-12-24 14:32 | Inpatient (IN) ==
[2019-12-24] MEDS ORDERED: NITROGLYCERIN 2% OINTMENT 30GM TUBE EXT STA (14:53)
--- NOTE | 2019-12-24 15:01 | Emergency Department Note ---
History of Present Illness General Chief complaint: Chest Pain Stated complaint: CHEST PAIN, BACK PAIN Time Seen by Provider: 12/24/19 14:42 Source: patient History of Present Illness Provider complaint: Chest pain Onset (ago): week(s) 1 Location: chest (Upper chest) Radiation: back (Upper back) Severity: mild Pain Consistency: + intermittent Maximum Pain Intensity: 4 Quality: + other (Tightness as if she has a cold) Relieved By: + none Exacerbated By: + other (Exertion) Associated symptoms: + cough (Very mild cough. She states she only coughs because she feels a tickle in the back of her throat) and + shortness of breath; no fever/chills, no malaise and no nausea/vomiting This is a 69-year-old female with a history of cardiac stent 5 years ago presenting with chest pain. The patient has had chest pain intermittently for the past week. She describes it as a tightness and a feeling "as if I had a cold" in the upper chest rating to her upper back. She states is worse with exertion. It got worse last night at approximately 9 PM and has been there all night. It is associated with shortness of breath. She denies any fever or any cold symptoms other than a mild cough which she states she only has because she feels a tickle in the back of her throat. She denies any recent travel or expos ure to [place] [id number]. She has no abdominal pain or diarrhea. She denies leg swelling or pain. She stated that when she had her stent 5 years ago she did not have any symptoms. He is currently on aspirin. She denies any other blood thinners. She does state that she had her mitral and aortic valve repaired. Home Medications Home Medications Medication Instructions Recorded Confirmed Type albuterol sulfate 2.5 mg INHALATION DIRECTED PRN 07/06/18 12/24/19 History albuterol sulfate [ProAir HFA] 2 puff INHALATION QID PRN 07/06/18 12/24/19 History cyclobenzaprine 10 mg PO BID PRN 07/06/18 12/24/19 History diclofenac sodium 2 g TOPICAL QID PRN 07/06/18 12/24/19 History epinephrine [EpiPen] 0.3 mg IM DIRECTED PRN 07/06/18 12/24/19 History hydroxyzine HCl 25 mg PO DAILY PRN 07/06/18 12/24/19 History lorazepam 0.5 mg PO BID PRN 07/06/18 12/24/19 History metoprolol succinate [Toprol XL] 25 mg PO QAM 07/06/18 12/24/19 History tramadol 50 mg PO Q8H PRN 07/06/18 12/24/19 History amlodipine 2.5 mg PO QAM 05/12/19 12/24/19 History carisoprodol 250 mg PO DAILY PRN 05/12/19 12/24/19 History omeprazole 20 mg PO QAM 05/12/19 12/24/19 History ketorolac 10 mg PO TID PRN 05/21/19 12/24/19 History fluoxetine 20 mg PO QAM 06/14/19 12/24/19 History lisinopril 20 mg PO DAILY 06/14/19 12/24/19 History estradiol 10 mcg vaginal tablet 10 mcg PV UD 10/05/19 12/24/19 History hydrochlorothiazide 12.5 mg tablet 12.5 mg PO DAILY 10/05/19 12/24/19 History rosuvastatin 20 mg tablet 20 mg PO DAILY tab 10/05/19 12/24/19 History aspirin 325 mg PO DAILY 10/27/19 12/24/19 History budesonide-formoterol HFA 160 2 puff INHALATION BID PRN 10/30/19 12/24/19 History mcg-4.5 mcg/actuation aerosol inhaler ibuprofen 600 mg tablet 600 mg PO TID PRN tab 10/30/19 12/24/19 History levothyroxine 112 mcg PO DAILY 12/24/19 12/24/19 History Allergies Allergy/AdvReac Type Severity Reaction Status Date / Time shellfish derived Allergy Severe throat Verified 12/24/19 15:46 closing , systemic reaction Cephalosporins Allergy Intermediate hives Verified 12/24/19 15:46 methenamine Allergy Intermediate hives Verified 12/24/19 15:46 oxycodone Allergy Intermediate HIVES Verified 12/24/19 15:46 pravastatin [From Pravachol] Allergy Intermediate BODY ACHES Verified 12/24/19 15:46 propoxyphene Allergy Intermediate ITCHING Verified 12/24/19 15:46 AND A RASH Sulfa (Sulfonamide Allergy Intermediate hives Verified 12/24/19 15:46 Antibiotics) sulfamethoxazole Allergy Intermediate hives Verified 12/24/19 15:46 trimethoprim Allergy Intermediate hives Verified 12/24/19 15:46 simvastatin AdvReac Intermediate body aches Verified 12/24/19 15:46 tapentadol AdvReac Intermediate felt very Verified 12/24/19 15:46 uncomfortable - does not ever want hydrocodone AdvReac Mild ITCHING Verified 12/24/19 15:46 Past Med/Surg History Medical History Anxiety and depression Asthma, moderate persistent (Chronic) USED RESCUE INHALER LAST WEEK Cardiac murmur Depression (Chronic) Dyslipidemia (Chronic) Fibromyalgia (Chronic) H/O: lung cancer (Resolved) HTN (hypertension) (Chronic) Hypothyroidism (Chronic) Kidney stones Lung cancer (Chronic) Mitral regurgitation (Chronic) Surgical History Aortic valve replaced 2018 AT [facility] History of carpal tunnel release RT/LEFT History of cataract surgery RT/LEFT History of colonoscopy History of endoscopic sinus surgery History of heart artery stent 1 STENT PLACED 04/12/2018 [facility] History of tonsillectomy History of tooth extraction History of total knee replacement LEFT Mitral valve replaced 2017 AT [facility] S/P partial lobectomy of lung (Resolved) 05/23/2013 Family History Other No significant family history Social History Preferred Language: Tristanian Communication Ability: Effective Hearing Ability: Normal Skilled Nursing Facility Counselor Required: No Beliefs That Will Affect Care: None Current Living Situation: Spouse current occupation: Retired Other Information That Helps Us Care for You: No Feels Safe at Home: Yes Safety Concerns: Feels Safe At This Time Smoking Status: Former smoker Tobacco Type: cigarettes ; Cigarettes Per Day: Quit when 27yrs old ; Smoking End Date: 40 years ago ; Second Hand Exposure: No ; Hx Alcohol Use: No Hx Substance Use: No Review of Systems See HPI for pertinent positives & negatives. and A total of 10 systems reviewed and were otherwise negative Physical Exam Vital Signs Vital Signs - 24 hr 12/24/19 14:39 12/24/19 14:54 12/24/19 15:02 Temperature 36.6 C Temperature Source Oral Pulse Rate 88 88 79 Pulse Rate from SpO2 Sensor 79 Pulse Rhythm Regular Respiratory Rate 20 20 21 Respiratory Effort / Characteristics Non-Labored Respiratory Depth Normal Respiratory Pattern Regular Blood Pressure 135/88 120/78 Blood Pressure Mean 103 101 Pulse Oximetry 98 98 96 Oxygen Delivery Method Room Air Room Air Room Air Sepsis Recent Fever Within 48 Hours No Sepsis New/Unexplained Change in Mental Status No Sepsis Action Taken by Nursing No Action Required 12/24/19 15:30 12/24/19 16:00 Temperature Temperature Source Pulse Rate 77 74 Pulse Rate from SpO2 Sensor 77 74 Pulse Rhythm Respiratory Rate 20 30 H Respiratory Effort / Characteristics Respiratory Depth Respiratory Pattern Blood Pressure 99/58 L 118/74 Blood Pressure Mean 82 75 Pulse Oximetry 95 96 Oxygen Delivery Method Room Air Room Air Sepsis Recent Fever Within 48 Hours Sepsis New/Unexplained Change in Mental Status Sepsis Action Taken by Nursing Constitutional: Vital signs reviewed. Eyes: Pupils are equal round reactive to light. Conjunctiva are noninjected. ENT: Pharynx is clear without erythema or exudate. Mucous membranes are moist. Neck supple without meningeal signs. Respiratory: Clear to auscultation bilaterally. Breath sounds are equal bilaterally. Cardiovascular: Regular rate and rhythm. No rubs or gallops. GI: Soft, nondistended and nontender. Bowel sounds are present. Musculoskeletal: No peripheral edema. No lower extremity tenderness. Integumentary: No cyanosis. or jaundice. Neurological: The patient is awake and alert. No focal deficits. Psychiatric: Slightly anxious appearing. Course Administered Medications Discontinued Medications Sodium Chloride (Nss 1000ml) 500 mls @ 999 mls/hr IV .Q31M ONE Stop: 12/24/19 16:10 Last Infusion: 12/24/19 17:06 Dose: 0 mls/hr Documented by: [id number] Admin: 12/24/19 15:57 Dose: 999 mls/hr Documented by: [id number] Nitroglycerin (Nitro-Bid 2%) 0.5 inch EXT NOW STA Stop: 12/24/19 14:54 Last Admin: 12/24/19 15:00 Dose: 0.5 inch Documented by: [id number] Medical Decision Making Differential Diagnosis Unstable angina, NE, pneumonia, bronchitis, pleurisy, GERD Medical Records Attestation: I reviewed the patient's medical records. I did perform a limited focused review of portions of the patient's old chart on the electronic medical record. The patient has had no recent pertinent visits to this hospital. She was seen by cardiology earlier this year. It was noted that she had a cardiac catheterization in 2018 at [facility] which showed no significant epicardial coronary artery disease. Home Medications Current Medication List: was personally reviewed by me Laboratory Data Attestation: I reviewed the patient's lab results. Result diagrams: 12/24/19 14:55 12/24/19 14:55 Lab Results 12/24/19 12/24/19 12/24/19 Range/Units 14:55 14:55 14:55 WBC 7.12 (4.8-10.8) K/uL RBC 4.03 L (4.2-5.4) M/uL Hgb 11.3 L (12.0-16.0) g/dL Hct 34.5 L (37-47) % MCV 85.6 (80-100) fL MCH 28.0 (25-34) pg MCHC 32.8 (32-36) g/dL RDW Std Deviation 42.8 (36.4-46.3) fL RDW Coeff of Jhoana 13.7 (11.5-14.5) % Plt Count 373 (130-400) K/uL MPV 9.4 (7.4-10.4) fL Immature Gran % (Auto) 0.3 % Neut % (Auto) 62.1 % Lymph % (Auto) 25.7 % [place] % (Auto) 10.5 % Eos % (Auto) 1.0 % Baso % (Auto) 0.4 % Immature Gran # (Auto) 0.02 (0.00-0.02) K/uL Neut # (Auto) 4.42 (1.4-6.5) K/uL Lymph # (Auto) 1.83 (1.2-3.4) K/uL [place] # (Auto) 0.75 H (0.11-0.59) K/uL Eos # (Auto) 0.07 (0-0.5) K/uL Baso # (Auto) 0.03 (0-0.2) K/uL PT 10.6 (9.0-12.0) Seconds INR 1.0 (0.9-1.1) APTT 23.7 (21.0-31.0) Seconds PTT Ratio 0.8 Sodium 139 (136-145) mmol/L Potassium 3.4 L (3.5-5.1) mmol/L Chloride 106 (98-107) mmol/L Carbon Dioxide 27 (21-32) mmol/L Anion Gap 7.0 (3-11) BUN 17 (7-18) mg/dl Creatinine 0.87 (0.6-1.2) mg/dl Est Cr Clr Drug Dosing Not Reportable Est GFR ( Amer) 79.9 Est GFR (Non-Af Amer) 68.9 BUN/Creatinine Ratio 19.2 (10-20) Glucose 103 H (70-99) mg/dl Calcium 9.0 (8.5-10.1) mg/dl Total Bilirubin 0.3 (0.2-1) mg/dl AST 15 (15-37) U/L ALT 20 (12-78) U/L Alkaline Phosphatase 120 H (45-117) U/L Troponin I < 0.015 (0-0.045) ng/ml Total Protein 7.3 (6.4-8.2) gm/dl Albumin 3.3 L (3.4-5.0) gm/dl Globulin 4.0 (2.5-4.0) gm/dl Albumin/Globulin Ratio 0.8 L (0.9-2) Imaging Data Radiologist's Impression: XR chest 1V portable CLINICAL HISTORY: 69 years-old Female presenting with Chest Pain. TECHNIQUE: Portable upright AP view of the chest was obtained. COMPARISON: 10/01/2019. FINDINGS: Median sternotomy wires, tricuspid annuloplasty, and aortic valve replacement again noted. Atherosclerosis of the aortic arch. Cardiac silhouette borderline enlarged. No focal opacity. No large effusion or pneumothorax. Osteopenia suspected. Upper abdomen normal. IMPRESSION: 1. Borderline cardiomegaly. No other convincing evidence of acute cardiopulmonary disease. ACT 112: Negative or not required by law. Electronically signed by: Boone Sage M.D. 12/24/2019 3:09 PM ECG Data Attestation: I personally reviewed and interpreted this ECG as follows: Indication: + chest pain Rate (beats per minute): 86 Rhythm: + normal sinus ECG Intervals/blocks: + Prolonged QT ECG ST segments: no ST elevation ECG Findings: no PVCs Blood Pressure Blood Pressure Findings: Elevated blood pressure Blood Pressure Disposition: Referred to patients primary care provider [facility] Narrative I did evaluate the patient as noted above. The patient is presenting with intermittent exertional chest pain throughout the week. She has a known history of coronary artery disease and had a stent placed 5 years ago. IV access was established. I did give her nitroglycerin paste. The patient was placed on a continuous lunchroom monitor. Cardiac monitoring: Indication: Chest pain Rate and rhythm: Normal sinus rhythm rate of 88 no dysrhythmia. I did order and personally review the patient's 12-lead EKG as described above. Her twelve-lead EKG does not demonstrate any acute ischemia. I did order and personally reviewed the images of the patient's chest x-ray as described above. Chest x- ray demonstrates borderline cardiomegaly. There is no acute process. I did order and review the patient's blood work as noted in the electronic medical record. Troponin is negative. She has mild anemia. Electrolytes are unremarkable. I did reevaluate the patient. Her chest pain is now completely resolved after administration of nitroglycerin paste. Her blood pressure did drop likely from the medication. She was given a bolus of normal saline 500 mg IV after which her blood pressure returned to normal. I did discuss the test results with her and recommended hospitalization for further care and evaluation. She will need serial cardiac biomarkers. I did discuss the case with the hospitalist and continuous pillowcase cutter. Impression & Plan Chest pain, exertional Discharge Plan Visit Data Chief Complaint: Chest Pain Stated Complaint: CHEST PAIN, BACK PAIN ED Provider: Mynor Rajput Discharge Problem: Chest pain, exertional Patient Disposition: Being Evaluated by Hospitalist Condition: Good Forms Stand Alone Forms: My [facility] [employer] Prescriptions Prescriptions: No Action rosuvastatin 20 mg tablet 20 mg PO DAILY RF: 0 estradiol 10 mcg tablet 10 mcg PV UD RF: 0 ibuprofen 600 mg tablet 600 mg PO TID PRN (Reason: Pain) RF: 0 cyclobenzaprine 10 mg Tablet 10 mg PO BID PRN (Reason: Muscle Spasm) RF: 0 albuterol sulfate 2.5 mg /3 mL (0.083 %) Solution For Nebulization 2.5 mg INHALATION DIRECTED PRN (Reason: Shortness Of Breath Or Wheezing) RF: 0 tramadol 50 mg Tablet 50 mg PO Q8H PRN (Reason: Pain) RF: 0 lorazepam 0.5 mg Tablet 0.5 mg PO BID PRN (Reason: Anxiety) RF: 0 hydroxyzine HCl 25 mg Tablet 25 mg PO DAILY PRN (Reason: Itching) RF: 0 metoprolol succinate [Toprol XL] 25 mg Tablet Extended Release 24 Hr 25 mg PO QAM RF: 0 epinephrine [EpiPen] 0.3 mg/0.3 mL Auto-Injector 0.3 mg IM DIRECTED PRN (Reason: Allergic Reaction) RF: 0 albuterol sulfate [ProAir HFA] 90 mcg/actuation Hfa Aerosol Inhaler 2 puff INHALATION QID PRN (Reason: Shortness Of Breath Or Wheezing) RF: 0 diclofenac sodium 1 % Gel 2 g TOPICAL QID PRN (Reason: Pain) RF: 0 budesonide-formoterol [Symbicort] 160-4.5 mcg/actuation HFA aerosol inhaler 2 puff INHALATION BID PRN (Reason: Shortness Of Breath) RF: 0 omeprazole 20 mg Capsule,Delayed Release(Dr/Ec) 20 mg PO QAM RF: 0 amlodipine 2.5 mg Tablet 2.5 mg PO QAM RF: 0 carisoprodol 250 mg Tablet 250 mg PO DAILY PRN (Reason: Pain) RF: 0 hydrochlorothiazide 12.5 mg tablet 12.5 mg PO DAILY RF: 0 ketorolac 10 mg Tablet 10 mg PO TID PRN (Reason: Pain) RF: 0 lisinopril 20 mg tablet 20 mg PO DAILY RF: 0 fluoxetine 20 mg Tablet 20 mg PO QAM RF: 0 aspirin 325 mg Tablet 325 mg PO DAILY RF: 0 levothyroxine 112 mcg tablet 112 mcg PO DAILY RF: 0 Referrals Referrals: Kedar Dyer [Primary Care Provider] -
[2019-12-24 15:07] LABS: Basophils # (auto) 0.03 K/uL (0-0.2); Basophils % (auto) 0.4 %; Eosinophils # (auto) 0.07 K/uL (0-0.5); Hematocrit (blood only) 34.5 % (37-47); Hemoglobin 11.3 g/dL (12.0-16.0); Immature Granulocytes # (auto) 0.02 K/uL (0.00-0.02); Immature Granulocytes % (auto) 0.3 %; Lymphocytes # (auto) 1.83 K/uL (1.2-3.4); Lymphocytes % (auto) 25.7 %; Mean Corpuscular Hgb Conc 32.8 g/dL (32-36); Mean Corpuscular Volume 85.6 fL (80-100); Mean Platelet Volume 9.4 fL (7.4-10.4); Monocytes # (auto) 0.75 K/uL (0.11-0.59); Monocytes % (auto) 10.5 %; Neutrophils # (auto) 4.42 K/uL (1.4-6.5); Neutrophils % (auto) 62.1 %; Platelet Count 373 K/uL (130-400); RDW Coefficient of Variation 13.7 % (11.5-14.5); RDW Standard Deviation 42.8 fL (36.4-46.3); Red Blood Count 4.03 M/uL (4.2-5.4); White Blood Count 7.12 K/uL (4.8-10.8)
--- NOTE | 2019-12-24 15:11 | XRay Report ---
XR chest 1V portable CLINICAL HISTORY: 69 years-old Female presenting with Chest Pain. TECHNIQUE: Portable upright AP view of the chest was obtained. COMPARISON: 10/01/2019. FINDINGS: Median sternotomy wires, tricuspid annuloplasty, and aortic valve replacement again noted. Atheroscle rosis of the aortic arch. Cardiac silhouette borderline enlarged. No focal opacity. No large effusion or pneumothorax. Osteopenia suspected. Upper abdomen normal. IMPRESSION: 1. Borderline cardiomegaly. No other convincing evidence of acute cardiopulmonary disease. ACT 112: Negative or not required by law. Electronically signed by: Boone Sage M.D. 12/24/2019 3:09 PM
[2019-12-24 15:17] LABS: Partial Thromboplastin Ratio 0.8; Partial Thromboplastin Time 23.7 Seconds (21.0-31.0); Prothrombin Time 10.6 Seconds (9.0-12.0)
[2019-12-24 15:21] LABS: Alanine Aminotransferase 20 U/L (12-78); Albumin Level 3.3 gm/dl (3.4-5.0); Aspartate Aminotransferase 15 U/L (15-37); BUN Creatinine Ratio 19.2 (10-20); Blood Urea Nitrogen 17 mg/dl (7-18); Carbon Dioxide 27 mmol/L (21-32); Chloride 106 mmol/L (98-107); Est GFR (African American) 79.9; Est GFR (Non-African American) 68.9; Glucose 103 mg/dl (70-99); Potassium 3.4 mmol/L (3.5-5.1); Sodium 139 mmol/L (136-145)
[2019-12-24 15:26] LABS: Albumin Globulin Ratio 0.8 (0.9-2); Alkaline Phosphatase 120 U/L (45-117); Bilirubin,Total 0.3 mg/dl (0.2-1); Total Protein 7.3 gm/dl (6.4-8.2); Troponin I < 0.015 ng/ml (0-0.045)
[2019-12-24] MEDS ORDERED: SODIUM CHLORIDE 0.9% 1000ML 500 ML IV ONE (15:40)
--- NOTE | 2019-12-24 16:17 | History & Physical Report ---
Date of Service December 24, 2019 Assessment & Plan (1) Chest pain, exertional: -Admit to PCU -Initial troponin is negative, trend x2 more sets -check a 2D echo as her last one was in December 2018 -EKG reviewed as above nonischemic findings or ST-T wave abnormalities -PT/OT consulted -Consult cardiology, follows with Dr. Miles as an outpatient (2) Dyspnea: - concerning for respiratory like etiology considering shortness of breath with cough -Check pro calcitonin, ESR, CRP now - consider bio fire panel, consider COVID-19 work-up, pt with underlying comorbidities including respiratory issues including asthma and history of lung cancer - The patient is wearing a N95 mask, she denies any known COVID-19 positive contacts, lives at home with her who has been doing errands such as getting groceries -We will give albuterol inhaler now -Continue inhalers as home medication scheduled -Not requiring supplemental O2 at this point time, RR = 30, she is able to talk in complete sentences to me without difficulty, breath sounds very clear on e xam, no adventitious sounds. 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 She is wearing an N95 mask. Patient reports that this sensation at its worst is a 7/10, and reports it is nearly gone at the time of my visit. She admits to feeling short of breath with minimal ADLs getting herself dressed, taking a shower last evening, and with minimal walking. She has been unable to sleep for several days due to worsening symptoms including chest and shortness of breath. She denies any fevers, sweats or chills. No recent travel, lives at home with her . No known COVID contacts. She denies any lightheadedness or dizziness. When she was brought into the ER a nitro paste patch was placed and her symptoms significantly improved. Patient has been using her albuterol inhaler at home as well is taking all her other normally scheduled medications routinely. The patient also notes that she has been having coating with her bowels, during every bowel movement she notices bright red blood in the toilet bowl. She has been worked up and has known hemorrhoids per GI, has been scheduled as an outpatient to have had a hemorrhoidectomy and/cauterization of the hemorrhoid, however this procedure is on hold secondary to COVID-19. Allergies Allergy/AdvReac Type Severity Reaction Status Date / Time shellfish derived Allergy Severe throat Verified 12/24/19 15:46 closing , systemic reaction Cephalosporins Allergy Intermediate hives Verified 12/24/19 15:46 methenamine Allergy Intermediate hives Verified 12/24/19 15:46 oxycodone Allergy Intermediate HIVES Verified 12/24/19 15:46 pravastatin [From Pravachol] Allergy Intermediate BODY ACHES Verified 12/24/19 15:46 propoxyphene Allergy Intermediate ITCHING Verified 12/24/19 15:46 AND A RASH Sulfa (Sulfonamide Allergy Intermediate hives Verified 12/24/19 15:46 Antibiotics) sulfamethoxazole Allergy Intermediate hives Verified 12/24/19 15:46 trimethoprim Allergy Intermediate hives Verified 12/24/19 15:46 simvastatin AdvReac Intermediate body aches Verified 12/24/19 15:46 tapentadol AdvReac Intermediate felt very Verified 12/24/19 15:46 uncomfortable - does not ever want hydrocodone AdvReac Mild ITCHING Verified 12/24/19 15:46 Home Medications Home Medications Medication Instructions Recorded Confirmed Type albuterol sulfate 2.5 mg INHALATION DIRECTED PRN 07/06/18 12/24/19 History albuterol sulfate [ProAir HFA] 2 puff INHALATION QID PRN 07/06/18 12/24/19 H istory cyclobenzaprine 10 mg PO BID PRN 07/06/18 12/24/19 History diclofenac sodium 2 g TOPICAL QID PRN 07/06/18 12/24/19 History epinephrine [EpiPen] 0.3 mg IM DIRECTED PRN 07/06/18 12/24/19 History hydroxyzine HCl 25 mg PO DAILY PRN 07/06/18 12/24/19 History lorazepam 0.5 mg PO BID PRN 07/06/18 12/24/19 History metoprolol succinate [Toprol XL] 25 mg PO QAM 07/06/18 12/24/19 History tramadol 50 mg PO Q8H PRN 07/06/18 12/24/19 History amlodipine 2.5 mg PO QAM 05/12/19 12/24/19 History carisoprodol 250 mg PO DAILY PRN 05/12/19 12/24/19 History omeprazole 20 mg PO QAM 05/12/19 12/24/19 History ketorolac 10 mg PO TID PRN 05/21/19 12/24/19 History fluoxetine 20 mg PO QAM 06/14/19 12/24/19 History lisinopril 20 mg PO DAILY 06/14/19 12/24/19 History estradiol 10 mcg vaginal tablet 10 mcg PV UD 10/05/19 12/24/19 History hydrochlorothiazide 12.5 mg tablet 12.5 mg PO DAILY 10/05/19 12/24/19 History rosuvastatin 20 mg tablet 20 mg PO DAILY tab 10/05/19 12/24/19 History aspirin 325 mg PO DAILY 10/27/19 12/24/19 History budesonide-formoterol HFA 160 2 puff INHALATION BID PRN 10/30/19 12/24/19 History mcg-4.5 mcg/actuation aerosol inhaler ibuprofen 600 mg tablet 600 mg PO TID PRN tab 10/30/19 12/24/19 History levothyroxine 112 mcg PO DAILY 12/24/19 12/24/19 History Past Med/Surg History Medical History Anxiety and depression Asthma, moderate persistent (Chronic) USED RESCUE INHALER LAST WEEK Cardiac murmur Depression (Chronic) Dyslipidemia (Chronic) Fibromyalgia (Chronic) H/O: lung cancer (Resolved) HTN (hypertension) (Chronic) Hypothyroidism (Chronic) Kidney stones Lung cancer (Chronic) Mitral regurgitation (Chronic) Surgical History Aortic valve replaced 2017 AT [place] History of carpal tunnel release RT/LEFT History of cataract surgery RT/LEFT History of colonoscopy History of endoscopic sinus surgery History of heart artery stent 1 STENT PLACED 04/12/2018 [facility] History of tonsillectomy History of tooth extraction History of total knee replacement LEFT Mitral valve replaced 2017 AT [place] S/P partial lobectomy of lung (Resolved) 05/23/2013 Family History Other No significant family history Social History Preferred Language: Serbian Communication Ability: Effective Hearing Ability: Normal Community Liaison Officer Required: No Beliefs That Will Affect Care: None Current Living Situation: Spouse current occupation: Retired Other Information That Helps Us Care for You: No Feels Safe at Home: Yes Safety Concerns: Feels Safe At This Time Smoking Status: Former smoker Tobacco Type: cigarettes ; Cigarettes Per Day: Quit when 27yrs old ; Smoking End Date: 40 years ago ; Second Hand Exposure: No ; Hx Alcohol Use: No Hx Substance Use: No Review of Systems Review of Systems: Constitutional: No fever, sweats or chills Eyes: No diplopia, no worsening or blurred vision ENT: normal hearing, no trouble swallowing Respiratory: No cough, no sputum, + dyspnea with minimal exertion Cardiovascular: + chest pain, + tightness no palpitations Abdomen: No pain, nausea, vomiting, diarrhea or constipation, + patient reports hemorrhoids with bleeding patient work-up in place and is scheduled for hemorrhoidectomy. Musculoskeletal: No joint pain, calf pain, swelling Neurologic: No weakness, numbness/tingling, or balance problems Psychiatric: + Anxiety and depression well-controlled Skin: No rash or itch Physical Exam Physical Exam: General: awake, alert, no apparent distress, + wearing a N95 mask Head: Normocephalic, atraumatic ENT: PERRL, EOMI, posterior pharynx and oral mucosa not evaluated secondary to wearing mask Chest: Clear to auscultation, on room air, no adventitious breath sounds, RR = 30 Cardiac: Regular rate and rhythm,+ soft ejection murmur at RSB, no JVD, normal peripheral pulses, good capillary refill Abdominal: NABS x 4 quadrants, soft, distended, nontender to palpation, no rebound, guarding or tenderness Extremities: Normal inspection, no peripheral edema or erythema, calfs nontender to palpation Psych: Normal mood and affect Neuro: AAO x 3, strength intact bilaterally and rated 5/5, no motor deficits, speech is clear, no peripheral sensory deficits Skin: no rash or erythema Results & Data Results & Data ([facility]) Vital Signs (Past 12 Hours) Vital Signs Temp Pulse Resp BP Pulse Ox 12/24/19 16:00 74 30 H 118/74 96 12/24/19 15:30 77 20 99/58 L 95 12/24/19 15:02 79 21 120/78 96 12/24/19 14:54 88 20 98 12/24/19 14:39 36.6 C 88 20 135/88 98 Diagnostic Findings XR chest 1V portable CLINICAL HISTORY: 69 years-old Female presenting with Chest Pain. TECHNIQUE: Portable upright AP view of the chest was obtained. COMPARISON: 10/01/2019. FINDINGS: Median sternotomy wires, tricuspid annuloplasty, and aortic valve replacement again noted. Atherosclerosis of the aortic arch. Cardiac silhouette borderline enlarged. No focal opacity. No large effusion or pneumothorax. Osteopenia suspected. Upper abdomen normal. IMPRESSION: 1. Borderline cardiomegaly. No other convincing evidence of acute cardiopulmonary disease. ACT 112: Negative or not required by law. Electronically signed by: Boone Sage M.D. 12/24/2019 3:09 PM Dictated: 12/24/19 1506 Transcribed: 12/24/19 1506 ECG Additional Comments: 24-DEC-2019 14:49:19 [facility]-EDSTAT ROUTINE RETRIEVAL Poor data quality, interpretation may be adversely affected Normal sinus rhythm Prolonged QT Abnormal ECG When compared with ECG of 27-OCT-2019 12:26, No significant change was found 25mm/s 10mm/mV 150Hz 9.0.9 12SL 241 PUJA: 13 Referred by: ER Unconfirmed Vent. rate 86 BPM OK interval 152 ms QRS duration 104 ms QT/QTc 410/490 ms -R-T axes 54 -13 68 Code Status & VTE Plan Code Status Full code-discussed with the patient at bedside Supervising Physician Co-Signing Physician Notes Attending Attestation and Admission Note: Pt seen/examined, chart reviewed, admission care plan d/w JATINDER Villarreal. I agree w/ the moss components of her admission documentation. Pleasant 69yo female - h/o asthma, CAD, valvular heart disease s/p AVR and MVR, and prior carcinoid tumor of the lung s/p wedge resection - presenting with 1 week of fatigue, dry cough, sore throat, dyspnea with exertion, chest tightness/pressure that radiates into the anterior neck region and upper back. The chest symptoms were initially intermittent and since last night have been relatively constant. It was hard to sleep last night because of the symptoms. She has been taking albuterol prn without relief of symptoms. Last dose - yesterday. No fevers, chills. Lives w/ - he has been well. No travel. going to/from grocery store for their food/other necessities. Several times she said to me "it feels like a chest cold." PMH, PSH, allergies, meds, sochx, famhx, ros - reviewed vss, afebrile gen - holding chest when I did my exam, but nontoxic; not coughing; wearing N95 mask neck - no JVD, no appreciable lymphadenopathy heart - RRR, s1 s2, 1/6 THOM LSB lungs - CTA b/l, no wheeze, no rales abd - soft NT ND BS+ ext - no edema, pulses 2+ b/l feet; radial pulses 2+ b/l chest - mild reproducible chest wall pain along sternum CBC wnl BMP wnl EKG - my reading - NSR, no ST changes, borderline prolonged QTc cxr - no infiltrates, sternal wires A/P: 1. multiple chest symptoms including cough, SAMANO, chest pressure/tightness with negative troponin despite prolonged symptoms (which might argue against ischemia); no exact features of pericarditis 2. sore throat, fatigue 3. known asthma 4. known CAD 5. valvular heart disease s/p MVR and AVR in the past #1 and #2 are concerning for infectious etiology despite lack of fever, chills, myalgias, etc awaiting sed rate, crp and procalcitonin strongly consider biofire testing if biofire is negative consider COVID-19 testing given her symptoms (and would need to place in negative pressure) serial troponins telemetry echo consider consult to Dr Miles from cardiology consider CTA chest if infectious w/u is negative and symptoms persist - r/o PE, r/o dissection, etc continue bronchodilators Alonso Worthington MD PG Care Time/CCT Total # of Minutes Spent Total Time Spent with Patient: Total time spent is greater than 50% in coordination of care (as documented) at patient's floor/unit and/or counseling patient: Coding Level of Care Code 64624 Initial Inpt Care Lvl 3 Diagnoses Chest pain, exertional R07.9 Dyspnea R06.00 Asthma, moderate persistent J45.40 H/O: lung cancer Z85.118 HTN (hypertension) I10 Mitral regurgitation I34.0 Hypothyroidism E03.9 Anxiety and depression F41.9; F32.9 DVT prophylaxis Z29.9
[2019-12-24] MEDS ORDERED: ONDANSETRON INJ 2 MG/ML 2 ML VIAL IV PRN (16:38)
[2019-12-24] MEDS ORDERED: ACETAMINOPHEN 325 MG TAB PO PRN (16:38)
[2019-12-24] MEDS ORDERED: KETOROLAC TROMETHAMINE 10 MG TABLET PO PRN (16:41)
[2019-12-24] MEDS ORDERED: ALBUTEROL HFA 8 GM INHALER INH PRN (16:41)
[2019-12-24] MEDS ORDERED: ALBUTEROL 0.083% NEBU SOLN 3 ML VIAL INH PRN (16:41)
[2019-12-24] MEDS ORDERED: DICLOFENAC SOD 1% GEL 100 GM TUBE EXT PRN (16:41)
[2019-12-24] MEDS ORDERED: EPINEPHRINE ADULT AUTO-INJECT 0.3 MG SYR IM PRN (16:41)
[2019-12-24] MEDS ORDERED: TRAMADOL HCL 50 MG TABLET PO PRN (16:41)
[2019-12-24] MEDS ORDERED: LORazepam 0.5 MG TAB PO PRN (16:41)
[2019-12-24] MEDS ORDERED: CYCLOBENZAPRINE HCL 5 MG TAB PO PRN (16:41)
[2019-12-24] MEDS ORDERED: CYCLOBENZAPRINE HCL 10 MG TAB PO PRN (17:02)
[2019-12-24] MEDS ORDERED: ALBUTEROL HFA 8 GM INHALER INH ONE (17:46)
[2019-12-24] MEDS ORDERED: IBUPROFEN 600 MG TAB PO PRN (20:02)
[2019-12-24] MEDS ORDERED: FLUTICASONE/VILANTEROL 200/25MCG 14 PUFFS/INHALER INH PRN (20:08)
[2019-12-24] MEDS ORDERED: OPTIRAY 320 125ml IV PRN (21:21)
--- NOTE | 2019-12-24 21:54 | CT Scan Report ---
CT ANGIOGRAM OF THE CHEST CLINICAL HISTORY: Dyspnea. Atypical chest pain. COMPARISON STUDY: Chest x-ray dated 12/24/2019. Chest CT scans dated 06/14/2019, 07/06/2018, and 07/26. TECHNIQUE: Following the IV administration of 120 cc of Optiray 320, CT angiogram of the chest was pe rformed from the upper abdomen to the thoracic inlet utilizing the pulmonary embolus protocol. Images are reviewed in the axial, sagittal, and coronal planes. 3-D MIPS images are created and assessed. I V contrast was administered without complication. A dose lowering technique was utilized adhering to the principles of ALARA. CT DOSE: 358.13 mGy.cm FINDINGS: Thyroid: Imaged portions of the thyroid gland are normal in size and attenuation. Thoracic aorta: There is mild atherosclerotic calcification of the thoracic aorta, which is normal in caliber and demonstrates standard 3-vessel arch anatomy. No dissection is seen. Pulmonary vasculature: The pulmonary trunk is normal in caliber. There are no filling defects identif ied in main, lobar, or segmental pulmonary branches to suggest pulmonary embolus. Heart: The patient is status post midline sternotomy. The heart is top normal in size and without per icardial effusion. Postoperative change is involving the aortic valve. Lungs and pleural spaces: Evaluation of the lung parenchyma is modestly degraded by motion artifact. There is postoperative change and volume loss from a right-sided pulmonary resection. No airspace con solidation or pleural effusion is identified. The trachea and central airways are clear. A 4 mm left lower lobe nodule is seen on image #140. A 3 mm nodule in the right anterior lung is similar to 166. These are low suspicion, as they are unchanged from 07/06/2018 and only minimal increased in size dati ng back to 2013. Mediastinum: There is no mediastinal lymphadenopathy. Brittany: Clear. Axillae: There is no axillary lymphadenopathy. Upper abdomen: Postoperative change is noted at the esophageal hiatus. Partially visualized upper abd ominal viscera is within normal limits. Skeletal structures: The skeletal structures are osteopenic. No lytic or blastic bony lesions are see n. IMPRESSION: 1. There is no evidence of pulmonary embolus in the main, lobar, or segmental pulmonary arteries. 2. There is no airspace consolidation or pleural effusion. 3. Postoperative change as above. ACT 112: Negative or not required by law. Electronically signed by: Landry Vu M.D. 12/24/2019 9:53 PM
[2019-12-25 06:47] LABS: Hematocrit (blood only) 35.2 % (37-47); Hemoglobin 11.2 g/dL (12.0-16.0); Mean Corpuscular Hemoglobin 27.7 pg (25-34); Mean Corpuscular Hgb Conc 31.8 g/dL (32-36); Mean Corpuscular Volume 86.9 fL (80-100); Mean Platelet Volume 9.5 fL (7.4-10.4); Platelet Count 378 K/uL (130-400); RDW Standard Deviation 44.5 fL (36.4-46.3); Red Blood Count 4.05 M/uL (4.2-5.4); White Blood Count 7.29 K/uL (4.8-10.8)
[2019-12-25 07:16] LABS: Alanine Aminotransferase 19 U/L (12-78); Albumin Level 3.1 gm/dl (3.4-5.0); Aspartate Aminotransferase 14 U/L (15-37); Blood Urea Nitrogen 15 mg/dl (7-18); Calcium 8.9 mg/dl (8.5-10.1); Carbon Dioxide 29 mmol/L (21-32); Chloride 106 mmol/L (98-107); Creatinine Clr Calc Pharmacy 69.8 ml/min; Est GFR (African American) 102.2; Est GFR (Non-African American) 88.1; Glucose 85 mg/dl (70-99); Potassium 3.6 mmol/L (3.5-5.1); Sodium 138 mmol/L (136-145)
[2019-12-25 07:20] LABS: Albumin Globulin Ratio 0.8 (0.9-2); Alkaline Phosphatase 109 U/L (45-117); Bilirubin,Total 0.5 mg/dl (0.2-1); Globulin 3.9 gm/dl (2.5-4.0); Troponin I < 0.015 ng/ml (0-0.045)
[2019-12-25] MEDS ORDERED: LEVOTHYROXINE SODIUM 112 MCG TABLET PO SCH (07:30)
[2019-12-25] MEDS ORDERED: PANTOprazole 40 MG TAB PO SCH (09:00)
[2019-12-25] MEDS ORDERED: AMLODIPINE BESYLATE 5 MG TAB PO SCH (09:00)
[2019-12-25] MEDS ORDERED: FLUOXETINE HCL 20 MG CAP PO SCH (09:00)
[2019-12-25] MEDS ORDERED: METOPROLOL SUCC 25MG EXT REL TAB PO SCH (09:00)
[2019-12-25] MEDS ORDERED: ASPIRIN 325 MG ECTAB PO SCH (09:00)
[2019-12-25] MEDS ORDERED: hydroCHLOROthiazide 25 MG TAB PO SCH (09:00)
[2019-12-25] MEDS ORDERED: ENOXAPARIN INJ 40 MG/0.4 ML SYR SQ SCH (09:00)
[2019-12-25] MEDS ORDERED: ROSUVASTATIN CALCIUM 20 MG TAB PO SCH (09:00)
[2019-12-25] MEDS ORDERED: lisinopriL 20 MG TAB PO SCH (09:00)
--- NOTE | 2019-12-25 11:50 | Electrocardiogram Report ---
Test Reason : Blood Pressure : / mmHG Vent. Rate : 086 BPM Atrial Rate : 086 BPM P-R Int : 152 ms QRS Dur : 104 ms QT Int : 410 ms P-R-T Axes : 054 -13 068 degrees QTc Int : 490 ms Poor data quality, interpretation may be adversely affected Normal sinus rhythm Prolonged QT Abnormal ECG When compared with ECG of 27-OCT-2019 12:26, No significant change was found Confirmed by Edwin Machado ([id number]) on 12/25/2019 11:50:14 AM Referred By: ER Confirmed By:Stephen Machado
--- NOTE | 2019-12-25 12:56 | Discharge Summary ---
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 She is wearing an N95 mask. Patient reports that this sensation at its worst is a 7/10, and reports it is nearly gone at the time of my visit. She admits to feeling short of breath with minimal ADLs getting herself dressed, taking a shower last evening, and with minimal walking. She has been unable to sleep for several days due to worsening symptoms including chest and shortness of breath. She denies any fevers, sweats or chills. No recent travel, lives at home with her . No known COVID contacts. She denies any lightheadedness or dizziness. When she was brought into the ER a nitro paste patch was placed and her symptoms significantly improved. Patient has been using her albuterol inhaler at home as well is taking all her other normally scheduled medications routinely. The patient also notes that she has been having coating with her bowels, during every bowel movement she notices bright red blood in the toilet bowl. She has been worked up and has known hemorrhoids per GI, has been scheduled as an outpatient to have had a hemorrhoidectomy and/cauterization of the hemorrhoid, however this procedure is on hold secondary to COVID-19. Principal Diagnosis Chest pain-costochondritis Discharge Exam Constitutional WD/WN, vitals as above Eyes PERRL, conjunctivae normal, anicteric sclerae ENMT external ear and nose normal, oropharynx normal Neck trachea midline, no thyromegaly Respiratory normal respiratory effort, lungs clear to auscultation Cardiovascular Rate/Rhythm: regular rate and regular rhythm Heart Sounds: + murmur (2/6 THOM at [facility]) +TTP over costochondral junction Chest (Breasts) Chest: normal inspection of chest Gastrointestinal (Abdomen) normal bowel sounds, soft, nontender, no hepatosplenomegaly Musculoskeletal Extremities: extremities normal to inspection; no cyanosis and no clubbing Skin no rashes, warm and dry Neurologic moves all extremities and awake; no focal motor deficits Psychiatric A+Ox3, euthymic affect Lymphatic no lymphedema Discharge Data Allergies Allergy/AdvReac Type Severity Reaction Status Date / Time shellfish derived Allergy Severe throat Verified 12/24/19 15:46 closing , systemic reaction Cephalosporins Allergy Intermediate hives Verified 12/24/19 15:46 methenamine Allergy Intermediate hives Verified 12/24/19 15:46 oxycodone Allergy Intermediate HIVES Verified 12/24/19 15:46 pravastatin [From Pravachol] Allergy Intermediate BODY ACHES Verified 12/24/19 15:46 propoxyphene Allergy Intermediate ITCHING Verified 12/24/19 15:46 AND A RASH Sulfa (Sulfonamide Allergy Intermediate hives Verified 12/24/19 15:46 Antibiotics) sulfamethoxazole Allergy Intermediate hives Verified 12/24/19 15:46 trimethoprim Allergy Intermediate hives Verified 12/24/19 15:46 simvastatin AdvReac Intermediate body aches Verified 12/24/19 15:46 tapentadol AdvReac Intermediate felt very Verified 12/24/19 15:46 uncomfortable - does not ever want hydrocodone AdvReac Mild ITCHING Verified 12/24/19 15:46 Consultations 12/24/19 16:15 ED Decision to Admit Stat 12/24/19 16:39 Consult Cardiology Routine 12/24/19 16:40 Consult Case Management - Discharge Planning Routine Ordered Studies 12/24/19 19:38 CT angio chest PE protocol Urgent Hospital Course (1) Chest pain, exertional: -serial troponin negative, BNP normal, ECG unchamged, no ischemic changes Pain was completely relieved in ER with NTG but seemed very atypical and had been ongoing for a whole night prior to admission constantly -no changes on ECHO CXR and CTA Chest both negative for acute changes, neg for PE TTP over chest wall, likely costochondritis Discussed with her primary Video Camera Operator and felt no further testing needed, stable for discharge to home (2) Dyspnea: -associated with chest pain and has been completely resolved since admission, not hypoxic -inflammatory markers not elevated -she denies any known COVID-19 positive contacts, lives at home with her who has been doing errands such as getting groceries -CXR negative, CTA Chest negative for PE or PNA (3) Asthma, moderate persistent: Chronic, as above (4) H/O: lung cancer: -History of stage Ia carcinoid lung tumor s/p wedge resection (5) HTN (hypertension): -Continue amlodipine 2.5 every morning, HCTZ 12.5 mg daily, metoprolol succinate 25 mg daily -BP currently well controlled (6) Mitral regurgitation: -History of such s/p MR and AV valve replacement, bioprosthetic valves, follows with Dr. Miles as outpatient (7) Hypothyroidism: -Continue levothyroxine 112 mcg daily (8) Anxiety and depression: -Continue Prozac 20 mg every morning, hydroxyzine 25 mg daily as needed -Uses Flexeril and soma for fibromyalgia (9) DVT prophylaxis: -Prabhu Christine CODE STATUS: Full code Disposition: stable for dc to home Total Time Total Time Spent Total Time Spent (In Minutes): 35 min Total Time Includes: Examination of the Patient, Discharge Planning and Medication Reconciliation Discharge Plan Discharge Items Patient Disposition: Home - Self-Care Reason For Visit: CHEST PAIN,DYSPNEA,CAD,HX LUNG CANCER Discharge Diagnosis: Atypical chest pain-costochondritis Condition on Discharge: Good Activity: Resume your previous activity Non-emergency contact: Primary Care Provider and Video Camera Operator Call non-emergency contact if: you have any medication questions, your symptoms worsen, your pain is not controlled and your pain is worsening Follow-up/Referrals: Kedar Dyer [Primary Care Provider] - (Please call to see if Dr. Dyer would like to see you within 2 weeks.) Diet: Heart Healthy Addtl Attending Provider Instructions: You can continue to take Tylenol or use a warm compress on your chest as needed for this musculoskeletal pain in your chest. Pending Studies at Discharge: No Stand-Alone Forms: My [facility] Medications and DC Order Prescriptions: Continued rosuvastatin 20 mg tablet 20 mg PO DAILY RF: 0 cyclobenzaprine 10 mg Tablet 10 mg PO BID PRN (Reason: Muscle Spasm) RF: 0 albuterol sulfate 2.5 mg /3 mL (0.083 %) Solution For Nebulization 2.5 mg INHALATION DIRECTED PRN (Reason: Shortness Of Breath Or Wheezing) RF: 0 tramadol 50 mg Tablet 50 mg PO Q8H PRN (Reason: Pain) RF: 0 lorazepam 0.5 mg Tablet 0.5 mg PO BID PRN (Reason: Anxiety) RF: 0 hydroxyzine HCl 25 mg Tablet 25 mg PO DAILY PRN (Reason: Itching) RF: 0 metoprolol succinate [Toprol XL] 25 mg Tablet Extended Release 24 Hr 25 mg PO QAM RF: 0 epinephrine [EpiPen] 0.3 mg/0.3 mL Auto-Injector 0.3 mg IM DIRECTED PRN (Reason: Allergic Reaction) RF: 0 albuterol sulfate [ProAir HFA] 90 mcg/actuation Hfa Aerosol Inhaler 2 puff INHALATION QID PRN (Reason: Shortness Of Breath Or Wheezing) RF: 0 diclofenac sodium 1 % Gel 2 g TOPICAL QID PRN (Reason: Pain) RF: 0 budesonide-formoterol [Symbicort] 160-4.5 mcg/actuation HFA aerosol inhaler 2 puff INHALATION BID PRN (Reason: Shortness Of Breath) RF: 0 omeprazole 20 mg Capsule,Delayed Release(Dr/Ec) 20 mg PO QAM RF: 0 amlodipine 2.5 mg Tablet 2.5 mg PO QAM RF: 0 carisoprodol 250 mg Tablet 250 mg PO DAILY PRN (Reason: Pain) RF: 0 hydrochlorothiazide 12.5 mg tablet 12.5 mg PO DAILY RF: 0 lisinopril 20 mg tablet 20 mg PO DAILY RF: 0 fluoxetine 20 mg Tablet 20 mg PO QAM RF: 0 aspirin 325 mg Tablet 325 mg PO DAILY RF: 0 levothyroxine 112 mcg tablet 112 mcg PO DAILY RF: 0 Discontinued ibuprofen 600 mg tablet 600 mg PO TID PRN (Reason: Pain) RF: 0 ketorolac 10 mg Tablet 10 mg PO TID PRN (Reason: Pain) RF: 0 Discharge Orders: Discharge Order (Routine); Ordered 12/25/19 Ordered By: Dina Pichardo Admission Data Admit Date/Time: 12/24/19 16:38 Attending Provider: Dina Pichardo Admit Provider: Alonso Worthington Primary Care Provider: Kedar Dyer Other Interventions: Discharge Summary Assessment (RN) Last Done: 12/25/19 12:49 DC Date/Time DO NOT enter until pt leaves facility: 12/25/19 13:05 Coding Level of Care Code D/C Day Management >30 mins Diagnoses Chest pain, exertional R07.9 Dyspnea R06.00 Asthma, moderate persistent J45.40 H/O: lung cancer Z85.118 HTN (hypertension) I10 Mitral regurgitation I34.0 Hypothyroidism E03.9 Anxiety and depression F41.9; F32.9 DVT prophylaxis Z29.9
--- NOTE | 2019-12-27 11:41 | XCELERA ---
[id number] [id number]
== END 2019-12-25 13:05 | disposition home or self-care (01) | DRG 206 ==
LOC: 2S 14:32 → ED 14:32 → SUATTDRO 16:38 → OBSVTOIN 16:38 → 2S 18:49

== ENCOUNTER 2024-10-09 03:01 | Observation (INO) ==
[2024-10-09 03:15] VITALS: TEMP 98.6
--- OUTSIDE RECORDS SUMMARY | 2024-10-09 03:45 | External Medical Summary | Continuity of Care Document ---
Author Name Unknown Organization [facility] [address] Address [address] [place], [place] [id number] Care Team Providers Care Survey Statistician Name Role Phone Maricruz Stevenson Primary Care Physician [phone] Encounter [facility] [id number] Date(s): 10/04/24 - 10/04/24 [facility] [address] [facility] [address], [facility] [address] [place], [place] [phone] Encounter Diagnosis Hypothyroidism, unspecified(Final) - Discharge Disposition: Home or Self Care Attending Physician: MD Hilton Dongsheng Referring Physician: MD Hilton Dongsheng Allergies, Adverse Reactions, Alerts Substance Criticality Severity Reaction Reaction Severity Status sulfamethoxazole-trimetho prim Not available Active propoxyphene hives Active simvastatin hives Active hydrocodone itching Active cephalosporins hives Activ e sulfa drugs hives Active Vicodin hives Active hyoscyamine dry mouth Active shellfish Anaphylaxis rash Active Percocet 5/325 itchy hives Active Nucynta itching Active oxyCODONE hives Active Immunizations Given and Recorded Vaccine Date Status Refusal Reason influenza virus vaccine, inactivated 09/19/24 Give n influenza virus vaccine, inactivated 05/27/23 Give n influenza virus vaccine, inactivated 06/25/22 Give n influenza virus vaccine, inactivated 08/14/21 Give n influenza virus vaccine, inactivated 05/15/20 Give n influenza virus vaccine, inactivated 05/23/19 Give n influenza virus vaccine, inactivated 06/06/17 Give n SARS-CoV-2 (COVID-19) mRNA BNT-162b2 vax 06/30/21 Recorded SARS-CoV-2 (COVID-19) mRNA BNT-162b2 vax 11/14/20 Recorded SARS-CoV-2 (COVID-19) mRNA BNT-162b2 vax 11/14/20 Recorded SARS-CoV-2 (COVID-19) mRNA BNT-162b2 vax 10/17/20 Recorded SARS-CoV-2 (COVID-19) mRNA BNT-162b2 vax 10/17/20 Recorded pneumococcal 23-valent vaccine 02/13/20 Given pneumococcal 23-valent vaccine 05/25/13 Given pneumococcal 23-valent vaccine 1 01/09/09 Recorded zoster vaccine live 02/17/17 Given tetanus/diphtheria/pertuss, acel (Tdap) 2 01/09/09 Recorded tetanus toxoids-diphtheria, Td (Adult) 3 07/05/94 Recorded 1Result Comment: 2021-02-06: Historical information-source unspecified 2Result Comment: 2021-02-06: Historical information-source unspecified 3Result Comment: 2021-02-06: Historical information-source unspecified Medications albuterol 0.083% for nebulization Start: 01/10/23 12:45:00 PM EDT, 3 mL, inhaled, q6h, Disp# 25 each, Refills: 6, PRN: as needed for wheezing, Pharmacy: [id number] Start Date: 01/10/23 Status: Ordered aspirin 81 mg oral delayed release tablet Start: 09/19/24 3:27:00 PM EST, 1 tab, PO, Daily Start Date: 09/19/24 Status: Ordered benzocaine/lidocaine/tetracaine 20%-10%-10% topical ointment Start: 10/25/21 10:33:00 AM EST, See Instructions, Disp# 60 g, Refills: 0, Apply to anal canal with gloved finger TID, called to pharmacy Start Date: 10/25/21 Status: Ordered colchicine 0.6 mg oral tablet Start: 09/19/24 4:03:00 PM EST, 1 tab, PO, Daily, Disp# 90 tab, Refills: 3, Pharmacy: [id number] Start Date: 09/19/24 Status: Ordered cyanocobalamin Start: 09/19/24 3:27:00 PM EST, injection once monthly Start Date: 09/19/24 Status: Ordered cyclobenzaprine 5 mg oral tablet Start: 12/03/21 2:40:00 PM EDT, 1 tab, PO, bid, Disp# 60 tab, Refills: 1, PRN: as needed for spasm, Pharmacy: [id number] Start Date: 12/03/21 Status: Ordered dibucaine 1% topical ointment Start: 05/13/23 3:18:00 PM EDT Start Date: 05/13/23 Status: Ordered dicyclomine 10 mg oral capsule Start: 08/28/24 12:04:00 PM EST, 1 cap, PO, qid, Disp# 120 cap, Refills: 1, 30 to 60 minutes beforemeals, Pharmacy: [id number] Start Date: 08/28/24 Stop Date: 10/27/24 Status: Ordered Diltiazem 2% ointment Start: 11/08/23 12:37:00 PM EST, Diltiazem 2% ointment, eRx Product Type: Compound, See Instructions,Disp# 30 g, Refills: 2, Apply ointment with gloved index finger to external anus three times a day,Pharmacy [facility] Start Date: 11/08/23 Status: Ordered Diltiazem 2% Ointment Start: 09/04/24 11:34:00 AM EST, Diltiazem 2% Ointment, eRx Product Type: Compound, See Instructions, Disp# 30 g, Refills: 1, Apply with gloved index finger to external anus up to three times daily for eight weeks., Pharmacy [facility] Start Date: 09/04/24 Status: Ordered doxepin 10 mg oral capsule TAKE 1-2 CAPSULES BY MOUTH AT BEDTIME NEEDED Start Date: 02/10/24 Status: Ordered DuoNeb 0.5 mg-2.5 mg/3 mL inhalation solution Start: 08/28/24 12:03:00 PM EST, 3 mL, inhaled, q6h, Disp# 90 mL, Refills: 1, PRN: as needed for shortness of breath or wheezing, Pharmacy: [id number] Start Date: 08/28/24 Stop Date: 09/11/24 Status: Ordered EPINEPHrine 0.3 mg injectable kit Start: 02/10/24 11:05:00 AM EDT, 0.3 mg =, IM, ONCE, Disp# 1 pen_needle, PRN: as needed for anaphylaxis, Pharmacy: [id number] Start Date: 02/10/24 Status: Ordered gabapentin 300 mg oral capsule Start: 08/16/24 2:27:00 PM EST, 1 cap, PO, tid, Disp# 42 cap, Refills: 1, Pharmacy: [id number] Start Date: 08/16/24 Stop Date: 09/13/24 Status: Ordered hydrOXYzine hydrochloride Start: 05/13/23 3:15:00 PM EDT, See Instructions, 25 mg PO Start Date: 05/13/23 Status: Ordered ipratropium 42 mcg/inh (0.06%) nasal spray Start: 08/16/23 3:27:00 PM EST, 2 spray, each nostril, tid, Disp# 1 each, PRN: as needed for cold symptoms, Pharmacy: [facility] Start Date: 08/16/23 Status: Ordered Kenalog 0.025% topical cream Start: 02/01/24 1:53:00 PM EDT, 1 appl, topical, bid, Disp# 60 g, Refills: 0, Pharmacy: [facility] Start Date: 02/01/24 Status: Ordered ketorolac 10 mg oral tablet Start: 02/01/24 1:45:00 PM EDT, 1 tab, PO, Daily, Disp# 20 tab, Refills: 0, Take one tablet (10 mg) in evening with meal as needed for pain, PRN: as needed for pain, Pharmacy: [facility] Start Date: 02/01/24 Status: Ordered lactulose 10 g/15 mL oral syrup Start: 03/25/23 3:03:00 PM EDT, 30 mL, PO, Daily, Disp# 120 mL, Refills: 1, PRN: as needed for constipation, Pharmacy: [facility] Start Date: 03/25/23 Status: Ordered levothyroxine 50 mcg (0.05 mg) oral tablet Start: 09/14/24 3:03:00 PM EST, 1 tab, PO, Daily, Disp# 30 tab, Refills: 3, Take one 50 mg tablet daily., Pharmacy: [id number] Start Date: 09/14/24 Stop Date: 01/12/25 Status: Ordered Lexapro 10 mg oral tablet Start: 10/05/24 3:43:00 PM EST, 1 tab, PO, Daily, Disp# 30 tab, Refills: 3, Pharmacy: [facility] Start Date: 10/05/24 Stop Date: 02/02/25 Status: Ordered Lidoderm 5% topical patch Start: 07/10/20 1:18:00 PM EST, 1 patch, topical, Daily, Disp# 30 patch, Refills: 5, Pharmacy: [facility] Start Date: 07/10/20 Status: Ordered lisinopril 20 mg oral tablet Start: 09/15/23 3:14:00 PM EST, See Instructions, Disp# 45 tab, Refills: 3, 1/2 tab PO BID, Pharmacy: [facility] Start Date: 09/15/23 Status: Ordered LORazepam 0.5 mg oral tablet Start: 05/25/24 3:03:00 PM EDT, 1-2 tab, PO, Daily, Disp# 30 tab, Refills: 0, PRN: as needed for anxiety, Pharmacy: [facility] Start Date: 05/25/24 Stop Date: 06/24/24 Status: Ordered Lyrica 50 mg oral capsule Start: 03/30/22 3:14:00 PM EDT, 1 cap, PO, bid, Disp# 60 cap, Refills: 1, Pharmacy: [facility] Start Date: 03/30/22 Status: Ordered magnesium glycinate 200 mg oral tablet Start: 03/26/24 4:03:00 PM EDT, 1-2 tab, PO, Daily, Disp# 180 tab, Refills: 3, Pharmacy: [facility] Start Date: 03/26/24 Stop Date: 07/24/24 Status: Ordered meclizine 25 mg oral tablet Start: 05/20/22 1:45:00 PM EDT, 1 tab, PO, tid, Disp# 30 tab, Refills: 1, PRN: as needed for dizziness, Pharmacy: [facility] Start Date: 05/20/22 Status: Ordered Metoprolol Succinate ER 25 mg oral tablet, extended release Start: 09/15/23 3:33:00 PM EST, 1.5 tab, PO, Daily, Disp# 45 tab, Refills: 3, Pharmacy: [facility] Start Date: 09/15/23 Status: Ordered nitroglycerin 0.1 mg/hr transdermal film, extended release Start: 08/03/23 9:29:00 AM EST, 1 patch, transdermal, Daily, Disp# 90 patch, Refills: 3, Pharmacy: [facility] Start Date: 08/03/23 Status: Ordered omeprazole 20 mg oral delayed release capsule Start: 12/08/22 8:28:00 PM EDT, 1 cap, PO, Daily, Disp# 30 cap, Refills: 7, Pharmacy: [facility] Start Date: 12/08/22 Stop Date: 08/05/23 Status: Ordered oxyCODONE 5 mg oral tablet Start: 10/05/24 3:48:00 PM EST, 1 tab, PO, q4h, Disp# 10 tab, Refills: 0, Take 0.5 to 1 tablet as needed for pain in the hip and knee. Known to have itching w/ Oxycodone, okay to take with Benadryl short term., PRN: as needed for pain, Pharmacy: [facility] Start Date: 10/05/24 Status: Ordered Symbicort 160 mcg-4.5 mcg/inh inhalation aerosol Start: 08/28/24 12:03:00 PM EST, 2 puff, inhaled, bid, Disp# 1 each, Refills: 11, rinse mouth and throat after use, Pharmacy: [facility] Start Date: 08/28/24 Status: Ordered traMADol 50 mg oral tablet Start: 06/06/24 9:19:00 AM EDT, 1 tab, PO, q8h, Disp# 20 tab, PRN: as needed for pain, Pharmacy: [facility] Start Date: 06/06/24 Status: Ordered Tylenol 500 mg oral tablet Start: 03/07/19 8:27:00 AM EDT, 2 tab, PO, tid, PRN: as needed for pain Start Date: 03/07/19 Status: Ordered Uro-Jet 2% topical gel with applicator Start: 04/14/21 2:35:00 PM EDT, 10 mL, topical, ONCE, Disp# 10 mL, Refills: 3, Use prior to bowel movement, Pharmacy: [facility] Start Date: 04/14/21 Status: Ordered Voltaren 1% topical gel Start: 06/21/22 4:15:00 PM EDT, 1 appl, topical, qid, Disp# 100 g, Refills: 4, 4g to affected area 4 times a day, PRN: Pain, Pharmacy: [facility] Start Date: 06/21/22 Status: Ordered Problem List Condition Confirmation Course Effective Dates Status H ealth Status Informant Alopecia Confirmed Active Anxiety Confirmed Active Aortic stenosis Confirmed Active Atrial bigeminy Confirmed Active External hemorrhoid, bleeding Confirmed Active Chronic anemia Confirmed Active Chronic insomnia Confirmed Active Headaches, cluster Confirmed Active Pericardial constriction Confirmed Active CAD (coronary artery disease) 1 Confirmed Active Vitamin D deficiency Confirmed Active Diverticulosis of colon Confirmed Active Fibromyalgia Confirmed Active Generalized osteoarthritis of hand Confirmed Active Chronic gout Confirmed Active S/P AVR Confirmed Active History of malignant carcinoid tumor of bronchus and lung Confirmed Active History of left knee replacement Confirmed Active S/P tricuspid valve repair Confirmed Active Hypertension Confirmed Active Hyperuricemia Confirmed Active Hypothyroidism Confirmed Active Intermittent vertigo Confirmed Active IBS (irritable bowel syndrome) Confirmed Active Asthma Confirmed Active Nodule of flexor tendon sheath Confirmed Active Left knee pain Confirmed Active Plantar fasciitis of left foot Confirmed Active Pleuritic chest pain Confirmed Active Prolonged QT interval Confirmed Active Restless legs Confirmed Active Rib pain on right side Confirmed Active Fecal urgency Confirmed Active Unspecified urinary incontinence Confirmed Active Ambulatory dysfunction Confirmed Active Weight disorder Confirmed Active 1on chest CT Procedures Procedure Date Related Diagnosis Body Site Status HEPATOBIL SYST IMAGE W/DRUG 1 06/09/23 Completed Chest X-ray 2 01/24/23 Completed Procedure 3 01/12/[address] of abdomen and pelvis wit h IV contrast 4 12/08/22 Completed Ultrasound scan of gallbladder 5 12/07/22 Completed Chest x-ray 6 10/25/22 Completed X-ray of right clavicle 7 10/25/22 Completed Plain X-ray of lumbar spine 8 06/14/[address] of abdomen and pelvis 9, 10 03/04/22 Completed Mammogram 11 01/18/22 Completed EUA - Exam under anes rectum 12 12/10/21 Completed Shave biopsy and cauterization of skin 10/19/21 Completed Breath test--lactose 13 09/28/21 C ompleted Breath test 14 09/14/21 Completed Mammogram 15 08/25/21 Completed CXR - Chest X-ray 16 04/08/21 Comp leted Mammogram 17 01/16/21 Completed Colonoscopy 18, 19 01/07/21 Comple danny PFT - Pulmonary function tests 20 11/20/20 Completed CXR - Chest X-ray 21 10/28/20 Comp leted Ultrasound scan of pelvis 22 07/09/20 Completed Electrocardiogram 07/06/20 Complet ed Injection 23 04/17/20 Completed DXA of hip and spine 24 04/08/20 C ompleted Mammogram - screening 25 10/26/19 Completed Duodenal biopsy 26 05/24/19 Comple danny Upper GI endoscopy 27, 28 05/23/19 Completed Ultrasound scan of abdomen 29 05/16/[address] of abdomen and pelvis wit h contrast 30 05/12/19 Completed Excision biopsy, eye operation 10/19/18 Completed EXAM UNDER ANESTHESIA 2019 Com pleted AVR - Aortic valve replaceme nt & tricuspid 31 04/22/18 Completed Open heart surgery 32 04/12/18 Com pleted Plain chest X-ray (procedure) 03/25/18 Completed Plain chest X-ray (procedure) 01/09/18 Completed Doppler ultrasonography of v ein of lower limb (procedure) 01/04/18 Completed Ultrasound 33 01/04/18 Completed Diagnostic radiography of ab domen (procedure) 12/25/17 Completed Diagnostic radiography of ab domen (procedure) 12/15/17 Completed Doppler ultrasonography of v ein of lower limb (procedure) 11/21/17 Completed Portable X-ray (procedure) 11/17/17 Completed Puncture procedure (procedure) 11/17/17 Completed Radiologic examination of kn ee (procedure) 11/17/17 Completed Replacement of Left Knee Debbie nt with Synthetic Substitute, Cemented, Open Approach 11/17/17 Completed Total replacement of left kn ee joint (procedure) 11/17/17 Completed Colonoscopy 34, 35 11/14/17 Comple danny Colonoscopy, flexible, proxi mal to splenic flexure; with biopsy, single or multiple 3/12/18 Completed Polypectomy 36 11/14/17 Completed Plain chest X-ray (procedure) 10/21/17 Completed Plain chest X-ray (procedure) 10/03/17 Completed Radiography of thoracic spin e (procedure) 10/03/17 Completed Plain chest X-ray (procedure) 05/15/17 Completed Angiography of neck 37 01/15/17 Co mpleted Head angiography 38 01/15/17 Compl eted Plain chest X-ray (procedure) 11/17/16 Completed Plain chest X-ray (procedure) 09/12/16 Completed Cataract extraction and inse rtion of intraocular lens- left 11/15/14 Completed Cataract extraction and inse rtion of intraocular lens- right 03/12/14 Complete d VATS - Video assisted thoras copic surgery 05/22/13 Completed Cyst Removal Right Breast/Ly mphoma Right Shoulder 12/12/12 Completed Colonoscopy 2013 Completed Arthroscopic knee procedure 2011 Completed Endoscopy 2010 Completed Right Hand Bone Spur Removal 2010 Completed Colonoscopy 2008 Completed Left Knee Arthroscopy/Meniscectomy 2006 Completed Cystoscopy 2005 Completed Carpal tunnel release 2004 Com pleted Cystoscopy 2003 Completed Colorectal CA Screen.Colon 2001 Completed Tonsillectomy and adenoidectomy 1958 Completed Cardiac echo 39 Completed PFT - Pulmonary function tests Completed Spiral CT scan 40 Complet ed Total knee arthroplasty 41 Completed 11. Normal contractile response of the gallbladder to Kinevac infusion. 2. Normal biliary imaging study. 2Impression: No significant change compared to the prior study. No acute process. 3Botox injection 4Impression: 1. There is single prominent loop of small bowel within the midabdomen which may slightly thickened. This raises the possibilty of a low grade enteritis. 2. Normal appendix. 3. Colonic diverticulosis. No evidence for acute diverticulitis. 4. Trace pelvic free fluid. 5 Additional findings as described above. 5Impression: 1. No gallstones. Trace sludge within the gallbladder. Patient tender over the gallbladder however no convincing evidence for acute cholecystitis. 2. Top normal caliber common bile duct. 6Impression: Cardiomegaly with no active disease in the chest 7Impression: No acute bony abnormality is identified 81. No kumbar spine fracture or subluxation. 2. Mild degenerative changes within the lumbar spine. Slight Upward curvature of the lumbar spine. 9No acute infectious or inflammatory findings are identified in the abdomen or pelvis 10other findings from body of report: moderate fecal retentiion, diverticulosis, 13 mm liver cyst no change 11No mammographic evidence of malignancy. 1 year screening recommended. 12with Botox injection 13No significant increase in breath hydrogen following ingestionof standatd dose of lactose. The examination is negative. 14Lactulose hydrogen breath test neg for SIBO but positive for intestinal methanogenn overgrrowth. 15Stable mammographic appearnce of the right breast. There is no mammographic or targeted sonographicevidence of malignancy. No new suspicious abnormlity identified to explain the daily intermittent sharp stabing right breast pain. Continued clinical follow up therefore recommended. Also recommend continuing annual screening. 161. Redemonstration of opacities at bilateral bases could represent atelectasis or scarring. Overallfindings are stable since prior study performed on 10/28/20. 17No mammographic evidence of malignancy. 1 year screening mammogram is recommended. 18External and internal hemorrhoids. Diverticulosis in the sigmoid colon, in the transverse colon and in the ascending colon. No specimens collected. 19next scope in 10 yrs 20mild airflow obstruction w/out significant bronchodilator response 21No active disease in the chest. 22[facility] Impression: 1. No acute sonographic abnormality is identified in the pelvis noting nonvisualization of the ovaries 23LEFT Genicular Dx. MBB 24IMPRESSION: Z-score of -0.7, this patients BMD is considered within normal limits relative to theirage. 25IMPRESSION: There is no mammographic evidence of malignancy. 1 year screening is recommended 261. Multiple benign strips of small bowel mucosa with no pathologic diagnosis are seen 2. Villous architecture is maintained. 3. Giardia lamblia organisms are not seen. 4. The clinical history of abdominal pain and vomiting is noted. 27IMPRESSION: 1) Z-line regular, 38 cm from the incisors 2) Normal esophagus 3) Normal stomach 4) Normal second portion of the duodenum. Biopsied 28Pathology results: Duodenum, biopsy: 1) Multiple benign strips of small bowel mucosa with no pathologic diagnosis are seen. 2) Villous architecture is maintained. 3) Giardia lamblia organisms are notseen. 4) The clinical Hx of abdominal pain and vomiting is noted. 29Impression: increased hepatic echogenicity suggestive of fatty infiltration. Slight coarsening of hepatic echotexture raises the possibility of early cirrhosis. Several apparent hypoechoic lesions within the right hepatic lobe measuring up to 1.8 cm. These arenot evident on recent CT and could be artifactual however an MRI of the liver is recommended to exclude hepatic lesions. Minimal dilatation of the common bile duct. No gallstones. 301. No evidence of bowel obstruction. No evidence of free air. 2. Normal appendix. 3. No evidence of acute diverticulitis. 4. Iliac and inguinal lymph nodes at the upper limits of normal in size. 31with tricuspid repair 32[place] 33left lower extremity IMPRESSION: There is no sonographic evidence of deep venous thrombosis identified in the lefft lower extremity 34Non-bleeding internal hemorrhoids. Perianal skin tags found on perianal exam. One 3mm polyp in the ascending colon, removed with a cold biopsy forceps. Resected and retrieved. 35Pathology: Colon, ascending(polypectomy): Tubular adenoma 36Colon, Ascending (Polypectomy): Tubular Adenoma 37Impression: Unremarkable MRA neck 38Impression: unremarkable intracranial MR angiogram 39Cardiac Echo/Stress Test 03/21/2015---Dr. York//[facility] 40005/08/2015----CT Scan of Lungs 41LEFT KNEE Results Laboratory List Name Date T4, Free (T4, FREE) 10/04/24 Thyroid Stimulating Hormone (TSH) 5 Most recent to oldest [Reference Range]: 1 Free T4 [0.70-1.48 ng/dL] 0.95 ng/dL 1 (10/04/24 3:46 PM) TSH [0.47-4.68 uIU/mL] 2.89 uIU/mL 2 (10/04/24 3:46 PM) 1Result Comment: Testing Performed By: Dept of [facility]ology [facility] [address], [address], [place] [address] 2Result Comment: Testing Performed By: Dept of Pathology [facility] [address], [address], [place] [address] Social History Social History Type Response Tobacco Former smoker, 10 ye ar(s). Smoking Status Former Smoker, quit > 1 yr Sex Female Sex Representation Female (finding) Implantable Device List Procedure Provider Procedure Date Device Type Site Unknown Unknown 03/06/19 Unknown Unknown Device Identifier Serial Number Lot or Batch Number Manufacturing Date Expiration Date Distinct Identification Code MRI Safety Implantable Status Assigning Authority Unknown Unknown [id number] Unknown 07/05/20 Unknown Unknown Active Un known Unknown Unknown [id number] Unknown 09/30/21 Unknown Unknown Active Unk nown Unknown Unknown [id number] Unknown 12/02/21 Unknown Unknown Active Unk nown Unknown Unknown [id number] Unknown 10/05/21 Unknown Unknown Active Unk nown Unknown Unknown [id number] Unknown 06/16/23 Unknown Unknown Active Un known Unknown Unknown [id number] Unknown 07/26/23 Unknown Unknown Active Un known Unknown Unknown [id number] Unknown 06/15/22 Unknown Unknown Active Un known Unknown Unknown [id number] Unknown 03/20/23 Unknown Unknown Active Unk nown Unknown Unknown [id number] Unknown 03/20/23 Unknown Unknown Active Unk nown Unknown Unknown [id number] Unknown 12/26/25 Unknown Unknown Active Unk nown Unknown Unknown [id number] Unknown 06/29/25 Unknown Unknown Active Un known Procedure Provider Procedure Date Device Type Site Aortic Valve Unknown 04/12/18 Non Biological Chest Device Identifier Serial Number Lot or Batch Number Manufacturing Date Expiration Date Distinct Identification Code MRI Safety Implantable Status Assigning Authority Unknown [id number] Unknown Unknown Unknown Unknown MR Conditi onal Active Unknown Procedure Provider Procedure Date Device Type Site Tricuspid Unknown 04/12/18 Non Biological Chest Device Identifier Serial Number Lot or Batch Number Manufacturing Date Expiration Date Distinct Identification Code MRI Safety Implantable Status Assigning Authority Unknown [id number] Unknown Unknown Unknown Unknown MR Safe Active Unk nown Patient Care team information Care Team Personnel Name: DO Botello Amanda Position: Resident Member Role: Lifetime Relationship Address: [address] [facility] [address] [place] [address] [place] Name: Marcell Burns Ann Position: Pharmacist Member Role: Pharmacy - Lifetime Name: MD Valdez, Nakul Moralez Position: Physician - Orthopaedic Surg Member Role: Lifetime Relationship Address: [facility] [address] [place] [id number] [place] Name: DO Stevenson Alonna Paige Position: Resident Member Role: Primary Care Provider Address: [address] [facility] [address] [place] [address] [place] Care Team Related Persons Name: MARRY HARRISON Name: MARRY HARRISON Name: KENDALL ESTES
--- OUTSIDE RECORDS SUMMARY | 2024-10-09 03:45 | External Medical Summary | Continuity of Care Document ---
Author Name Unknown Organization [facility] [address] [facility] [address] [place] [phone] Care Team Providers Care Explosives Engineer Name Role Phone Maricruz Stevenson Primary Care Physician [phone] Encounter [facility] [id number] Date(s): 10/05/24 - 10/05/24 [facility] [address] [facility] [address] [facility] [address] [facility] [address] [place] [address] [phone] Encounter Diagnosis Fall at home(Discharge Diagnosis) - 10/05/24 Hip injury(Discharge Diagnosis) - 10/05/24 Knee injury(Discharge Diagnosis) - 10/05/24 Discharge Disposition: Home or Self Care Attending Physician: DO Silverman Allison B Allergies, Adverse Reactions, Alerts Substance Criticality Severity Reaction Reaction Severity Status sulfamethoxazole-trimetho prim Not available Active propoxyphene hives Active Nucynta itching Active simvastatin hives Active hydrocodone itching Active cephalosporins hives Activ e sulfa drugs hives Active Vicodin hives Active hyoscyamine dry mouth Active shellfish Anaphylaxis rash Active Percocet 5/325 itchy hives Active oxyCODONE hives Active Immunizations Given and [...] 6, PRN: as needed for wheezing, Pharmacy: [id number] Start Date: 01/10/23 Status: Ordered [...] Daily, Disp# 90 tab, Refills: 3, Pharmacy: [facility] Start Date: 09/19/24 Status: Ordered cyanocobalamin Start: 09/19/24 3:27:00 PM EST, injection once monthly Start Date: 09/19/24 Status: Ordered cyclobenzaprine 5 mg oral tablet Start: 12/03/21 2:40:00 PM EDT, 1 tab, PO, bid, Disp# 60 tab, Refills: 1, PRN: as needed for spasm, Pharmacy: [facility] Start Date: 12/03/21 Status: Ordered dibucaine 1% topical ointment Start: 05/13/23 3:18:00 PM EDT Start Date: 05/13/23 Status: Ordered dicyclomine 10 mg oral capsule Start: 08/28/24 12:04:00 PM EST, 1 cap, PO, qid, Disp# 120 cap, Refills: 1, 30 to 60 minutes beforemeals, Pharmacy: [id number] Start Date: 08/28/24 Stop Date: 10/27/24 Status: Ordered Diltiazem 2% ointment Start: 11/08/23 12:37:00 PM EST, Diltiazem 2% ointment, eRx Product Type: Compound, See Instructions,Disp# 30 g, Refills: 2, Apply ointment with gloved index finger to external anus three times a day,Pharmacy [facility] Start Date: 11/08/23 Status: Ordered Diltiazem 2% Ointment Start: 09/04/24 11:34:00 AM EST, Diltiazem 2% Ointment, eRx Product Type: Compound, See Instructions, Disp# 30 g, Refills: 1, Apply with gloved index finger to external anus up to three times daily for eight weeks., Pharmacy [facility] Start Date: 09/04/24 Status: Ordered doxepin 10 mg oral capsule TAKE 1-2 CAPSULES BY MOUTH AT BEDTIME NEEDED Start Date: 02/10/24 Status: Ordered DuoNeb 0.5 mg-2.5 mg/3 mL inhalation solution Start: 08/28/24 12:03:00 PM EST, 3 mL, inhaled, q6h, Disp# 90 mL, Refills: 1, PRN: as needed for shortness of breath or wheezing, Pharmacy: [id number] Start Date: 08/28/24 Stop Date: 09/11/24 Status: Ordered EPINEPHrine 0.3 mg injectable kit Start: 02/10/24 11:05:00 AM EDT, 0.3 mg =, IM, ONCE, Disp# 1 pen_needle, PRN: as needed for anaphylaxis, Pharmacy: [facility] Start Date: 02/10/24 Status: Ordered gabapentin 300 mg oral capsule Start: 08/16/24 2:27:00 PM EST, 1 cap, PO, tid, Disp# 42 cap, Refills: 1, Pharmacy: [facility] Start Date: 08/16/24 Stop Date: 09/13/24 Status: Ordered hydrOXYzine hydrochloride Start: 05/13/23 3:15:00 PM EDT, See Instructions, 25 mg PO Start Date: 05/13/23 Status: Ordered ipratropium 42 mcg/inh (0.06%) nasal spray Start: 08/16/23 3:27:00 PM EST, 2 spray, each nostril, tid, Disp# 1 each, PRN: as needed for cold symptoms, Pharmacy: [facility] Start Date: 08/16/23 Status: Ordered Kenalog 0.025% topical cream Start: 02/01/24 1:53:00 PM EDT, 1 appl, topical, bid, Disp# 60 g, Refills: 0, Pharmacy: [facility] Start Date: 02/01/24 Status: Ordered ketorolac 10 mg oral tablet Start: 02/01/24 1:45:00 PM EDT, 1 tab, PO, Daily, Disp# 20 tab, Refills: 0, Take one tablet (10 mg) in evening with meal as needed for pain, PRN: as needed for pain, Pharmacy: [facility] Start Date: 02/01/24 Status: Ordered lactulose 10 g/15 mL oral syrup Start: 03/25/23 3:03:00 PM EDT, 30 mL, PO, Daily, Disp# 120 mL, Refills: 1, PRN: as needed for constipation, Pharmacy: [facility] Start Date: 03/25/23 Status: Ordered levothyroxine 50 mcg (0.05 mg) oral tablet Start: 09/14/24 3:03:00 PM EST, 1 tab, PO, Daily, Disp# 30 tab, Refills: 3, Take one 50 mg tablet daily., Pharmacy: [facility] Start Date: 09/14/24 Stop Date: 01/12/25 Status: Ordered Lexapro 10 mg oral tablet Start: 10/05/24 3:43:00 PM EST, 1 tab, PO, Daily, Disp# 30 tab, Refills: 3, Pharmacy: [facility] Start Date: 10/05/24 Stop Date: 02/02/25 Status: Ordered Lidoderm 5% topical patch Start: 07/10/20 1:18:00 PM EST, 1 patch, topical, Daily, Disp# 30 patch, Refills: 5, Pharmacy: [facility] Start Date: 07/10/20 Status: Ordered lisinopril 20 mg oral tablet Start: 09/15/23 3:14:00 PM EST, See Instructions, Disp# 45 tab, Refills: 3, 1/2 tab PO BID, Pharmacy: [facility] Start Date: 09/15/23 Status: Ordered LORazepam 0.5 mg oral tablet Start: 05/25/24 3:03:00 PM EDT, 1-2 tab, PO, Daily, Disp# 30 tab, Refills: 0, PRN: as needed for anxiety, Pharmacy: [facility] Start Date: 05/25/24 Stop Date: 06/24/24 Status: Ordered Lyrica 50 mg oral capsule Start: 03/30/22 3:14:00 PM EDT, 1 cap, PO, bid, Disp# 60 cap, Refills: 1, Pharmacy: [facility] Start Date: 03/30/22 Status: Ordered magnesium glycinate 200 mg oral tablet Start: 03/26/24 4:03:00 PM EDT, 1-2 tab, PO, Daily, Disp# 180 tab, Refills: 3, Pharmacy: [facility] Start Date: 03/26/24 Stop Date: 07/24/24 Status: Ordered meclizine 25 mg oral tablet Start: 05/20/22 1:45:00 PM EDT, 1 tab, PO, tid, Disp# 30 tab, Refills: 1, PRN: as needed for dizziness, Pharmacy: [facility] Start Date: 05/20/22 Status: Ordered Metoprolol Succinate ER 25 mg oral tablet, extended release Start: 09/15/23 3:33:00 PM EST, 1.5 tab, PO, Daily, Disp# 45 tab, Refills: 3, Pharmacy: [facility] Start Date: 09/15/23 Status: Ordered nitroglycerin 0.1 mg/hr transdermal film, extended release Start: 08/03/23 9:29:00 AM EST, 1 patch, transdermal, Daily, Disp# 90 patch, Refills: 3, Pharmacy: [facility] Start Date: 08/03/23 Status: Ordered omeprazole 20 mg oral delayed release capsule Start: 12/08/22 8:28:00 PM EDT, 1 cap, PO, Daily, Disp# 30 cap, Refills: 7, Pharmacy: [facility] Start Date: 12/08/22 Stop Date: 08/05/23 Status: Ordered oxyCODONE 5 mg oral tablet Start: 10/05/24 3:48:00 PM EST, 1 tab, PO, q4h, Disp# 10 tab, Refills: 0, Take 0.5 to 1 tablet as needed for pain in the hip and knee. Known to have itching w/ Oxycodone, okay to take with Benadryl short term., PRN: as needed for pain, Pharmacy: [facility] Start Date: 10/05/24 Status: Ordered Symbicort 160 mcg-4.5 mcg/inh inhalation aerosol Start: 08/28/24 12:03:00 PM EST, 2 puff, inhaled, bid, Disp# 1 each, Refills: 11, rinse mouth and throat after use, Pharmacy: [facility] Start Date: 08/28/24 Status: Ordered traMADol 50 mg oral tablet Start: 06/06/24 9:19:00 AM EDT, 1 tab, PO, q8h, Disp# 20 tab, PRN: as needed for pain, Pharmacy: [facility] Start Date: 06/06/24 Status: Ordered Tylenol 500 mg oral tablet Start: 03/07/19 8:27:00 AM EDT, 2 tab, PO, tid, PRN: as needed for pain Start Date: 03/07/19 Status: Ordered Uro-Jet 2% topical gel with applicator Start: 04/14/21 2:35:00 PM EDT, 10 mL, topical, ONCE, Disp# 10 mL, Refills: 3, Use prior to bowel movement, Pharmacy: [facility] Start Date: 04/14/21 Status: Ordered Voltaren 1% topical gel Start: 06/21/22 4:15:00 PM EDT, 1 appl, topical, qid, Disp# 100 g, Refills: 4, 4g to affected area 4 times a day, PRN: Pain, Pharmacy: [facility] Start Date: 06/21/22 Status: Ordered Mental Status 10/05/24 Barriers to Learning one year Vision imp airment Mandatory Health Literacy Documentation Yes Health Literacy Communication Barriers N ever Primary Language [place] Citizen Problem List Condition Confirmation Course Effective Dates [...] Weight disorder Confirmed Active 1on chest CT Diagnosis Diagnosis Type Effective Dates Health Status Cl inical Service Informant Fall at home Discharge Diagnosis 10/05/24 Non-Specified Hip injury Discharge Diagnosis 10/05/24 Non-Specified Knee injury Discharge Diagnosis 10/05/24 Non-Specified Procedures Procedure Date Related Diagnosis Body Site [...] splenic flexure; with biopsy, single or multiple 11/14/17 Completed Polypectomy 36 11/14/17 Completed Plain chest [...] Completed Colonoscopy 2013 Completed Arthroscopic knee procedure 2012 Completed Endoscopy 2011 Completed Right Hand Bone Spur Removal 2011 Completed Colonoscopy 2009 Completed Left Knee Arthroscopy/Meniscectomy 2007 Completed Cystoscopy 2005 Completed Carpal tunnel release [...] 21No active disease in the chest. 22[facility] Impression: 1. No acute sonographic abnormality is [...] of normal in size. 31with tricuspid repair 32@[facility] 33left lower extremity IMPRESSION: There is no sonographic evidence of deep venous thrombosis identified in the [facility] lower extremity 34Non-bleeding internal hemorrhoids. Perianal skin tags found on perianal exam. One 3mm polyp in the ascending colon, removed with a cold biopsy forceps. Resected and retrieved. 35Pathology: Colon, ascending(polypectomy): Tubular adenoma 36Colon, Ascending (Polypectomy): Tubular Adenoma 37Impression: Unremarkable MRA neck 38Impression: unremarkable intracranial MR angiogram 39Cardiac Echo/Stress Test 03/21/2015---Dr. York//[facility] 40005/08/2015----CT Scan of Lungs 41LEFT KNEE Vital Signs Most recent to oldest [Reference Range]: 1 Temperature [36.5-37.9 DegC] 37.0 DegC (10/05/24 3:03 PM) Heart Rate 81 bpm (10/05/24 3:03 PM) Respiratory Rate 22 br/min (10/05/24 3:03 PM) Blood Pressure 148/98mmHg (10/05/24 3:03 PM) Cuff Pulse Pressure 50 mmHg (10/05/24 3:03 PM) Social History Social History Type Response Tobacco [...] Safety Implantable Status Assigning Authority Unknown Unknown [id number] Unknown 07/05/20 Unknown Unknown Active Un known Unknown Unknown [id number] Unknown 09/30/21 Unknown Unknown Active Unk nown Unknown Unknown [id number] Unknown 12/02/21 Unknown Unknown Active Unk nown Unknown Unknown [id number] Unknown 10/05/21 Unknown Unknown Active Unk nown Unknown Unknown [id number] Unknown 06/16/23 Unknown Unknown Active Un known Unknown Unknown [id number] Unknown 07/26/23 Unknown Unknown Active Un known Unknown Unknown [id number] Unknown 06/15/22 Unknown Unknown Active Un known Unknown Unknown [id number] Unknown 03/20/23 Unknown Unknown Active Unk nown Unknown Unknown [id number] Unknown 03/20/23 Unknown Unknown Active Unk nown Unknown Unknown [id number] Unknown 12/26/25 Unknown Unknown Active Unk nown Unknown Unknown [id number] Unknown 06/29/25 Unknown Unknown Active Un known Procedure Provider Procedure Date Device Type Site Aortic Valve Unknown 04/12/18 Non Biological Chest Device Identifier Serial Number Lot or Batch Number Manufacturing Date Expiration Date Distinct Identification Code MRI Safety Implantable Status Assigning Authority Unknown [id number] Unknown Unknown Unknown Unknown MR Conditi onal Active Unknown Procedure Provider Procedure Date Device Type Site Tricuspid Unknown 04/12/18 Non Biological Chest Device Identifier Serial Number Lot or Batch Number Manufacturing Date Expiration Date Distinct Identification Code MRI Safety Implantable Status Assigning Authority Unknown [id number] Unknown Unknown Unknown Unknown MR Safe Active Unk nown Patient Care team information Care Team Personnel Name: DO Botello Amanda Position: Resident Member Role: Lifetime Relationship Address: [address] [facility] [address] [place] [address] [place] Name: Marcell Burns Ann Position: Pharmacist Member Role: Pharmacy - Lifetime Name: MD Valdez, Naukl Moralez Position: Physician - Orthopaedic Surg Member Role: Lifetime Relationship Address: [facility] [address] [place] [address] [place] Name: DO Stevenson Alonna Paige Position: Resident Member Role: Primary Care Provider Address: [address] [facility] [address] [place] [address] [place] Care Team Related Persons Name: MARRY HARRISON Name: MARRY HARRISON Name: KENDALL ESTES
--- OUTSIDE RECORDS SUMMARY | 2024-10-09 03:45 | External Medical Summary | Continuity of Care Document ---
Author Name Unknown Organization [facility] [address] Address [address] [facility], [place] [id number] Care Team Providers Care Para Machine Operator Name Role Phone Maricruz Stevenson Primary Care Physician [phone] Encounter [facility] [id number] Date(s): 10/04/24 - 10/04/24 [facility] [address] [facility] [address], [address] [place], [place] [phone] Encounter Diagnosis Anemia, unspecified(Final) - Vitamin D deficiency, unspecified(Final) - Discharge Disposition: Home or Self Care Attending Physician: MD Boles Aderonke Referring Physician: MD Boles Aderonke Allergies, Adverse Reactions, Alerts Substance Criticality Severity [...] 6, PRN: as needed for wheezing, Pharmacy: [facility] Start Date: 01/10/23 Status: [...] Daily, Disp# 90 tab, Refills: 3, Pharmacy: [facility] Start Date: 09/19/24 Status: Ordered cyanocobalamin Start: 09/19/24 3:27:00 PM EST, injection once monthly Start Date: 09/19/24 Status: Ordered cyclobenzaprine 5 mg oral tablet Start: 12/03/21 2:40:00 PM EDT, 1 tab, PO, bid, Disp# 60 tab, Refills: 1, PRN: as needed for spasm, Pharmacy: [facility] Start Date: 12/03/21 Status: Ordered dibucaine 1% topical ointment Start: 05/13/23 3:18:00 PM EDT Start Date: 05/13/23 Status: Ordered dicyclomine 10 mg oral capsule Start: 08/28/24 12:04:00 PM EST, 1 cap, PO, qid, Disp# 120 cap, Refills: 1, 30 to 60 minutes beforemeals, Pharmacy: [facility] Start Date: 08/28/24 Stop [...] for shortness of breath or wheezing, Pharmacy: [facility] Start Date: 08/28/24 Stop Date: 09/11/24 Status: Ordered EPINEPHrine 0.3 mg injectable kit Start: 02/10/24 11:05:00 AM EDT, 0.3 mg =, IM, ONCE, Disp# 1 pen_needle, PRN: as needed for anaphylaxis, Pharmacy: [facility] Start Date: 02/10/24 Status: Ordered gabapentin 300 mg oral capsule Start: 08/16/24 2:27:00 PM EST, 1 cap, PO, tid, Disp# 42 cap, Refills: 1, Pharmacy: [facility] Start Date: 08/16/24 Stop Date: 09/13/24 Status: Ordered hydrOXYzine hydrochloride Start: 05/13/23 3:15:00 PM EDT, See Instructions, 25 mg PO Start Date: 05/13/23 Status: Ordered ipratropium 42 mcg/inh (0.06%) nasal spray Start: 08/16/23 3:27:00 PM EST, 2 spray, each nostril, tid, Disp# 1 each, PRN: as needed for cold symptoms, Pharmacy: [facility] Start Date: 08/16/23 Status: Ordered Kenalog 0.025% topical cream Start: 02/01/24 1:53:00 PM EDT, 1 appl, topical, bid, Disp# 60 g, Refills: 0, Pharmacy: [facility] Start Date: 02/01/24 Status: Ordered ketorolac 10 mg oral tablet Start: 02/01/24 1:45:00 PM EDT, 1 tab, PO, Daily, Disp# 20 tab, Refills: 0, Take one tablet (10 mg) in evening with meal as needed for pain, PRN: as needed for pain, Pharmacy: [facility] Start Date: 02/01/24 Status: Ordered lactulose 10 g/15 mL oral syrup Start: 03/25/23 3:03:00 PM EDT, 30 mL, PO, Daily, Disp# 120 mL, Refills: 1, PRN: as needed for constipation, Pharmacy: [facility] Start Date: 03/25/23 Status: Ordered levothyroxine 50 mcg (0.05 mg) oral tablet Start: 09/14/24 3:03:00 PM EST, 1 tab, PO, Daily, Disp# 30 tab, Refills: 3, Take one 50 mg tablet daily., Pharmacy: [facility] Start Date: 09/14/24 Stop Date: 01/12/25 Status: Ordered Lexapro 10 mg oral tablet Start: 10/05/24 3:43:00 PM EST, 1 tab, PO, Daily, Disp# 30 tab, Refills: 3, Pharmacy: [facility] Start Date: 10/05/24 Stop Date: 02/02/25 Status: Ordered Lidoderm 5% topical patch Start: 07/10/20 1:18:00 PM EST, 1 patch, topical, Daily, Disp# 30 patch, Refills: 5, Pharmacy: [facility] Start Date: 07/10/20 Status: Ordered lisinopril 20 mg oral tablet Start: 09/15/23 3:14:00 PM EST, See Instructions, Disp# 45 tab, Refills: 3, 1/2 tab PO BID, Pharmacy: [facility] Start Date: 09/15/23 Status: Ordered LORazepam 0.5 mg oral tablet Start: 05/25/24 3:03:00 PM EDT, 1-2 tab, PO, Daily, Disp# 30 tab, Refills: 0, PRN: as needed for anxiety, Pharmacy: [facility] Start Date: 05/25/24 Stop Date: 06/24/24 Status: Ordered Lyrica 50 mg oral capsule Start: 03/30/22 3:14:00 PM EDT, 1 cap, PO, bid, Disp# 60 cap, Refills: 1, Pharmacy: [facility] Start Date: 03/30/22 Status: Ordered magnesium glycinate 200 mg oral tablet Start: 03/26/24 4:03:00 PM EDT, 1-2 tab, PO, Daily, Disp# 180 tab, Refills: 3, Pharmacy: [facility] Start Date: 03/26/24 Stop Date: 07/24/24 Status: Ordered meclizine 25 mg oral tablet Start: 05/20/22 1:45:00 PM EDT, 1 tab, PO, tid, Disp# 30 tab, Refills: 1, PRN: as needed for dizziness, Pharmacy: [facility] Start Date: 05/20/22 Status: Ordered Metoprolol Succinate ER 25 mg oral tablet, extended release Start: 09/15/23 3:33:00 PM EST, 1.5 tab, PO, Daily, Disp# 45 tab, Refills: 3, Pharmacy: [facility] Start Date: 09/15/23 Status: Ordered nitroglycerin 0.1 mg/hr transdermal film, extended release Start: 08/03/23 9:29:00 AM EST, 1 patch, transdermal, Daily, Disp# 90 patch, Refills: 3, Pharmacy: [facility] Start Date: 08/03/23 Status: Ordered omeprazole 20 mg oral delayed release capsule Start: 12/08/22 8:28:00 PM EDT, 1 cap, PO, Daily, Disp# 30 cap, Refills: 7, Pharmacy: [facility] Start Date: 12/08/22 Stop Date: 08/05/23 Status: Ordered oxyCODONE 5 mg oral tablet Start: 10/05/24 3:48:00 PM EST, 1 tab, PO, q4h, Disp# 10 tab, Refills: 0, Take 0.5 to 1 tablet as needed for pain in the hip and knee. Known to have itching w/ Oxycodone, okay to take with Benadryl short term., PRN: as needed for pain, Pharmacy: [facility] Start Date: 10/05/24 Status: Ordered Symbicort 160 mcg-4.5 mcg/inh inhalation aerosol Start: 08/28/24 12:03:00 PM EST, 2 puff, inhaled, bid, Disp# 1 each, Refills: 11, rinse mouth and throat after use, Pharmacy: [facility] Start Date: 08/28/24 Status: Ordered traMADol 50 mg oral tablet Start: 06/06/24 9:19:00 AM EDT, 1 tab, PO, q8h, Disp# 20 tab, PRN: as needed for pain, Pharmacy: [facility] Start Date: 06/06/24 Status: Ordered Tylenol 500 mg oral tablet Start: 03/07/19 8:27:00 AM EDT, 2 tab, PO, tid, PRN: as needed for pain Start Date: 03/07/19 Status: Ordered Uro-Jet 2% topical gel with applicator Start: 04/14/21 2:35:00 PM EDT, 10 mL, topical, ONCE, Disp# 10 mL, Refills: 3, Use prior to bowel movement, Pharmacy: [facility] Start Date: 04/14/21 Status: Ordered Voltaren 1% topical gel Start: 06/21/22 4:15:00 PM EDT, 1 appl, topical, qid, Disp# 100 g, Refills: 4, 4g to affected area 4 times a day, PRN: Pain, Pharmacy: [facility] Start Date: 06/21/22 Status: [...] 10/25/22 Completed X-ray of right clavicle 7 2/20/23 Completed Plain X-ray of lumbar spine 8 [...] joint (procedure) 11/17/17 Completed Colonoscopy 34, 35 3/12/18 Comple danny Colonoscopy, flexible, proxi mal to [...] Breast/Ly mphoma Right Shoulder 12/12/12 Completed Colonoscopy 2012 Completed Arthroscopic knee procedure 2011 Completed Endoscopy 2010 Completed Right Hand Bone Spur Removal 2010 Completed Colonoscopy 2008 Completed Left Knee Arthroscopy/Meniscectomy 2007 Completed Cystoscopy 2006 Completed Carpal tunnel release 2004 Com pleted [...] 21No active disease in the chest. 22[facility] Impression: 1. No acute sonographic abnormality is [...] of normal in size. 31with tricuspid repair 32@[facility] [place] lower [place] IMPRESSION: There is no [...] intracranial MR angiogram 39Cardiac Echo/Stress Test 03/21/2015---Dr. York//[facility] 40005/08/2015----CT Scan of Lungs 41LEFT KNEE Results Laboratory List Name Date Complete Blood Count w Differential (CBC ,DIFFH) 10/04/24 Comprehensive Metabolic Panel (COMP META B PANEL) 10/04/24 Ferritin (FERRITIN) 10/04/24 Iron Profile (IRON PROFILE) 10/04/24 Lactate Dehydrogenase (LD) 10/04/24 Request to FAX Report (First Location) ( ACC NO TO BE FAXED) 10/04/24 Vitamin B12 Level (VITAMIN B12) 10/04/24 Vitamin D, 25-Hydroxy Level, Total (25-H YDROXY VITAMIN D) 10/04/24 Most recent to oldest [Reference Range]: 1 eGFR CKD-EPI [>60 mL/min/1.73 m2] >90 mL /min/1.73 m2 1 (10/04/24 3:47 PM) Vitamin D, 25-Hydroxy [30-100 ng/mL] 16 ng/mL 2 *LOW* (10/04/24 3:48 PM) Estimated CrCl 60.52 mL/min (10/04/24 4:26 PM) Phone No [phone] (10/04/24 3:48 PM) Faxed on: 10/05/24 13:18 (10/04/24 3:48 PM) MPV [9.0-12.2 fL] 9.9 fL (10/04/24 3:47 PM) Immature Gran% 0.5 % (10/04/24 3:47 PM) Neut% 59.3 % (10/04/24 3:47 PM) Lymph% 24.9 % (10/04/24 3:47 PM) Sioux% 9.2 % (10/04/24 3:47 PM) Baso% 1.7 % (10/04/24 3:47 PM) Eos% 4.4 % (10/04/24 3:47 PM) Immat Gran, Abs [0-0.4 K/uL] 0.02 K/uL (10/04/24 3:47 PM) Neut, Abs [2.0-7.7 K/uL] 2.45 K/uL (10/04/24 3:47 PM) Lymph, Abs [1.0-3.4 K/uL] 1.03 K/uL (10/04/24 3:47 PM) Sioux, Abs [0-1.0 K/uL] 0.38 K/uL (10/04/24 3:47 PM) Baso, Abs [0-0.1 K/uL] 0.07 K/uL (10/04/24 3:47 PM) Eos, Abs [0-0.5 K/uL] 0.18 K/uL (10/04/24 3:47 PM) Type of Diff: AUTO *Unknown* (10/04/24 3:47 PM) RDW [11.5-14.2 %] 13.1 % (10/04/24 3:47 PM) Anion Gap [5-14 mmol/L] 7 mmol/L (10/04/24 3:47 PM) Alb [3.5-5.0 g/dL] 4.0 g/dL (10/04/24 3:47 PM) Alk Phos [38-126 unit/L] 94 unit/L (10/04/24 3:47 PM) ALT [<35 unit/L] 14 unit/L (10/04/24 3:47 PM) AST [15-46 unit/L] 23 unit/L (10/04/24 3:47 PM) B12 [211-946 pg/mL] 359 pg/mL (10/04/24 3:48 PM) BUN [7-20 mg/dL] 12 mg/dL (10/04/24 3:47 PM) Ca [8.4-10.2 mg/dL] 8.8 mg/dL (10/04/24 3:47 PM) Cl- [96-107 mmol/L] 111 mmol/L *HI* (10/04/24 3:47 PM) HCO3 [22-30 mmol/L] 26 mmol/L (10/04/24 3:47 PM) Cret [0.60-1.00 mg/dL] 0.66 mg/dL (10/04/24 3:47 PM) Iron [37-145 ug/dL] 58 ug/dL (10/04/24 3:47 PM) Ferritin [11.1-264.0 ng/mL] 237.3 ng/mL 4 (10/04/24 3:47 PM) Glu [74-106 mg/dL] 142 mg/dL *HI* (10/04/24 3:47 PM) Hct [35-44 %] 35.5 % (10/04/24 3:47 PM) Hgb [11.7-15.0 g/dL] 10.9 g/dL *LOW* (10/04/24 3:47 PM) K [3.5-5.1 mmol/L] 3.9 mmol/L (10/04/24 3:47 PM) LDH [120-246 unit/L] 272 unit/L 5 *HI* (10/04/24 3:47 PM) MCH [28-33 pg] 29.1 pg (10/04/24 3:47 PM) MCHC [32-36 g/dL] 30.7 g/dL *LOW* (10/04/24 3:47 PM) MCV [81-96 fL] 94.9 fL (10/04/24 3:47 PM) Na [137-145 mmol/L] 144 mmol/L (10/04/24 3:47 PM) Plts [150-350 K/uL] 370 K/uL *HI* (10/04/24 3:47 PM) RBC [3.90-5.00 M/uL] 3.74 M/uL *LOW* (10/04/24 3:47 PM) Fe Sat [14-50 %] 17 % (10/04/24 3:47 PM) T Bili [0.2-1.3 mg/dL] 0.6 mg/dL (10/04/24 3:47 PM) Total IBC [250-400 ug/dL] 340 ug/dL (10/04/24 3:47 PM) Prot [6.3-8.2 g/dL] 6.9 g/dL (10/04/24 3:47 PM) Transferrin [200-360 mg/dL] 288 mg/dL (10/04/24 3:47 PM) WBC [4.0-10.4 K/uL] 4.13 K/uL (10/04/24 3:47 PM) 1Result Comment: Testing Performed By: Dept of Pathology [facility], [address] [place] [address] 2Result Comment: Deficiency: <20 ng/mL Insufficiency: 21-29 ng/mL Sufficiency: 30-100 ng/mL Potenial Toxicity: >150 ng/mL 3Result Comment: Testing Performed By: Dept of Pathology [facility], [address] [place] [id number] 4Result Comment: Testing Performed By: Dept of Pathology [facility], [address] [place] [id number] 5Result Comment: Testing Performed By: Dept of Pathology [facility], [address] [place] [id number] Social History Social History Type Response Tobacco [...] Safety Implantable Status Assigning Authority Unknown Unknown [id number] Unknown 07/05/20 Unknown Unknown Active Un known Unknown Unknown [id number] Unknown 09/30/21 Unknown Unknown Active Unk nown Unknown Unknown [id number] Unknown 12/02/21 Unknown Unknown Active Unk nown Unknown Unknown [id number] Unknown 10/05/21 Unknown Unknown Active Unk nown Unknown Unknown [id number] Unknown 06/16/23 Unknown Unknown Active Un known Unknown Unknown [id number] Unknown 07/26/23 Unknown Unknown Active Un known Unknown Unknown [id number] Unknown 06/15/22 Unknown Unknown Active Un known Unknown Unknown [id number] Unknown 03/20/23 Unknown Unknown Active Unk nown Unknown Unknown [id number] Unknown 03/20/23 Unknown Unknown Active Unk nown Unknown Unknown [id number] Unknown 12/26/25 Unknown Unknown Active Unk nown Unknown Unknown [id number] Unknown 06/29/25 Unknown Unknown Active Un known Procedure Provider Procedure Date Device Type Site Aortic Valve Unknown 04/12/18 Non Biological Chest Device Identifier Serial Number Lot or Batch Number Manufacturing Date Expiration Date Distinct Identification Code MRI Safety Implantable Status Assigning Authority Unknown [id number] Unknown Unknown Unknown Unknown MR Conditi onal Active Unknown Procedure Provider Procedure Date Device Type Site Tricuspid Unknown 04/12/18 Non Biological Chest Device Identifier Serial Number Lot or Batch Number Manufacturing Date Expiration Date Distinct Identification Code MRI Safety Implantable Status Assigning Authority Unknown [id number] Unknown Unknown Unknown Unknown MR Safe Active Unk nown Patient Care team information Care Team Personnel Name: DO Botello Amanda Position: Resident Member Role: Lifetime Relationship Address: [address] [facility] [address] [place] [address] [place] Name: Marcell Burns Ann Position: Pharmacist Member Role: Pharmacy - Lifetime Name: MD Valdez, Nakul Moralez Position: Physician - Orthopaedic Surg Member Role: Lifetime Relationship Address: [address] [address] [place] Name: DO Stevenson Alonna Paige Position: Resident Member Role: Primary Care Provider Address: [address] [facility] [address] [place] [address] [place] Care Team Related Persons Name: MARRY HARRISON Name: MARRY HARRISON Name: KENDALL ESTES
[2024-10-09 03:47] LABS: Basophils # (auto) 0.08 K/uL (0.00-0.20); Basophils % (auto) 1.3 %; Eosinophils # (auto) 0.19 K/uL (0.00-0.50); Hematocrit (blood only) 34.3 % (37.0-47.0); Hemoglobin 10.9 g/dl (12.0-16.0); Immature Granulocytes # (auto) 0.02 K/uL (0.01-0.20); Immature Granulocytes % (auto) 0.3 %; Lymphocytes # (auto) 1.55 K/uL (1.20-3.40); Lymphocytes % (auto) 24.9 %; Mean Corpuscular Hemoglobin 28.6 pg (25.0-34.0); Mean Corpuscular Hgb Conc 31.8 g/dL (32.0-36.0); Mean Platelet Volume 9.7 fL (9.4-12.4); Monocytes # (auto) 0.82 K/uL (0.11-0.59); Monocytes % (auto) 13.2 %; Neutrophils # (auto) 3.57 K/uL (1.40-6.50); Neutrophils % (auto) 57.3 %; Platelet Count 397 K/uL (130-400); RDW Coefficient of Variation 12.9 % (11.5-14.5); RDW Standard Deviation 42.6 fL (36.4-46.3); Red Blood Count 3.81 M/uL (4.20-5.40); White Blood Count 6.23 K/ul (4.8-10.8)
[2024-10-09 04:03] LABS: Albumin Globulin Ratio 1.3 (0.9-2); Albumin Level 4.1 gm/dl (3.4-5.0); BUN Creatinine Ratio 16.1 (10-20); Bilirubin,Total 0.4 mg/dl (0.2-1.0); Calcium 8.9 mg/dl (8.6-10.3); Creatinine Clr Calc Pharmacy 64.2 ml/min; Globulin 3.1 gm/dl (2.5-4.0); Potassium 3.8 mmol/L (3.5-5.1); Total Protein 7.2 gm/dl (6.0-8.3)
[2024-10-09 04:15] LABS: Troponin I High Sensitivity 218.1 pg/ml (0-14)
[2024-10-09] MEDS: OPTIRAY 320 125ml IV ONE (04:37)
--- NOTE | 2024-10-09 05:08 | History & Physical Report ---
Date of Service October 09, 2024 Assessment & Plan (1) HTN (hypertension): Plan: Patient with elevated blood pressure prior to arrival. She reports compliance with her medications. Blood pressure elevated at present, however, improved. No complaints of chest pain, SOB, MORA, back pain presently. -Resume home meds -Monitor (2) Elevated troponin: Plan: Elevated [id number]=543. Likely demand ischemia in setting of elevated blood pressure. Patient denies chest pain -Trend troponin -Telemetry monitoring -Awaiting CTA results History of Present Illness Chief Complaint: elevated troponin Primary Care Provider: Maricruz Stevenson DO 74yo female with history of HTN, recent open heart surgery aortic and tricuspid valve replacements performed at [facility] on 07/24/24 presents with elevated blood pressure. Patient reports that her blood pressure was elevated throughout the day yesterday - 175/104. She did endorse some mild chest and back discomfort to the ER provider, however, denied all chest pain/discomfort to me. No report of shortness of breath, palpitations, chest discomfort, dizziness, headache. No additional complaints at this time. In the ER she is afebrile, HTN at 159/93. Allergies Allergy/AdvReac Type Severity Reaction Status Date / Time shellfish derived Allergy Severe throat Verified 05/22/24 12:33 closing , systemic reaction Cephalosporins Allergy Intermediate hives Verified 05/22/24 12:33 methenamine Allergy Intermediate hives Verified 05/22/24 12:33 oxycodone Allergy Intermediate HIVES Verified 05/22/24 12:33 pravastatin [From Pravachol] Allergy Intermediate BODY ACHES Verified 05/22/24 12:33 propoxyphene Allergy Intermediate ITCHING Verified 05/22/24 12:33 AND A RASH Sulfa (Sulfonamide Allergy Intermediate hives Verified 05/22/24 12:33 Antibiotics) sulfamethoxazole Allergy Intermediate hives Verified 05/22/24 12:33 trimethoprim Allergy Intermediate hives Verified 05/22/24 12:33 simvastatin AdvReac Intermediate body aches Verified 05/22/24 12:33 tapentadol AdvReac Intermediate felt very Verified 05/22/24 12:33 uncomfortable - does not ever want hydrocodone AdvReac Mild ITCHING Verified 05/22/24 12:33 hyoscyamine AdvReac Mild Significant Verified 05/22/24 12:33 dry mouth/throat Home Medications Medication Instructions Recorded Confirmed Type albuterol sulfate 2.5 mg/3 mL 2.5 mg inhalation DIRECTED PRN 07/06/18 05/22/24 History (0.083 %) solution for nebulization Shortness Of Breath Or Wheezing albuterol sulfate 90 mcg/actuation 2 puff inhalation QID PRN 07/06/18 05/22/24 History aerosol inhaler (ProAir HFA) Shortness Of Breath Or Wheezing diclofenac sodium 1 % topical gel 2 g topical QID PRN Pain 07/06/18 05/22/24 History epinephrine 0.3 mg/0.3 mL 0.3 mg IM DIRECTED PRN Allergic 07/06/18 05/22/24 History injection, auto-injector (EpiPen) Reaction hydroxyzine HCl 25 mg tablet 25 mg PO DAILY PRN Itching 07/06/18 05/22/24 History lorazepam 0.5 mg tablet 0.5 mg PO BID PRN Anxiety 07/06/18 05/22/24 History metoprolol succinate 25 mg 25 mg PO QAM 07/06/18 05/22/24 History tablet,extended release 24 hr (Toprol XL) tramadol 50 mg tablet 50 mg PO Q8H PRN Pain 07/06/18 05/22/24 History hydrochlorothiazide 12.5 mg tablet 12.5 mg PO QAM 10/05/19 05/22/24 History budesonide-formoterol HFA 160 2 puff inhalation BID 10/30/19 05/22/24 History mcg-4.5 mcg/actuation aerosol inhaler (Symbicort) dibucaine 1 % topical ointment 1 applic topical TID PRN 07/12/20 05/22/24 History Hemorrhoids Diltiazem 2% Ointment 1 applic topical TID PRN 06/23/22 05/22/24 History Hemorrhoids carisoprodol 250 mg tablet 250 mg PO DIRECTED PRN NEEDED 06/23/22 05/22/24 History celecoxib 200 mg capsule (Celebrex) 200 mg PO DIRECTED PRN Pain 06/23/22 05/22/24 History cyclobenzaprine 10 mg tablet 10 mg PO TID PRN MUSCLE SPASMS 06/23/22 05/22/24 History hydromorphone 2 mg tablet 2 mg PO DIRECTED PRN Pain 06/23/22 05/22/24 History hyoscyamine sulfate 0.375 mg 0.375 mg PO Q12H 06/23/22 05/22/24 History tablet,extended release,12 hr ketorolac 10 mg tablet 10 mg PO DIRECTED PRN Pain 06/23/22 05/22/24 History levothyroxine 25 mcg tablet 25 mcg PO Q OTHER DAY 06/23/22 05/22/24 History levothyroxine 50 mcg tablet 50 mcg PO Q2D 06/23/22 05/22/24 History lidocaine 5 % topical patch 1 patch topical DAILY PRN Pain 06/23/22 05/22/24 History lisinopril 10 mg tablet 10 mg PO DAILY 06/23/22 05/22/24 History nitroglycerin 0.2 mg/hr 1 patch transdermal DAILY 06/23/22 05/22/24 History transdermal 24 hour patch omeprazole 20 mg tablet,delayed 20 mg PO QAM 06/23/22 05/22/24 History release pantoprazole 40 mg tablet,delayed 40 mg PO QAM 06/23/22 05/22/24 History release diphenoxylate-atropine 2.5 1 tab PO DAILY PRN Diarrhea 07/16/23 05/22/24 History mg-0.025 mg tablet pregabalin 50 mg capsule 50 mg PO QAM 07/16/23 05/22/24 History meclizine 25 mg tablet 25 mg PO TID PRN Dizziness #60 tabs 08/19/23 05/22/24 Rx escitalopram oxalate 10 mg tablet 10 mg PO BID 11/28/23 05/22/24 History cholestyramine-aspartame 4 gram 4 g PO DAILY 12/05/23 05/22/24 History oral powder (Prevalite) colchicine 0.6 mg tablet 0.6 mg PO DAILY PRN gallbladder 12/05/23 05/22/24 History nitroglycerin 0.4 mg sublingual 0.4 mg sublingual UD PRN Chest Pain 12/05/23 05/22/24 History tablet phenazopyridine 100 mg tablet 100 mg PO Q8H PRN pain #60 tabs 12/06/23 05/22/24 Rx (Pyridium) vibegron 75 mg tablet 75 mg PO DAILY #90 tabs 03/12/24 05/22/24 Rx rimegepant 75 mg disintegrating 75 mg PO Q OTHER DAY #16 tabs 03/21/24 05/22/24 Rx tablet (Nurtec ODT) eszopiclone 2 mg tablet 2 mg PO DAILY #30 tabs 05/23/24 05/23/24 Rx potassium chloride 20 mEq 20 meq PO DAILY #5 tabs 08/27/24 Rx tablet,extended release Past Med/Surg History Problem List (Updated 10/09/24 @ 05:41 by Aline Burgos DO) Elevated troponin Circadian rhythm sleep disorder, delayed sleep phase type Insomnia Dysuria (Acute) Lower abdominal pain Interstitial cystitis Urinary symptom or sign Vertigo Migraine with vertigo COVID (Acute) Chronic diarrhea Cerumen impaction Encounter for pre-operative examination Dyspnea Abnormal CT scan of lung Left leg pain (Acute) Left knee DJD (Chronic) Depression (Chronic) Biliary colic Hematuria resolved Proteinuria resolved Anxiety and depression Hypothyroidism (Chronic) Dyslipidemia (Chronic) Fibromyalgia (Chronic) Asthma, moderate persistent (Chronic) daily and prn inh (has not used in a couple of years) HTN (hypertension) (Chronic) Mitral regurgitation (Chronic) [place] [facility] [place] History Pulmonary hypertension mild per cardio records History of COVID-19 pt denies>+ test noted in [place] record from 2021 Hx of gastric ulcer IBS (irritable bowel syndrome) Heart disease Rectal bleeding "has hemorrhoids, still occurs sometimes" History of kidney stones Cardiac murmur Surgical History S/P arthroscopy of right knee S/P arthroscopy of left knee S/P tonsillectomy and adenoidectomy History of total knee replacement left + revision History of carpal tunnel release right/left History of colonoscopy History of tooth extraction History of tonsillectomy History of endoscopic sinus surgery History of cataract surgery right/left Aortic valve replaced 2017, [facility] [place] Mitral valve replaced 2018, [facility] [place]; f/u dr. ward, ps History of heart artery stent 2018, [facility] [place], x1 stents>12/05/23- stated that pt "never had a stent placed, only the cath prior to the AVR and MVR"-cardio [place] [facility] [place] not show that a stent was placed Family History Father Heart disease Hypertension Uncle Cancer Mother Heart disease Other No family history of adverse response to anesthesia No significant family history Social History Smoking Status: Former smoker Tobacco Type: Cigarettes Cigarettes Per Day: Quit when 27yrs old; Second Hand Exposure: No; Do You Dip or Chew Tobacco: No; Hx Alcohol Use: No Hx Substance Use: No Preferred Language: Latvian Communication Ability: Effective Hearing Ability: Normal Correction Worker Required: No Beliefs That Will Affect Care: None marital status: Current Living Situation: Spouse current occupational status: retired current occupation: Retired How many Children do You have: 3 Feels Safe at Home: Yes Diet: regular during the past year weight has: decreased > 10 lbs Assistive Devices: Denture - Upper, Denture - Lower and Glasses Review of Systems Review of Systems: All systems reviewed & are unremarkable except as noted in HPI & below Physical Exam Physical Exam: General: patient resting comfortably, NAD, non-toxic in appearance, AA&O x 4 Skin: warm, dry, intact, no rashes or lesions HEENT: NC/AT, PERRL, EOMI, anicteric sclera, conjunctiva without injection, external ear normal to inspection and nontender, nares patent, moist mucus membranes, dentition intact, no oropharyngeal lesions, neck supple, trachea midline, no LAD, no thyromegaly, no JVD Heart: +S1/S2, regular, no m/r/g, well healed sternotomy wound Lungs: equal air entry bilaterally, no rales/rhonchi/wheezes Abd: +BS, soft, NT/ND, no masses/organomegaly/ascites Ext: warm, 2+ pulses in UE/LE bilaterally, no clubbing/cyanosis or edema Neuro: nonfocal, patient AA&O x 4, speech intact, no facial droop, moving all extremities on command with equal strength 5/5 Results & Data Results & Data Vital Signs (Past 12 Hours) Vital Signs Temp Pulse Resp BP Pulse Ox O2 Del Method 10/09/24 04:39 72 22 159/93 H 96 10/09/24 03:21 80 10/09/24 03:11 37 C 84 18 157/66 H 94 Room Air Laboratory Results Laboratory Results WBC 6.23 K/ul (4.8-10.8) 10/09/24 03: RBC 3.81 M/uL (4.20-5.40) L 10/09/24 03:31 Hgb 10.9 g/dl (12.0-16.0) L 10/09/24 03: Hct 34.3 % (37.0-47.0) L 10/09/24 03: MCV 90.0 fL (80.0-100.0) 10/09/24 03: MCH 28.6 pg (25.0-34.0) 10/09/24 03: MCHC 31.8 g/dL (32.0-36.0) L 10/09/24 03: RDW Std Deviation 42.6 fL (36.4-46.3) 10/09/24 03: RDW Coeff of Jhoana 12.9 % (11.5-14.5) 10/09/24 03:31 Plt Count 397 K/uL (130-400) 10/09/24 03:31 MPV 9.7 fL (9.4-12.4) 10/09/24 03:31 Immature Gran % (Auto) 0.3 % 10/09/24 03:31 Neut % (Auto) 57.3 % 10/09/24 03:31 Lymph % (Auto) 24.9 % 10/09/24 03:31 Dubois % (Auto) 13.2 % 10/09/24 03:31 Eos % (Auto) 3.0 % 10/09/24 03:31 Baso % (Auto) 1.3 % 10/09/24 03:31 Neut # (Auto) 3.57 K/uL (1.40-6.50) 10/09/24 03:31 Lymph # (Auto) 1.55 K/uL (1.20-3.40) 10/09/24 03:31 Dubois # (Auto) 0.82 K/uL (0.11-0.59) H 10/09/24 03:31 Eos # (Auto) 0.19 K/uL (0.00-0.50) 10/09/24 03:31 Baso # (Auto) 0.08 K/uL (0.00-0.20) 10/09/24 03:31 Immature Gran # (Auto) 0.02 K/uL (0.01-0.20) 10/09/24 03:31 Sodium 140 mmol/L (136-145) 10/09/24 03:31 Potassium 3.8 mmol/L (3.5-5.1) 10/09/24 03:31 Chloride 105 mmol/L (98-107) 10/09/24 03:31 Carbon Dioxide 29 mmol/L (21-32) 10/09/24 03:31 Anion Gap 6 (3-11) 10/09/24 03:31 BUN 10 mg/dl (6-23) 10/09/24 03:31 Creatinine 0.62 mg/dl (0.6-1.2) 10/09/24 03:31 Est Cr Clr Drug Dosing 64.2 ml/min 10/09/24 03:31 eGFR 94.56 10/09/24 03:31 BUN/Creatinine Ratio 16.1 (10-20) 10/09/24 03:31 Glucose 90 mg/dl (70-99(Fasting)) 10/09/24 03:31 Calcium 8.9 mg/dl (8.6-10.3) 10/09/24 03:31 Total Bilirubin 0.4 mg/dl (0.2-1.0) 10/09/24 03:31 AST 16 U/L (13-39) 10/09/24 03:31 ALT 7 U/L (7-52) 10/09/24 03:31 Alkaline Phosphatase 104 U/L (34-104) 10/09/24 03:31 Troponin I High Sens 218.1 pg/ml (0-14) H* 10/09/24 03:31 Total Protein 7.2 gm/dl (6.0-8.3) 10/09/24 03:31 Albumin 4.1 gm/dl (3.4-5.0) 10/09/24 03:31 Globulin 3.1 gm/dl (2.5-4.0) 10/09/24 03:31 Albumin/Globulin Ratio 1.3 (0.9-2) 10/09/24 03:31 Lipase 71 U/L (11-82) 10/09/24 03:31 Diagnostic Findings Awaiting CTA findings ECG Additional Comments: No ischemic changes PG Care Time/CCT Total # of Minutes Spent Total Time Spent with Patient: Total time spent is greater than 50% in coordination of care (as documented) at patient's floor/unit and/or counseling patient: Coding Level of Care Code 78054 INT INP/OBS CARE 3/75MIN Diagnoses HTN (hypertension) I10 Elevated troponin R79.89
--- NOTE | 2024-10-09 05:25 | Emergency Department Note ---
Impression & Plan Acute non-ST elevation myocardial infarction (NSTEMI) ED Provider Note NAME: MICHELE HARRISON AGE: 74 SEX: F : 1950 ARRIVES VIA: Walk-In INFORMANT: Patient, ED PROVIDER(S): Elicia Madrigal MD CHIEF COMPLAINT: Chest pain, hypertension HPI: This is a 74-year-old female history of aortic/mitral valve repair presenting for hypertension. Patient mentions that she checked her blood pressure multiple times today and was elevated to 170-180. She had mild chest pain that began this afternoon rating 2/10. Describes it as somewhat pressure- like. Never had pain like this before. No history of CABG. Otherwise reports chronic shortness of breath ROS: See above HPI for pertinent positives & negatives. A total of 10 systems reviewed and were otherwise negative. PAST MEDICAL HISTORY: See Below PAST SURGICAL HISTORY: See Below FAMILY HISTORY: See Below SOCIAL HISTORY: See Below HOME MEDICATIONS: See Below ALLERGIES: See Below VITALS: See Below PHYSICAL EXAMINATION: General: resting comfortably in no acute distress Head: Normocephalic and atraumatic Eyes: Normal inspection, extraocular muscles intact Ear, nose, throat: Normal external exam Neck: Normal range of motion Respiratory: lungs clear to auscultation bilaterally Cardiovascular: Regular rate/rhythm, no murmur GI: soft, nontender, no guarding or rebound Extremities: nontender, moves all extremities Neuro: The patient awake and alert, appropriately conversive, no focal deficits, symmetric faces Skin: Warm, dry, and intact MEDICAL DECISION MAKING: This is a 74-year-old female with history of aortic/mitral valve repair present for hypertension. Patient also notes chest pain. Will do ACS rule out. Also with chest and back pain, will do CTA for dissection -ECG independently interpreted by me with normal sinus rhythm, rate of 81, normal axis, normal SD, normal QRS, normal QTc, no ST segment elevations consistent with STEMI criteria -CTA of the chest reveals no pulm embolism, otherwise stable findings -Patient's troponin does result over 200 at this time. Other blood work is reassuring -Patient required mission at this time for further ACS/NSTEMI rule out discussed with Dr. Burgos Differential diagnosis: Hypertension, ACS, PE, dissection Independent History obtained from: Diagnostics interpreted by me: ECG: See above Cardiac Monitoring: An order was placed for continuous cardiac monitoring. The monitor shows a rate of 71 with sinus rhythm. Past Med/Surg History Problem List (Updated 10/09/24 @ 07:01 by Elicia Madrigal MD) Acute non-ST elevation myocardial infarction (NSTEMI) (Acute) Elevated troponin Circadian rhythm sleep disorder, delayed sleep phase type Insomnia Dysuria (Acute) Lower abdominal pain Interstitial cystitis Urinary symptom or sign Vertigo Migraine with vertigo COVID (Acute) Chronic diarrhea Cerumen impaction Encounter for pre-operative examination Dyspnea Abnormal CT scan of lung Left leg pain (Acute) Left knee DJD (Chronic) Depression (Chronic) Biliary colic Hematuria resolved Proteinuria resolved Anxiety and depression Hypothyroidism (Chronic) Dyslipidemia (Chronic) Fibromyalgia (Chronic) Asthma, moderate persistent (Chronic) daily and prn inh (has not used in a couple of years) HTN (hypertension) (Chronic) Mitral regurgitation (Chronic) [place] [facility] [place] History Pulmonary hypertension mild per cardio records History of COVID-19 pt denies>+ test noted in [place] record from 2021 Hx of gastric ulcer IBS (irritable bowel syndrome) Heart disease Rectal bleeding "has hemorrhoids, still occurs sometimes" History of kidney stones Cardiac murmur Surgical History S/P arthroscopy of right knee S/P arthroscopy of left knee S/P tonsillectomy and adenoidectomy History of total knee replacement left + revision History of carpal tunnel release right/left History of colonoscopy History of tooth extraction History of tonsillectomy History of endoscopic sinus surgery History of cataract surgery right/left [place] [facility] [place] [facility] [place] f/u dr. ward, ps History of heart artery stent [place] [facility] [place] st[place]12/05/23- stated that pt "never had a stent placed, only the cath prior to the AVR and MVR"-[place] [facility] [place] show that a stent was placed Family History Father Heart disease Hypertension Uncle Cancer Mother Heart disease Other No family history of adverse response to anesthesia No significant family history Social History Smoking Status: Never smoker Tobacco Type: Cigarettes Cigarettes Per Day: Quit when 27yrs old; Second Hand Exposure: No; Do You Dip or Chew Tobacco: No; Hx Alcohol Use: No Hx Substance Use: No Preferred Language: Polish Communication Ability: Effective Hearing Ability: Normal Marketing Admin Required: No Beliefs That Will Affect Care: None marital status: Current Living Situation: Spouse current occupational status: retired current occupation: Retired How many Children do You have: 3 Feels Safe at Home: Yes Safety Concerns: Feels Safe At This Time Diet: regular during the past year weight has: decreased > 10 lbs Assistive Devices: Denture - Upper, Denture - Lower and Glasses Allergies Allergies Allergy/AdvReac Type Severity Reaction Status Date / Time shellfish derived Allergy Severe throat Verified 05/22/24 12:33 closing , systemic reaction Cephalosporins Allergy Intermediate hives Verified 05/22/24 12:33 methenamine Allergy Intermediate hives Verified 05/22/24 12:33 oxycodone Allergy Intermediate HIVES Verified 05/22/24 12:33 pravastatin [From Pravachol] Allergy Intermediate BODY ACHES Verified 05/22/24 12:33 propoxyphene Allergy Intermediate ITCHING Verified 05/22/24 12:33 AND A RASH Sulfa (Sulfonamide Allergy Intermediate hives Verified 05/22/24 12:33 Antibiotics) sulfamethoxazole Allergy Intermediate hives Verified 05/22/24 12:33 trimethoprim Allergy Intermediate hives Verified 05/22/24 12:33 simvastatin AdvReac Intermediate body aches Verified 05/22/24 12:33 tapentadol AdvReac Intermediate felt very Verified 05/22/24 12:33 uncomfortable - does not ever want hydrocodone AdvReac Mild ITCHING Verified 05/22/24 12:33 hyoscyamine AdvReac Mild Significant Verified 05/22/24 12:33 dry mouth/throat Home Meds Home Medications Medication Instructions Recorded Confirmed albuterol sulfate 2.5 mg/3 mL 2.5 mg inhalation DIRECTED PRN 07/06/18 05/22/24 (0.083 %) solution for nebulization Shortness Of Breath Or Wheezing albuterol sulfate 90 mcg/actuation 2 puff inhalation QID PRN 07/06/18 05/22/24 aerosol inhaler (ProAir HFA) Shortness Of Breath Or Wheezing diclofenac sodium 1 % topical gel 2 g topical QID PRN Pain 07/06/18 05/22/24 epinephrine 0.3 mg/0.3 mL 0.3 mg IM DIRECTED PRN Allergic 07/06/18 05/22/24 injection, auto-injector (EpiPen) Reaction hydroxyzine HCl 25 mg tablet 25 mg PO DAILY PRN Itching 07/06/18 05/22/24 lorazepam 0.5 mg tablet 0.5 mg PO BID PRN Anxiety 07/06/18 05/22/24 metoprolol succinate 25 mg 25 mg PO QAM 07/06/18 05/22/24 tablet,extended release 24 hr (Toprol XL) tramadol 50 mg tablet 50 mg PO Q8H PRN Pain 07/06/18 05/22/24 hydrochlorothiazide 12.5 mg tablet 12.5 mg PO QAM 10/05/19 05/22/24 budesonide-formoterol HFA 160 2 puff inhalation BID 10/30/19 05/22/24 mcg-4.5 mcg/actuation aerosol inhaler (Symbicort) dibucaine 1 % topical ointment 1 applic topical TID PRN 07/12/20 05/22/24 Hemorrhoids Diltiazem 2% Ointment 1 applic topical TID PRN 06/23/22 05/22/24 Hemorrhoids carisoprodol 250 mg tablet 250 mg PO DIRECTED PRN NEEDED 06/23/22 05/22/24 celecoxib 200 mg capsule (Celebrex) 200 mg PO DIRECTED PRN Pain 06/23/22 05/22/24 cyclobenzaprine 10 mg tablet 10 mg PO TID PRN MUSCLE SPASMS 06/23/22 05/22/24 hydromorphone 2 mg tablet 2 mg PO DIRECTED PRN Pain 06/23/22 05/22/24 hyoscyamine sulfate 0.375 mg 0.375 mg PO Q12H 06/23/22 05/22/24 tablet,extended release,12 hr ketorolac 10 mg tablet 10 mg PO DIRECTED PRN Pain 06/23/22 05/22/24 levothyroxine 25 mcg tablet 25 mcg PO Q OTHER DAY 06/23/22 05/22/24 levothyroxine 50 mcg tablet 50 mcg PO Q2D 06/23/22 05/22/24 lidocaine 5 % topical patch 1 patch topical DAILY PRN Pain 06/23/22 05/22/24 lisinopril 10 mg tablet 10 mg PO DAILY 06/23/22 05/22/24 nitroglycerin 0.2 mg/hr 1 patch transdermal DAILY 06/23/22 05/22/24 transdermal 24 hour patch omeprazole 20 mg tablet,delayed 20 mg PO QAM 06/23/22 05/22/24 release pantoprazole 40 mg tablet,delayed 40 mg PO QAM 06/23/22 05/22/24 release diphenoxylate-atropine 2.5 1 tab PO DAILY PRN Diarrhea 07/16/23 05/22/24 mg-0.025 mg tablet pregabalin 50 mg capsule 50 mg PO QAM 07/16/23 05/22/24 escitalopram oxalate 10 mg tablet 10 mg PO BID 11/28/23 05/22/24 cholestyramine-aspartame 4 gram 4 g PO DAILY 12/05/23 05/22/24 oral powder (Prevalite) colchicine 0.6 mg tablet 0.6 mg PO DAILY PRN gallbladder 12/05/23 05/22/24 nitroglycerin 0.4 mg sublingual 0.4 mg sublingual UD PRN Chest Pain 12/05/23 05/22/24 tablet Previous Rx's Medication Instructions Recorded meclizine 25 mg tablet 25 mg PO TID PRN Dizziness #60 tabs 08/19/23 phenazopyridine 100 mg tablet 100 mg PO Q8H PRN pain #60 tabs 12/06/23 (Pyridium) vibegron 75 mg tablet 75 mg PO DAILY #90 tabs 03/12/24 rimegepant 75 mg disintegrating 75 mg PO Q OTHER DAY #16 tabs 03/21/24 tablet (Nurtec ODT) eszopiclone 2 mg tablet 2 mg PO DAILY #30 tabs 05/23/24 potassium chloride 20 mEq 20 meq PO DAILY #5 tabs 08/27/24 tablet,extended release Results & Data (ED) Vital Signs Vital Signs - 24 hr 10/09/24 03:11 10/09/24 03:21 10/09/24 04:39 Temperature 37 C Temperature Source Oral Pulse Rate 84 80 72 Respiratory Rate 18 22 Blood Pressure 157/66 H 159/93 H Blood Pressure Mean 96 115 Pulse Oximetry 94 96 Oxygen Delivery Method Room Air Sepsis Recent Fever Within 48 Hours No Sepsis New/Unexplained Change in Mental Status No Sepsis Action Taken by Nursing No Action Required Laboratory Data 10/09/24 03:31 10/09/24 03:31 Lab Results 10/09/24 Range/Units 03:31 WBC 6.23 (4.8-10.8) K/ul RBC 3.81 L (4.20-5.40) M/uL Hgb 10.9 L (12.0-16.0) g/dl Hct 34.3 L (37.0-47.0) % MCV 90.0 (80.0-100.0) fL MCH 28.6 (25.0-34.0) pg MCHC 31.8 L (32.0-36.0) g/dL RDW Std Deviation 42.6 (36.4-46.3) fL RDW Coeff of Jhoana 12.9 (11.5-14.5) % Plt Count 397 (130-400) K/uL MPV 9.7 (9.4-12.4) fL Immature Gran % (Auto) 0.3 % Neut % (Auto) 57.3 % Lymph % (Auto) 24.9 % [place] % (Auto) 13.2 % Eos % (Auto) 3.0 % Baso % (Auto) 1.3 % Neut # (Auto) 3.57 (1.40-6.50) K/uL Lymph # (Auto) 1.55 (1.20-3.40) K/uL [place] # (Auto) 0.82 H (0.11-0.59) K/uL Eos # (Auto) 0.19 (0.00-0.50) K/uL Baso # (Auto) 0.08 (0.00-0.20) K/uL Immature Gran # (Auto) 0.02 (0.01-0.20) K/uL Sodium 140 (136-145) mmol/L Potassium 3.8 (3.5-5.1) mmol/L Chloride 105 (98-107) mmol/L Carbon Dioxide 29 (21-32) mmol/L Anion Gap 6 (3-11) BUN 10 (6-23) mg/dl Creatinine 0.62 (0.6-1.2) mg/dl Est Cr Clr Drug Dosing 64.2 ml/min eGFR 94.56 BUN/Creatinine Ratio 16.1 (10-20) Glucose 90 (70-99(Fasting)) mg/dl Calcium 8.9 (8.6-10.3) mg/dl Total Bilirubin 0.4 (0.2-1.0) mg/dl AST 16 (13-39) U/L ALT 7 (7-52) U/L Alkaline Phosphatase 104 (34-104) U/L Troponin I High Sens 218.1 H* (0-14) pg/ml Total Protein 7.2 (6.0-8.3) gm/dl Albumin 4.1 (3.4-5.0) gm/dl Globulin 3.1 (2.5-4.0) gm/dl Albumin/Globulin Ratio 1.3 (0.9-2) Lipase 71 (11-82) U/L Administered Medications Levothyroxine Sodium (Levothyroxine Sodium 50 Mcg Tablet) 50 mcg PO Q2D TIGRE Stop: 11/08/24 06:29 Last Admin: 10/09/24 06:17 Dose: 50 mcg Documented By: EV Discontinued Medications Ioversol (Optiray 320 125ml) 125 ml IV ONCE ONE Stop: 10/09/24 04:38 Last Admin: 10/09/24 04:37 Dose: 118 ml Documented By: CLAUDIA Imaging Data Radiologist's Impression: Chest CTA 10/09/24 04:05 EXAM: CT angio chest dissec wo/w con CLINICAL HISTORY: back/chest pain w/ previous heart surgery TECHNIQUE: Contiguous axial images were obtained from the neck base through the upper abdomen following intravenous administration of iodinated contrast material. Angiographic images were processed, 3D MIP images were acquired for interpretation. If IV contrast material had not been administered, the likelihood of detecting abnormalities relevant to the patient's condition would have been substantially decreased. Coronal and sagittal 3-D MIPs were likewise performed and indicated to increase the sensitivity of detectin diffuse clinically relevant pathology. CT scan was performed according to ALARA (as low as reasonable achievable). COMPARISON: 27 aug 2024. FINDINGS: Mild bilateral pleural effusion with basal subsegmental collapse of both lower lobes are seen Eventration of left dome of diaphragm with passive atelectasis of left lower lobe. Mild dilatation of pulmonary trunk ,bilateral main pulmonary artery up to subsegmental level with mild tortuosity - suggest possibility of pulmonary arterial hypertension. Sternotomy suture is seen in situ. Adequate contrast bolus without evidence of pulmonary embolism. The central airways are patent. The heart, aorta, and pulmonary arteries are of normal size and configuration. There are no appreciable coronary artery and aortic atherosclerotic calcifications. No pericardial effusion is identified. The thyroid is unremarkable. No mediastinal, hilar, or axillary lymphadenopathy is noted. No suspicious lytic or sclerotic osseous lesions are identified. IMPRESSION: 1. No evidence of pulmonary embolism Mild bilateral pleural effusion with basal subsegmental collapse of both lower lobes are seen -reduced Eventration of left dome of diaphragm with passive atelectasis of left lower lobe.-stable. Mild dilatation of pulmonary trunk ,bilateral main pulmonary artery up to subsegmental level with mild tortuosity - suggest possibility of pulmonary arterial hypertension. -stable. Electronically signed by Gordon Olsen 10-09-2024 05:45 AM Discharge Plan Visit Data Chief Complaint: Hypertension Stated Complaint: HEART SURGERY 2 MONTHS AGO,BP 182/101 AND HIGHER ED Provider: Elicia Madrigal Discharge Problem: Acute non-ST elevation myocardial infarction (NSTEMI) Discharge Instructions Interventions: ED Discharge Assessment Last Done: 10/09/24 05:43
[2024-10-09] MEDS ORDERED: ACETAMINOPHEN 325 MG TAB PO PRN (05:42)
[2024-10-09] MEDS ORDERED: ONDANSETRON INJ 2 MG/ML 2 ML VIAL IV PRN (05:42)
[2024-10-09] MEDS ORDERED: LORazepam 0.5 MG TAB PO PRN (05:42)
[2024-10-09] MEDS ORDERED: ALBUTEROL HFA 8 GM INHALER INH PRN (05:42)
--- NOTE | 2024-10-09 05:46 | CT Scan Report ---
EXAM: CT angio chest dissec wo/w con CLINICAL HISTORY: back/chest pain w/ previous heart surgery TECHNIQUE: Contiguous axial images were obtained from the neck base through the upper abdomen following intravenous administration of iodinated contrast material. Angiographic images were processed, 3D MIP images were acquired for interpretation. If IV contrast material had not been administered, the likelihood of detecting abnormalities relevant to the patient's condition would have been substantially decreased. Coronal and sagittal 3-D MIPs were likewise performed and indicated to increase the sensitivity of detectin diffuse clinically relevant pathology. CT scan was performed according to ALARA (as low as reasonable achievable). COMPARISON: 27 aug 2024. FINDINGS: Mild bilateral pleural effusion with basal subsegmental collapse of both lower lobes are seen Eventration of left dome of diaphragm with passive atelectasis of left lower lobe. Mild dilatation of pulmonary trunk ,bilateral main pulmonary artery up to subsegmental level with mild tortuosity - suggest possibility of pulmonary arterial hypertension. Sternotomy suture is seen in situ. Adequate contrast bolus without evidence of pulmonary embolism. The central airways are patent. The heart, aorta, and pulmonary arteries are of normal size and configuration. There are no appreciable coronary artery and aortic atherosclerotic calcifications. No pericardial effusion is identified. The thyroid is unremarkable. No mediastinal, hilar, or axillary lymphadenopathy is noted. No suspicious lytic or sclerotic osseous lesions are identified. IMPRESSION: 1. No evidence of pulmonary embolism Mild bilateral pleural effusion with basal subsegmental collapse of both lower lobes are seen -reduced Eventration of left dome of diaphragm with passive atelectasis of left lower lobe.-stable. Mild dilatation of pulmonary trunk ,bilateral main pulmonary artery up to subsegmental level with mild tortuosity - suggest possibility of pulmonary arterial hypertension. -stable. Electronically signed by Gordon Olsen 10-09-2024 05:45 AM
[2024-10-09] MEDS: LEVOTHYROXINE SODIUM 50 MCG TABLET PO SCH (06:17)
[2024-10-09] MEDS: ESCITALOPRAM OXALATE 10 MG TAB PO SCH (08:12)
[2024-10-09] MEDS: hydroCHLOROthiazide 25 MG TAB PO SCH (08:13)
[2024-10-09] MEDS: FLUTICASONE/VILANTEROL 100/25MCG 14 PUFFS/INHALER INH SCH (08:48)
[2024-10-09 08:54] VITALS: RESP 19; O2SAT 94
--- NOTE | 2024-10-09 08:55 | Discharge Summary ---
Date of Service October 09, 2024 Admission HPI Per Admitting Provider 74yo female with history of HTN, recent open heart surgery aortic and tricuspid valve replacements performed at [facility] on 07/24/24 presents with elevated blood pressure. Patient reports that her blood pressure was elevated throughout the day yesterday - 175/104. She did endorse some mild chest and back discomfort to the ER provider, however, denied all chest pain/discomfort to me. No report of shortness of breath, palpitations, chest discomfort, dizziness, headache. No additional complaints at this time. In the ER she is afebrile, HTN at 159/93. Admission Exam Per Admitting Provider General: patient resting comfortably, NAD, non-toxic in appearance, AA&O x 4 Skin: warm, dry, intact, no rashes or lesions HEENT: NC/AT, PERRL, EOMI, anicteric sclera, conjunctiva without injection, external ear normal to inspection and nontender, nares patent, moist mucus membranes, dentition intact, no oropharyngeal lesions, neck supple, trachea midline, no LAD, no thyromegaly, no JVD Heart: +S1/S2, regular, no m/r/g, well healed sternotomy wound Lungs: equal air entry bilaterally, no rales/rhonchi/wheezes Abd: +BS, soft, NT/ND, no masses/organomegaly/ascites Ext: warm, 2+ pulses in UE/LE bilaterally, no clubbing/cyanosis or edema Neuro: nonfocal, patient AA&O x 4, speech intact, no facial droop, moving all extremities on command with equal strength 5/5 Principal Diagnosis Elevated troponin Discharge Exam Constitutional: well-appearing, no acute distress HEENT: NCAT, no conjunctival injection CV: regular rhythm, no murmur appreciated, extremities well-perfused, no LE edema Resp: CTABL, no wheezes/rales/rhonchi appreciated, no increased work of breathing GI: soft, nondistended, nontender, BS normoactive MSK: no gross deformities appreciated Skin: warm, dry, no rash appreciated Neuro: alert, oriented, no focal neurologic deficit appreciated Discharge Data Allergies Allergy/AdvReac Type Severity Reaction Status Date / Time shellfish derived Allergy Severe throat Verified 05/22/24 12:33 closing , systemic reaction Cephalosporins Allergy Intermediate hives Verified 05/22/24 12:33 methenamine Allergy Intermediate hives Verified 05/22/24 12:33 oxycodone Allergy Intermediate HIVES Verified 05/22/24 12:33 pravastatin [From Pravachol] Allergy Intermediate BODY ACHES Verified 05/22/24 12:33 propoxyphene Allergy Intermediate ITCHING Verified 05/22/24 12:33 AND A RASH Sulfa (Sulfonamide Allergy Intermediate hives Verified 05/22/24 12:33 Antibiotics) sulfamethoxazole Allergy Intermediate hives Verified 05/22/24 12:33 trimethoprim Allergy Intermediate hives Verified 05/22/24 12:33 simvastatin AdvReac Intermediate body aches Verified 05/22/24 12:33 tapentadol AdvReac Intermediate felt very Verified 05/22/24 12:33 uncomfortable - does not ever want hydrocodone AdvReac Mild ITCHING Verified 05/22/24 12:33 hyoscyamine AdvReac Mild Significant Verified 05/22/24 12:33 dry mouth/throat Consultations 10/09/24 05:07 ED Decision to Admit Stat Ordered Studies 10/09/24 04:05 CTA chest dissec wo/w con [CT angio chest dissec wo/w con] Stat Hospital Course (1) HTN (hypertension): Patient with elevated blood pressure prior to arrival. She reports compliance with her medications. Blood pressure improved. No complaints of chest pain, SOB, MROA, back pain presently. -Resume home meds (2) Elevated troponin: Elevated [id number]. Likely demand ischemia in setting of elevated blood pressure. Patient denies chest pain -CTA negative -Trop peaked Total Time Total Time Spent Total Time Spent (In Minutes): see attending documentation Discharge Plan Discharge Items Patient Disposition: Home - Self-Care Reason For Visit: CHEST PAIN Discharge Diagnosis: Elevated troponin Activity: Resume your previous activity Activity Comment: as tolerated Non-emergency contact: Primary Care Provider and [employer] Call non-emergency contact if: you have any medication questions and your symptoms worsen Follow-up/Referrals: Maricruz Stevenson DO [Primary Care Provider] - Diet: Heart Healthy Addtl Attending Provider Instructions: You were admitted to the hospital for elevated blood pressure. You were observed and your blood pressure remained stable. A discharge summary will be sent to your primary care physician to ensure continuity of care. Please bring this discharge summary with you to your next office appointment so that your provider can review it at that time. Follow-up appointments: Make a follow-up appointment with your PCP within the next week. It is very important that you follow up with them shortly after discharge from the hospital. Keep all your follow-up appointments as already scheduled. If you cannot make an appointment, notify your provider. Medications: Your medication list has been reviewed and reconciled upon discharge to ensure accuracy and continuity of care. An updated list of all your medications is included with your hospital discharge paperwork. Please review this list closely, and make note of any changes. Take your medications as instructed; do not skip a dose of your medicines. Make sure all of your doctors know every medicine you are taking (including daxo-[id number] medicines, vitamins, and supplements). Call your primary care provider before taking any new medicines (including pvve-hdb-mhdxyvr medicines, vitamins, and supplements), because some of these may interact with your current medications, or may make your symptoms worse. Tell your primary care provider if you cannot afford your medications. CONTACT YOUR PRIMARY CARE PROVIDER if you experience any of the following: Difficulty following your treatment plan, or difficulty taking medications CALL 911 OR GO TO THE EMERGENCY DEPARTMENT if you experience any of the following: Sudden, severe abdominal pain or nausea/vomiting Severe chest pain, or chest pain that radiates (moves) to your jaw or arm Sudden, severe shortness of breath or difficulty breathing Thank you for allowing us to participate in your care. Pending Studies at Discharge: No Stand-Alone Forms: My [facility] Medications and DC Order Prescriptions: Continued meclizine 25 mg tablet 25 mg PO TID PRN (Reason: Dizziness) Qty: 60 2RF Nurtec ODT 75 mg tablet,disintegrating 75 mg PO Q OTHER DAY Qty: 16 5RF vibegron 75 mg tablet 75 mg PO DAILY Qty: 90 3RF phenazopyridine [Pyridium] 100 mg tablet 100 mg PO Q8H PRN (Reason: pain) Qty: 60 0RF eszopiclone 2 mg tablet 2 mg PO DAILY Qty: 30 5RF albuterol sulfate 2.5 mg /3 mL (0.083 %) Solution For Nebulization 2.5 mg INHALATION DIRECTED PRN (Reason: Shortness Of Breath Or Wheezing) tramadol 50 mg Tablet 50 mg PO Q8H PRN (Reason: Pain) lorazepam 0.5 mg Tablet 0.5 mg PO BID PRN (Reason: Anxiety) Patient Comments: pt says its been a while since she has taken hydroxyzine HCl 25 mg Tablet 25 mg PO DAILY PRN (Reason: Itching) metoprolol succinate [Toprol XL] 25 mg Tablet Extended Release 24 Hr 25 mg PO QAM epinephrine [EpiPen] 0.3 mg/0.3 mL Auto-Injector 0.3 mg IM DIRECTED PRN (Reason: Allergic Reaction) albuterol sulfate [ProAir HFA] 90 mcg/actuation Hfa Aerosol Inhaler 2 puff INHALATION QID PRN (Reason: Shortness Of Breath Or Wheezing) diclofenac sodium 1 % Gel 2 g TOPICAL QID PRN (Reason: Pain) budesonide-formoterol [Symbicort] 160-4.5 mcg/actuation HFA aerosol inhaler 2 puff INHALATION BID hydrochlorothiazide 12.5 mg tablet 12.5 mg PO QAM dibucaine 1 % ointment 1 applic TOPICAL TID PRN (Reason: Hemorrhoids) celecoxib [Celebrex] 200 mg Capsule 200 mg PO DIRECTED PRN (Reason: Pain) cyclobenzaprine 10 mg Tablet 10 mg PO TID PRN (Reason: MUSCLE SPASMS) nitroglycerin 0.2 mg/hr Patch 24 Hour 1 patch TRANSDERMAL DAILY Rx Instructions: allow nitrate-free interval of approx. 10-12 hrs per 24-hour period levothyroxine 25 mcg Tablet 25 mcg PO Q OTHER DAY Rx Instructions: ALTERNATING WITH 50 MCG EVERY OTHER DAY. ketorolac 10 mg Tablet 10 mg PO DIRECTED PRN (Reason: Pain) hydromorphone 2 mg Tablet 2 mg PO DIRECTED PRN (Reason: Pain) hyoscyamine sulfate 0.375 mg Tablet Extended Release 12 Hr 0.375 mg PO Q12H levothyroxine 50 mcg Tablet 50 mcg PO Q2D Rx Instructions: ALTERNATING WITH 25 MCG EVERY OTHER DAY. pantoprazole 40 mg Tablet,Delayed Release (Dr/Ec) 40 mg PO QAM lisinopril 10 mg Tablet 10 mg PO DAILY lidocaine 5 % Adhesive Patch,Medicated 1 patch TOPICAL DAILY PRN (Reason: Pain) Rx Instructions: leave on most painful area for up to 12 hrs carisoprodol 250 mg Tablet 250 mg PO DIRECTED PRN (Reason: NEEDED) omeprazole 20 mg Tablet,Delayed Release (Dr/Ec) 20 mg PO QAM Diltiazem 2% Ointment 1 applic topical TID PRN (Reason: Hemorrhoids) diphenoxylate-atropine 2.5-0.025 mg Tablet 1 tab PO DAILY PRN (Reason: Diarrhea) pregabalin 50 mg Capsule 50 mg PO QAM escitalopram oxalate 10 mg tablet 10 mg PO BID nitroglycerin 0.4 mg Tablet, Sublingual 0.4 mg sublingual UD PRN (Reason: Chest Pain) Prevalite 4 gram Powder 4 g PO DAILY Rx Instructions: administer w/meal; avoid other meds within 1hr before or 4-6hr after dose colchicine 0.6 mg tablet 0.6 mg PO DAILY PRN (Reason: gallbladder) potassium chloride 20 mEq tablet extended release 20 meq PO DAILY Qty: 5 0RF Discharge Orders: Discharge Order (Routine); Ordered 10/09/24 Ordered By: Paxton Osborn Admission Data Admit Date/Time: 10/09/24 05:07 Attending Provider: Edwin Shen Admit Provider: Aline Burgos Primary Care Provider: Maricruz Stevenson Other Providers: Aline Burgos Other Interventions: Discharge Summary Assessment (RN) Last Done: 10/09/24 11:23 Supervising Physician Co-Signing Physician Notes Attending attestation Pt seen and examined in concert with Dr. Osborn. In agreement with the documented findings as noted in the resident documentation with any exceptions or additions as noted here. Resting comfortably in bed at time of examination, feeling at baseline after a short nap. Reports no chest pain, shortness of breath, headache, lightheadedness, fatigue or swelling. On examination, S1/S2 nl RRR no MCG. CTAB. Abd NT/ND BS+ve. V/S as noted. Hgb 10.9, Trop peaked and downtrended to 215.3, Cr 0.62 Hypertension, chronic - initially elevated but improved on home medication regimen with rest and monitoring. Resume home medicaitons and follow up as scheduled with cardiology Elevated troponin - asymptomatic without any symptoms reported Else see resident documentation as noted. Total attending physician time spent with this patient's care on the day of discharge: 35 minutes. Resident Activity Tracking Resident Involvement: Resident Care Provided Care Provided: Adult Hospital Medicine
--- NOTE | 2024-10-09 09:22 | Electrocardiogram Report ---
Test Reason : Blood Pressure : */* mmHG Vent. Rate : 81 BPM Atrial Rate : 81 BPM P-R Int : 136 ms QRS Dur : 100 ms QT Int : 418 ms P-R-T Axes : 15 -26 40 degrees QTcB Int : 485 ms Normal sinus rhythm Moderate voltage criteria for LVH, may be normal variant ( R in aVL , Gabriele product ) Minmal ST elevation in lead III Abnormal ECG When compared with ECG of 27-Aug-2024 14:48, No significant change Confirmed by Allen Mcgill ([id number]) on 10/09/2024 9:22:17 AM Referred By: REFERRED SELF Confirmed By: Allen Mcgill
[2024-10-09 11:25] VITALS: BP 143/89; PULSE 74
[2024-10-10] MEDS ORDERED: LEVOTHYROXINE SODIUM 25 MCG TABLET PO SCH (06:30)
== END 2024-10-09 11:23 | disposition home or self-care (01) ==
LOC: ED 03:01 → EDINP 03:01 → SUATTDRO 05:07 → EDINP 05:43

== ENCOUNTER 2024-10-13 16:21 | Inpatient (IN) ==
[2024-10-13 17:20] LABS: Basophils # (auto) 0.06 K/uL (0.00-0.20); Basophils % (auto) 0.8 %; Eosinophils # (auto) 0.25 K/uL (0.00-0.50); Eosinophils % (auto) 3.2 %; Hematocrit (blood only) 34.5 % (37.0-47.0); Hemoglobin 10.6 g/dl (12.0-16.0); Immature Granulocytes # (auto) 0.05 K/uL (0.01-0.20); Immature Granulocytes % (auto) 0.6 %; Lymphocytes # (auto) 0.79 K/uL (1.20-3.40); Lymphocytes % (auto) 10.1 %; Mean Corpuscular Hemoglobin 27.8 pg (25.0-34.0); Mean Corpuscular Hgb Conc 30.7 g/dL (32.0-36.0); Mean Corpuscular Volume 90.6 fL (80.0-100.0); Mean Platelet Volume 9.8 fL (9.4-12.4); Monocytes # (auto) 0.84 K/uL (0.11-0.59); Monocytes % (auto) 10.7 %; Neutrophils # (auto) 5.84 K/uL (1.40-6.50); Neutrophils % (auto) 74.6 %; Platelet Count 354 K/uL (130-400); RDW Coefficient of Variation 13.3 % (11.5-14.5); RDW Standard Deviation 44.4 fL (36.4-46.3); Red Blood Count 3.81 M/uL (4.20-5.40); White Blood Count 7.83 K/ul (4.8-10.8)
--- NOTE | 2024-10-13 17:20 | Emergency Department Note ---
Impression & Plan RSV infection, Acute dyspnea, Acute hypoxic respiratory failure, Elevated brain natriuretic peptide (BNP) level, Cough ED Provider Note HISTORY OF PRESENT ILLNESS: Patient is a 74-year-old female presenting with cough and shortness of breath. Patient reports for the last 7 days she has been having a cough productive of sputum. Reports that she coughed so hard that she feels like she cannot breathe. She was seen at [facility] and was found to be hypoxic to 89% on room air and they called 911 for transport to the emergency department. Patient denies wearing any supplemental oxygen at baseline. She states that she has been having significant worsening shortness of breath over the last week, most notably with exertion. Denies any chest pain. Denies any DVT or PE history. She did have open heart surgery for valve replacements back in July 2024. She is on a baby aspirin daily. Denies any history of cardiac stents. She denies any fevers. Her had a head cold last week and she thinks she got it from him. She denies any lower extremity edema. Denies any abdominal pain, nausea or vomiting. She reports she is coughing up so much sputum that "I seem to choke on it and cannot breathe." Patient denies any recent antibiotic or steroid use. ROS: as above PHYSICAL EXAM: Constitutional: Patient appears in no acute distress. HENT: Head: Normocephalic and atraumatic. Eyes: EOMI, PERRL Mouth/Throat: Mucous membranes moist. Neck: Trachea midline. Neck supple. Cardiovascular: RRR, No rubs or gallops. Intact distal pulses. Pulmonary/Chest: No respiratory distress. Breath sounds clear and equal bilaterally. No wheezes or rales. On 2L NC. Abdominal: Abdomen soft, no tenderness, rebound or guarding. Musculoskeletal: No edema, tenderness or deformity noted. Skin: Warm and dry. No rash, erythema, pallor or cyanosis Psychiatric: Appropriate mood and affect for situation. Neurological: Alert and keenly responsive. CN II-XII grossly intact, moving all extremities equally and fully. MDM: - Vitals signs showed hypertension - History obtained via patient. History as above. - Chronic conditions affecting care: HTN; recent open heart surgery (s/p aortic and tricuspid valve replacement) - Differential diagnoses include, but are not limited to: Congestive heart failure; acute coronary syndrome; COPD/asthma exacerbation; pulmonary edema; pulmonary embolism; pneumonia; pneumothorax; viral syndrome - Order placed for continuous cardiac monitoring. At this time, monitor showed rate of 75 bpm with normal sinus rhythm, per my interpretation. - External medical records reviewed. Discharge summary dated 10/09/2024 was reviewed. Patient was admitted at that time for an elevated troponin and hypertension. - EKG interpreted by myself showed normal sinus rhythm. Rate 76 bpm. QT prolonged at 438. No acute ischemic changes. - Laboratory workup interpreted by myself showed normal WBC; normal PT/INR; stable electrolytes; normal troponin; elevated BNP (459) - Viral respiratory panel positive for RSV. - VBG shows slight respiratory acidosis (pH 7.35; pCO2 55 mmHg) - UA negative for infection - CXR negative for pneumonia, but does look like she has a left-sided small pleural effusion given her blunting of the costophrenic angle, per my interpretation. Radiology notes possible right upper lobe developing pneumonia and left basilar airspace consolidation and left pleural effusion. - CT PE was ordered. However, patient has an anaphylactic allergy to IV contrast. She was given 60 mg IV Solu-Medrol and 50 mg IV Benadryl for pretreatment. However, shortly after her pretreatment the patient was stating that she did not want a scan with contrast, she just had one on 10/09/2024. She also only has a 22-gauge IV and better IV access is difficult to obtain on the patient per nursing staff. - Given patient's new oxygen requirement in the setting of her viral illness, will admit to hospital service for further evaluation and management. - Discussion was had with continuous pillowcase cutter about patient's case and need for admission - Hospitalist consulted for admission - [facility] ASSESSMENT AND PLAN: Diagnosis: RSV infection; acute hypoxia; acute dyspnea; cough; elevated BNP Plan: admit Past Med/Surg History Problem List (Updated 10/13/24 @ 18:58 by Erica Nails MD) Cough (Acute) Elevated brain natriuretic peptide (BNP) level (Acute) Acute hypoxic respiratory failure (Acute) Acute dyspnea (Acute) RSV infection (Acute) Circadian rhythm sleep disorder, delayed sleep phase type Insomnia Dysuria (Acute) Lower abdominal pain Interstitial cystitis Urinary symptom or sign Vertigo Migraine with vertigo COVID (Acute) Chronic diarrhea Cerumen impaction Encounter for pre-operative examination Dyspnea Abnormal CT scan of lung Left leg pain (Acute) Left knee DJD (Chronic) Depression (Chronic) Biliary colic Hematuria resolved Proteinuria resolved Anxiety and depression Hypothyroidism (Chronic) Dyslipidemia (Chronic) Fibromyalgia (Chronic) Asthma, moderate persistent (Chronic) daily and prn inh (has not used in a couple of years) HTN (hypertension) (Chronic) Mitral regurgitation (Chronic) [place] 2018, [facility] Medical History Pulmonary hypertension mild per cardio records History of COVID-19 pt denies>+ test noted in [place] record from 2021 Hx of gastric ulcer IBS (irritable bowel syndrome) Heart disease Rectal bleeding "has hemorrhoids, still occurs sometimes" History of kidney stones Cardiac murmur Surgical History S/P arthroscopy of right knee S/P arthroscopy of left knee S/P tonsillectomy and adenoidectomy History of total knee replacement left + revision History of carpal tunnel release right/left History of colonoscopy History of tooth extraction History of tonsillectomy History of endoscopic sinus surgery History of cataract surgery right/left Aortic valve replaced 2018, [facility] Mitral valve replaced 2018, [facility]; f/u dr. ward, [facility] History of heart artery stent 2018, [facility], x1 stents>12/05/23- stated that pt "never had a stent placed, only the cath prior to the AVR and MVR"-cardio record from [facility] does not show that a stent was placed Family History Father Heart disease Hypertension Uncle Cancer Mother Heart disease Other No family history of adverse response to anesthesia No significant family history Social History Smoking Status: Former smoker Tobacco Type: Cigarettes Cigarettes Per Day: Quit when 27yrs old; Second Hand Exposure: No; Do You Dip or Chew Tobacco: No; Hx Alcohol Use: No Hx Substance Use: No Preferred Language: Chinese Communication Ability: Effective Hearing Ability: Normal 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 Beliefs That Will Affect Care: None marital status: Current Living Situation: Spouse current occupational status: retired current occupation: Retired How many Children do You have: 3 Feels Safe at Home: Yes Diet: regular during the past year weight has: decreased > 10 lbs Assistive Devices: Denture - Upper, Denture - Lower and Glasses Allergies Allergies Allergy/AdvReac Type Severity Reaction Status Date / Time shellfish derived Allergy Severe throat Verified 05/22/24 12:33 closing , systemic reaction Cephalosporins Allergy Intermediate hives Verified 05/22/24 12:33 methenamine Allergy Intermediate hives Verified 05/22/24 12:33 oxycodone Allergy Intermediate HIVES Verified 05/22/24 12:33 pravastatin [From Pravachol] Allergy Intermediate BODY ACHES Verified 05/22/24 12:33 propoxyphene Allergy Intermediate ITCHING Verified 05/22/24 12:33 AND A RASH Sulfa (Sulfonamide Allergy Intermediate hives Verified 05/22/24 12:33 Antibiotics) sulfamethoxazole Allergy Intermediate hives Verified 05/22/24 12:33 trimethoprim Allergy Intermediate hives Verified 05/22/24 12:33 simvastatin AdvReac Intermediate body aches Verified 05/22/24 12:33 tapentadol AdvReac Intermediate felt very Verified 05/22/24 12:33 uncomfortable - does not ever want hydrocodone AdvReac Mild ITCHING Verified 05/22/24 12:33 hyoscyamine AdvReac Mild Significant Verified 05/22/24 12:33 dry mouth/throat Home Meds Home Medications Medication Instructions Recorded Confirmed albuterol sulfate 2.5 mg/3 mL 2.5 mg inhalation DIRECTED PRN 07/06/18 10/13/24 (0.083 %) solution for nebulization Shortness Of Breath Or Wheezing albuterol sulfate 90 mcg/actuation 2 puff inhalation QID PRN 07/06/18 10/13/24 aerosol inhaler (ProAir HFA) Shortness Of Breath Or Wheezing diclofenac sodium 1 % topical gel 2 g topical QID PRN Pain 07/06/18 10/13/24 epinephrine 0.3 mg/0.3 mL 0.3 mg IM DIRECTED PRN Allergic 07/06/18 10/13/24 injection, auto-injector (EpiPen) Reaction hydroxyzine HCl 25 mg tablet 25 mg PO DAILY PRN Itching 07/06/18 10/13/24 lorazepam 0.5 mg tablet 0.5 mg PO BID PRN Anxiety 07/06/18 10/13/24 metoprolol succinate 25 mg 25 mg PO QAM 07/06/18 10/13/24 tablet,extended release 24 hr (Toprol XL) tramadol 50 mg tablet 50 mg PO Q8H PRN Pain 07/06/18 10/13/24 hydrochlorothiazide 12.5 mg tablet 12.5 mg PO QAM 10/05/19 10/13/24 budesonide-formoterol HFA 160 2 puff inhalation BID 10/30/19 10/13/24 mcg-4.5 mcg/actuation aerosol inhaler (Symbicort) dibucaine 1 % topical ointment 1 applic topical TID PRN 07/12/20 10/13/24 Hemorrhoids Diltiazem 2% Ointment 1 applic topical TID PRN 06/23/22 10/13/24 Hemorrhoids carisoprodol 250 mg tablet 250 mg PO DIRECTED PRN NEEDED 06/23/22 10/13/24 celecoxib 200 mg capsule (Celebrex) 200 mg PO DIRECTED PRN Pain 06/23/22 10/13/24 cyclobenzaprine 10 mg tablet 10 mg PO TID PRN MUSCLE SPASMS 06/23/22 10/13/24 hydromorphone 2 mg tablet 2 mg PO DIRECTED PRN Pain 06/23/22 10/13/24 hyoscyamine sulfate 0.375 mg 0.375 mg PO Q12H 06/23/22 10/13/24 tablet,extended release,12 hr ketorolac 10 mg tablet 10 mg PO DIRECTED PRN Pain 06/23/22 10/13/24 levothyroxine 25 mcg tablet 25 mcg PO Q OTHER DAY 06/23/22 10/13/24 levothyroxine 50 mcg tablet 50 mcg PO Q2D 06/23/22 10/13/24 lidocaine 5 % topical patch 1 patch topical DAILY PRN Pain 06/23/22 10/13/24 lisinopril 10 mg tablet 10 mg PO DAILY 06/23/22 10/13/24 nitroglycerin 0.2 mg/hr 1 patch transdermal DAILY 06/23/22 10/13/24 transdermal 24 hour patch omeprazole 20 mg tablet,delayed 20 mg PO QAM 06/23/22 10/13/24 release pantoprazole 40 mg tablet,delayed 40 mg PO QAM 06/23/22 10/13/24 release diphenoxylate-atropine 2.5 1 tab PO DAILY PRN Diarrhea 07/16/23 10/13/24 mg-0.025 mg tablet pregabalin 50 mg capsule 50 mg PO QAM 07/16/23 10/13/24 escitalopram oxalate 10 mg tablet 10 mg PO BID 11/28/23 10/13/24 cholestyramine-aspartame 4 gram 4 g PO DAILY 12/05/23 10/13/24 oral powder (Prevalite) colchicine 0.6 mg tablet 0.6 mg PO DAILY PRN gallbladder 12/05/23 10/13/24 nitroglycerin 0.4 mg sublingual 0.4 mg sublingual UD PRN Chest Pain 12/05/23 10/13/24 tablet Previous Rx's Medication Instructions Recorded meclizine 25 mg tablet 25 mg PO TID PRN Dizziness #60 tabs 08/19/23 phenazopyridine 100 mg tablet 100 mg PO Q8H PRN pain #60 tabs 12/06/23 (Pyridium) vibegron 75 mg tablet 75 mg PO DAILY #90 tabs 03/12/24 rimegepant 75 mg disintegrating 75 mg PO Q OTHER DAY #16 tabs 03/21/24 tablet (Nurtec ODT) eszopiclone 2 mg tablet 2 mg PO DAILY #30 tabs 05/23/24 potassium chloride 20 mEq 20 meq PO DAILY #5 tabs 08/27/24 tablet,extended release Results & Data (ED) Vital Signs Vital Signs - 24 hr 10/13/24 16:30 10/13/24 16:47 10/13/24 16:48 Temperature 37.1 C Temperature Source Oral Pulse Rate 79 75 76 Respiratory Rate 20 22 Respiratory Effort / Characteristics Spontaneous Short of Breath Respiratory Depth Normal Respiratory Pattern Regular Blood Pressure 169/99 H Blood Pressure Mean 122 Pulse Oximetry 98 100 Oxygen Delivery Method Nasal Cannula Nasal Cannula Oxygen Flow Rate 2 2 Sepsis Recent Fever Within 48 Hours No Sepsis New/Unexplained Change in Mental Status N/A Sepsis Action Taken by Nursing No Action Required 10/13/24 17:00 10/13/24 17:27 10/13/24 17:35 Temperature Temperature Source Pulse Rate 73 79 Respiratory Rate 23 20 Respiratory Effort / Characteristics Respiratory Depth Respiratory Pattern Blood Pressure 149/99 H Blood Pressure Mean 110 Pulse Oximetry 99 100 Oxygen Delivery Method Nasal Cannula Nasal Cannula Oxygen Flow Rate 2 2 Sepsis Recent Fever Within 48 Hours Sepsis New/Unexplained Change in Mental Status Sepsis Action Taken by Nursing 10/13/24 18:00 10/13/24 18:12 10/13/24 18:30 Temperature Temperature Source Pulse Rate 85 75 Respiratory Rate 24 Respiratory Effort / Characteristics Respiratory Depth Respiratory Pattern Blood Pressure 167/98 H Blood Pressure Mean 137 Pulse Oximetry 100 99 Oxygen Delivery Method Nasal Cannula Nasal Cannula Oxygen Flow Rate 2 2 Sepsis Recent Fever Within 48 Hours Sepsis New/Unexplained Change in Mental Status Sepsis Action Taken by Nursing Laboratory Data 10/13/24 16:41 10/13/24 16:41 Lab Results 10/13/24 10/13/24 10/13/24 Range/Units 16:41 17:25 17:32 WBC 7.83 (4.8-10.8) K/ul RBC 3.81 L (4.20-5.40) M/uL Hgb 10.6 L (12.0-16.0) g/dl Hct 34.5 L (37.0-47.0) % MCV 90.6 (80.0-100.0) fL MCH 27.8 (25.0-34.0) pg MCHC 30.7 L (32.0-36.0) g/dL RDW Std Deviation 44.4 (36.4-46.3) fL RDW Coeff of Jhoana 13.3 (11.5-14.5) % Plt Count 354 (130-400) K/uL MPV 9.8 (9.4-12.4) fL Immature Gran % (Auto) 0.6 % Neut % (Auto) 74.6 % Lymph % (Auto) 10.1 % [place] % (Auto) 10.7 % Eos % (Auto) 3.2 % Baso % (Auto) 0.8 % Neut # (Auto) 5.84 (1.40-6.50) K/uL Lymph # (Auto) 0.79 L (1.20-3.40) K/uL [place] # (Auto) 0.84 H (0.11-0.59) K/uL Eos # (Auto) 0.25 (0.00-0.50) K/uL Baso # (Auto) 0.06 (0.00-0.20) K/uL Immature Gran # (Auto) 0.05 (0.01-0.20) K/uL PT 10.9 (9.0-12.0) Seconds INR 1.0 (0.9-1.1) VBG pH 7.35 L (7.36-7.41) VBG pCO2 55 H (38-50) mmHg VBG pO2 29 mmHg VBG HCO3 30 mmol/L VBG O2 Saturation < 60.0 % VBG Base Excess 3.4 mEq/L Sodium 140 (136-145) mmol/L Potassium 3.6 (3.5-5.1) mmol/L Chloride 104 (98-107) mmol/L Carbon Dioxide 29 (21-32) mmol/L Anion Gap 7 (3-11) BUN 8 (6-23) mg/dl Creatinine 0.55 L (0.6-1.2) mg/dl Est Cr Clr Drug Dosing 74.6 ml/min eGFR 97.33 BUN/Creatinine Ratio 14.5 (10-20) Glucose 85 (70-99(Fasting)) mg/dl Calcium 9.1 (8.6-10.3) mg/dl Magnesium 1.9 (1.7-2.4) mg/dl Total Bilirubin 0.5 (0.2-1.0) mg/dl AST 18 (13-39) U/L ALT 9 (7-52) U/L Alkaline Phosphatase 101 (34-104) U/L Troponin I High Sens 12.2 (0-14) pg/ml B-Natriuretic Peptide 459 H (0-100) pg/ml Total Protein 7.3 (6.0-8.3) gm/dl Albumin 4.2 (3.4-5.0) gm/dl Globulin 3.1 (2.5-4.0) gm/dl Albumin/Globulin Ratio 1.4 (0.9-2) Urine Color Yellow Urine Appearance Clear (Clear) Urine pH 6.0 (4.5-7.5) Ur Specific [place] 1.011 (1.000-1.030) Urine Protein Negative (Negative) Urine Glucose (UA) Negative (Negative) Urine Ketones Negative (Negative) Urine Blood Negative (Negative) Urine Nitrite Negative (Negative) Urine Bilirubin Negative (Negative) Urine Urobilinogen Negative (Negative) Ur Leukocyte Esterase Negative (Negative) Adenovirus (PCR) (NotDetected) B. pertussis DNA (PCR) (NotDetected) B.parapertussis DNA PCR (NotDetected) C. pneumoniae DNA (PCR) (NotDetected) Coronavirus OC43 (PCR) (NotDetected) Coronavirus HKU1 (PCR) (NotDetected) Coronavirus 229E (PCR) (NotDetected) SARS-CoV-2 (PCR) (NotDetected) Coronavirus NL63 (PCR) (NotDetected) Human Metapneumovir PCR (NotDetected) Influenza Type A (PCR) (NotDetected) Influenza Type B (PCR) (NotDetected) M. pneumoniae (PCR) (NotDetected) Parainfluenza 1 (PCR) (NotDetected) Parainfluenza 2 (PCR) (NotDetected) Parainfluenza 3 (PCR) (NotDetected) Parainfluenza 4 (PCR) (NotDetected) RSV (PCR) (NotDetected) Entero/Rhino (PCR) (NotDetected) 10/13/24 Range/Units 17:39 WBC (4.8-10.8) K/ul RBC (4.20-5.40) M/uL Hgb (12.0-16.0) g/dl Hct (37.0-47.0) % MCV (80.0-100.0) fL MCH (25.0-34.0) pg MCHC (32.0-36.0) g/dL RDW Std Deviation (36.4-46.3) fL RDW Coeff of Jhoana (11.5-14.5) % Plt Count (130-400) K/uL MPV (9.4-12.4) fL Immature Gran % (Auto) % Neut % (Auto) % Lymph % (Auto) % [place] % (Auto) % Eos % (Auto) % Baso % (Auto) % Neut # (Auto) (1.40-6.50) K/uL Lymph # (Auto) (1.20-3.40) K/uL [place] # (Auto) (0.11-0.59) K/uL Eos # (Auto) (0.00-0.50) K/uL Baso # (Auto) (0.00-0.20) K/uL Immature Gran # (Auto) (0.01-0.20) K/uL PT (9.0-12.0) Seconds INR (0.9-1.1) VBG pH (7.36-7.41) VBG pCO2 (38-50) mmHg VBG pO2 mmHg VBG HCO3 mmol/L VBG O2 Saturation % VBG Base Excess mEq/L Sodium (136-145) mmol/L Potassium (3.5-5.1) mmol/L Chloride (98-107) mmol/L Carbon Dioxide (21-32) mmol/L Anion Gap (3-11) BUN (6-23) mg/dl Creatinine (0.6-1.2) mg/dl Est Cr Clr Drug Dosing ml/min eGFR BUN/Creatinine Ratio (10-20) Glucose (70-99(Fasting)) mg/dl Calcium (8.6-10.3) mg/dl Magnesium (1.7-2.4) mg/dl Total Bilirubin (0.2-1.0) mg/dl AST (13-39) U/L ALT (7-52) U/L Alkaline Phosphatase (34-104) U/L Troponin I High Sens (0-14) pg/ml B-Natriuretic Peptide (0-100) pg/ml Total Protein (6.0-8.3) gm/dl Albumin (3.4-5.0) gm/dl Globulin (2.5-4.0) gm/dl Albumin/Globulin Ratio (0.9-2) Urine Color Urine Appearance (Clear) Urine pH (4.5-7.5) Ur Specific [place] (1.000-1.030) Urine Protein (Negative) Urine Glucose (UA) (Negative) Urine Ketones (Negative) Urine Blood (Negative) Urine Nitrite (Negative) Urine Bilirubin (Negative) Urine Urobilinogen (Negative) Ur Leukocyte Esterase (Negative) Adenovirus (PCR) Not Detected (NotDetected) B. pertussis DNA (PCR) Not Detected (NotDetected) B.parapertussis DNA PCR Not Detected (NotDetected) C. pneumoniae DNA (PCR) Not Detected (NotDetected) Coronavirus OC43 (PCR) Not Detected (NotDetected) Coronavirus HKU1 (PCR) Not Detected (NotDetected) Coronavirus 229E (PCR) Not Detected (NotDetected) SARS-CoV-2 (PCR) Not Detected (NotDetected) Coronavirus NL63 (PCR) Not Detected (NotDetected) Human Metapneumovir PCR Not Detected (NotDetected) Influenza Type A (PCR) Not Detected (NotDetected) Influenza Type B (PCR) Not Detected (NotDetected) M. pneumoniae (PCR) Not Detected (NotDetected) Parainfluenza 1 (PCR) Not Detected (NotDetected) Parainfluenza 2 (PCR) Not Detected (NotDetected) Parainfluenza 3 (PCR) Not Detected (NotDetected) Parainfluenza 4 (PCR) Not Detected (NotDetected) RSV (PCR) DETECTED A (NotDetected) Entero/Rhino (PCR) Not Detected (NotDetected) Administered Medications Discontinued Medications Diphenhydramine HCl (Diphenhydramine 50 Mg/Ml Vial) 50 mg IM NOW STA Stop: 10/13/24 17:18 Last Admin: 10/13/24 17:45 Dose: Not Given Documented By: [facility] Diphenhydramine HCl (Diphenhydramine 50 Mg/Ml Vial) 50 mg IV NOW STA Stop: 10/13/24 17:40 Last Admin: 10/13/24 17:45 Dose: 50 mg Documented By: [facility] Methylprednisolone (Methylprednisolone 125 Mg/2 Ml Vial) 60 mg IV NOW STA Stop: 10/13/24 17:18 Last Admin: 10/13/24 17:44 Dose: 60 mg Documented By: [facility] Imaging Data Radiologist's Impression: Chest X-Ray 10/13/24 16:56 EXAM: Radiograph of the Chest 1 View INDICATION: Dyspnea. TECHNIQUE: Frontal view of the chest. COMPARISON: 10/09/2024 FINDINGS: Lungs and pleural spaces: Stable left diaphragmatic elevation and left basilar airspace consolidation and small left pleural effusion. No pneumothorax. There is slight increased groundglass density in the right upper lobe. There is stable increased interstitial markings and right fissural scarring. Heart: Stable mild enlargement. Coronary valve prosthesis noted. Mediastinum: Normal contour. Bones/joints: No fracture, erosion or dislocation. Soft tissues: No abnormality noted. No radiopaque foreign body noted. Upper abdomen: No abnormality noted. IMPRESSION: Question developing pneumonia in the right upper lobe. Underlying vascular congestion and left basilar airspace consolidation and left pleural effusion stable. ACT 112: Negative or not required by law. Electronically signed by Maritza Madrigal 10-13-2024 5:54 PM Discharge Plan Visit Data Chief Complaint: Illness ED Provider: Erica Nails Discharge Problem: RSV infection, Acute dyspnea, Acute hypoxic respiratory failure, Elevated brain natriuretic peptide (BNP) level, Cough Forms Stand Alone Forms: [facility] [employer] Prescriptions Prescriptions: No Action meclizine 25 mg tablet 25 mg PO TID PRN (Reason: Dizziness) Qty: 60 2RF Nurtec ODT 75 mg tablet,disintegrating 75 mg PO Q OTHER DAY Qty: 16 5RF vibegron 75 mg tablet 75 mg PO DAILY Qty: 90 3RF phenazopyridine [Pyridium] 100 mg tablet 100 mg PO Q8H PRN (Reason: pain) Qty: 60 0RF eszopiclone 2 mg tablet 2 mg PO DAILY Qty: 30 5RF albuterol sulfate 2.5 mg /3 mL (0.083 %) Solution For Nebulization 2.5 mg INHALATION DIRECTED PRN (Reason: Shortness Of Breath Or Wheezing) tramadol 50 mg Tablet 50 mg PO Q8H PRN (Reason: Pain) lorazepam 0.5 mg Tablet 0.5 mg PO BID PRN (Reason: Anxiety) Patient Comments: pt says its been a while since she has taken hydroxyzine HCl 25 mg Tablet 25 mg PO DAILY PRN (Reason: Itching) metoprolol succinate [Toprol XL] 25 mg Tablet Extended Release 24 Hr 25 mg PO QAM epinephrine [EpiPen] 0.3 mg/0.3 mL Auto-Injector 0.3 mg IM DIRECTED PRN (Reason: Allergic Reaction) albuterol sulfate [ProAir HFA] 90 mcg/actuation Hfa Aerosol Inhaler 2 puff INHALATION QID PRN (Reason: Shortness Of Breath Or Wheezing) diclofenac sodium 1 % Gel 2 g TOPICAL QID PRN (Reason: Pain) budesonide-formoterol [Symbicort] 160-4.5 mcg/actuation HFA aerosol inhaler 2 puff INHALATION BID hydrochlorothiazide 12.5 mg tablet 12.5 mg PO QAM dibucaine 1 % ointment 1 applic TOPICAL TID PRN (Reason: Hemorrhoids) celecoxib [Celebrex] 200 mg Capsule 200 mg PO DIRECTED PRN (Reason: Pain) cyclobenzaprine 10 mg Tablet 10 mg PO TID PRN (Reason: MUSCLE SPASMS) nitroglycerin 0.2 mg/hr Patch 24 Hour 1 patch TRANSDERMAL DAILY Rx Instructions: allow nitrate-free interval of approx. 10-12 hrs per 24-hour period levothyroxine 25 mcg Tablet 25 mcg PO Q OTHER DAY Rx Instructions: ALTERNATING WITH 50 MCG EVERY OTHER DAY. ketorolac 10 mg Tablet 10 mg PO DIRECTED PRN (Reason: Pain) hydromorphone 2 mg Tablet 2 mg PO DIRECTED PRN (Reason: Pain) hyoscyamine sulfate 0.375 mg Tablet Extended Release 12 Hr 0.375 mg PO Q12H levothyroxine 50 mcg Tablet 50 mcg PO Q2D Rx Instructions: ALTERNATING WITH 25 MCG EVERY OTHER DAY. pantoprazole 40 mg Tablet,Delayed Release (Dr/Ec) 40 mg PO QAM lisinopril 10 mg Tablet 10 mg PO DAILY lidocaine 5 % Adhesive Patch,Medicated 1 patch TOPICAL DAILY PRN (Reason: Pain) Rx Instructions: leave on most painful area for up to 12 hrs carisoprodol 250 mg Tablet 250 mg PO DIRECTED PRN (Reason: NEEDED) omeprazole 20 mg Tablet,Delayed Release (Dr/Ec) 20 mg PO QAM Diltiazem 2% Ointment 1 applic topical TID PRN (Reason: Hemorrhoids) diphenoxylate-atropine 2.5-0.025 mg Tablet 1 tab PO DAILY PRN (Reason: Diarrhea) pregabalin 50 mg Capsule 50 mg PO QAM escitalopram oxalate 10 mg tablet 10 mg PO BID nitroglycerin 0.4 mg Tablet, Sublingual 0.4 mg sublingual UD PRN (Reason: Chest Pain) Prevalite 4 gram Powder 4 g PO DAILY Rx Instructions: administer w/meal; avoid other meds within 1hr before or 4-6hr after dose colchicine 0.6 mg tablet 0.6 mg PO DAILY PRN (Reason: gallbladder) potassium chloride 20 mEq tablet extended release 20 meq PO DAILY Qty: 5 0RF Referrals Referrals: Maricruz Stevenson DO [Primary Care Provider] -
[2024-10-13 17:36] LABS: Albumin Globulin Ratio 1.4 (0.9-2); Albumin Level 4.2 gm/dl (3.4-5.0); BUN Creatinine Ratio 14.5 (10-20); Bilirubin,Total 0.5 mg/dl (0.2-1.0); Calcium 9.1 mg/dl (8.6-10.3); Creatinine Clr Calc Pharmacy 74.6 ml/min; Globulin 3.1 gm/dl (2.5-4.0); Magnesium 1.9 mg/dl (1.7-2.4); Potassium 3.6 mmol/L (3.5-5.1); Total Protein 7.3 gm/dl (6.0-8.3)
[2024-10-13 17:38] LABS: Appearance Urine Clear (Clear); Bilirubin Urine Negative (Negative); Blood Urine Negative (Negative); Color Urine Yellow; Glucose Urine UA Negative (Negative); Ketones Urine Negative (Negative); Leukocyte Esterase Urine Negative (Negative); Nitrite Urine Negative (Negative); Protein Urine Negative (Negative); Specific Gravity Urine 1.011 (1.000-1.030); Urobilinogen Urine Negative (Negative)
[2024-10-13 17:42] LABS: Troponin I High Sensitivity 12.2 pg/ml (0-14)
[2024-10-13 17:43] LABS: Prothrombin Time 10.9 Seconds (9.0-12.0)
[2024-10-13 17:44] LABS: Base Excess VBG 3.4 mEq/L; HCO3 VBG 30 mmol/L; Oxygen Saturation VBG < 60.0 %; PCO2 VBG 55 mmHg (38-50); PO2 VBG 29 mmHg; pH VBG 7.35 (7.36-7.41)
[2024-10-13] MEDS: methylPREDNISolone 125 MG/2 ML VIAL IV STA (17:44)
[2024-10-13] MEDS: diphenhydrAMINE 50 MG/ML VIAL IV STA (17:45)
[2024-10-13] MEDS: diphenhydrAMINE 50 MG/ML VIAL IM STA (17:45)
--- NOTE | 2024-10-13 17:55 | XRay Report ---
EXAM: Radiograph of the Chest 1 View INDICATION: Dyspnea. TECHNIQUE: Frontal view of the chest. COMPARISON: 10/09/2024 FINDINGS: Lungs and pleural spaces: Stable left diaphragmatic elevation and left basilar airspace consolidation and small left pleural effusion. No pneumothorax. There is slight increased groundglass density in the right upper lobe. There is stable increased interstitial markings and right fissural scarring. Heart: Stable mild enlargement. Coronary valve prosthesis noted. Mediastinum: Normal contour. Bones/joints: No fracture, erosion or dislocation. Soft tissues: No abnormality noted. No radiopaque foreign body noted. Upper abdomen: No abnormality noted. IMPRESSION: Question developing pneumonia in the right upper lobe. Underlying vascular congestion and left basilar airspace consolidation and left pleural effusion stable. ACT 112: Negative or not required by law. Electronically signed by Maritza Madrigal 10-13-2024 5:54 PM
[2024-10-13 18:46] LABS: Adenovirus PCR Not Detected (NotDetected); Bordetella parapertussis PCR Not Detected (NotDetected); Bordetella pertussis PCR Not Detected (NotDetected); Chlamydia pneumoniae PCR Not Detected (NotDetected); Coronavirus 229E PCR Not Detected (NotDetected); Coronavirus CoV-2 (COVID19)PCR Not Detected (NotDetected); Coronavirus HKU1 PCR Not Detected (NotDetected); Coronavirus NL63 PCR Not Detected (NotDetected); Coronavirus OC43PCR Not Detected (NotDetected); Human Metapneumovirus PCR Not Detected (NotDetected); Influenza A PCR Not Detected (NotDetected); Influenza B PCR Not Detected (NotDetected); Mycoplasma pneumoniae PCR Not Detected (NotDetected); Parainfluenza Virus 1 PCR Not Detected (NotDetected); Parainfluenza Virus 2 PCR Not Detected (NotDetected); Parainfluenza Virus 3 PCR Not Detected (NotDetected); Parainfluenza Virus 4 PCR Not Detected (NotDetected); Respiratory Syncytial VirusPCR DETECTED (NotDetected); Rhinovirus/Enterovirus PCR Not Detected (NotDetected)
--- NOTE | 2024-10-13 19:21 | History & Physical Report ---
Date of Service October 13, 2024 Assessment & Plan (1) Acute hypoxic respiratory failure: (2) RSV infection: Plan 74-year-old female PMHx lung cancer, asthma, HTN, MR, dyslipidemia, fibromyalgia, hypothyroidism, anxiety and depression presenting for worsening cough and SOB x 5 to 6 days. Patient was recently admitted and discharged on 10/09/2024 for hypertension and elevated troponin. Morning of arrival, patient was seen by [facility] and referred to ER for hypoxia after being placed on 2L O2 via NC. No leukocytosis on arriving CBC, VBG's pH 7.35, pCO2 55, BNP 459, and CXR revealing questionable pneumonia developing in RUL with underlying vascular congestion and left basilar airspace consolidation with pleural effusion that is stable. Requiring 2L O2 via NC on arrival to ED, no oxygen at baseline. #Acute hypoxic respiratory failure/RSV/Asthma/Hx Lung CA Presenting w/ 5-6 days SOB w/ associated productive cough, clear sputum; Hypoxic on arrival requiring 2L O2 via NC, no O2 at baseline. 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 - CBC w/o leukocytosis; VBGs pH 7.35, pCO2 55; BNP 459 (elevated in past); CXR questionable PNA in RUL, underlying vascular congestion and L basilar airspace consolidation and L pleural effusion that is stable - No O2 at baseline; 2L O2 via NC currently, O2 prn; Wean as patient tolerates - No fever, no leukocytosis, unclear CXR for PNA and pt refusing chest CT given recent imaging (Chest CTA 10/09 w/ chronic stable findings, no PE)- Defer abx at time of admission - RSV (+) on admission - contact + droplet precautions - Congestion + cough- Guaifenesin prn, Hypertonic saline nebs, FV + IC; continue home inhalers as nebs jose #Anxiety/depression/Insomnia- Lexapro, lorazepam twice daily as needed; Eszopiclone #HTN- Metoprolol 37.5 daily, lisinopril 10 daily; No longer on HCTZ #Hypothyroidism- Levothyroxine #GERD- Omeprazole, pantoprazole #Migraines- Nurtec q other day #OAB- Vibegron #Fibromyalgia- Carisoprodol, cyclobenzaprine, pregablin Dispo: Admit, med/sx VTE prophylaxis: Lovenox This document was dictated utilizing Scrip-t. Please excuse any grammatical errors that may be secondary to use of this software. Admission and Anticipated Discharge Date Admission Date: 10/13/2024 History of Present Illness Chief Complaint: SOB Primary Care Provider: Maricruz Stevenson DO 74-year-old female PMHx lung cancer, asthma, HTN, MR, dyslipidemia, fibromyalgia, hypothyroidism, anxiety and depression presenting for worsening cough and SOB x 5 to 6 days. Patient was recently admitted and discharged on 10/09/2024 for hypertension and elevated troponin. Morning of arrival, patient was seen by [facility] and referred to ER for hypoxia after being placed on 2L O2 via NC. Partner is in the room at time of visit and helps about history. Patient states that her symptoms of SOB/cough started approximately 6 days ago, and have been worsening. Main concern is that she is having a lot of phlegm that she is trying to cough up but it feels stuck. She states that the phlegm is clear in color, and she also feels that her sinuses are clogged. Does not notice the SOB being worse when laying flat, but does feel that during exertion her SOB is worsened. She is not having any fevers or chills, no chest pain or palpitations, and no syncope or lightheadedness. She is unsure if she has had any sick contacts, but was recently discharged from the hospital. Her partner informs that patient has a significant cardiac history, with recent valve replacement occurring just months ago at [facility]. Patient has been having concerns of high blood pressure as well, but during the visit, their log of blood pressures over the past week ranges from SBP 140s to 160s. She just had a telehealth visit with her biomedical scientist the day prior to arrival, and was started on lisinopril. Overall, the patient is denying chest pain, potation's, abdominal pain, N/V/D/C, numbness or tingling, fever/chills, or LUTS. Has been taking medications as prescribed. ED evaluation reveals no leukocytosis, H&H 10.6/34.5, VBG's with pH 7.35, pCO2 55, CMP with creatinine 0.55, otherwise grossly WNL, troponin 12.2, BNP 459, and BioFire positive for RSV. CXR reveals questionable developing PNA in RUL with underlying vascular congestion and left basilar airspace consolidation with left pleural effusion that is stable. Patient was provided with Benadryl and methylprednisolone in ER. Please see Dr. Navarro's attestation for adjustments/additions to treatment plan. Allergies Allergy/AdvReac Type Severity Reaction Status Date / Time shellfish derived Allergy Severe throat Verified 05/22/24 12:33 closing , systemic reaction Cephalosporins Allergy Intermediate hives Verified 05/22/24 12:33 methenamine Allergy Intermediate hives Verified 05/22/24 12:33 oxycodone Allergy Intermediate HIVES Verified 05/22/24 12:33 pravastatin [From Pravachol] Allergy Intermediate BODY ACHES Verified 05/22/24 12:33 propoxyphene Allergy Intermediate ITCHING Verified 05/22/24 12:33 AND A RASH Sulfa (Sulfonamide Allergy Intermediate hives Verified 05/22/24 12:33 Antibiotics) sulfamethoxazole Allergy Intermediate hives Verified 05/22/24 12:33 trimethoprim Allergy Intermediate hives Verified 05/22/24 12:33 simvastatin AdvReac Intermediate body aches Verified 05/22/24 12:33 tapentadol AdvReac Intermediate felt very Verified 05/22/24 12:33 uncomfortable - does not ever want hydrocodone AdvReac Mild ITCHING Verified 05/22/24 12:33 hyoscyamine AdvReac Mild Significant Verified 05/22/24 12:33 dry mouth/throat Home Medications Medication Instructions Recorded Confirmed Type albuterol sulfate 2.5 mg/3 mL 2.5 mg inhalation DIRECTED PRN 07/06/18 10/13/24 History (0.083 %) solution for nebulization Shortness Of Breath Or Wheezing albuterol sulfate 90 mcg/actuation 2 puff inhalation QID PRN 07/06/18 10/13/24 History aerosol inhaler (ProAir HFA) Shortness Of Breath Or Wheezing diclofenac sodium 1 % topical gel 2 g topical QID PRN Pain 07/06/18 10/13/24 History epinephrine 0.3 mg/0.3 mL 0.3 mg IM DIRECTED PRN Allergic 07/06/18 10/13/24 History injection, auto-injector (EpiPen) Reaction hydroxyzine HCl 25 mg tablet 25 mg PO DAILY PRN Itching 07/06/18 10/13/24 History lorazepam 0.5 mg tablet 0.5 mg PO BID PRN Anxiety 07/06/18 10/13/24 History metoprolol succinate 25 mg 25 mg PO QAM 07/06/18 10/13/24 History tablet,extended release 24 hr (Toprol XL) tramadol 50 mg tablet 50 mg PO Q8H PRN Pain 07/06/18 10/13/24 History hydrochlorothiazide 12.5 mg tablet 12.5 mg PO QAM 10/05/19 10/13/24 History budesonide-formoterol HFA 160 2 puff inhalation BID 10/30/19 10/13/24 History mcg-4.5 mcg/actuation aerosol inhaler (Symbicort) dibucaine 1 % topical ointment 1 applic topical TID PRN 07/12/20 10/13/24 History Hemorrhoids Diltiazem 2% Ointment 1 applic topical TID PRN 06/23/22 10/13/24 History Hemorrhoids carisoprodol 250 mg tablet 250 mg PO DIRECTED PRN NEEDED 06/23/22 10/13/24 History celecoxib 200 mg capsule (Celebrex) 200 mg PO DIRECTED PRN Pain 06/23/22 10/13/24 History cyclobenzaprine 10 mg tablet 10 mg PO TID PRN MUSCLE SPASMS 06/23/22 10/13/24 History hydromorphone 2 mg tablet 2 mg PO DIRECTED PRN Pain 06/23/22 10/13/24 History hyoscyamine sulfate 0.375 mg 0.375 mg PO Q12H 06/23/22 10/13/24 History tablet,extended release,12 hr ketorolac 10 mg tablet 10 mg PO DIRECTED PRN Pain 06/23/22 10/13/24 History levothyroxine 25 mcg tablet 25 mcg PO Q OTHER DAY 06/23/22 10/13/24 History levothyroxine 50 mcg tablet 50 mcg PO Q2D 06/23/22 10/13/24 History lidocaine 5 % topical patch 1 patch topical DAILY PRN Pain 06/23/22 10/13/24 History lisinopril 10 mg tablet 10 mg PO DAILY 06/23/22 10/13/24 History nitroglycerin 0.2 mg/hr 1 patch transdermal DAILY 06/23/22 10/13/24 History transdermal 24 hour patch omeprazole 20 mg tablet,delayed 20 mg PO QAM 06/23/22 10/13/24 History release pantoprazole 40 mg tablet,delayed 40 mg PO QAM 06/23/22 10/13/24 History release diphenoxylate-atropine 2.5 1 tab PO DAILY PRN Diarrhea 07/16/23 10/13/24 History mg-0.025 mg tablet pregabalin 50 mg capsule 50 mg PO QAM 07/16/23 10/13/24 History meclizine 25 mg tablet 25 mg PO TID PRN Dizziness #60 tabs 08/19/23 10/13/24 Rx escitalopram oxalate 10 mg tablet 10 mg PO BID 11/28/23 10/13/24 History cholestyramine-aspartame 4 gram 4 g PO DAILY 12/05/23 10/13/24 History oral powder (Prevalite) colchicine 0.6 mg tablet 0.6 mg PO DAILY PRN gallbladder 12/05/23 10/13/24 History nitroglycerin 0.4 mg sublingual 0.4 mg sublingual UD PRN Chest Pain 12/05/23 0 10/13/24 History tablet phenazopyridine 100 mg tablet 100 mg PO Q8H PRN pain #60 tabs 12/06/23 10/13/24 Rx (Pyridium) vibegron 75 mg tablet 75 mg PO DAILY #90 tabs 03/12/24 10/13/24 Rx rimegepant 75 mg disintegrating 75 mg PO Q OTHER DAY #16 tabs 03/21/24 10/13/24 Rx tablet (Nurtec ODT) eszopiclone 2 mg tablet 2 mg PO DAILY #30 tabs 05/23/24 10/13/24 Rx potassium chloride 20 mEq 20 meq PO DAILY #5 tabs 08/27/24 10/13/24 Rx tablet,extended release Past Med/Surg History Problem List Cough (Acute) Elevated brain natriuretic peptide (BNP) level (Acute) Acute hypoxic respiratory failure (Acute) Acute dyspnea (Acute) RSV infection (Acute) Circadian rhythm sleep disorder, delayed sleep phase type Insomnia Dysuria (Acute) Lower abdominal pain Interstitial cystitis Urinary symptom or sign Vertigo Migraine with vertigo COVID (Acute) Chronic diarrhea Cerumen impaction Encounter for pre-operative examination Dyspnea Abnormal CT scan of lung Left leg pain (Acute) Left knee DJD (Chronic) Depression (Chronic) Biliary colic Hematuria resolved Proteinuria resolved Anxiety and depression Hypothyroidism (Chronic) Dyslipidemia (Chronic) Fibromyalgia (Chronic) Asthma, moderate persistent (Chronic) daily and prn inh (has not used in a couple of years) HTN (hypertension) (Chronic) Mitral regurgitation (Chronic) [place]VR 2018, [facility] [place] Medical History Acute non-ST elevation myocardial infarction (NSTEMI) Elevated troponin Pulmonary hypertension mild per cardio records History of COVID-19 pt denies>+ test noted in [place] record from 2021 Hx of gastric ulcer IBS (irritable bowel syndrome) Heart disease Rectal bleeding "has hemorrhoids, still occurs sometimes" History of kidney stones Cardiac murmur Surgical History S/P arthroscopy of right knee S/P arthroscopy of left knee S/P tonsillectomy and adenoidectomy History of total knee replacement left + revision History of carpal tunnel release right/left History of colonoscopy History of tooth extraction History of tonsillectomy History of endoscopic sinus surgery History of cataract surgery right/left Aortic valve replaced 2018, [facility] [place] Mitral valve replaced 2018, [facility] [place]; f/u dr. ward, ps History of heart artery stent 2018, [facility] [place], x1 stents>12/05/23- stated that pt "never had a stent placed, only the cath prior to the AVR and MVR"-cardio record from [facility] [place] does not show that a stent was placed Family History Father Heart disease Hypertension Uncle Cancer Mother Heart disease Other No family history of adverse response to anesthesia No significant family history Social History Smoking Status: Former smoker Tobacco Type: Cigarettes Cigarettes Per Day: Quit when 27yrs old; Second Hand Exposure: No; Do You Dip or Chew Tobacco: No; Hx Alcohol Use: No Hx Substance Use: No Preferred Language: Luxembourgish Communication Ability: Effective Hearing Ability: Normal Subsurface Augmentee Elint Operator Required: No Beliefs That Will Affect Care: None marital status: Current Living Situation: Spouse current occupational status: retired current occupation: Retired How many Children do You have: 3 Feels Safe at Home: Yes Safety Concerns: Feels Safe At This Time Diet: regular during the past year weight has: decreased > 10 lbs Assistive Devices: Denture - Upper and Other Assistive Devices Comment: lower partial denture Review of Systems Review of Systems: All systems reviewed & are unremarkable except as noted in Subjective Physical Exam Physical Exam: General: No acute distress Skin: Warm and dry, without rashes or lesions Head: Normocephalic, atraumatic Eyes: PERRL, conjunctivae clear, sclera non-icteric; R eye drifts ENT: External ear and ear canal without swelling; nose atraumatic; wears dentures, tongue normal appearance, pharynx, oropharnx WNL Neck: Supple, no LAD; no JVD Cardio: RRR, no M/G/R, S1 and S2 normal Resp: Normal respiratory effort; No respiratory distress, diminished airflow throughout lung marino, RLL w/ expiratory wheezing + minimal crackles, slightly improved with coughing; Wearing O2 via NC, no O2 at baseline Abdomen: Soft, symmetric, nontender; No masses or hepatosplenomegaly; Bowel sounds normoactive MSK: No deformities; pulses palpable and equal; no edema. Neuro: Awake, alert; Sensation intact bilaterally; CN grossly intact Psych: Flat affect; fair judgement and insight. Partner present in room at time of visit. Results & Data Results & Data Vital Signs (Past 12 Hours) Vital Signs Temp Pulse Resp BP Pulse Ox O2 Del Method O2 Flow Rate 10/13/24 18:30 75 24 99 Nasal Cannula 2 10/13/24 18:12 85 100 Nasal Cannula 2 10/13/24 18:00 167/98 H 10/13/24 17:35 149/99 H 10/13/24 17:27 79 20 100 Nasal Cannula 2 10/13/24 17:00 73 23 99 Nasal Cannula 2 10/13/24 16:48 76 22 100 Nasal Cannula 2 10/13/24 16:47 75 10/13/24 16:30 37.1 C 79 20 169/99 H 98 Nasal Cannula 2 Laboratory Results 10/13/24 10/13/24 10/13/24 17:39 17:32 17:25 WBC RBC Hgb Hct MCV MCH MCHC RDW Std Deviation RDW Coeff of Jhoana Plt Count MPV Immature Gran % (Auto) Neut % (Auto) Lymph % (Auto) Harvey % (Auto) Eos % (Auto) Baso % (Auto) Neut # (Auto) Lymph # (Auto) Harvey # (Auto) Eos # (Auto) Baso # (Auto) Immature Gran # (Auto) PT INR VBG pH 7.35 L VBG pCO2 55 H VBG pO2 29 VBG HCO3 30 VBG O2 Saturation < 60.0 VBG Base Excess 3.4 Sodium Potassium Chloride Carbon Dioxide Anion Gap BUN Creatinine Est Cr Clr Drug Dosing eGFR BUN/Creatinine Ratio Glucose Calcium Magnesium Total Bilirubin AST ALT Alkaline Phosphatase Troponin I High Sens B-Natriuretic Peptide Total Protein Albumin Globulin Albumin/Globulin Ratio Urine Color Yellow Urine Appearance Clear Urine pH 6.0 Ur Specific Buckhead 1.011 Urine Protein Negative Urine Glucose (UA) Negative Urine Ketones Negative Urine Blood Negative Urine Nitrite Negative Urine Bilirubin Negative Urine Urobilinogen Negative Ur Leukocyte Esterase Negative Adenovirus (PCR) Not Detected B. pertussis DNA (PCR) Not Detected B.parapertussis DNA PCR Not Detected C. pneumoniae DNA (PCR) Not Detected Coronavirus OC43 (PCR) Not Detected Coronavirus HKU1 (PCR) Not Detected Coronavirus 229E (PCR) Not Detected SARS-CoV-2 (PCR) Not Detected Coronavirus NL63 (PCR) Not Detected Human Metapneumovir PCR Not Detected Influenza Type A (PCR) Not Detected Influenza Type B (PCR) Not Detected M. pneumoniae (PCR) Not Detected Parainfluenza 1 (PCR) Not Detected Parainfluenza 2 (PCR) Not Detected Parainfluenza 3 (PCR) Not Detected Parainfluenza 4 (PCR) Not Detected RSV (PCR) DETECTED A Entero/Rhino (PCR) Not Detected 10/13/24 16:41 WBC 7.83 RBC 3.81 L Hgb 10.6 L Hct 34.5 L MCV 90.6 MCH 27.8 MCHC 30.7 L RDW Std Deviation 44.4 RDW Coeff of Jhoana 13.3 Plt Count 354 MPV 9.8 Immature Gran % (Auto) 0.6 Neut % (Auto) 74.6 Lymph % (Auto) 10.1 Harvey % (Auto) 10.7 Eos % (Auto) 3.2 Baso % (Auto) 0.8 Neut # (Auto) 5.84 Lymph # (Auto) 0.79 L Harvey # (Auto) 0.84 H Eos # (Auto) 0.25 Baso # (Auto) 0.06 Immature Gran # (Auto) 0.05 PT 10.9 INR 1.0 VBG pH VBG pCO2 VBG pO2 VBG HCO3 VBG O2 Saturation VBG Base Excess Sodium 140 Potassium 3.6 Chloride 104 Carbon Dioxide 29 Anion Gap 7 BUN 8 Creatinine 0.55 L Est Cr Clr Drug Dosing 74.6 eGFR 97.33 BUN/Creatinine Ratio 14.5 Glucose 85 Calcium 9.1 Magnesium 1.9 Total Bilirubin 0.5 AST 18 ALT 9 Alkaline Phosphatase 101 Troponin I High Sens 12.2 B-Natriuretic Peptide 459 H Total Protein 7.3 Albumin 4.2 Globulin 3.1 Albumin/Globulin Ratio 1.4 Urine Color Urine Appearance Urine pH Ur Specific Buckhead Urine Protein Urine Glucose (UA) Urine Ketones Urine Blood Urine Nitrite Urine Bilirubin Urine Urobilinogen Ur Leukocyte Esterase Adenovirus (PCR) B. pertussis DNA (PCR) B.parapertussis DNA PCR C. pneumoniae DNA (PCR) Coronavirus OC43 (PCR) Coronavirus HKU1 (PCR) Coronavirus 229E (PCR) SARS-CoV-2 (PCR) Coronavirus NL63 (PCR) Human Metapneumovir PCR Influenza Type A (PCR) Influenza Type B (PCR) M. pneumoniae (PCR) Parainfluenza 1 (PCR) Parainfluenza 2 (PCR) Parainfluenza 3 (PCR) Parainfluenza 4 (PCR) RSV (PCR) Entero/Rhino (PCR) Diagnostic Findings Chest X-Ray 10/13/24 16:56 EXAM: Radiograph of the Chest 1 View INDICATION: Dyspnea. TECHNIQUE: Frontal view of the chest. COMPARISON: 10/09/2024 FINDINGS: Lungs and pleural spaces: Stable left diaphragmatic elevation and left basilar airspace consolidation and small left pleural effusion. No pneumothorax. There is slight increased groundglass density in the right upper lobe. There is stable increased interstitial markings and right fissural scarring. Heart: Stable mild enlargement. Coronary valve prosthesis noted. Mediastinum: Normal contour. Bones/joints: No fracture, erosion or dislocation. Soft tissues: No abnormality noted. No radiopaque foreign body noted. Upper abdomen: No abnormality noted. IMPRESSION: Question developing pneumonia in the right upper lobe. Underlying vascular congestion and left basilar airspace consolidation and left pleural effusion stable. ACT 112: Negative or not required by law. Electronically signed by Maritza Madrigal 10-13-2024 5:54 PM Medications Administered Diphenhydramine 50 mg IV Methylprednisolone 60 mg IV ECG Additional Comments: NSR, LAD, moderate voltage criteria for LVH, prolonged QT 76 bpm, CO 134, QRS 96, QT/QTc 438/492, PRT 44/-33/56 Code Status & VTE Plan Code Status Full Supervising Physician Co-Signing Physician Notes Attending addendum: I have physically seen this patient, have supervised the TODD's activities, and agree with the H&P unless as otherwise noted. Assessment and Plan: The patient is a 74-year-old female with a past medical history including lung cancer, asthma, hypertension, MR, dyslipidemia, fibromyalgia, hypothyroidism, anxiety and depression, who presents to the emergency department with 5 to 6 days of worsening cough and shortness of breath with dyspnea on exertion. The patient had been seen at [facility] earlier in the day, and was referred to the emergency department due to hypoxia after being placed on 2 L nasal cannula oxygen. #Acute respiratory failure with hypoxia/acute RSV infection/asthma exacerbation/lung cancer- Admit to telemetry Respiratory BioFire positive for RSV Solu-Medrol 60 mg IV now, and then 40 mg IV every 12 hours Guaifenesin extended release 600 mg p.o. every 12 hours Hypertonic saline nebs Continue usual home inhalers DuoNebs every 2 hours as needed Nasal cannula oxygen, titrate to keep pulse ox 92-94% Chronic medical conditions: Anxiety/depression/insomnia-continue Lexapro, lorazepam, Eszopiclone Hypertension-metoprolol 37.5 mg daily, lisinopril 10 mg daily. Hypothyroidism-levothyroxine GERD-omeprazole changed to pantoprazole Migraines-Nurtec every other day Overactive bladder-Vibegron Fibromyalgia-carisoprodol, cyclobenzaprine and pregabalin PG Care Time/CCT Total # of Minutes Spent Total Time Spent with Patient: Total time spent is greater than 50% in coordination of care (as documented) at patient's floor/unit and/or counseling patient: Coding Level of Care Code 52941 INT INP/OBS CARE MIN Diagnoses Acute hypoxic respiratory failure J96.01 RSV infection B33.8
[2024-10-13] MEDS ORDERED: MELATONIN 3 MG TAB PO PRN (21:37)
[2024-10-13] MEDS ORDERED: ONDANSETRON INJ 2 MG/ML 2 ML VIAL IV PRN (21:37)
[2024-10-13] MEDS ORDERED: LORazepam 0.5 MG TAB PO PRN (21:37)
[2024-10-13] MEDS ORDERED: CARISOPRODOL 250 MG PO PRN (21:37)
[2024-10-13] MEDS ORDERED: CYCLOBENZAPRINE HCL 10 MG TAB PO PRN (21:37)
[2024-10-13] MEDS ORDERED: LIDOCAINE 5% 1 PATCH TD PRN (21:37)
[2024-10-13] MEDS ORDERED: POLYETHYLENE (MIRALAX) 17 GM PACK PO PRN (21:37)
[2024-10-13] MEDS ORDERED: ESZOPICLONE 1 MG TAB PO PRN (21:50)
[2024-10-13] MEDS: ALBUTEROL 0.5% NEB SOLN 2.5 MG/0.5 ML VIAL ONE (22:06)
[2024-10-13] MEDS: ESCITALOPRAM OXALATE 10 MG TAB PO SCH (22:48)
[2024-10-13] MEDS: guaiFENesin 600 MG TABCR PO SCH (22:49)
[2024-10-13] MEDS: HYOSCYAMINE SULFATE 0.375 MG TABCR PO SCH (22:49)
[2024-10-14] MEDS: NURTEC~ORDER AWAITING ACTION SCH (00:06)
[2024-10-14] MEDS: ALBUTEROL 0.5% NEB SOLN 2.5 MG/0.5 ML VIAL NEB SCH (00:14)
[2024-10-14] MEDS: ALBUTEROL HFA 8 GM INHALER INH PRN (03:36)
[2024-10-14] MEDS: LEVOTHYROXINE SODIUM 25 MCG TABLET PO SCH (05:24)
[2024-10-14] MEDS: FORMOTEROL 20 MCG/2 ML VIAL NEB SCH (07:21)
[2024-10-14] MEDS: SODIUM CHLOR 7% 4 ML NEB NEB SCH (07:21)
[2024-10-14] MEDS: BUDESONIDE 0.25 MG/2 ML VIAL (PULMICORT) NEB SCH (07:21)
--- NOTE | 2024-10-14 07:30 | Electrocardiogram Report ---
Test Reason : Blood Pressure : */* mmHG Vent. Rate : 76 BPM Atrial Rate : 76 BPM P-R Int : 134 ms QRS Dur : 96 ms QT Int : 438 ms P-R-T Axes : 44 -33 56 degrees QTcB Int : 492 ms Normal sinus rhythm Left axis deviation Moderate voltage criteria for LVH, may be normal variant Prolonged QT Abnormal ECG When compared with ECG of 09-Oct-2024 03:24, No significant change was found Confirmed by Tavon Yu ([id number]) on 10/14/2024 7:30:16 AM Referred By: REFERRED SELF Confirmed By: Tavon Yu
--- NOTE | 2024-10-14 08:04 | Hospitalist Progress Note ---
Date of Service October 14, 2024 Assessment & Plan (1) Acute hypoxic respiratory failure: Plan: 74 y/o with a PMHx lung cancer, asthma, HTN, MR, dyslipidemia, fibromyalgia, hypothyroidism, anxiety, and depression presenting for worsening cough and SOB. She was seen at [facility] and found to be hypoxic - directed to the ED. Patient admitted for management of acute hypoxic respiratory failure in the setting of RSV infection Of note - Patient recently admitted and discharged 10/09/2024 for HTN and elevated troponin #Acute hypoxic respiratory failure #RSV #Asthma exacerbation Likely asthma exacerbation in the setting of acute RSV infection leading to acute hypoxic respiratory failure requiring supplemental oxygen. CXR - stable vascular congestion/basilar airspace consolidation and pleural effusion on the left, and questionable RUL PNA. Patient refusing CT as she had imaging done 10/09. No fevers or leukocytosis. Steroids given in the ED - continue with pred burst 50 mg x 4 days. Could consider azithromycin for anti-inflammatory effect, but as patient back on room air and her QTC is 490 will hold on abx for now. If symptoms do become more concerning for pneumonia would do doxycycline to avoid further QT prolongation. VBG is no longer acidotic, but alkalotic which is likely from over treatment with oxygen. 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 Stevenson at 15:00 10/15 Admission and Anticipated Discharge Date Admission Date: October 13, 2024 Supervising Physician Co-Signing Physician Notes I personally examined the patient and verified moss points of history and exam, discussed case, and agree with decision making and plan documented by Dr. Rowley. Patient on admission for acute hypoxic respiratory failure in setting of RSV infection. Currently symptoms are improving, patient currently weaned off oxygen with O2 saturation 94% on RA. Anticipate continued clinical improvement. Subjective Seen at bedside this AM. Breathing more comfortably. Symptoms worse when laying down to sleep. Nebulizer treatments have helped with mucus. No fevers or chills. Otherwise doing okay. Review of Systems 2 Review of Systems: See HPI Physical Exam 2 Physical Exam: Gen: chronically appearing patient in NAD HEENT: AT NC MMM Resp: diminished throughout, relatively good air movement, scattered wheezing/rhonchi, no increased work of breathing CV: RRR no m/r/g noted, clinically well perfused Abd: soft, non-tender, non-distended MSK: no obvious deformities Skin: no rashes or bruising Neuro: alert and oriented Psych: appropriate mood and affect Results & Data Results & Data Laboratory Results 10/13/24 16:41 10/13/24 16:41 Diagnostic Findings Chest X-Ray 10/13/24 16:56 FINDINGS: Lungs and pleural spaces: Stable left diaphragmatic elevation and left basilar airspace consolidation and small left pleural effusion. No pneumothorax. There is slight increased groundglass density in the right upper lobe. There is stable increased interstitial markings and right fissural scarring. Heart: Stable mild enlargement. Coronary valve prosthesis noted. Mediastinum: Normal contour. Bones/joints: No fracture, erosion or dislocation. Soft tissues: No abnormality noted. No radiopaque foreign body noted. Upper abdomen: No abnormality noted. IMPRESSION: Question developing pneumonia in the right upper lobe. Underlying vascular congestion and left basilar airspace consolidation and left pleural effusion stable. Resident Activity Tracking Resident Involvement: Resident Care Provided Care Provided: Adult Hospital Medicine
[2024-10-14] MEDS: PREGABALIN 50 MG CAP PO SCH (08:24)
[2024-10-14] MEDS: COLCHICINE 0.6 MG TAB PO PRN (08:25)
[2024-10-14] MEDS: PANTOprazole 40 MG TAB PO SCH (08:25)
[2024-10-14] MEDS: METOPROLOL SUCC 25MG EXT REL TAB PO SCH (08:25)
[2024-10-14] MEDS: VIBEGRON 75 MG TAB PO SCH (08:25)
[2024-10-14] MEDS: lisinopril 10 MG TAB PO SCH (08:25)
[2024-10-14] MEDS ORDERED: PANTOprazole 40 MG TAB PO SCH (09:00)
[2024-10-14 09:27] LABS: Base Excess VBG -0.2 mEq/L; HCO3 VBG 24 mmol/L; Oxygen Saturation VBG 95.5 %; PCO2 VBG 37 mmHg (38-50); PO2 VBG 71 mmHg; pH VBG 7.42 (7.36-7.41)
[2024-10-14] MEDS: CHOLESTYRAMINE LIGHT 4 GM PKT PO SCH (10:17)
[2024-10-14] MEDS ORDERED: CHOLESTYRAMINE LIGHT 4 GM PKT PO PRN (10:29)
[2024-10-14] MEDS: AZITHROMYCIN 250 MG TAB PO ONE (15:31)
[2024-10-14] MEDS: predniSONE 50 MG TAB PO SCH (15:41)
[2024-10-14] MEDS: ACETAMINOPHEN 325 MG TAB PO PRN (19:06)
[2024-10-14 20:40] VITALS: TEMP 98.4
[2024-10-15] MEDS: LEVOTHYROXINE SODIUM 50 MCG TABLET PO SCH (06:06)
--- NOTE | 2024-10-15 08:16 | Discharge Summary ---
Date of Service October 15, 2024 Admission HPI Per Admitting Provider 74-year-old female PMHx lung cancer, asthma, HTN, MR, dyslipidemia, fibromyalgia, hypothyroidism, anxiety and depression presenting for worsening cough and SOB x 5 to 6 days. Patient was recently admitted and discharged on 10/09/2024 for hypertension and elevated troponin. Morning of arrival, patient was seen by [facility] and referred to ER for hypoxia after being placed on 2L O2 via NC. Partner is in the room at time of visit and helps about history. Patient states that her symptoms of SOB/cough started approximately 6 days ago, and have been worsening. Main concern is that she is having a lot of phlegm that she is trying to cough up but it feels stuck. She states that the phlegm is clear in color, and she also feels that her sinuses are clogged. Does not notice the SOB being worse when laying flat, but does feel that during exertion her SOB is worsened. She is not having any fevers or chills, no chest pain or palpitations, and no syncope or lightheadedness. She is unsure if she has had any sick contacts, but was recently discharged from the hospital. Her partner informs that patient has a significant cardiac history, with recent valve replacement occurring just months ago at [facility]. Patient has been having concerns of high blood pressure as well, but during the visit, their log of blood pressures over the past week ranges from SBP 140s to 160s. 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 Overall, the patient is denying chest pain, potation's, abdominal pain, N/V/D/C, numbness or tingling, fever/chills, or LUTS. Has been taking medications as prescribed. ED evaluation reveals no leukocytosis, H&H 10.6/34.5, VBG's with pH 7.35, pCO2 55, CMP with creatinine 0.55, otherwise grossly WNL, troponin 12.2, BNP 459, and BioFire positive for RSV. CXR reveals questionable developing PNA in RUL with underlying vascular congestion and left basilar airspace consolidation with left pleural effusion that is stable. Patient was provided with Benadryl and methylprednisolone in ER. Please see Dr. Navarro's attestation for adjustments/additions to treatment plan. Admission Exam Per Admitting Provider General: No acute distress Skin: Warm and dry, without rashes or lesions Head: Normocephalic, atraumatic Eyes: PERRL, conjunctivae clear, sclera non-icteric; R eye drifts ENT: External ear and ear canal without swelling; nose atraumatic; wears dentures, tongue normal appearance, pharynx, oropharnx WNL Neck: Supple, no LAD; no JVD Cardio: RRR, no M/G/R, S1 and S2 normal Resp: Normal respiratory effort; No respiratory distress, diminished airflow throughout lung marino, RLL w/ expiratory wheezing + minimal crackles, slightly improved with coughing; Wearing O2 via NC, no O2 at baseline Abdomen: Soft, symmetric, nontender; No masses or hepatosplenomegaly; Bowel sounds normoactive MSK: No deformities; pulses palpable and equal; no edema. Neuro: Awake, alert; Sensation intact bilaterally; CN grossly intact Psych: Flat affect; fair judgement and insight. Partner present in room at time of visit. Principal Diagnosis RSV infection Asthma exacerbation Discharge Exam Constitutional WD/WN, vitals as above Respiratory normal respiratory effort, + labored breathing and + cough Auscultation: + wheezes (over r. posterior lung marino); no crackles Cardiovascular Rate/Rhythm: regular rate and regular rhythm Heart Sounds: + murmur (holosystolic heard at ERIKA and ELIZABETH borders) Extremities: normal capillary refill; no calf tenderness and no pedal edema Gastrointestinal (Abdomen) normal bowel sounds, soft, nontender, no hepatosplenomegaly Psychiatric A+Ox3, euthymic affect Discharge Data Allergies Allergy/AdvReac Type Severity Reaction Status Date / Time shellfish derived Allergy Severe throat Verified 05/22/24 12:33 closing , systemic reaction Cephalosporins Allergy Intermediate hives Verified 05/22/24 12:33 methenamine Allergy Intermediate hives Verified 05/22/24 12:33 oxycodone Allergy Intermediate HIVES Verified 05/22/24 12:33 pravastatin [From Pravachol] Allergy Intermediate BODY ACHES Verified 05/22/24 12:33 propoxyphene Allergy Intermediate ITCHING Verified 05/22/24 12:33 AND A RASH Sulfa (Sulfonamide Allergy Intermediate hives Verified 05/22/24 12:33 Antibiotics) sulfamethoxazole Allergy Intermediate hives Verified 05/22/24 12:33 trimethoprim Allergy Intermediate hives Verified 05/22/24 12:33 simvastatin AdvReac Intermediate body aches Verified 05/22/24 12:33 tapentadol AdvReac Intermediate felt very Verified 05/22/24 12:33 uncomfortable - does not ever want hydrocodone AdvReac Mild ITCHING Verified 05/22/24 12:33 hyoscyamine AdvReac Mild Significant Verified 05/22/24 12:33 dry mouth/throat Consultations 10/13/24 19:05 ED Decision to Admit Stat Hospital Course (1) Acute hypoxic respiratory failure: (2) RSV infection: Plan Patient is a 74 y/o with a PMHx lung cancer, asthma, HTN, MR, dyslipidemia, fibromyalgia, hypothyroidism, anxiety, and depression presenting for worsening cough and SOB. She was seen at [facility] and found to be hypoxic - directed to the ED. Patient admitted for management of acute hypoxic respiratory failure in the setting of RSV infection Of note - Patient recently admitted and discharged 10/09/2024 for HTN and elevated troponin 1) Acute hypoxic respiratory failure/ RSV infection/ Asthma exacerbation - Likely asthma exacerbation in the setting of acute RSV infection leading to acute hypoxic respiratory failure requiring supplemental oxygen. - CXR: stable vascular congestion/basilar airspace consolidation and pleural effusion on the left, and questionable RUL PNA. - Patient refused CT as she had imaging done 10/09. No fevers or leukocytosis. Steroids given in the ED - continue with pred burst 50 mg x 4 days. - Considered azithromycin for anti-inflammatory effect, but as patient back on room air and her QTC is 490, held abx for now. - If symptoms do become more concerning for pneumonia would do doxycycline to avoid further QT prolongation. VBG is no longer acidotic, but alkalotic which is likely from over treatment with oxygen. 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, 2012 3) S/p Aortic and Bicuspid valve replacements - per the patient #Anxiety/depression/Insomnia- Lexapro, lorazepam twice daily as needed; Eszopiclone #HTN- Metoprolol 37.5 daily, lisinopril 10 daily; No longer on HCTZ #Hypothyroidism- Levothyroxine #GERD- Omeprazole, pantoprazole #Migraines- Nurtec q other day #OAB- Vibegron #Fibromyalgia- Carisoprodol, cyclobenzaprine, pregabalin Total Time Total Time Spent Total Time Spent (In Minutes): <30 Discharge Plan Discharge Items Patient Disposition: Home - Self-Care Reason For Visit: ACUTE HYPOXIC RESP FAILURE, RSV Discharge Diagnosis: RSV infection and asthma exacerbation Activity: Resume your previous activity Non-emergency contact: Primary Care Provider Call non-emergency contact if: your symptoms worsen and you have a fever Follow-up/Referrals: Maricruz Stevenson DO [Primary Care Provider] - 10/19/24 10:25 am Diet: Heart Healthy Addtl Attending Provider Instructions: You were admitted to the hospital for acute dyspnea, subsequently found to have an RSV infection along with an asthma exacerbation. You were treated with DuoNebs, hypertonic saline nebs, Mucinex, albutero inhaler. A discharge summary will be sent to your primary care physician to ensure continuity of care. Please bring this discharge summary with you to your next office appointment so that your provider can review it at that time. Follow-up appointments: We have requested a follow-up appointment with your primary care physician within one week of discharge. Please call their office if you do not hear from them. Keep all your follow-up appointments as already scheduled. If you cannot make an appointment, notify your provider. Medications: Your medication list has been reviewed and reconciled upon discharge to ensure accuracy and continuity of care. An updated list of all your medications is i ncluded with your hospital discharge paperwork. Please review this list closely, and make note of any changes. We sent a new medication called prednisone to your pharmacy. Take prednisone, 50 mg/one tablet, daily, for 3 days. We sent a new medication called Tessalon Perles (benzonatate) to your pharmacy. Take benzonatate, 200 mg/one tablet, up to 2 times daily, for 5 days. Take your medications as instructed; do not skip a dose of your medicines. Make sure all of your doctors know every medicine you are taking (including cxkf-hhk-[id number] medicines, vitamins, and supplements). Call your primary care provider before taking any new medicines (including xfyx-gnz-idrtmaz medicines, vitamins, and supplements), because some of these may interact with your current medications, or may make your symptoms worse. Tell your primary care provider if you cannot afford your medications. CONTACT YOUR PRIMARY CARE PROVIDER if you experience any of the following: increased shortness of breath, fevers, chills Difficulty following your treatment plan, or difficulty taking medications CALL 911 OR GO TO THE EMERGENCY DEPARTMENT if you experience any of the following: Sudden, severe abdominal pain or nausea/vomiting Severe chest pain, or chest pain that radiates (moves) to your jaw or arm Sudden, severe shortness of breath or difficulty breathing Thank you for allowing us to participate in your care Pending Studies at Discharge: No Stand-Alone Forms: [facility] [employer], Smoking Cessation Medications and DC Order Prescriptions: New prednisone 50 mg tablet 50 mg PO DAILY 3 Days Qty: 3 0RF benzonatate 200 mg capsule 200 mg PO BID PRN (Reason: cough) Qty: 10 0RF Continued meclizine 25 mg tablet 25 mg PO TID PRN (Reason: Dizziness) Qty: 60 2RF Nurtec ODT 75 mg tablet,disintegrating 75 mg PO Q OTHER DAY Qty: 16 5RF vibegron 75 mg tablet 75 mg PO DAILY Qty: 90 3RF phenazopyridine [Pyridium] 100 mg tablet 100 mg PO Q8H PRN (Reason: pain) Qty: 60 0RF eszopiclone 2 mg tablet 2 mg PO DAILY Qty: 30 5RF albuterol sulfate 2.5 mg /3 mL (0.083 %) Solution For Nebulization 2.5 mg INHALATION DIRECTED PRN (Reason: Shortness Of Breath Or Wheezing) tramadol 50 mg Tablet 50 mg PO Q8H PRN (Reason: Pain) lorazepam 0.5 mg Tablet 0.5 mg PO BID PRN (Reason: Anxiety) Patient Comments: pt says its been a while since she has taken hydroxyzine HCl 25 mg Tablet 25 mg PO DAILY PRN (Reason: Itching) metoprolol succinate [Toprol XL] 25 mg Tablet Extended Release 24 Hr 25 mg PO QAM epinephrine [EpiPen] 0.3 mg/0.3 mL Auto-Injector 0.3 mg IM DIRECTED PRN (Reason: Allergic Reaction) albuterol sulfate [ProAir HFA] 90 mcg/actuation Hfa Aerosol Inhaler 2 puff INHALATION QID PRN (Reason: Shortness Of Breath Or Wheezing) diclofenac sodium 1 % Gel 2 g TOPICAL QID PRN (Reason: Pain) budesonide-formoterol [Symbicort] 160-4.5 mcg/actuation HFA aerosol inhaler 2 puff INHALATION BID hydrochlorothiazide 12.5 mg tablet 12.5 mg PO QAM dibucaine 1 % ointment 1 applic TOPICAL TID PRN (Reason: Hemorrhoids) celecoxib [Celebrex] 200 mg Capsule 200 mg PO DIRECTED PRN (Reason: Pain) cyclobenzaprine 10 mg Tablet 10 mg PO TID PRN (Reason: MUSCLE SPASMS) nitroglycerin 0.2 mg/hr Patch 24 Hour 1 patch TRANSDERMAL DAILY Rx Instructions: allow nitrate-free interval of approx. 10-12 hrs per 24-hour period levothyroxine 25 mcg Tablet 25 mcg PO Q OTHER DAY Rx Instructions: ALTERNATING WITH 50 MCG EVERY OTHER DAY. ketorolac 10 mg Tablet 10 mg PO DIRECTED PRN (Reason: Pain) hydromorphone 2 mg Tablet 2 mg PO DIRECTED PRN (Reason: Pain) hyoscyamine sulfate 0.375 mg Tablet Extended Release 12 Hr 0.375 mg PO Q12H levothyroxine 50 mcg Tablet 50 mcg PO Q2D Rx Instructions: ALTERNATING WITH 25 MCG EVERY OTHER DAY. pantoprazole 40 mg Tablet,Delayed Release (Dr/Ec) 40 mg PO QAM lisinopril 10 mg Tablet 10 mg PO DAILY lidocaine 5 % Adhesive Patch,Medicated 1 patch TOPICAL DAILY PRN (Reason: Pain) Rx Instructions: leave on most painful area for up to 12 hrs carisoprodol 250 mg Tablet 250 mg PO DIRECTED PRN (Reason: NEEDED) omeprazole 20 mg Tablet,Delayed Release (Dr/Ec) 20 mg PO QAM Diltiazem 2% Ointment 1 applic topical TID PRN (Reason: Hemorrhoids) diphenoxylate-atropine 2.5-0.025 mg Tablet 1 tab PO DAILY PRN (Reason: Diarrhea) pregabalin 50 mg Capsule 50 mg PO QAM escitalopram oxalate 10 mg tablet 10 mg PO BID nitroglycerin 0.4 mg Tablet, Sublingual 0.4 mg sublingual UD PRN (Reason: Chest Pain) Prevalite 4 gram Powder 4 g PO DAILY Rx Instructions: administer w/meal; avoid other meds within 1hr before or 4-6hr after dose colchicine 0.6 mg tablet 0.6 mg PO DAILY PRN (Reason: gallbladder) potassium chloride 20 mEq tablet extended release 20 meq PO DAILY Qty: 5 0RF Discharge Orders: Discharge Order (Routine); Ordered 10/15/24 Ordered By: Edwin Tom Admission Data Admit Date/Time: 10/13/24 19:36 Attending Provider: Zaki Mortensen Admit Provider: Juan Francisco Navarro Primary Care Provider: Maricruz Stevenson Other Providers: Juan Francisco Navarro Other Interventions: Discharge Summary Assessment (RN) Last Done: 10/15/24 12:58 Supervising Physician Co-Signing Physician Notes I personally examined the patient and verified all moss points of history and exam, discussed case, and agree with decision making with Dr Tom Feeling better and would like to go home. Vitals noted, in general she is awake and alert pleasant no distress. HEENT normocephalic atraumatic mucous membranes moist. Breathing unlabored no accessory muscle use good effort. Skin without rashes pallor or icterus. Neuro without focal deficits. RSV with possible RSV pneumonia causing asthma exacerbation all of which precipitated acute hypoxic respiratory failure present on admissionnow improving nicely. Safe/stable for home. Otherwise as above
[2024-10-15 08:37] LABS: Base Excess VBG 2.3 mEq/L; HCO3 VBG 25 mmol/L; Hematocrit (blood only) 32.6 % (37.0-47.0); Hemoglobin 10.4 g/dl (12.0-16.0); Mean Corpuscular Hemoglobin 28.6 pg (25.0-34.0); Mean Corpuscular Hgb Conc 31.9 g/dL (32.0-36.0); Mean Corpuscular Volume 89.6 fL (80.0-100.0); Mean Platelet Volume 9.8 fL (9.4-12.4); Oxygen Saturation VBG 84.6 %; PCO2 VBG 31 mmHg (38-50); PO2 VBG 48 mmHg; Platelet Count 366 K/uL (130-400); RDW Coefficient of Variation 13.3 % (11.5-14.5); RDW Standard Deviation 43.8 fL (36.4-46.3); Red Blood Count 3.64 M/uL (4.20-5.40); White Blood Count 7.86 K/ul (4.8-10.8); pH VBG 7.51 (7.36-7.41)
[2024-10-15] MEDS ORDERED: AZITHROMYCIN 250 MG TAB PO SCH (09:00)
[2024-10-15 09:03] LABS: BUN Creatinine Ratio 31.3 (10-20); Creatinine Clr Calc Pharmacy 61.7 ml/min; Potassium 3.6 mmol/L (3.5-5.1)
[2024-10-15 12:31] VITALS: PULSE 80; RESP 18; O2SAT 94
[2024-10-15 13:00] VITALS: BP 110/65
--- NOTE | 2024-10-15 17:26 | Billing Data ---
Date of Service October 15, 2024 Coding Level of Care Code 45930 IN/OBS DISCH 30 MIN/LESS
== END 2024-10-15 13:15 | disposition home or self-care (01) | DRG 193 ==
LOC: ED 16:21 → SUATTDRO 19:36 → 3W 19:36

== ENCOUNTER 2024-10-20 01:23 | Inpatient (IN) ==
[2024-10-20] MEDS: ACETAMINOPHEN 500 MG TAB PO STA (02:36)
[2024-10-20 02:42] LABS: Basophils # (auto) 0.03 K/uL (0.00-0.20); Basophils % (auto) 0.2 %; Eosinophils # (auto) 0.01 K/uL (0.00-0.50); Eosinophils % (auto) 0.1 %; Hematocrit (blood only) 37.2 % (37.0-47.0); Hemoglobin 11.8 g/dl (12.0-16.0); Immature Granulocytes # (auto) 0.09 K/uL (0.01-0.20); Immature Granulocytes % (auto) 0.6 %; Lymphocytes # (auto) 1.61 K/uL (1.20-3.40); Lymphocytes % (auto) 10.6 %; Mean Corpuscular Hemoglobin 28.4 pg (25.0-34.0); Mean Corpuscular Hgb Conc 31.7 g/dL (32.0-36.0); Mean Corpuscular Volume 89.6 fL (80.0-100.0); Mean Platelet Volume 9.7 fL (9.4-12.4); Monocytes # (auto) 1.68 K/uL (0.11-0.59); Neutrophils # (auto) 11.79 K/uL (1.40-6.50); Neutrophils % (auto) 77.5 %; Platelet Count 478 K/uL (130-400); RDW Coefficient of Variation 13.2 % (11.5-14.5); RDW Standard Deviation 43.4 fL (36.4-46.3); Red Blood Count 4.15 M/uL (4.20-5.40); White Blood Count 15.21 K/ul (4.8-10.8)
[2024-10-20 02:47] LABS: Albumin Globulin Ratio 1.2 (0.9-2); Albumin Level 4.1 gm/dl (3.4-5.0); BUN Creatinine Ratio 22.4 (10-20); Bilirubin,Total 0.4 mg/dl (0.2-1.0); Calcium 8.7 mg/dl (8.6-10.3); Creatinine Clr Calc Pharmacy 62.5 ml/min; Globulin 3.3 gm/dl (2.5-4.0); Potassium 3.3 mmol/L (3.5-5.1); Total Protein 7.4 gm/dl (6.0-8.3)
[2024-10-20 03:17] LABS: Magnesium 1.7 mg/dl (1.7-2.4)
[2024-10-20 03:24] LABS: Troponin I High Sensitivity 14.7 pg/ml (0-14)
[2024-10-20] MEDS: methylPREDNISolone 125 MG/2 ML VIAL IV STA (03:24)
[2024-10-20] MEDS: ALBUT/IPRATROP 3MG/0.5MG NEB 3 ML VIAL NEB STA (03:26)
--- NOTE | 2024-10-20 04:06 | XRay Report ---
EXAM: XR chest 1V portable CLINICAL HISTORY: Dyspnea TECHNIQUE: Radiograph of chest was acquired. COMPARISON: 05 October 2024. FINDINGS: Sternal sutures are detected. Small consolidation is noted in the right lower zone. This is a new finding. Linear opacities also noted in the right lower zone, likely atelectasis. Stable. Persistent suspicious opacities noted along the right lateral chest wall, possible pleural thickening. Persistent elevated left hemidiaphragm is noted. Suspicious reticulonodular opacities are noted in the right middle zone. No pleural effusion is detected. The cardiomediastinal silhouette is within normal limits. No acute osseous abnormality. Rest of the findings are unchanged compared to the previous radiograph. IMPRESSION: 1. Small consolidation is noted in the right lower zone. This is a new finding. 2. Suspicious reticulonodular opacities are noted in the right middle zone. Possibility of infective etiology. Suggested clinical/lab correlation. 3. Linear opacity is also noted in the right lower zone, likely atelectasis. Stable. 4. Persistent elevated left hemidiaphragm is noted. 5. Persistent suspicious opacities noted along the right lateral chest wall, possible pleural thickening. Rest of the findings are unchanged. Further evaluation with CT chest is suggested for better evaluation and confirmation of above findings if clinically indicated. Electronically signed by Gordon Olsen 10-20-2024 04:04 AM
[2024-10-20 04:33] LABS: Adenovirus PCR Not Detected (NotDetected); Bordetella parapertussis PCR Not Detected (NotDetected); Bordetella pertussis PCR Not Detected (NotDetected); Chlamydia pneumoniae PCR Not Detected (NotDetected); Coronavirus 229E PCR Not Detected (NotDetected); Coronavirus CoV-2 (COVID19)PCR Not Detected (NotDetected); Coronavirus HKU1 PCR Not Detected (NotDetected); Coronavirus NL63 PCR Not Detected (NotDetected); Coronavirus OC43PCR Not Detected (NotDetected); Human Metapneumovirus PCR Not Detected (NotDetected); Influenza A PCR Not Detected (NotDetected); Influenza B PCR Not Detected (NotDetected); Mycoplasma pneumoniae PCR Not Detected (NotDetected); Parainfluenza Virus 1 PCR Not Detected (NotDetected); Parainfluenza Virus 2 PCR Not Detected (NotDetected); Parainfluenza Virus 3 PCR Not Detected (NotDetected); Parainfluenza Virus 4 PCR Not Detected (NotDetected); Respiratory Syncytial VirusPCR DETECTED (NotDetected); Rhinovirus/Enterovirus PCR Not Detected (NotDetected)
--- NOTE | 2024-10-20 04:48 | History & Physical Report ---
Date of Service October 20, 2024 Assessment & Plan (1) Hospital-acquired pneumonia: (2) RSV infection: (3) Asthma, moderate persistent: (4) Leukocytosis: (5) Hypokalemia: (6) Hypomagnesemia: (7) Foul smelling urine: (8) S/P partial lobectomy of lung: Plan Patient is a 74 y/o female PMHx of Lung cancer s/p right partial lung lobectomy in 2012, asthma, hypertension, hyperlipidemia, fibromyalgia, hypothyroidism, anxiety, depression, aortic and bicuspid valve replacement July 2024. Patient was admitted 10/09 for elevated troponin thought to be secondary to hypertension and then readmitted 10/13 to 10/15 for RSV and asthma exacerbation. Patient presented back to the ED with worsening cough, green sputum production, dyspnea, and fever. She stated she saw her PCP yesterday who prescribed her doxycycline and Augmentin which she has taken 1 dose of. She is being admitted for hospital-acquired pneumonia and electrolyte abnormalities. #HAP/RSV/Asthma exacerbation s/p partial lobectomy right lung 2012 due to stage Ia carcinoid lung tumor recent admission 10/13-10/15 for asthma exacerbation and RSV - now RLL PNA CXR showing small consolidation in RL zone, suspicious reticulonodular opacities in RML, persistent suspious opacities of right lateral chest wall (pleural thickening) Zosyn ordered given doxycycline 100 mg IV in ED; continue for atypical coverage MRSA swab ordered Tylenol prn, Tessalon Perles, Mucinex, duonebs incentive spirometry and flutter valve given solumedrol 125mg in ED; continue with solumedrol 40mg Q12H oxygen prn for O2 < 92% promote oral hydration #leukocytosis 2/2 above and recent prednisone use not septic on admission, VSS, lactate negative WBC 15.21 on admission anticipate to remain elevated with IV steroid use Trend CBC #Electrolyte abnormalities 2/2 decreased po intake and diuretic use K+ 3.3, Mg 1.7 Hold hydrochlorothiazide 3 bags K rider ordered - 500 ml NSS @80 ml/hr to relieve associated burning 2 bags IV Mg ordered Continue daily potassium chloride 20 mEq p.o. Trend BMP and Mg #foul smell urine Patient reports foul-smelling urine and diagnosis of UTI with PCP 14 Denies dysuria or difficulty urinating Possibly SCC of antibiotic use UA ordered UTI would be covered with Zosyn as above #elevated troponin 14.7 on admission; 2 hr repeat ordered recent admission with trop in 200s 2/ demand with HTN monitor on tele Chronic stable diagnoses: s/p aortic and bicuspid valve replacements - as per patient 2023, on daily baby ASA anxiety/depression/insomniacontinue Lexapro, lorazepam as needed, eszopiclone HTNcontinue metoprolol, lisinopril; hold HCTZ Hypothyroidismcontinue levothyroxine GERDcontinue home PPI Migrainescontinue Nurtec q. every other day OABcontinue vibegron fibromyalgiacontinue cyclobenzaprine, lyrica, carisoprodol VTE ppx: SCDs, low risk Diet: heart healthy Dispo: med/tele Admission and Anticipated Discharge Date Admission Date: 10/20/24 History of Present Illness Chief Complaint: respiratory problems Primary Care Provider: Maricruz Stevenson DO Patient is a 74 y/o female PMHx of Lung cancer s/p right partial lung lobectomy in 2012, asthma, hypertension, hyperlipidemia, fibromyalgia, hypothyroidism, anxiety, depression, aortic and bicuspid valve replacement July 2024. Patient was admitted 10/09 for elevated troponin thought to be secondary to hypertension and then readmitted 10/13 to 10/15 for RSV and asthma exacerbation. Patient presented back to the ED with worsening cough, green sputum production, dyspnea, and fever. She stated she saw her PCP yesterday who prescribed her doxycycline and Augmentin which she has taken 1 dose of. She is being admitted for hospital-acquired pneumonia and electrolyte abnormalities. Patient seen at bedside with his significant other present. She stated that since she is gone home Tuesday her symptoms of worsened. She noted a fever of 101 yesterday. Nursing at bedside stated temperature was 102.7 when she arrived to ED, now around 98F after Tylenol. Patient stated she is coughing spells along with dyspnea on exertion. She stated her sputum production is green, denies any blood in the sputum. She endorses rhinorrhea, however chronic and unchanged. She denies feeling feverish or with chills, sore throat, chest pain, abdominal pain, nausea, vomiting, diarrhea. She stated she finished her prednisone course yesterday of 50 Mg daily. She stated that she had significant release with DuoNeb treatment in ED and has DuoNebs as needed at home. She stated while at her PCP she was diagnosed with a UTI. She stated that her urine is foul-smelling. She denies dysuria, difficulty urinating, hematuria. Patient denies smoking history. She took her home medications last evening. She wishes to be full code. Allergies Allergy/AdvReac Type Severity Reaction Status Date / Time shellfish derived Allergy Severe throat Verified 05/22/24 12:33 closing , systemic reaction Cephalosporins Allergy Intermediate hives Verified 05/22/24 12:33 methenamine Allergy Intermediate hives Verified 05/22/24 12:33 oxycodone Allergy Intermediate HIVES Verified 05/22/24 12:33 pravastatin [From Pravachol] Allergy Intermediate BODY ACHES Verified 05/22/24 12:33 propoxyphene Allergy Intermediate ITCHING Verified 05/22/24 12:33 AND A RASH Sulfa (Sulfonamide Allergy Intermediate hives Verified 05/22/24 12:33 Antibiotics) sulfamethoxazole Allergy Intermediate hives Verified 05/22/24 12:33 trimethoprim Allergy Intermediate hives Verified 05/22/24 12:33 simvastatin AdvReac Intermediate body aches Verified 05/22/24 12:33 tapentadol AdvReac Intermediate felt very Verified 05/22/24 12:33 uncomfortable - does not ever want hydrocodone AdvReac Mild ITCHING Verified 05/22/24 12:33 hyoscyamine AdvReac Mild Significant Verified 05/22/24 12:33 dry mouth/throat Home Medications Medication Instructions Recorded Confirmed Type albuterol sulfate 2.5 mg/3 mL 2.5 mg inhalation DIRECTED PRN 07/06/18 10/20/24 History (0.083 %) solution for nebulization Shortness Of Breath Or Wheezing albuterol sulfate 90 mcg/actuation 2 puff inhalation QID PRN 07/06/18 10/20/24 History aerosol inhaler (ProAir HFA) Shortness Of Breath Or Wheezing diclofenac sodium 1 % topical gel 2 g topical QID PRN Pain 07/06/18 10/20/24 History epinephrine 0.3 mg/0.3 mL 0.3 mg IM DIRECTED PRN Allergic 07/06/18 10/20/24 History injection, auto-injector (EpiPen) Reaction hydroxyzine HCl 25 mg tablet 25 mg PO DAILY PRN Itching 07/06/18 10/20/24 History lorazepam 0.5 mg tablet 0.5 mg PO BID PRN Anxiety 07/06/18 10/20/24 History metoprolol succinate 25 mg 37.5 mg PO QAM 07/06/18 10/20/24 History tablet,extended release 24 hr (Toprol XL) tramadol 50 mg tablet 50 mg PO Q8H PRN Pain 07/06/18 10/20/24 History budesonide-formoterol HFA 160 2 puff inhalation BID 10/30/19 10/20/24 History mcg-4.5 mcg/actuation aerosol inhaler (Symbicort) dibucaine 1 % topical ointment 1 applic topical TID PRN 07/12/20 10/20/24 History Hemorrhoids Diltiazem 2% Ointment 1 applic topical TID PRN 06/23/22 10/20/24 History Hemorrhoids carisoprodol 250 mg tablet 250 mg PO DIRECTED PRN NEEDED 06/23/22 10/20/24 History celecoxib 200 mg capsule (Celebrex) 200 mg PO DIRECTED PRN Pain 06/23/22 10/20/24 History cyclobenzaprine 10 mg tablet 10 mg PO TID PRN MUSCLE SPASMS 06/23/22 10/20/24 History hydromorphone 2 mg tablet 2 mg PO DIRECTED PRN Pain 06/23/22 10/20/24 History hyoscyamine sulfate 0.375 mg 0.375 mg PO Q12H 06/23/22 10/20/24 History tablet,extended release,12 hr ketorolac 10 mg tablet 10 mg PO DIRECTED PRN Pain 06/23/22 10/20/24 History levothyroxine 50 mcg tablet 50 mcg PO QAM 06/23/22 10/20/24 History lidocaine 5 % topical patch 1 patch topical DAILY PRN Pain 06/23/22 10/20/24 History lisinopril 10 mg tablet 10 mg PO DAILY 06/23/22 10/20/24 History nitroglycerin 0.2 mg/hr 1 patch transdermal DAILY 06/23/22 10/20/24 History transdermal 24 hour patch omeprazole 20 mg tablet,delayed 20 mg PO QAM PRN Indigestion 06/23/22 10/20/24 History release pantoprazole 40 mg tablet,delayed 40 mg PO QAM 06/23/22 10/20/24 History release diphenoxylate-atropine 2.5 1 tab PO DAILY PRN Diarrhea 07/16/23 10/20/24 History mg-0.025 mg tablet pregabalin 50 mg capsule 50 mg PO QAM 07/16/23 10/20/24 History meclizine 25 mg tablet 25 mg PO TID PRN Dizziness #60 tabs 08/19/23 10/20/24 Rx escitalopram oxalate 10 mg tablet 10 mg PO QAM 11/28/23 10/20/24 History colchicine 0.6 mg tablet 0.6 mg PO DAILY 12/05/23 10/20/24 History nitroglycerin 0.4 mg sublingual 0.4 mg sublingual UD PRN Chest Pain 12/05/23 10/20/24 History tablet phenazopyridine 100 mg tablet 100 mg PO Q8H PRN pain #60 tabs 12/06/23 10/20/24 Rx (Pyridium) rimegepant 75 mg disintegrating 75 mg PO Q OTHER DAY #16 tabs 03/21/24 10/20/24 Rx tablet (Nurtec ODT) potassium chloride 20 mEq 20 meq PO DAILY #5 tabs 08/27/24 10/20/24 Rx tablet,extended release benzonatate 200 mg capsule 200 mg PO BID PRN cough #10 caps 10/15/24 10/20/24 Rx vibegron 75 mg tablet 75 mg PO DAILY PRN OAB 10/20/24 10/20/24 History Past Med/Surg History Problem List (Updated 10/20/24 @ 06:17 by Angelique Disla DO) Right lower lobe pneumonia (Acute) Foul smelling urine Hypomagnesemia Hypokalemia Leukocytosis Hospital-acquired pneumonia Cough (Acute) Elevated brain natriuretic peptide (BNP) level (Acute) Acute hypoxic respiratory failure (Acute) Acute dyspnea (Acute) RSV infection (Acute) Circadian rhythm sleep disorder, delayed sleep phase type Insomnia Dysuria (Acute) Lower abdominal pain Interstitial cystitis Urinary symptom or sign Vertigo Migraine with vertigo COVID (Acute) Chronic diarrhea Cerumen impaction Encounter for pre-operative examination Dyspnea Abnormal CT scan of lung Left leg pain (Acute) Left knee DJD (Chronic) Depression (Chronic) Biliary colic Hematuria resolved Proteinuria resolved Anxiety and depression Hypothyroidism (Chronic) Dyslipidemia (Chronic) Fibromyalgia (Chronic) Asthma, moderate persistent (Chronic) daily and prn inh (has not used in a couple of years) HTN (hypertension) (Chronic) Mitral regurgitation (Chronic) MVR 2018, [facility] Medical History Acute non-ST elevation myocardial infarction (NSTEMI) Elevated troponin Pulmonary hypertension mild per cardio records History of COVID-19 pt denies>+ test noted in [place] record from 2021 Hx of gastric ulcer IBS (irritable bowel syndrome) Heart disease Rectal bleeding "has hemorrhoids, still occurs sometimes" History of kidney stones Cardiac murmur Surgical History S/P arthroscopy of right knee S/P arthroscopy of left knee S/P tonsillectomy and adenoidectomy History of total knee replacement left + revision History of carpal tunnel release right/left History of colonoscopy History of tooth extraction History of tonsillectomy History of endoscopic sinus surgery History of cataract surgery right/left Aortic valve replaced 2018, [facility] Mitral valve replaced 2018, [facility]; f/u dr. ward, ps History of heart artery stent 2018, [facility], x1 stents>12/05/23- stated that pt "never had a stent placed, only the cath prior to the AVR and MVR"-cardio record from [facility] does not show that a stent was placed Family History Father Heart disease Hypertension Uncle Cancer Mother Heart disease Other No family history of adverse response to anesthesia No significant family history Social History Smoking Status: Former smoker Tobacco Type: Cigarettes Cigarettes Per Day: Quit when 27yrs old; Second Hand Exposure: No; Do You Dip or Chew Tobacco: No; Hx Alcohol Use: No Hx Substance Use: No Preferred Language: Sami Communication Ability: Effective Hearing Ability: Normal Cloth Washer Operator Required: No Beliefs That Will Affect Care: None marital status: Current Living Situation: Spouse current occupational status: retired current occupation: Retired How many Children do You have: 3 Other Information That Helps Us Care for You: No Feels Safe at Home: Yes Safety Concerns: Feels Safe At This Time Diet: regular during the past year weight has: decreased > 10 lbs Assistive Devices: Denture - Upper and Denture - Lower Review of Systems Review of Systems: see HPI Physical Exam Physical Exam: The patient is awake, alert and oriented 3, well developed and well nourished, normocephalic and atraumatic, in no acute distress. Non-toxic appearing. HEENT- EOMI, mucous membranes dry. Hearing grossly intact. Heart-normal S1 and S2. No murmurs, rubs or gallops. Lungs-diffuse wheezing, no respiratory distress, no accessory muscle use. Abdomen-normal bowel sounds and soft. No ascites noted. Non-tender. Extremities- no clubbing, cyanosis, or edema. Rheumatologic-normal range of motion. Psychiatric-normal affect. Results & Data Results & Data Vital Signs (Past 12 Hours) Vital Signs Temp Pulse Pulse Resp BP BP Pulse Ox 10/20/24 04:15 79 24 139/83 93 10/20/24 04:00 81 20 130/98 92 10/20/24 03:42 90 22 152/81 H 95 10/20/24 03:23 37 C 85 24 133/73 92 10/20/24 02:33 39.3 C H 95 H 24 151/87 H 94 10/20/24 02:22 92 10/20/24 01:50 92 H 18 145/101 H 94 10/20/24 01:42 98 H 10/20/24 01:27 38.5 C H 99 H 20 168/84 H 95 O2 Del Method 10/20/24 04:15 Room Air 10/20/24 04:00 Room Air 10/20/24 03:42 Nebulizer 10/20/24 03:23 Room Air 10/20/24 02:33 Room Air 10/20/24 02:22 Room Air 10/20/24 01:50 Room Air 10/20/24 01:42 10/20/24 01:27 Room Air Laboratory Results Reviewed CBC, CMP, Pro-Ousmane, bio fire, troponin, mag, lactate Diagnostic Findings reviewed CXR Medications Administered ed - IV Doxy, 1G, DuoNeb x 1, Solu-Medrol 125 Mg IV ECG Additional Comments: ordered Code Status & VTE Plan Code Status full code VTE Prophylaxis Plan VTE Prophylaxis will be ordered: Yes Supervising Physician Co-Signing Physician Notes Attending addendum: I have physically seen this patient, have supervised the TODD's activities, and agree with the H&P unless as otherwise noted. Assessment and Plan: The patient is a 74-year-old female with past medical history including lung cancer status post right partial lung lobectomy in 2012, asthma, hypertension, hyperlipidemia, fibromyalgia, hypothyroidism, anxiety, depression, status post AVR 07/29. She was most recently admitted to [facility] on 10/09 and discharged to/for due to elevated troponin and demand ischemia. She was readmitted from 10/13-10/15/2024 for RSV and asthma exacerbation. Patient presents to the emergency department this evening with worsening cough, production of green sputum, dyspnea and fever. She had seen her outpatient PCP yesterday, and had been prescribed doxycycline and Augmentin, which she took 1 dose so far. Chest x-ray in the emergency department shows a new right lower lobe infiltrate, hospital associated pneumonia, and is therefore referred for evaluation for admission. #Pap/RSV/asthma exacerbation- History of partial lobectomy right lung due to stage Ia carcinoid lung tumor in 2012 Recent admission for RSV and asthma exacerbation from 10/13-10/15/2024 New right lower lobe infiltrate concerning for healthcare associated pneumonia Admit on Zosyn 4.5 g IV every 8 hours Status post doxycycline 100 mg IV in ED Order MRSA swab Acetaminophen 650 mg by mouth every 6 hours as needed for mild pain or fever Tessalon Perles 100 mg p.o. 3 times daily as needed cough Mucinex 60 mg p.o. every 12 hours DuoNebs every 2 hours as needed Incentive spirometry and flutter valve Status post Solu-Medrol 125 mg IV in ED, will continue 40 mg IV every 12 hours MRSA swab ordered and pending Remaining orders and notations as noted PG Care Time/CCT Total # of Minutes Spent Total Time Spent with Patient: Total time spent is greater than 50% in coordination of care (as documented) at patient's floor/unit and/or counseling patient: Coding Level of Care Code 68690 INT INP/OBS CARE 3/75MIN Diagnoses Hospital-acquired pneumonia J18.9; Y95 RSV infection B33.8 Asthma, moderate persistent J45.40 Leukocytosis D72.829 Hypokalemia E87.6 Hypomagnesemia E83.42 Foul smelling urine R82.90 S/P partial lobectomy of lung Z90.2
[2024-10-20] MEDS: DOXYCYCLINE HYCLATE 100 MG in DEXTROSE 5% MINI-B 100 ML IV STA (04:52)
[2024-10-20 05:38] LABS: Appearance Urine Clear (Clear); Bacteria Urine Automated None Seen (None Seen); Bilirubin Urine Negative (Negative); Blood Urine Negative (Negative); Cast Urine Automated 0-2 /lpf (0-2); Color Urine Yellow; Epithelial Cell Urine Auto 0-2 /hpf (0-2); Glucose Urine UA Negative (Negative); Ketones Urine Negative (Negative); Leukocyte Esterase Urine Trace (Negative); Nitrite Urine Negative (Negative); Protein Urine Negative (Negative); RBC Urine Automated 0-2 /hpf (0-2); Urobilinogen Urine Negative (Negative)
[2024-10-20] MEDS: PIPERACILLIN/TAZOBACTAM 4.5 GM/100 ML BAG IV ONE (05:55)
[2024-10-20] MEDS: SODIUM CHLORIDE 0.9% 500 ML IV SCH (05:59)
--- NOTE | 2024-10-20 06:17 | Emergency Department Note ---
Impression & Plan Right lower lobe pneumonia admit to the [facility] ED Provider Note NAME: MICHELE HARRISON AGE: 74 SEX: Female INFORMANT: Patient ED PROVIDER(S): Angelique Disla DO CHIEF COMPLAINT: Shortness of breath and fever PLAN: Disposition: admit to [facility] MEDICAL DECISION MAKING: This is a 74-year-old female patient who was just discharged from the hospital with RSV and acute hypoxic respiratory failure. She arrived at home earlier this week but continued to not feel well. She followed up with her PCP and was diagnosed with a UTI and started on doxycycline, Augmentin and Tessalon Perles. family brought her back today because she was having increased difficulty with breathing And she was febrile. Chest x-ray shows evidence of a right lower lobe consolidation concerning for pneumonia. I started the patient on IV doxycycline after septic protocol was performed. Lactate and procalcitonin were negative. White blood cell count was 15.2. Hemoglobin was 11.8. Potassium was slightly low at 3.3. Glucose was 107. Troponin was 14.7. Bio fire was still positive for RSV. Patient was given a dose of oral Tylenol. The patient remains hemodynamically stable. [facility] care. patient was given IV Solu-Medrol and a DuoNeb treatment as she was significantly wheezing. Care/management discussed with: six sigma project manager and [facility] Triage Nursing notes: reviewed and agree with them. Vital Signs: reviewed and remarkable for hypertension and fever Additional History obtained from: the patient's Prior/ Outside/ External records reviewed: Patient's most recent hospitalization was reviewed as she was admitted with RSV and hypoxic respiratory failure. Differential Diagnosis: Hospital-acquired pneumonia, recurrent hypoxic respiratory failure, sepsis, community-acquired pneumonia, persistent RSV. Diagnostics, independently interpreted by me: ECG: Normal sinus rhythm at a rate of [address] segment elevation or signs of ischemia. There is no ectopy. Cardiac Monitoring: Normal sinus rhythm at a rate of 90 Imaging studies: portable chest x-ray: As per my independent interpretation-new right lower lobe consolidation consistent with pneumonia HPI: 74 year old Female arrives for evaluation of Shortness of breath and fever. patient who was just discharged from the hospital with RSV and acute hypoxic respiratory failure. She arrived at home earlier this week but continued to not feel well. She followed up with her PCP and was diagnosed with a UTI and started on doxycycline, Augmentin and Tessalon Perles. family brought her back today because she was having increased difficulty with breathing And she was febrile. PAST MEDICAL HISTORY: See Below, PAST SURGICAL HISTORY: See Below, SOCIAL HISTORY: See Below, HOME MEDICATIONS: see list ALLERGIES: see long list VITALS: See Below PHYSICAL EXAMINATION: HEENT: Head - normocephalic and atraumatic. Pupils are equal, round, and reactive to light. Extraocular eye muscles are intact, and sclera are anicteric. Nose - moist nasal mucosa without discharge. Mouth - moist buccal mucosa. Oropharynx is nonerythematous and there is no tonsillar exudate or edema noted. Neck: Supple; no JVD, nuchal rigidity, cervical lymphadenopathy, or auscultated bruits. Heart: Regular rate and rhythm. There is a normal S1 and S2 with no murmurs, clicks, or gallops appreciated. Lungs: Patient had inspiratory and expiratory wheezing on physical exam. Abdomen: Soft, completely nontender, nondistended, with good bowel sounds. There are no palpable pulsatile masses or hepatosplenomegaly. There is no guarding, rigidity, or rebound noted. Extremities: No evidence of cyanosis, clubbing, or edema. There are easily palpable peripheral pulses. Skin: Hot and dry with good turgor and no rashes. Emergency department treatment: snagger, oral Tylenol, DuoNeb treatment, IV Solu-Medrol, IV doxycycline emergency department course: The patient was evaluated room A-9. A complete history and physical was performed. A septic protocol was performed. A twelve- lead EKG was obtained. An order was placed for continuous cardiac monitoring. The patient was in a normal sinus rhythm at a rate of 90. patient was given an oral dose of Tylenol. She was given a DuoNeb treatment because she was wheezing. Portable chest x-ray was performed. This shows evidence of a new right lower lobe pneumonia. Patient was given an IV dose of Solu-Medrol and started on IV doxycycline. I discussed the case with the [facility] Hospitalist and they will evaluate for further inpatient care. Past Med/Surg History Problem List (Updated 10/20/24 @ 06:17 by Angelique Disla DO) Right lower lobe pneumonia (Acute) Foul smelling urine Hypomagnesemia Hypokalemia Leukocytosis Hospital-acquired pneumonia Cough (Acute) Elevated brain natriuretic peptide (BNP) level (Acute) Acute hypoxic respiratory failure (Acute) Acute dyspnea (Acute) RSV infection (Acute) Circadian rhythm sleep disorder, delayed sleep phase type Insomnia Dysuria (Acute) Lower abdominal pain Interstitial cystitis Urinary symptom or sign Vertigo Migraine with vertigo COVID (Acute) Chronic diarrhea Cerumen impaction Encounter for pre-operative examination Dyspnea Abnormal CT scan of lung Left leg pain (Acute) Left knee DJD (Chronic) Depression (Chronic) Biliary colic Hematuria resolved Proteinuria resolved Anxiety and depression Hypothyroidism (Chronic) Dyslipidemia (Chronic) Fibromyalgia (Chronic) Asthma, moderate persistent (Chronic) daily and prn inh (has not used in a couple of years) HTN (hypertension) (Chronic) Mitral regurgitation (Chronic) MVR 2018, [facility] Medical History Acute non-ST elevation myocardial infarction (NSTEMI) Elevated troponin Pulmonary hypertension mild per cardio records History of COVID-19 pt denies>+ test noted in [place] record from 2021 Hx of gastric ulcer IBS (irritable bowel syndrome) Heart disease Rectal bleeding "has hemorrhoids, still occurs sometimes" History of kidney stones Cardiac murmur Surgical History S/P arthroscopy of right knee S/P arthroscopy of left knee S/P tonsillectomy and adenoidectomy History of total knee replacement left + revision History of carpal tunnel release right/left History of colonoscopy History of tooth extraction History of tonsillectomy History of endoscopic sinus surgery History of cataract surgery right/left Aortic valve replaced 2018, [facility] Mitral valve replaced 2018, [facility]; f/u dr. ward, ps History of heart artery stent 2018, [facility], x1 stents>12/05/23- stated that pt "never had a stent placed, only the cath prior to the AVR and MVR"-cardio record from [facility] does not show that a stent was placed Family History Father Heart disease Hypertension Uncle Cancer Mother Heart disease Other No family history of adverse response to anesthesia No significant family history Social History Smoking Status: Former smoker Tobacco Type: Cigarettes Cigarettes Per Day: Quit when 27yrs old; Second Hand Exposure: No; Do You Dip or Chew Tobacco: No; Hx Alcohol Use: No Hx Substance Use: No Preferred Language: Ugandan Communication Ability: Effective Hearing Ability: Normal Residential Building Inspector Required: No Beliefs That Will Affect Care: None marital status: Current Living Situation: Spouse current occupational status: retired current occupation: Retired How many Children do You have: 3 Other Information That Helps Us Care for You: No Feels Safe at Home: Yes Safety Concerns: Feels Safe At This Time Diet: regular during the past year weight has: decreased > 10 lbs Assistive Devices: Denture - Upper and Denture - Lower Allergies Allergies Allergy/AdvReac Type Severity Reaction Status Date / Time shellfish derived Allergy Severe throat Verified 05/22/24 12:33 closing , systemic reaction Cephalosporins Allergy Intermediate hives Verified 05/22/24 12:33 methenamine Allergy Intermediate hives Verified 05/22/24 12:33 oxycodone Allergy Intermediate HIVES Verified 05/22/24 12:33 pravastatin [From Pravachol] Allergy Intermediate BODY ACHES Verified 05/22/24 12:33 propoxyphene Allergy Intermediate ITCHING Verified 05/22/24 12:33 AND A RASH Sulfa (Sulfonamide Allergy Intermediate hives Verified 05/22/24 12:33 Antibiotics) sulfamethoxazole Allergy Intermediate hives Verified 05/22/24 12:33 trimethoprim Allergy Intermediate hives Verified 05/22/24 12:33 simvastatin AdvReac Intermediate body aches Verified 05/22/24 12:33 tapentadol AdvReac Intermediate felt very Verified 05/22/24 12:33 uncomfortable - does not ever want hydrocodone AdvReac Mild ITCHING Verified 05/22/24 12:33 hyoscyamine AdvReac Mild Significant Verified 05/22/24 12:33 dry mouth/throat Home Meds Home Medications Medication Instructions Recorded Confirmed albuterol sulfate 2.5 mg/3 mL 2.5 mg inhalation DIRECTED PRN 07/06/18 10/20/24 (0.083 %) solution for nebulization Shortness Of Breath Or Wheezing albuterol sulfate 90 mcg/actuation 2 puff inhalation QID PRN 07/06/18 10/20/24 aerosol inhaler (ProAir HFA) Shortness Of Breath Or Wheezing diclofenac sodium 1 % topical gel 2 g topical QID PRN Pain 07/06/18 10/20/24 epinephrine 0.3 mg/0.3 mL 0.3 mg IM DIRECTED PRN Allergic 07/06/18 10/20/24 injection, auto-injector (EpiPen) Reaction hydroxyzine HCl 25 mg tablet 25 mg PO DAILY PRN Itching 07/06/18 10/20/24 lorazepam 0.5 mg tablet 0.5 mg PO BID PRN Anxiety 07/06/18 10/20/24 metoprolol succinate 25 mg 37.5 mg PO QAM 07/06/18 10/20/24 tablet,extended release 24 hr (Toprol XL) tramadol 50 mg tablet 50 mg PO Q8H PRN Pain 07/06/18 10/20/24 budesonide-formoterol HFA 160 2 puff inhalation BID 10/30/19 10/20/24 mcg-4.5 mcg/actuation aerosol inhaler (Symbicort) dibucaine 1 % topical ointment 1 applic topical TID PRN 07/12/20 10/20/24 Hemorrhoids Diltiazem 2% Ointment 1 applic topical TID PRN 06/23/22 10/20/24 Hemorrhoids carisoprodol 250 mg tablet 250 mg PO DIRECTED PRN NEEDED 06/23/22 10/20/24 celecoxib 200 mg capsule (Celebrex) 200 mg PO DIRECTED PRN Pain 06/23/22 10/20/24 cyclobenzaprine 10 mg tablet 10 mg PO TID PRN MUSCLE SPASMS 06/23/22 10/20/24 hydromorphone 2 mg tablet 2 mg PO DIRECTED PRN Pain 06/23/22 10/20/24 hyoscyamine sulfate 0.375 mg 0.375 mg PO Q12H 06/23/22 10/20/24 tablet,extended release,12 hr ketorolac 10 mg tablet 10 mg PO DIRECTED PRN Pain 06/23/22 10/20/24 levothyroxine 50 mcg tablet 50 mcg PO QAM 06/23/22 10/20/24 lidocaine 5 % topical patch 1 patch topical DAILY PRN Pain 06/23/22 10/20/24 lisinopril 10 mg tablet 10 mg PO DAILY 06/23/22 10/20/24 nitroglycerin 0.2 mg/hr 1 patch transdermal DAILY 06/23/22 10/20/24 transdermal 24 hour patch omeprazole 20 mg tablet,delayed 20 mg PO QAM PRN Indigestion 06/23/22 10/20/24 release pantoprazole 40 mg tablet,delayed 40 mg PO QAM 06/23/22 10/20/24 release diphenoxylate-atropine 2.5 1 tab PO DAILY PRN Diarrhea 07/16/23 10/20/24 mg-0.025 mg tablet pregabalin 50 mg capsule 50 mg PO QAM 07/16/23 10/20/24 escitalopram oxalate 10 mg tablet 10 mg PO QAM 11/28/23 10/20/24 colchicine 0.6 mg tablet 0.6 mg PO DAILY 12/05/23 10/20/24 nitroglycerin 0.4 mg sublingual 0.4 mg sublingual UD PRN Chest Pain 12/05/23 10/20/24 tablet vibegron 75 mg tablet 75 mg PO DAILY PRN OAB 10/20/24 10/20/24 Previous Rx's Medication Instructions Recorded meclizine 25 mg tablet 25 mg PO TID PRN Dizziness #60 tabs 08/19/23 phenazopyridine 100 mg tablet 100 mg PO Q8H PRN pain #60 tabs 12/06/23 (Pyridium) rimegepant 75 mg disintegrating 75 mg PO Q OTHER DAY #16 tabs 03/21/24 tablet (Nurtec ODT) potassium chloride 20 mEq 20 meq PO DAILY #5 tabs 08/27/24 tablet,extended release benzonatate 200 mg capsule 200 mg PO BID PRN cough #10 caps 10/15/24 Results & Data (ED) Vital Signs Vital Signs - 24 hr 10/20/24 01:27 10/20/24 01:42 10/20/24 01:50 Temperature 38.5 C H Temperature Source Oral Pulse Rate 99 H 98 H Pulse Rate [Apical] 92 H Respiratory Rate 20 18 Respiratory Effort / Characteristics Non-Labored Respiratory Depth Normal Blood Pressure 168/84 H Blood Pressure [Right Arm] 145/101 H Blood Pressure Mean 112 Blood Pressure Mean [Right Arm] 115 Blood Pressure Position [Right Arm] Semi-fowlers Pulse Oximetry 95 94 Oxygen Delivery Method Room Air Room Air Sepsis Recent Fever Within 48 Hours Yes Sepsis New/Unexplained Change in Mental Status Yes Sepsis Action Taken by Nursing No Action Required 10/20/24 02:22 10/20/24 02:33 10/20/24 03:23 Temperature 39.3 C H 37 C Temperature Source Oral Oral Pulse Rate Pulse Rate [Apical] 95 H 85 Respiratory Rate 24 24 Respiratory Effort / Characteristics Labored Respiratory Depth Blood Pressure Blood Pressure [Right Arm] 151/87 H 133/73 Blood Pressure Mean Blood Pressure Mean [Right Arm] 108 93 Blood Pressure Position [Right Arm] Semi-fowlers Right Lateral Pulse Oximetry 92 94 92 Oxygen Delivery Method Room Air Room Air Room Air Sepsis Recent Fever Within 48 Hours Sepsis New/Unexplained Change in Mental Status Sepsis Action Taken by Nursing 10/20/24 03:42 10/20/24 04:00 10/20/24 04:15 Temperature Temperature Source Pulse Rate Pulse Rate [Apical] 90 81 79 Respiratory Rate 22 20 24 Respiratory Effort / Characteristics Respiratory Depth Blood Pressure Blood Pressure [Right Arm] 152/81 H 130/98 139/83 Blood Pressure Mean Blood Pressure Mean [Right Arm] 104 108 101 Blood Pressure Position [Right Arm] Pulse Oximetry 95 92 93 Oxygen Delivery Method Nebulizer Room Air Room Air Sepsis Recent Fever Within 48 Hours Sepsis New/Unexplained Change in Mental Status Sepsis Action Taken by Nursing 10/20/24 04:56 10/20/24 05:00 10/20/24 05:41 Temperature Temperature Source Pulse Rate 78 Pulse Rate [Apical] 81 80 Respiratory Rate 20 22 Respiratory Effort / Characteristics Respiratory Depth Blood Pressure Blood Pressure [Right Arm] 124/67 138/79 Blood Pressure Mean Blood Pressure Mean [Right Arm] 86 98 Blood Pressure Position [Right Arm] Pulse Oximetry 93 93 Oxygen Delivery Method Room Air Room Air Sepsis Recent Fever Within 48 Hours Sepsis New/Unexplained Change in Mental Status Sepsis Action Taken by Nursing Laboratory Data 10/20/24 01:50 10/20/24 01:50 Lab Results 10/20/24 10/20/24 10/20/24 Range/Units 01:50 03:32 03:38 WBC 15.21 H (4.8-10.8) K/ul RBC 4.15 L (4.20-5.40) M/uL Hgb 11.8 L (12.0-16.0) g/dl Hct 37.2 (37.0-47.0) % MCV 89.6 (80.0-100.0) fL MCH 28.4 (25.0-34.0) pg MCHC 31.7 L (32.0-36.0) g/dL RDW Std Deviation 43.4 (36.4-46.3) fL RDW Coeff of Jhoana 13.2 (11.5-14.5) % Plt Count 478 H (130-400) K/uL MPV 9.7 (9.4-12.4) fL Immature Gran % (Auto) 0.6 % Neut % (Auto) 77.5 % Lymph % (Auto) 10.6 % Blaine % (Auto) 11.0 % Eos % (Auto) 0.1 % Baso % (Auto) 0.2 % Neut # (Auto) 11.79 H (1.40-6.50) K/uL Lymph # (Auto) 1.61 (1.20-3.40) K/uL Blaine # (Auto) 1.68 H (0.11-0.59) K/uL Eos # (Auto) 0.01 (0.00-0.50) K/uL Baso # (Auto) 0.03 (0.00-0.20) K/uL Immature Gran # (Auto) 0.09 (0.01-0.20) K/uL Sodium 142 (136-145) mmol/L Potassium 3.3 L (3.5-5.1) mmol/L Chloride 101 (98-107) mmol/L Carbon Dioxide 32 (21-32) mmol/L Anion Gap 9 (3-11) BUN 15 (6-23) mg/dl Creatinine 0.67 (0.6-1.2) mg/dl Est Cr Clr Drug Dosing 62.5 ml/min eGFR 92.81 BUN/Creatinine Ratio 22.4 H (10-20) Glucose 107 H (70-99(Fasting)) mg/dl Lactate 1.3 (0.4-2.0) mmol/L Calcium 8.7 (8.6-10.3) mg/dl Magnesium 1.7 (1.7-2.4) mg/dl Total Bilirubin 0.4 (0.2-1.0) mg/dl AST 13 (13-39) U/L ALT 13 (7-52) U/L Alkaline Phosphatase 96 (34-104) U/L Troponin I High Sens 14.7 H (0-14) pg/ml Total Protein 7.4 (6.0-8.3) gm/dl Albumin 4.1 (3.4-5.0) gm/dl Globulin 3.3 (2.5-4.0) gm/dl Albumin/Globulin Ratio 1.2 (0.9-2) Procalcitonin < 0.02 (0-0.5) ng/ml Nasal Screen MRSA (PCR) (Negative) Adenovirus (PCR) Not Detected (NotDetected) B. pertussis DNA (PCR) Not Detected (NotDetected) B.parapertussis DNA PCR Not Detected (NotDetected) C. pneumoniae DNA (PCR) Not Detected (NotDetected) Coronavirus OC43 (PCR) Not Detected (NotDetected) Coronavirus HKU1 (PCR) Not Detected (NotDetected) Coronavirus 229E (PCR) Not Detected (NotDetected) SARS-CoV-2 (PCR) Not Detected (NotDetected) Coronavirus NL63 (PCR) Not Detected (NotDetected) Human Metapneumovir PCR Not Detected (NotDetected) Influenza Type A (PCR) Not Detected (NotDetected) Influenza Type B (PCR) Not Detected (NotDetected) M. pneumoniae (PCR) Not Detected (NotDetected) Parainfluenza 1 (PCR) Not Detected (NotDetected) Parainfluenza 2 (PCR) Not Detected (NotDetected) Parainfluenza 3 (PCR) Not Detected (NotDetected) Parainfluenza 4 (PCR) Not Detected (NotDetected) RSV (PCR) DETECTED A (NotDetected) Entero/Rhino (PCR) Not Detected (NotDetected) 10/20/24 Range/Units 04:56 WBC (4.8-10.8) K/ul RBC (4.20-5.40) M/uL Hgb (12.0-16.0) g/dl Hct (37.0-47.0) % MCV (80.0-100.0) fL MCH (25.0-34.0) pg MCHC (32.0-36.0) g/dL RDW Std Deviation (36.4-46.3) fL RDW Coeff of Jhoana (11.5-14.5) % Plt Count (130-400) K/uL MPV (9.4-12.4) fL Immature Gran % (Auto) % Neut % (Auto) % Lymph % (Auto) % Blaine % (Auto) % Eos % (Auto) % Baso % (Auto) % Neut # (Auto) (1.40-6.50) K/uL Lymph # (Auto) (1.20-3.40) K/uL Blaine # (Auto) (0.11-0.59) K/uL Eos # (Auto) (0.00-0.50) K/uL Baso # (Auto) (0.00-0.20) K/uL Immature Gran # (Auto) (0.01-0.20) K/uL Sodium (136-145) mmol/L Potassium (3.5-5.1) mmol/L Chloride (98-107) mmol/L Carbon Dioxide (21-32) mmol/L Anion Gap (3-11) BUN (6-23) mg/dl Creatinine (0.6-1.2) mg/dl Est Cr Clr Drug Dosing ml/min eGFR BUN/Creatinine Ratio (10-20) Glucose (70-99(Fasting)) mg/dl Lactate (0.4-2.0) mmol/L Calcium (8.6-10.3) mg/dl Magnesium (1.7-2.4) mg/dl Total Bilirubin (0.2-1.0) mg/dl AST (13-39) U/L ALT (7-52) U/L Alkaline Phosphatase (34-104) U/L Troponin I High Sens (0-14) pg/ml Total Protein (6.0-8.3) gm/dl Albumin (3.4-5.0) gm/dl Globulin (2.5-4.0) gm/dl Albumin/Globulin Ratio (0.9-2) Procalcitonin (0-0.5) ng/ml Nasal Screen MRSA (PCR) Negative (Negative) Adenovirus (PCR) (NotDetected) B. pertussis DNA (PCR) (NotDetected) B.parapertussis DNA PCR (NotDetected) C. pneumoniae DNA (PCR) (NotDetected) Coronavirus OC43 (PCR) (NotDetected) Coronavirus HKU1 (PCR) (NotDetected) Coronavirus 229E (PCR) (NotDetected) SARS-CoV-2 (PCR) (NotDetected) Coronavirus NL63 (PCR) (NotDetected) Human Metapneumovir PCR (NotDetected) Influenza Type A (PCR) (NotDetected) Influenza Type B (PCR) (NotDetected) M. pneumoniae (PCR) (NotDetected) Parainfluenza 1 (PCR) (NotDetected) Parainfluenza 2 (PCR) (NotDetected) Parainfluenza 3 (PCR) (NotDetected) Parainfluenza 4 (PCR) (NotDetected) RSV (PCR) (NotDetected) Entero/Rhino (PCR) (NotDetected) Administered Medications Benzonatate (Benzonatate 100 Mg Capsule) 200 mg PO BID PRN PRN Reason: cough Stop: 11/19/24 07:50 Last Admin: 10/21/24 00:44 Dose: 200 mg Documented By: ERIN Escitalopram Oxalate (Escitalopram Oxalate 10 Mg Tab) 10 mg PO BID [facility] Stop: 11/19/24 08:59 Last Admin: 10/20/24 21:22 Dose: 10 mg Documented By: Admin: 10/20/24 11:56 Dose: 10 mg Documented By: ASHLEY Eszopiclone (Eszopiclone 1 Mg Tab) 2 mg PO HS [facility] Stop: 11/19/24 20:59 Last Admin: 10/20/24 22:15 Dose: Not Given Documented By: ERIN Fluticasone/Vilanterol (Fluticasone/Vilanterol 200/25mcg 14 Puffs/Inhaler) 1 puffs INH DAILY [facility]; Protocol Stop: 11/19/24 10:29 Last Admin: 10/20/24 11:54 Dose: 1 puffs Documented By: ASHLEY Guaifenesin (Guaifenesin 600 Mg Tabcr) 1,200 mg PO Q12 [facility] Stop: 11/19/24 08:59 Last Admin: 10/20/24 21:22 Dose: 1,200 mg Documented By: Admin: 10/20/24 11:56 Dose: 1,200 mg Documented By: ASHLEY Hyoscyamine (Hyoscyamine Sulfate 0.375 Mg Tabcr) 0.375 mg PO BID [facility] Stop: 11/19/24 09:59 Last Admin: 10/20/24 21:22 Dose: 0.375 mg Documented By: Admin: 10/20/24 11:55 Dose: 0.375 mg Documented By: ASHLEY Ampicillin Sodium/Sulbactam Sodium (Unasyn) 3,000 mg in 100 mls @ 200 mls/hr IV Q6H [facility] Stop: 10/25/24 14:59 Last Infusion: 10/21/24 05:21 Dose: Infused Documented By: Admin: 10/21/24 02:59 Dose: 200 mls/hr Documented By: Infusion: 10/20/24 22:16 Dose: Infused Documented By: Admin: 10/20/24 21:22 Dose: 200 mls/hr Documented By: Infusion: 10/20/24 16:23 Dose: Infused Documented By: Admin: 10/20/24 15:37 Dose: 200 mls/hr Documented By: KAEL Levothyroxine Sodium (Levothyroxine Sodium 50 Mcg Tablet) 50 mcg PO Q48H [facility]IG[facility] Stop: 11/20/24 06:29 Last Admin: 10/21/24 05:53 Dose: 50 mcg Documented By: ERIN Lisinopril (Lisinopril 10 Mg Tab) 10 mg PO DAILY [facility] Stop: 11/19/24 08:59 Last Admin: 10/20/24 11:55 Dose: 10 mg Documented By: ASHLEY Metoprolol Succinate (Metoprolol Succ 25mg Ext Rel Tab) 25 mg PO QAM [facility] Stop: 11/19/24 08:59 Last Admin: 10/20/24 11:56 Dose: 25 mg Documented By: ASHLEY Miscellaneous (Carisoprodol 250mg: Order Awaiting Action) 1 each N/A QS [facility] Stop: 11/19/24 15:59 Last Admin: 10/21/24 00:12 Dose: Not Given Documented By: Admin: 10/20/24 16:23 Dose: Not Given Documented By: KAEL Miscellaneous (Nurtec Odt 75 Mg: Order Awaiting Action) 1 each N/A QS [facility]IGRE Stop: 11/19/24 15:59 Last Admin: 10/21/24 00:12 Dose: Not Given Documented By: Admin: 10/20/24 16:23 Dose: Not Given Documented By: KAEL Pantoprazole Sodium (Pantoprazole 40 Mg Tab) 40 mg PO QAM [facility]IG[facility] Stop: 11/19/24 08:59 Last Admin: 10/20/24 11:56 Dose: 40 mg Documented By: ASHLEY Potassium Chloride (Potassium Chloride Crtab 20 Meq Tabcr) 20 meq PO DAILY [facility] Stop: 11/19/24 08:59 Last Admin: 10/20/24 11:55 Dose: 20 meq Documented By: ASHLEY Pregabalin (Pregabalin 50 Mg Cap) 50 mg PO QAM [facility] Stop: 11/19/24 08:59 Last Admin: 10/20/24 11:56 Dose: Not Given Documented By: ASHLEY Vibegron (Vibegron 75 Mg Tab) 75 mg PO DAILY [facility] Stop: 11/19/24 08:59 Last Admin: 10/20/24 11:55 Dose: 75 mg Documented By: ASHLEY Discontinued Medications Acetaminophen (Acetaminophen 500 Mg Tab) 1,000 mg PO NOW STA Stop: 10/20/24 02:23 Last Admin: 10/20/24 02:36 Dose: 1,000 mg Documented By: SANDY Albuterol (Albut/Ipratrop 3mg/0.5mg Neb 3 Ml Vial) 3 ml NEB NOW STA; Protocol Stop: 10/20/24 02:56 Last Admin: 10/20/24 03:26 Dose: 3 ml Documented By: SANDY Cholestyramine Resin (Cholestyramine Light 4 Gm Pkt) 4 gm PO DAILY [facility] Stop: 11/19/24 11:59 Last Admin: 10/20/24 15:30 Dose: Not Given Documented By: KAEL Doxycycline Hyclate 100 mg/ (Dextrose) 100 mls @ 50 mls/hr IV NOW STA Stop: 10/20/24 06:32 Last Infusion: 10/20/24 06:37 Dose: Infused Documented By: Admin: 10/20/24 04:52 Dose: 50 mls/hr Documented By: SANDY Piperacillin Sod/Tazobactam Sod (Zosyn) 4.5 gm in 100 mls @ 200 mls/hr IV NOW ONE; Protocol Stop: 10/20/24 05:35 Last Infusion: 10/20/24 06:37 Dose: Infused Documented By: Admin: 10/20/24 05:55 Dose: 200 mls/hr Documented By: SANDY Sodium Chloride (Nss) 500 mls @ 80 mls/hr IV .Q6H15M [facility]IGRE Stop: 10/20/24 11:59 Last Infusion: 10/20/24 12:37 Dose: Infused Documented By: Admin: 10/20/24 05:59 Dose: 80 mls/hr Documented By: SANDY Potassium Chloride (K Devonte / Wtr) 10 meq in 100 mls @ 100 mls/hr IV Q1H [facility]IG[facility] Stop: 10/20/24 08:44 Last Infusion: 10/20/24 11:44 Dose: Infused Documented By: Admin: 10/20/24 09:28 Dose: 75 mls/hr Documented By: Infusion: 10/20/24 09:23 Dose: Infused Documented By: Admin: 10/20/24 08:03 Dose: 75 mls/hr Documented By: Infusion: 10/20/24 07:55 Dose: Infused Documented By: Infusion: 10/20/24 06:55 Dose: 75 mls/hr Documented By: Admin: 10/20/24 06:40 Dose: 100 mls/hr Documented By: SANDY Magnesium Sulfate/Dextrose (Magnesium Sulfate / D5w) 1 gm in 100 mls @ 50 mls/hr IV Q2H [facility]IG[facility] Stop: 10/20/24 09:44 Last Infusion: 10/20/24 11:44 Dose: Infused Documented By: Admin: 10/20/24 08:23 Dose: 50 mls/hr Documented By: Infusion: 10/20/24 08:23 Dose: Infused Documented By: Admin: 10/20/24 06:42 Dose: 50 mls/hr Documented By: SANDY Piperacillin Sod/Tazobactam Sod (Zosyn) 4.5 gm in 100 mls @ 25 mls/hr IV Q8H [facility]IG[facility]; Protocol Stop: 10/27/24 11:59 Last Infusion: 10/20/24 15:30 Dose: Infused Documented By: Admin: 10/20/24 12:00 Dose: 25 mls/hr Documented By: ASHLEY Levothyroxine Sodium (Levothyroxine Sodium 25 Mcg Tablet) 25 mcg PO NOW STA Stop: 10/20/24 09:43 Last Admin: 10/20/24 11:57 Dose: 25 mcg Documented By: ASHLEY Methylprednisolone (Methylprednisolone 125 Mg/2 Ml Vial) 125 mg IV NOW STA Stop: 10/20/24 02:56 Last Admin: 10/20/24 03:24 Dose: 125 mg Documented By: EMB Imaging Data Radiologist's Impression: Chest X-Ray 10/20/24 02:16 EXAM: XR chest 1V portable CLINICAL HISTORY: Dyspnea TECHNIQUE: Radiograph of chest was acquired. COMPARISON: 05 October 2024. FINDINGS: Sternal sutures are detected. Small consolidation is noted in the right lower zone. This is a new finding. Linear opacities also noted in the right lower zone, likely atelectasis. Stable. Persistent suspicious opacities noted along the right lateral chest wall, possible pleural thickening. Persistent elevated left hemidiaphragm is noted. Suspicious reticulonodular opacities are noted in the right middle zone. No pleural effusion is detected. The cardiomediastinal silhouette is within normal limits. No acute osseous abnormality. Rest of the findings are unchanged compared to the previous radiograph. IMPRESSION: 1. Small consolidation is noted in the right lower zone. This is a new finding. 2. Suspicious reticulonodular opacities are noted in the right middle zone. Possibility of infective etiology. Suggested clinical/lab correlation. 3. Linear opacity is also noted in the right lower zone, likely atelectasis. Stable. 4. Persistent elevated left hemidiaphragm is noted. 5. Persistent suspicious opacities noted along the right lateral chest wall, possible pleural thickening. Rest of the findings are unchanged. Further evaluation with CT chest is suggested for better evaluation and confirmation of above findings if clinically indicated. Electronically signed by Gordon Olsen 10-20-2024 04:04 AM Discharge Plan Visit Data Chief Complaint: Respiratory Problems Stated Complaint: HARD TO BREATHE,RSV ED Provider: Angelique Disla Discharge Problem: Right lower lobe pneumonia Patient Disposition: Admitted As Inpatient Discharge Instructions Interventions: ED Discharge Assessment Last Done: 10/20/24 07:52
[2024-10-20] MEDS: POTASSIUM CHLORIDE / WTR 10 MEQ/100 ML PLCT IV SCH (06:40)
[2024-10-20] MEDS: MAGNESIUM SULFATE / D5W 1 GM/100 ML BAG IV SCH (06:42)
--- NOTE | 2024-10-20 07:18 | Electrocardiogram Report ---
Test Reason : Blood Pressure : */* mmHG Vent. Rate : 93 BPM Atrial Rate : 93 BPM P-R Int : 122 ms QRS Dur : 94 ms QT Int : 370 ms P-R-T Axes : 37 -27 55 degrees QTcB Int : 460 ms Normal sinus rhythm Left ventricular hypertrophy with repolarization abnormality Abnormal ECG When compared with ECG of 13-Oct-2024 16:47, No significant change was found Confirmed by Edwin Machado ([id number]) on 10/20/2024 7:18:40 AM Referred By: REFERRED SELF Confirmed By: Edwin Machado
[2024-10-20] MEDS ORDERED: traMADol HCL 50 MG TABLET PO PRN (07:51)
[2024-10-20] MEDS ORDERED: HYDROmorphone HCL 2 MG TAB PO PRN (07:51)
[2024-10-20] MEDS ORDERED: CeleBREX 200 MG CAP PO PRN (07:51)
[2024-10-20] MEDS ORDERED: ACETAMINOPHEN 325 MG TAB PO PRN (07:51)
[2024-10-20] MEDS ORDERED: ONDANSETRON INJ 2 MG/ML 2 ML VIAL IV PRN (07:51)
[2024-10-20] MEDS ORDERED: CYCLOBENZAPRINE HCL 10 MG TAB PO PRN (07:51)
[2024-10-20] MEDS ORDERED: MECLIZINE HCL 25 MG TAB PO PRN (07:51)
[2024-10-20] MEDS ORDERED: LORazepam 0.5 MG TAB PO PRN (07:51)
[2024-10-20] MEDS ORDERED: ALBUTEROL HFA 8 GM INHALER INH PRN (07:51)
--- NOTE | 2024-10-20 08:49 | Hospitalist Progress Note ---
Date of Service October 20, 2024 Assessment & Plan (1) Hospital-acquired pneumonia: (2) RSV infection: (3) Asthma, moderate persistent: (4) Leukocytosis: (5) Hypokalemia: (6) Hypomagnesemia: (7) Foul smelling urine: (8) S/P partial lobectomy of lung: Plan Patient is a 74 y/o female PMHx of Lung cancer s/p right partial lung lobectomy in 2012, asthma, hypertension, hyperlipidemia, fibromyalgia, hypothyroidism, anxiety, depression, aortic and bicuspid valve replacement July 2024. Patient was admitted 10/09 for elevated troponin thought to be secondary to hypertension and then readmitted 10/13 to 10/15 for RSV and asthma exacerbation. Pt had finished her last dose of PO prednisone on 10/19/24. Chest x-ray on 10/13 showed possible consolidation at right upper lobe, but was not treated with abx during that admission due to improvement of symptoms with steroids, nebulized treatments and supportive care. Patient presented back to the ED with worsening cough, green sputum production, dyspnea, and fever. She stated she saw her PCP yesterday who prescribed her doxycycline and Augmentin to cover pneumonia and UTI, which she has taken 1 dose of. She was admitted for secondary bacterial pneumonia and electrolyte abnormalities. #Secondary pneumonia/RSV/Asthma exacerbation s/p partial lobectomy right lung 2012 due to stage Ia carcinoid lung tumor recent admission 10/13-10/15 for asthma exacerbation and RSV - now RLL PNA CXR showing small consolidation in RL zone, suspicious reticulonodular opacities in RML, persistent suspious opacities of right lateral chest wall (pleural thickening) MRSA swab-negative - Zosyn discontinued- less likely to need pseudomonas coverage at this time - Doxycycline discontinued - Started IV Unasyn 3g q6h - Continue po Tylenol prn, Tessalon Perles, Mucinex, and duonebs - Discontinue solumedrol due to recent course of steroids during last admission with discontinuation on 10/19. Minimal wheezing noted this time. - Goal for oxygen saturation, prn for O2 for sats < 90% - Encourage po oral hydration - Incentive spirometry and flutter valve #leukocytosis Recent prednisone use vs infection Septic on admission with fever, tachycardia, tachypnea, WBC 15.21 lactate and procal negative -Trend CBC #Electrolyte abnormalities Likely due to decreased po intake and diuretic use K+ 3.3, Mg 1.7 on admission Given IV potassiums and magnesium upon admission - Holding HCTZ - Continue po KCl 20mEq daily - Trend BMP and Mg #foul smell urine Patient reports foul-smelling urine and diagnosis of UTI with PCP on 10/19 Denies dysuria or difficulty urinating UA with trace leuk esterase and urine WBC 6-10 Urine culture from UA at PCP office on 10/19 grew E. coli -UTI would be covered with Unisyn as above #elevated troponin 14.7 on admission; 18.1 on repeat at 4 hrs recent admission with trop in 200s 10/07 demand with HTN - monitor on tele Chronic stable diagnoses: s/p aortic and bicuspid valve replacements - as per patient jul 2024, on daily baby ASA anxiety/depression/insomniacontinue Lexapro, lorazepam as needed, eszopiclone HTNcontinue metoprolol, lisinopril; hold HCTZ Hypothyroidismcontinue levothyroxine GERDcontinue home PPI Migrainescontinue Nurtec q. every other day OABcontinue vibegron fibromyalgiacontinue cyclobenzaprine, lyrica, carisoprodol VTE ppx: SCDs, low risk Diet: heart healthy Dispo: med/tele Admission and Anticipated Discharge Date Admission Date: October 20, 2024 Supervising Physician Co-Signing Physician Notes I personally examined the patient and verified all moss points of history and exam, discussed case, and agree with decision making with Dr Martinez was doing better then suddenly about a day ago worse dyspnea, new purulent sputum. CXR shows new infiltrate. fatigued but nad, vitals noted fortunately no respiratory distress and is on room air CAP w sepsis present on admission - RSV/asthma flare last week, new onset sx strongly suggest secondary bacterial overgrowth that started ~yesterday. no s evere sepsis/septic shock, MRSA nares negative - likely strep pneumo or H flu level pathogens. abx, supportive care. otherwise as above Subjective Pt is a 74 yo female with PMH of asthma, carcinoid tumor s/p partial right lobectomy, aortic/mitral valve replacements in Aug 2024, and recent hospital admission of AHRF due to RSV infection (discharged on 10/17/24) who presented to ED with worsening cough, SOB, fever and general weakness. Pt was admitted early this morning. She was asleep, but arousable. She reported no new complaints. Review of Systems Review of Systems: As per HPI Physical Exam Physical Exam: General: The patient is asleep, but arousable, well developed and well nourished, normocephalic and atraumatic, in no acute distress. Non-toxic appearing. HEENT: EOMI, mucous membranes dry. Hearing grossly intact. Heart: normal S1 and S2. No murmurs, rubs or gallops. Lungs-diffuse mild wheezing, noted increased work of breathing when talking. Abdomen-normal bowel sounds and soft. No ascites noted. Non-tender. Extremities- no clubbing, cyanosis, or edema. Rheumatologic-normal range of motion. Psychiatric-normal affect. Results & Data Results & Data Vital Signs (Past 12 Hours) Vital Signs Temp Pulse Pulse Resp BP BP Pulse Ox 10/20/24 06:45 73 22 141/72 H 94 10/20/24 05:41 78 10/20/24 05:00 80 22 138/79 93 10/20/24 04:56 81 20 124/67 93 10/20/24 04:15 79 24 139/83 93 10/20/24 04:00 81 20 130/98 92 10/20/24 03:42 90 22 152/81 H 95 10/20/24 03:23 37 C 85 24 133/73 92 10/20/24 02:33 39.3 C H 95 H 24 151/87 H 94 10/20/24 02:22 92 10/20/24 01:50 92 H 18 145/101 H 94 10/20/24 01:42 98 H 10/20/24 01:27 38.5 C H 99 H 20 168/84 H 95 O2 Del Method 10/20/24 06:45 Room Air 10/20/24 05:41 10/20/24 05:00 Room Air 10/20/24 04:56 Room Air 10/20/24 04:15 Room Air 10/20/24 04:00 Room Air 10/20/24 03:42 Nebulizer 10/20/24 03:23 Room Air 10/20/24 02:33 Room Air 10/20/24 02:22 Room Air 10/20/24 01:50 Room Air 10/20/24 01:42 02/15/25 01:27 Room Air Laboratory Results Abnormal lab results 10/20/24 10/20/24 10/20/24 Range/Units 01:50 03:32 05:28 WBC 15.21 H (4.8-10.8) K/ul RBC 4.15 L (4.20-5.40) M/uL Hgb 11.8 L (12.0-16.0) g/dl MCHC 31.7 L (32.0-36.0) g/dL Plt Count 478 H (130-400) K/uL Neut # (Auto) 11.79 H (1.40-6.50) K/uL Moore # (Auto) 1.68 H (0.11-0.59) K/uL Potassium 3.3 L (3.5-5.1) mmol/L BUN/Creatinine Ratio 22.4 H (10-20) Glucose 107 H (70-99(Fasting)) mg/dl Troponin I High Sens 14.7 H (0-14) pg/ml Ur Leukocyte Esterase Trace H (Negative) Urine WBC (Auto) 6-10 H (0-5) /hpf RSV (PCR) DETECTED A (NotDetected) 10/20/24 Range/Units 05:36 WBC (4.8-10.8) K/ul RBC (4.20-5.40) M/uL Hgb (12.0-16.0) g/dl MCHC (32.0-36.0) g/dL Plt Count (130-400) K/uL Neut # (Auto) (1.40-6.50) K/uL Moore # (Auto) (0.11-0.59) K/uL Potassium (3.5-5.1) mmol/L BUN/Creatinine Ratio (10-20) Glucose (70-99(Fasting)) mg/dl Troponin I High Sens 18.1 H (0-14) pg/ml Ur Leukocyte Esterase (Negative) Urine WBC (Auto) (0-5) /hpf RSV (PCR) (NotDetected) Resident Activity Tracking Resident Involvement: Resident Care Provided Care Provided: Adult [facility] Medicine
[2024-10-20] MEDS: FLUTICASONE/VILANTEROL 200/25MCG 14 PUFFS/INHALER INH SCH (11:54)
[2024-10-20] MEDS: VIBEGRON 75 MG TAB PO SCH (11:55)
[2024-10-20] MEDS: lisinopril 10 MG TAB PO SCH (11:55)
[2024-10-20] MEDS: HYOSCYAMINE SULFATE 0.375 MG TABCR PO SCH (11:55)
[2024-10-20] MEDS: POTASSIUM CHLORIDE CRTAB 20 MEQ TABCR PO SCH (11:55)
[2024-10-20] MEDS: PANTOprazole 40 MG TAB PO SCH (11:56)
[2024-10-20] MEDS: ESCITALOPRAM OXALATE 10 MG TAB PO SCH (11:56)
[2024-10-20] MEDS: METOPROLOL SUCC 25MG EXT REL TAB PO SCH (11:56)
[2024-10-20] MEDS: PREGABALIN 50 MG CAP PO SCH (11:56)
[2024-10-20] MEDS: guaiFENesin 600 MG TABCR PO SCH (11:56)
[2024-10-20] MEDS: LEVOTHYROXINE SODIUM 25 MCG TABLET PO STA (11:57)
[2024-10-20] MEDS: PIPERACILLIN/TAZOBACTAM 4.5 GM/100 ML BAG IV SCH (12:00)
[2024-10-20] MEDS ORDERED: methylPREDNISolone 40 MG in SYRINGE 0 ML IV SCH (15:00)
[2024-10-20] MEDS: CHOLESTYRAMINE LIGHT 4 GM PKT PO SCH (15:30)
[2024-10-20] MEDS: AMPICILLIN/SULBACTAM SOD 3,000 MG/100 ML BAG IV SCH (15:37)
[2024-10-20] MEDS ORDERED: LIDOCAINE 4% CREAM 15 GM TUBE EXT PRN (16:40)
[2024-10-20] MEDS ORDERED: DOXYCYCLINE HYCLATE 100 MG in DEXTROSE 5% MINI-B 100 ML IV SCH (18:00)
[2024-10-20] MEDS ORDERED: NON-FORMULARY MEDICATION (Eszopiclone 2 mg tablet) PO SCH (21:00)
[2024-10-20] MEDS: ESZOPICLONE 1 MG TAB PO SCH (22:15)
[2024-10-21] MEDS: BENZONATATE 100 MG CAPSULE PO PRN (00:44)
[2024-10-21] MEDS: LEVOTHYROXINE SODIUM 50 MCG TABLET PO SCH (05:53)
--- NOTE | 2024-10-21 06:59 | Hospitalist Progress Note ---
Date of Service October 21, 2024 Assessment & Plan (1) Hospital-acquired pneumonia: (2) RSV infection: (3) Asthma, moderate persistent: (4) Leukocytosis: (5) Hypokalemia: (6) Hypomagnesemia: (7) Foul smelling urine: (8) S/P partial lobectomy of lung: Plan Patient is a 74 y/o female PMHx of Lung cancer s/p right partial lung lobectomy in 2012, asthma, hypertension, hyperlipidemia, fibromyalgia, hypothyroidism, anxiety, depression, aortic and bicuspid valve replacement July 2024. Patient was admitted 10/09 for elevated troponin thought to be secondary to hypertension and then readmitted 10/13 to 10/15 for RSV and asthma exacerbation. Pt had finished her last dose of PO prednisone on 10/19/24. Chest x-ray on 10/13 showed possible consolidation at right upper lobe, but was not treated with abx during that admission due to improvement of symptoms with steroids, nebulized treatments and supportive care. Patient presented back to the ED with worsening cough, green sputum production, dyspnea, and fever. She stated she saw her PCP yesterday who prescribed her doxycycline and Augmentin to cover pneumonia and UTI, which she has taken 1 dose of. She was admitted for secondary bacterial pneumonia and electrolyte abnormalities. #Secondary pneumonia/RSV/Asthma exacerbation s/p partial lobectomy right lung 2012 due to stage Ia carcinoid lung tumor recent admission 10/13-10/15 for asthma exacerbation and RSV - now RLL PNA CXR showing small consolidation in RL zone, suspicious reticulonodular opacities in RML, persistent suspicious opacities of right lateral chest wall (pleural thickening) MRSA swab-negative Zosyn, doxycycline, prednisone discontinued 10/20 - Continue IV Unasyn 3g q6h - Continue po Tylenol prn, Tessalon Perles, Mucinex, and duonebs - Continue Symbicort for chronic asthma - Goal for oxygen saturation, prn for O2 for sats < 90% - Encourage po oral hydration - Incentive spirometry and flutter valve - Likely transition to PO abx on 10/22 and DC to home #leukocytosis MIld increase in WBC today. Recent prednisone use vs infection Septic on admission with fever, tachycardia, tachypnea, WBC 15.21 lactate and procal negative -Trend CBC #Electrolyte abnormalities Likely due to decreased po intake and diuretic use K+ 3.3, Mg 1.7 on admission. Electrolytes have normalized - Continue holding HCTZ - Continue po KCl 20mEq daily #foul smell urine Patient reports foul-smelling urine and diagnosis of UTI with PCP on 10/19 UA with trace leuk esterase and urine WBC 6-10 Urine culture from UA at PCP office on 10/19 grew E. coli -UTI would be covered with Unasyn as above #elevated troponin 14.7 on admission; 18.1 on repeat at 4 hrs recent admission with trop in 200s 10/07 demand with HTN - monitor on tele Chronic stable diagnoses: s/p aortic and bicuspid valve replacements - as per patient jul 2024, on daily baby ASA anxiety/depression/insomniacontinue Lexapro, lorazepam as needed, eszopiclone HTNcontinue metoprolol, lisinopril; hold HCTZ Hypothyroidismcontinue levothyroxine GERDcontinue home PPI Migrainescontinue Nurtec q. every other day OABcontinue vibegron fibromyalgiacontinue cyclobenzaprine, lyrica, carisoprodol Hemorrhoids- lidocaine 5% ointment PRN VTE ppx: SCDs, low risk Diet: heart healthy Dispo: med/tele Admission and Anticipated Discharge Date Admission Date: October 20, 2024 Supervising Physician Co-Signing Physician Notes I personally examined the patient and verified all moss points of history and exam, discussed case, and agree with decision making with Dr Martinez feeling better than yesterday no new complaints still fatigued. vitals noted nad but is fatigued breathing unlabored lungs quiet/ scattered rhonchi no accessory muscles good effort skin no rashes no pallor or icterus CAP w sepsis present on admission - RSV/asthma flare last week, new onset sx strongly suggest secondary bacterial overgrowth that started ~day of/day prior to admission. no severe sepsis/septic shock, MRSA nares negative - likely strep pneumo or H flu level pathogens. abx, supportive care. hopefully home soon. suspect WBC stayed up due to steroids given in ER otherwise as above Subjective Pt is a 74 yo female with PMH of asthma, carcinoid tumor s/p partial right lobectomy, aortic/mitral valve replacements in Aug 2024, and recent hospital admission of AHRF due to RSV infection (discharged on 10/17/24) who presented to ED on 10/20/24 with worsening cough, SOB, fever and general weakness. Pt had no acute events over night. This morning, She was not able to sleep very well last night due to coughing and shortness of breath. Pt reports expectorating quite a bit of sputum and feels she chest is a little bit looser, but is very tired this morning. Review of Systems Review of Systems: As per HPI Physical Exam Physical Exam: General: The patient is awake and alert, well developed and well nourished, normocephalic and atraumatic, in no acute distress. Non-toxic appearing. HEENT: EOMI, mucous membranes moist. Hearing grossly intact. Voice is high pitched and intermittent loss of volume. Heart: normal S1 and S2. No murmurs, rubs or gallops. Lungs-diffuse wheezing, noted increased work of breathing when talking. Fine crackles heard at right lower lobe. Abdomen-normal bowel sounds and soft. No ascites noted. Non-tender. Extremities- no clubbing, cyanosis, or edema. Rheumatologic-normal range of motion. Psychiatric-normal affect. Results & Data Results & Data Vital Signs (Past 12 Hours) Vital Signs Temp Pulse Pulse Resp BP Pulse Ox O2 Del Method 10/21/24 04:54 36.8 C 71 20 155/94 H 93 Room Air 10/21/24 00:48 37.0 C 67 20 155/76 H 92 Room Air 10/20/24 22:32 79 10/20/24 21:48 Room Air 10/20/24 20:46 36.7 C 83 16 136/73 96 Room Air Resident Activity Tracking Resident Involvement: Resident Care Provided Care Provided: Adult [facility] Medicine
[2024-10-21 08:34] LABS: Basophils # (auto) 0.01 K/uL (0.00-0.20); Basophils % (auto) 0.1 %; Hematocrit (blood only) 34.4 % (37.0-47.0); Hemoglobin 10.9 g/dl (12.0-16.0); Immature Granulocytes # (auto) 0.13 K/uL (0.01-0.20); Immature Granulocytes % (auto) 0.8 %; Lymphocytes # (auto) 1.46 K/uL (1.20-3.40); Lymphocytes % (auto) 9.1 %; Mean Corpuscular Hemoglobin 28.2 pg (25.0-34.0); Mean Corpuscular Hgb Conc 31.7 g/dL (32.0-36.0); Mean Corpuscular Volume 89.1 fL (80.0-100.0); Mean Platelet Volume 9.9 fL (9.4-12.4); Monocytes # (auto) 1.47 K/uL (0.11-0.59); Monocytes % (auto) 9.1 %; Neutrophils # (auto) 13.06 K/uL (1.40-6.50); Neutrophils % (auto) 80.9 %; Platelet Count 410 K/uL (130-400); RDW Coefficient of Variation 13.2 % (11.5-14.5); RDW Standard Deviation 43.3 fL (36.4-46.3); Red Blood Count 3.86 M/uL (4.20-5.40); White Blood Count 16.13 K/ul (4.8-10.8)
[2024-10-21 09:13] LABS: BUN Creatinine Ratio 26.6 (10-20); Calcium 8.5 mg/dl (8.6-10.3); Creatinine Clr Calc Pharmacy 65.5 ml/min; Magnesium 2.3 mg/dl (1.7-2.4); Potassium 3.8 mmol/L (3.5-5.1)
--- NOTE | 2024-10-21 16:14 | Billing Data ---
Date of Service October 21, 2024 Coding Level of Care Code 49920 SUB INP/OBS CARE 3MIN
[2024-10-21] MEDS: ALBUT/IPRATROP 3MG/0.5MG NEB 3 ML VIAL NEB PRN (17:51)
[2024-10-22] MEDS: LEVOTHYROXINE SODIUM 25 MCG TABLET PO SCH (06:04)
[2024-10-22 06:14] LABS: Basophils # (auto) 0.02 K/uL (0.00-0.20); Basophils % (auto) 0.2 %; Eosinophils # (auto) 0.06 K/uL (0.00-0.50); Eosinophils % (auto) 0.5 %; Hematocrit (blood only) 33.9 % (37.0-47.0); Hemoglobin 10.7 g/dl (12.0-16.0); Immature Granulocytes # (auto) 0.09 K/uL (0.01-0.20); Immature Granulocytes % (auto) 0.7 %; Lymphocytes # (auto) 2.03 K/uL (1.20-3.40); Lymphocytes % (auto) 16.8 %; Mean Corpuscular Hemoglobin 28.5 pg (25.0-34.0); Mean Corpuscular Hgb Conc 31.6 g/dL (32.0-36.0); Mean Corpuscular Volume 90.2 fL (80.0-100.0); Monocytes # (auto) 1.17 K/uL (0.11-0.59); Monocytes % (auto) 9.7 %; Neutrophils # (auto) 8.71 K/uL (1.40-6.50); Neutrophils % (auto) 72.1 %; Platelet Count 390 K/uL (130-400); RDW Coefficient of Variation 13.2 % (11.5-14.5); RDW Standard Deviation 44.1 fL (36.4-46.3); Red Blood Count 3.76 M/uL (4.20-5.40); White Blood Count 12.08 K/ul (4.8-10.8)
[2024-10-22 06:38] LABS: BUN Creatinine Ratio 27.1 (10-20); Creatinine Clr Calc Pharmacy 61.9 ml/min; Potassium 3.5 mmol/L (3.5-5.1)
--- NOTE | 2024-10-22 07:01 | Hospitalist Progress Note ---
Date of Service October 22, 2024 Assessment & Plan (1) Hospital-acquired pneumonia: (2) RSV infection: (3) Asthma, moderate persistent: (4) Leukocytosis: (5) Hypokalemia: (6) Hypomagnesemia: (7) Foul smelling urine: (8) S/P partial lobectomy of lung: Plan 1) Hospital-acquired pneumonia: (2) RSV infection: (3) Asthma, moderate persistent: (4) Leukocytosis: (5) Hypokalemia: (6) Hypomagnesemia: (7) Foul smelling urine: (8) S/P partial lobectomy of lung: Plan Patient is a 74 y/o female PMHx of Lung cancer s/p right partial lung lobectomy in 2012, asthma, hypertension, hyperlipidemia, fibromyalgia, hypothyroidism, anxiety/depression, aortic and bicuspid valve replacement July 2024. Patient was admitted 10/09 for elevated troponin thought to be secondary to hypertension and then readmitted 10/13 to 10/15 for RSV and asthma exacerbation. Pt had finished her last dose of PO prednisone on 10/19/24. Chest x-ray on 10/13 showed possible consolidation at right upper lobe, but was not treated with abx during that admission due to improvement of symptoms with steroids, nebulized treatments and supportive care. Patient presented back to the ED with worsening cough, green sputum production, dyspnea, and fever. She stated she saw her PCP yesterday who prescribed her doxycycline and Augmentin to cover pneumonia and UTI, which she has taken 1 dose of. She was admitted for secondary bacterial pneumonia and electrolyte abnormalities. 1) Secondary pneumonia/RSV/Asthma exacerbation s/p partial lobectomy right lung 2012 due to stage Ia carcinoid lung tumor recent admission 10/13-10/15 for asthma exacerbation and RSV --> now RLL PNA CXR showing small consolidation in RL zone, suspicious reticulonodular opacities in RML, persistent suspicious opacities of right lateral chest wall (pleural thickening) MRSA swab-negative --> Zosyn, doxycycline, prednisone discontinued 10/20 - IV Unasyn 3g, q6h during inpatient stay - Continue PO Tylenol prn, Tessalon Perles, Mucinex, and Duonebs during inpatient stay, Continued Symbicort for chronic asthma - O2Sat, on RA, (95% at rest, 96% w/ walking, on morning of discharge) Discharged: - Encouraged PO oral hydration; Incentive spirometry and flutter valve - Augmentin, 875/125 mg, PO, q12 hrs, for 5 more days - Guaifenesin, 1200 mg, PO, BID - Benzonatate, 200 mg, PO, qHS (pt had some at home) 2) leukocytosis WBC, 12.1 <-- 16.1, improved during inpatient stay, recent prednisone use vs infection Septic on admission with fever, tachycardia, tachypnea, WBC 15.21 (recent prednisone use vs infection) lactate and procal negative 3) Electrolyte abnormalities #resolved Likely due to decreased PO intake and diuretic use K, 3.5 <-- 3.3 (admission), Mg 2.3 <-- 1.7 (admission); Ca, 8.0 <-- 8.7 - Continue holding HCTZ - Increased from KCl 20mEq, PO, daily to KCl, 20 mEq, PO, BID 4) Foul-smelling urine/ UTI Patient reports foul-smelling urine and diagnosis of UTI with PCP on 10/19 UA with trace leuk esterase and urine WBC 6-10 Urine culture from UA at PCP office on 10/19 grew E. coli -UTI would be covered with Augmentin that patient was discharged on 5) elevated troponin HSTrop, 18.1 <-- 14.7 (admission) recent admission with trop in 200s d/t demand with HTN - monitored on tele Chronic stable diagnoses: s/p aortic and bicuspid valve replacements - as per patient jul 2024, on daily baby ASA anxiety/depression/insomniacontinue Lexapro, lorazepam as needed, eszopiclone HTNcontinue metoprolol, lisinopril; hold HCTZ Hypothyroidismcontinue levothyroxine GERDcontinue home PPI Migrainescontinue Nurtec q. every other day OABcontinue vibegron fibromyalgiacontinue cyclobenzaprine, lyrica, carisoprodol Hemorrhoids- lidocaine 5% ointment PRN Code status: Full code VTE ppx: SCDs, low risk Diet: heart healthy Dispo: med/tele Admission and Anticipated Discharge Date Admission Date: October 20, 2024 Review of Systems Constitutional: + fatigue and + weakness; no fever and n o chills Respiratory: + cough, + chest congestion, + sputum pr oduction (clear to light green) and + wheezing; no dyspnea on exertion and no hemoptysis Cardiovascular: + orthopnea; no chest pain and no palpit ations Gastrointestinal: + abdominal pain (diffuse AP); no nausea , no vomiting, no constipation and no diarrhea/loose stools Genitourinary: as per Subjective / HPI (no more foul-smelling urine); no dysuria and no urinary frequency Integumentary: no rash and no lesions Neurologic: no tingling, no numbness and no headache(s) Physical Exam Constitutional: WD/WN, vitals as above Respiratory: normal respiratory effort, lungs clear to auscultation normal respiratory effort and + cough (sounds productive) Auscultation: no crackles and no wheezes Cardiovascular: Rate/Rhythm: regular rate and regular rhythm Heart Sounds: + murmur (ERIKA and ELIZABETH borders) Extremities: normal capillary refill; no calf tenderness and no pedal edema Gastrointestinal (Abdomen): Percussion/Palpation: + abdomen tender (mild tenderness of umbilical area d/t needing a BM per pt) Psychiatric: A+Ox3, euthymic affect Results & Data Results & Data Vital Signs (Past 12 Hours) Vital Signs Temp Pulse Resp BP Pulse Ox O2 Del Method O2 Del Method 10/22/24 03:00 36.9 C 69 22 156/90 H 94 Room Air 10/21/24 22:00 37.0 C 69 18 158/83 H 94 Room Air 10/21/24 20:00 Room Air 10/21/24 20:00 Room Air Resident Activity Tracking Resident Involvement: Resident Care Provided Care Provided: Adult Hospital Medicine
[2024-10-22 07:35] VITALS: RESP 16
[2024-10-22] MEDS: POTASSIUM CHLORIDE CRTAB 20 MEQ TABCR PO SCH (09:21)
[2024-10-22 11:01] VITALS: BP 143/81; TEMP 98.4; O2SAT 94
[2024-10-22 13:45] VITALS: PULSE 69
--- NOTE | 2024-10-22 18:23 | Discharge Summary ---
Date of Service October 22, 2024 Admission HPI Per Admitting Provider Patient is a 74 y/o female PMHx of Lung cancer s/p right partial lung lobectomy in 2012, asthma, hypertension, hyperlipidemia, fibromyalgia, hypothyroidism, anxiety, depression, aortic and bicuspid valve replacement July 2024. Patient was admitted 10/09 for elevated troponin thought to be secondary to hypertension and then readmitted 10/13 to 10/15 for RSV and asthma exacerbation. Patient presented back to the ED with worsening cough, green sputum production, dyspnea, and fever. She stated she saw her PCP yesterday who prescribed her doxycycline and Augmentin which she has taken 1 dose of. She is being admitted for hospital-acquired pneumonia and electrolyte abnormalities. Patient seen at bedside with his significant other present. She stated that since she is gone home Tuesday her symptoms of worsened. She noted a fever of 101 yesterday. Nursing at bedside stated temperature was 102.7 when she arrived to ED, now around 98F after Tylenol. Patient stated she is coughing spells along with dyspnea on exertion. She stated her sputum production is green, denies any blood in the sputum. She endorses rhinorrhea, however chronic and unchanged. She denies feeling feverish or with chills, sore throat, chest pain, abdominal pain, nausea, vomiting, diarrhea. She stated she finished her prednisone course yesterday of 50 Mg daily. She stated that she had significant release with DuoNeb treatment in ED and has DuoNebs as needed at home. She stated while at her PCP she was diagnosed with a UTI. She stated that her urine is foul-smelling. She denies dysuria, difficulty urinating, hematuria. Patient denies smoking history. She took her home medications last evening. She wishes to be full code. Admission Exam Per Admitting Provider Physical Exam: The patient is awake, alert and oriented 3, well developed and well nourished, normocephalic and atraumatic, in no acute distress. Non-toxic appearing. HEENT- EOMI, mucous membranes dry. Hearing grossly intact. Heart-normal S1 and S2. No murmurs, rubs or gallops. Lungs-diffuse wheezing, no respiratory distress, no accessory muscle use. Abdomen-normal bowel sounds and soft. No ascites noted. Non-tender. Extremities- no clubbing, cyanosis, or edema. Rheumatologic-normal range of motion. Psychiatric-normal affect. Principal Diagnosis pneumonia Discharge Exam Constitutional WD/WN, vitals as above Respiratory normal respiratory effort, lungs clear to auscultation normal respiratory effort and + cough (sounds productive) Auscultation: no crackles and no wheezes Cardiovascular Rate/Rhythm: regular rate and regular rhythm Heart Sounds: + murmur (ERIKA and ELIZABETH borders) Extremities: normal capillary refill; no calf tenderness and no pedal edema Gastrointestinal (Abdomen) Percussion/Palpation: + abdomen tender (mild tenderness of umbilical area d/t needing a BM per pt) Psychiatric A+Ox3, euthymic affect Discharge Data Allergies Allergy/AdvReac Type Severity Reaction Status Date / Time shellfish derived Allergy Severe throat Verified 05/22/24 12:33 closing , systemic reaction Cephalosporins Allergy Intermediate hives Verified 05/22/24 12:33 methenamine Allergy Intermediate hives Verified 05/22/24 12:33 oxycodone Allergy Intermediate HIVES Verified 05/22/24 12:33 pravastatin [From Pravachol] Allergy Intermediate BODY ACHES Verified 05/22/24 12:33 propoxyphene Allergy Intermediate ITCHING Verified 05/22/24 12:33 AND A RASH Sulfa (Sulfonamide Allergy Intermediate hives Verified 05/22/24 12:33 Antibiotics) sulfamethoxazole Allergy Intermediate hives Verified 05/22/24 12:33 trimethoprim Allergy Intermediate hives Verified 05/22/24 12:33 simvastatin AdvReac Intermediate body aches Verified 05/22/24 12:33 tapentadol AdvReac Intermediate felt very Verified 05/22/24 12:33 uncomfortable - does not ever want hydrocodone AdvReac Mild ITCHING Verified 05/22/24 12:33 hyoscyamine AdvReac Mild Significant Verified 05/22/24 12:33 dry mouth/throat Consultations 10/20/24 04:35 ED Decision to Admit Stat Hospital Course (1) Hospital-acquired pneumonia: (2) RSV infection: (3) Asthma, moderate persistent: (4) Leukocytosis: (5) Hypokalemia: (6) Hypomagnesemia: (7) Foul smelling urine: (8) S/P partial lobectomy of lung: Plan 1) Hospital-acquired pneumonia: (2) RSV infection: (3) Asthma, moderate persistent: (4) Leukocytosis: (5) Hypokalemia: (6) Hypomagnesemia: (7) Foul smelling urine: (8) S/P partial lobectomy of lung: Plan Patient is a 74 y/o female PMHx of Lung cancer s/p right partial lung lobectomy in 2012, asthma, hypertension, hyperlipidemia, fibromyalgia, hypothyroidism, anxiety/depression, aortic and bicuspid valve replacement July 2024. Patient was admitted 10/09 for elevated troponin thought to be secondary to hypertension and then readmitted 10/13 to 10/15 for RSV and asthma exacerbation. Pt had finished her last dose of PO prednisone on 10/19/24. Chest x-ray on 10/13 showed possible consolidation at right upper lobe, but was not treated with abx during that admission due to improvement of symptoms with steroids, nebulized treatments and supportive care. Patient presented back to the ED with worsening cough, green sputum production, dyspnea, and fever. She stated she saw her PCP yesterday who prescribed her doxycycline and Augmentin to cover pneumonia and UTI, which she has taken 1 dose of. She was admitted for secondary bacterial pneumonia and electrolyte abnormalities. 1) Secondary pneumonia/RSV/Asthma exacerbation s/p partial lobectomy right lung 2012 due to stage Ia carcinoid lung tumor recent admission 10/13-10/15 for asthma exacerbation and RSV --> now RLL PNA CXR showing small consolidation in RL zone, suspicious reticulonodular opacities in RML, persistent suspicious opacities of right lateral chest wall (pleural thickening) MRSA swab-negative --> Zosyn, doxycycline, prednisone discontinued 10/20 - IV Unasyn 3g, q6h during inpatient stay - Continue PO Tylenol prn, Tessalon Perles, Mucinex, and Duonebs during inpatient stay, Continued Symbicort for chronic asthma - O2Sat, on RA, (95% at rest, 96% w/ walking, on morning of discharge) Discharged: - Encouraged PO oral hydration; Incentive spirometry and flutter valve - Augmentin, 875/125 mg, PO, q12 hrs, for 5 more days - Guaifenesin, 1200 mg, PO, BID - Benzonatate, 200 mg, PO, qHS (no additional Rx, pt had some at home) - would consider CXR as f/u as outpt to confirm resolution of pneumonia 2) leukocytosis WBC, 12.1 <-- 16.1, improved during inpatient stay, recent prednisone use vs infection Septic on admission with fever, tachycardia, tachypnea, WBC 15.21 (recent prednisone use vs infection) lactate and procal negative 3) Electrolyte abnormalities #resolved Likely due to decreased PO intake and diuretic use K, 3.5 <-- 3.3 (admission), Mg 2.3 <-- 1.7 (admission); Ca, 8.0 <-- 8.7 - Held HCTZ during hospital stay; started again w/ discharge - Increased from KCl 20mEq, PO, daily to KCl, 20 mEq, PO, BID 4) Foul-smelling urine/ UTI Patient reports foul-smelling urine and diagnosis of UTI with PCP on 10/19 UA with trace leuk esterase and urine WBC 6-10 Urine culture from UA at PCP office on 10/19 grew E. coli -UTI would be covered with Augmentin that patient was discharged on 5) elevated troponin HSTrop, 18.1 <-- 14.7 (admission) recent admission with trop in 200s d/t demand with HTN - monitored on tele Chronic stable diagnoses: s/p aortic and bicuspid valve replacements - as per patient jul 2024, on daily baby ASA anxiety/depression/insomniacontinue Lexapro, lorazepam as needed, eszopiclone HTNcontinue metoprolol, lisinopril; hold HCTZ Hypothyroidismcontinue levothyroxine GERDcontinue home PPI Migrainescontinue Nurtec q. every other day OABcontinue vibegron fibromyalgiacontinue cyclobenzaprine, lyrica, carisoprodol Hemorrhoids- lidocaine 5% ointment PRN Total Time Total Time Spent Total Time Spent (In Minutes): 32 min Total Time Includes: Examination of the Patient, Discharge Planning, Medication Reconciliation and Communication With Other Providers Discharge Plan Discharge Items Patient Disposition: Home - Self-Care Reason For Visit: [facility]A PNA,RSV Discharge Diagnosis: Pneumonia Activity: Resume your previous activity Non-emergency contact: Primary Care Provider Call non-emergency contact if: your symptoms worsen Follow-up/Referrals: Maricruz Stevenson DO [Primary Care Provider] - Diet: Regular Addtl Attending Provider Instructions: You were admitted for worsening cough, fever, and shortness of breath. Chest -X-ray showed a pneumonia in your right lung. You were treated with IV antibiotics for both the pneumonia and urinary tract infection noted at your PCP appointment on 10/19/24. Please continue the Augmentin that was prescribed to you at our doctor's office visit on 10/19/23 to finish your course of treatment. Please schedule a follow up visit with your PCP for 10/25 or 10/26. Continue to maintain good hydration at home. You can continue use of Tessalon Perles and Mucinex for cough and congestion. Use your flutter valve/incentive spirometer 5-10 times every 2-3 hours to assist with lung expansion and airway clearance. Thank you for allowing us to care for you at [facility]. Pending Studies at Discharge: No Stand-Alone Forms: My [facility] [employer], Smoking Cessation Medications and DC Order Prescriptions: New guaifenesin [Mucinex] 600 mg Tablet Extended Release 12hr 1,200 mg PO Q12 PRN (Reason: congestion) 7 Days Qty: 14 0RF amoxicillin-pot clavulanate 875-125 mg tablet 1 tab PO Q12H Qty: 10 0RF Continued meclizine 25 mg tablet 25 mg PO TID PRN (Reason: Dizziness) Qty: 60 2RF Nurtec ODT 75 mg tablet,disintegrating 75 mg PO Q OTHER DAY Qty: 16 5RF phenazopyridine [Pyridium] 100 mg tablet 100 mg PO Q8H PRN (Reason: pain) Qty: 60 0RF albuterol sulfate 2.5 mg /3 mL (0.083 %) Solution For Nebulization 2.5 mg INHALATION DIRECTED PRN (Reason: Shortness Of Breath Or Wheezing) tramadol 50 mg Tablet 50 mg PO Q8H PRN (Reason: Pain) lorazepam 0.5 mg Tablet 0.5 mg PO BID PRN (Reason: Anxiety) Patient Comments: pt says its been a while since she has taken hydroxyzine HCl 25 mg Tablet 25 mg PO DAILY PRN (Reason: Itching) metoprolol succinate [Toprol XL] 25 mg Tablet Extended Release 24 Hr 37.5 mg PO QAM epinephrine [EpiPen] 0.3 mg/0.3 mL Auto-Injector 0.3 mg IM DIRECTED PRN (Reason: Allergic Reaction) albuterol sulfate [ProAir HFA] 90 mcg/actuation Hfa Aerosol Inhaler 2 puff INHALATION QID PRN (Reason: Shortness Of Breath Or Wheezing) diclofenac sodium 1 % Gel 2 g TOPICAL QID PRN (Reason: Pain) budesonide-formoterol [Symbicort] 160-4.5 mcg/actuation HFA aerosol inhaler 2 puff INHALATION BID dibucaine 1 % ointment 1 applic TOPICAL TID PRN (Reason: Hemorrhoids) celecoxib [Celebrex] 200 mg Capsule 200 mg PO DIRECTED PRN (Reason: Pain) cyclobenzaprine 10 mg Tablet 10 mg PO TID PRN (Reason: MUSCLE SPASMS) nitroglycerin 0.2 mg/hr Patch 24 Hour 1 patch TRANSDERMAL DAILY Rx Instructions: allow nitrate-free interval of approx. 10-12 hrs per 24-hour period ketorolac 10 mg Tablet 10 mg PO DIRECTED PRN (Reason: Pain) hyoscyamine sulfate 0.375 mg Tablet Extended Release 12 Hr 0.375 mg PO Q12H levothyroxine 50 mcg Tablet 50 mcg PO QAM pantoprazole 40 mg Tablet,Delayed Release (Dr/Ec) 40 mg PO QAM lisinopril 10 mg Tablet 10 mg PO DAILY lidocaine 5 % Adhesive Patch,Medicated 1 patch TOPICAL DAILY PRN (Reason: Pain) Rx Instructions: leave on most painful area for up to 12 hrs carisoprodol 250 mg Tablet 250 mg PO DIRECTED PRN (Reason: NEEDED) omeprazole 20 mg Tablet,Delayed Release (Dr/Ec) 20 mg PO QAM PRN (Reason: Indigestion) Diltiazem 2% Ointment 1 applic topical TID PRN (Reason: Hemorrhoids) diphenoxylate-atropine 2.5-0.025 mg Tablet 1 tab PO DAILY PRN (Reason: Diarrhea) pregabalin 50 mg Capsule 50 mg PO QAM escitalopram oxalate 10 mg tablet 10 mg PO QAM nitroglycerin 0.4 mg Tablet, Sublingual 0.4 mg sublingual UD PRN (Reason: Chest Pain) colchicine 0.6 mg tablet 0.6 mg PO DAILY potassium chloride 20 mEq tablet extended release 20 meq PO DAILY Qty: 5 0RF benzonatate 200 mg capsule 200 mg PO BID PRN (Reason: cough) Qty: 10 0RF vibegron 75 mg tablet 75 mg PO DAILY PRN (Reason: OAB) Discontinued hydromorphone 2 mg Tablet 2 mg PO DIRECTED PRN (Reason: Pain) Discharge Orders: Discharge Order (Routine); Ordered 10/22/24 Ordered By: Edwin Jeff/Andrae Patient Handouts: Amoxicillin/Clavulanate Oral Tablet Admission Data Admit Date/Time: 10/20/24 05:19 Attending Provider: Farida Nogueira Admit Provider: Juan Francisco Navarro Primary Care Provider: Maricruz Stevenson Other Providers: Juan Francisco Navarro Other Interventions: Discharge Summary Assessment (RN) Last Done: 10/22/24 15:40 Supervising Physician Co-Signing Physician Notes I personally examined the patient and verified moss points of history and exam, discussed case, and agree with decision making and plan documented by Dr. Tom. Patient admitted for hospital-acquired pneumonia following recent admission for asthma exacerbation in setting of RSV. Patient feeling much better and hopeful for discharge today. Reviewed the importance of completing Augmentin as prescribed. On exam, patient appears comfortable, lungs clear b/l to auscultation without wheezes, regular rate and rhythm, no acute distress, 94% SpO2 on RA. Patient has follow-up scheduled with her PCP.
== END 2024-10-22 15:58 | disposition home or self-care (01) | DRG 871 ==
LOC: SUATTDRO → ED 01:23 → EDINP 05:19 → SUATTDRO 05:19 → 2N 07:52
DX: K21.9 Gastro-esophageal reflux disease without esophagitis; Z79.899 Other long term (current) drug therapy; G47.00 Insomnia, unspecified; Z88.2 Allergy status to sulfonamides; E87.6 Hypokalemia; G43.909 Migraine, unspecified, not intractable, without status migrainosus; J45.41 Moderate persistent asthma with (acute) exacerbation; E87.8 Other disorders of electrolyte and fluid balance, not elsewhere classified; E78.5 Hyperlipidemia, unspecified; Z88.1 Allergy status to other antibiotic agents; Z90.2 Acquired absence of lung [part of]; N39.0 Urinary tract infection, site not specified; Y95 Nosocomial condition; A41.9 Sepsis, unspecified organism; I10 Essential (primary) hypertension; F32.A Depression, unspecified; I34.0 Nonrheumatic mitral (valve) insufficiency; N32.81 Overactive bladder; Z91.013 Allergy to seafood; Z95.2 Presence of prosthetic heart valve; E83.42 Hypomagnesemia; Z88.5 Allergy status to narcotic agent; R79.89 Other specified abnormal findings of blood chemistry; Z79.890 Hormone replacement therapy; F41.9 Anxiety disorder, unspecified; J15.4 Pneumonia due to other streptococci; Z85.118 Personal history of other malignant neoplasm of bronchus and lung; M79.7 Fibromyalgia; Z88.8 Allergy status to other drugs, medicaments and biological substances; J12.1 Respiratory syncytial virus pneumonia; Z95.5 Presence of coronary angioplasty implant and graft; Z79.51 Long term (current) use of inhaled steroids